=== PATIENT | female | born 1940 | race Caucasian/White ===

== ENCOUNTER 2019-10-08 08:31 | Observation (INO) | payer BC, OTHER ==
[2019-10-08] MEDS ORDERED: METHYLPREDNISOLONE 125 MG INJ ONE (09:00)
[2019-10-08] MEDS ORDERED: predniSONE 20 MG TAB ONE (09:00)
[2019-10-08] MEDS ORDERED: NA CHLORIDE 0.9% 500 ML ONE (09:00)
[2019-10-08] MEDS ORDERED: IPRATROPIUM BROM 0.5MG/2.5ML ONE (09:00)
[2019-10-08] MEDS ORDERED: NA CHLORIDE 0.9% 1,000 ML ONE (09:00)
[2019-10-08] MEDS ORDERED: LEVALBUTEROL 1.25 MG/3 ML NEB ONE ×2 (09:01→09:45)
--- NOTE | 2019-10-08 09:13 | RAD REPORT ---
EXAM DESCRIPTION: RAD - Chest Single View - 10/08/2019 8:58 am CLINICAL HISTORY: COPD;Cough COMPARISON: Chest Pa And Lat (2 Views) dated 06/30/2019; Chest Pa And Lat (2 Views) dated 10/03/2018 TECHNIQUE: AP portable chest image was obtained 10/08/2019 8:58 am . FINDINGS: Lungs are fibrotic with prominent bolus emphysema changes present in each upper lung field . Pattern is not substantially different. Minimal edema or infiltrate can be masked by the chronic in terstitial pattern. Pulmonary arteries are enlarged. No new mediastinal or hilar finding identifiable . Heart and vasculature are normal. No measurable pleural effusion and no pneumothorax. No acute bony abnormality seen. No acute aortic findings suspected. 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 No acute finding from prior study.
[2019-10-08] MEDS ORDERED: CEFTRIAXONE/SWI 1gm 1 GM/10 ML SYR ONE (09:23)
[2019-10-08] MEDS ORDERED: FAMOTIDINE 20 MG/2 ML VIAL IV ONE (09:23)
[2019-10-08 09:24] LABS: Absolute Lymphocytes (CBC) 1.1 K/uL (0.7-4.9); Basophils % 0.4 % (0-1.3); Hematocrit 46.4 % (36.0-45.0); Lymphocytes % 24.1 % (15.3-44.8); MPV 8.3 fL (7.6-11.3); RBC Red Blood Cell Count 4.94 M/uL (3.86-4.86)
[2019-10-08 09:25] LABS: Protime INR 2.27
--- NOTE | 2019-10-08 09:43 | ER ---
Nurse's Notes [facility] Name: Shazia Colin Age: 79 yrs Sex: Female : 1940 Arrival Date: 10/08/2019 Time: 08:33 Bed 6 Private MD: Cruzito Gibson Diagnosis: Dyspnea;Chronic obstructive pulmonary disease with (acute) exacerbation;Influenza due to identified novel influenza A virus Presentation: 10/08 08:44 Presenting complaint: Patient states: Cough and shortness of breath x 1 week. Pt ss reports she began taking Levaquin 4 days ago as prescribed by her PCP. Patient came in today however because she was concerned she may have a blood clot to her L lower leg as she has been having worsening shannon to her lateral aspect of her L lower leg. Denies fever. Transition of care: patient was not received from another setting of care. Resp Distress? No respiratory distress is noted at this time. Onset of symptoms was October 01, 2019. Risk Assessment: Do you want to hurt yourself or someone else? Patient reports no desire to harm self or others. Initial Sepsis Screen: Does the patient meet any 2 criteria? HR > 90 bpm. Does the patient have a suspected source of infection? Yes: Productive cough/pneumonia. Care prior to arrival: None. 08:44 Acuity: MALLY 3 ss 08:44 Method Of Arrival: Ambulatory ss Historical: - Allergies: 08:57 Jennifer; ss 08:57 Bactrim; ss 08:57 Codeine; ss 08:57 Fluconazole; ss 08:57 Hydrocodone-Acetaminophen; ss 08:57 Sulfa (Sulfonamide Antibiotics); ss 08:57 Tetanus Vaccines \T\ Toxoid; ss 08:57 tramadol; ss 08:57 TussiCaps; ss - Home Meds: 08:57 Xarelto 20 mg oral tab 1 tab once daily [Active]; pramipexole 0.75 mg oral tab 1 tab ss nightly [Active]; temazepam 30 mg Oral cap 1 cap nightly [Active]; Symbicort 80-4.5 mcg/actuation inhalation HFAA 2 puffs 2 times per day [Active]; Ocuvite oral oral [Active]; Nexium 20 mg Oral cpDR 1 cap 2 times per day [Active]; Mucinex 600 mg oral Ta12 1 tab every 12 hours [Active]; Claritin 10 mg Oral tab 1 tab once daily [Active]; albuterol sulfate 2.5 mg /3 mL (0.083 %) Nebulizer nebu [Active]; levofloxacin 500 mg Oral tab 1 tab once daily [Active]; - PMHx: 08:57 Anxiety; DVT; PE; ss - PSHx: 08:57 bilateral hip replacements; Cholecystectomy; dental implants; ss - Immunization history:: Adult Immunizations up to date. - Coronavirus screen:: The patient has NOT traveled to [place], [place], or [place] in the past 14 days. Proceed with normal triage process as indicated. - Family history:: not pertinent. - Social history:: Smoking status: Patient denies any tobacco usage or history of. - Ebola Screening: : Patient denies exposure to infectious person Patient denies travel to an Ebola-affected area in the 21 days before illness onset. Screenin:20 Abuse screen: Denies threats or abuse. Nutritional screening: No deficits noted. aa5 Tuberculosis screening: No symptoms or risk factors identified. Fall Risk IV access (20 points). Total Han Fall Scale indicates No Risk (0-24 pts). Assessment: 09:00 General: Appears uncomfortable, Behavior is calm, cooperative. Pain: Complains of pain aa5 in medial aspect of left calf and lateral aspect of left calf Pain does not radiate. Pain currently is 0 out of 10 on a pain scale. Quality of pain is described as sharp, Is intermittent. Neuro: Level of Consciousness is awake, alert, obeys commands, Oriented to person, place, time, situation. Cardiovascular: Heart tones S1 S2 present Patient's skin is warm and dry. Edema is absent. Rhythm is regular. Respiratory: Reports shortness of breath at rest cough that is productive, Airway is patent Respiratory effort is even, unlabored, Respiratory pattern is regular, symmetrical, Breath sounds are diminished bilaterally. GI: Abdomen is flat, non-distended, Bowel sounds present X 4 quads. Abd is soft and non tender X 4 quads. : No signs and/or symptoms were reported regarding the genitourinary system. EENT: Reports nasal congestion. Derm: Skin is pink, warm \T\ dry. Musculoskeletal: Range of motion: intact in all extremities. 09:17 Reassessment: US at bedside . aa5 09:33 Reassessment: Patient is alert, oriented x 3, equal unlabored respirations, skin aa5 warm/dry/pink. Pt reports SOB has improved. US remains at bedside. . 09:39 General: Appears uncomfortable. Neuro: Level of Consciousness is awake, alert, obeys aa5 commands, Oriented to person, place, time, situation. Respiratory: Airway is patent Respiratory effort is labored, Respiratory pattern is tachypnea Breath sounds with wheezes bilaterally. Derm: Skin is pink, warm \T\ dry. 09:39 Reassessment: Dr. Dickson at bedside . aa5 10:05 Reassessment: Urine collected and urine culture sent to lab . aa5 10:10 Reassessment: Pt appears more comfortable than previous assessment, respirations are aa5 less labored, pt reports SOB has improved. Wheezing diminished. . 10:30 Reassessment: Pt assisted with bedside commode, increased work of breathing noted upon aa5 getting up from the bed. Pt now back in bed, sitting up. Pt's family at bedside . 11:00 Reassessment: Patient is alert, oriented x 3, equal unlabored respirations, skin aa5 warm/dry/pink. Patient states feeling better. Patient states symptoms have improved. Pt sitting up in bed. . 12:00 Reassessment: Patient is alert, oriented x 3, equal unlabored respirations, skin aa5 warm/dry/pink. Pt sitting up in bed eating lunch. . 13:00 Reassessment: Patient is alert, oriented x 3, equal unlabored respirations, skin aa5 warm/dry/pink. Vital Signs: 08:57 BP 179 / 100; Pulse 97; Resp 25; Temp 98.3(TE); Pulse Ox 97% on R/A; Weight 52.16 kg; ss Height 5 ft. 2 in. (157.48 cm); Pain 0/10; 09:39 BP 172 / 76; Pulse 96; Resp 32 S; Pulse Ox 97% on 2 lpm NC; aa5 10:10 BP 157 / 72; Pulse 107; Resp 24 S; Pulse Ox 99% on 2 lpm NC; aa5 11:00 BP 159 / 72; Pulse 100; Resp 22 S; Temp 98.2(O); Pulse Ox 98% on 2 lpm NC; aa5 12:00 BP 142 / 85; Pulse 101; Resp 22 S; Pulse Ox 98% on 2 lpm NC; aa5 13:00 BP 165 / 83; Pulse 103; Resp 24 S; Temp 98.3(O); Pulse Ox 98% on 2 lpm NC; aa5 08:57 Body Mass Index 21.03 (52.16 kg, 157.48 cm) ED Course: 08:33 Patient arrived in ED. mr 08:33 Garcia Dickson MD is Attending Physician. kamala 08:34 Cruzito Gibson MD is Private Physician. mr 08:50 Triage completed. ss 08:54 Casa Tovar, THOMAS is Primary Nurse. em 08:57 XRAY Chest (1 view) In Process Unspecified. EDMS 08:57 Arm band placed on right wrist. ss 09:00 Patient has correct armband on for positive identification. Bed in low position. Call aa5 light in reach. Side rails up X2. monitoring tech on. Pulse ox on. NIBP on. 09:00 Inserted saline lock: 20 gauge in right antecubital area, using aseptic technique. aa5 Blood collected. 09:00 First set of blood cultures drawn by me. aa5 09:15 Second set of blood cultures drawn by lab staff. aa5 09:18 Ultrasound completed. Patient tolerated well. sg3 09:40 US Extremity Venous W Compression Evin In Process Unspecified. EDMS 09:41 Conner Branch MD is Hospitalizing Provider. kamala 13:05 No provider procedures requiring assistance completed. Patient admitted, IV remains in aa5 place. Administered Medications: 09:02 Drug: Xopenex 2.5 mg Route: Inhalation; aa5 09:02 Drug: AtroVENT Aerosol 0.5 mg Route: Inhalation; aa5 09:04 Drug: SOLU-Medrol 125 mg Route: IVP; Site: right antecubital; aa5 09:45 Follow up: Response: No adverse reaction aa5 09:04 Drug: NS 0.9% 500 ml Route: IV; Rate: bolus; Site: right antecubital; aa5 09:45 Follow up: IV Status: Completed infusion; IV Intake: 500ml aa5 09:04 Drug: NS 0.9% 1000 ml Route: IV; Rate: 125 ml/hr; Site: right antecubital; aa5 13:05 Follow up: IV Status: Infusion continued upon admission aa5 09:10 Drug: predniSONE 20 mg Route: PO; aa5 09:45 Follow up: Response: No adverse reaction aa5 09:28 Drug: Pepcid 20 mg Route: IVP; Site: right antecubital; aa5 :45 Follow up: Response: No adverse reaction aa5 :45 Drug: Rocephin 1 grams Route: IV; Rate: per protocol; Site: right antecubital; aa5 09:47 Follow up: Response: No adverse reaction; IV Status: Completed infusion aa5 :45 Drug: Tamiflu 75 mg Route: PO; aa5 10:10 Follow up: Response: No adverse reaction aa5 :45 Drug: Xopenex 2.5 mg Route: Inhalation; aa5 10:10 Follow up: Response: Marked relief of symptoms; Wheezing diminished aa5 Intake: :45 IV: 500ml; Total: 500ml. aa5 Outcome: 09:42 Decision to Hospitalize by Provider. [facility] 13:05 Admitted to Tele accompanied by tech, family with patient, via stretcher, with oxygen, aa5 with chart, Report called to THOMAS Clemente 13:05 Condition: stable 13:05 Discharge instructions given to patient, Instructed on the need for admit, Demonstrated understanding of instructions. 13:15 Patient left the ED. aa5 Signatures: Dispatcher [employer] Garcia Rangel MD MD cha Rivera, Jodi Casa Tovar, RN Falguni Rocha RN RN aaBarbara Wiggins RN RN ss Godinez, Sarah sg3 Corrections: (The following items were deleted from the chart) 09:14 09:00 Inserted saline lock: 20 gauge 24 gauge antecubital area, using aseptic aa5 technique. Blood collected. aa5 09:32 09:00 Respiratory: Reports shortness of breath at rest cough that is productive, Airway aa5 is patent Respiratory effort is even, unlabored, Respiratory pattern is regular, symmetrical, aa5 10:19 10:10 Reassessment: Pt appears more comfortable than previous assessment, respirations aa5 are less labored. . aa5 10:21 10:10 Reassessment: Pt appears more comfortable than previous assessment, respirations aa5 are less labored, pt reports SOB has improved. . aa5 13:15 09:00 Respiratory: Reports shortness of breath at rest cough that is productive, Airway aa5 is patent Respiratory effort is even, unlabored, Respiratory pattern is regular, symmetrical, Breath sounds are clear bilaterally. aa5
--- NOTE | 2019-10-08 09:44 | EDPHYS ---
Physician Documentation [facility] Name: Shazia Colin Age: 79 yrs Sex: Female : 1940 Arrival Date: 10/08/2019 Time: 08:33 Bed 6 Private MD: Cruzito Gibson ED Physician Garcia Dickson HPI: 10/08 08:49 This 79 yrs old Female presents to ER via Unassigned with complaints of kamala Possible Blood clot, Cough, Congestion. 08:49 The patient or guardian reports airway noise, cough, difficulty breathing. kamala 08:50 Onset: The symptoms/episode began/occurred 5 day(s) ago. Severity of symptoms: At their kamala worst the symptoms were mild, in the emergency department the symptoms are unchanged. Modifying factors: The symptoms are alleviated by nothing, the symptoms are aggravated by nothing. Associated signs and symptoms: The patient has no apparent associated signs or symptoms. The patient has not experienced similar symptoms in the past. Historical: - Allergies: 08:57 Jennifer; ss 08:57 Bactrim; ss 08:57 Codeine; ss 08:57 Fluconazole; ss 08:57 Hydrocodone-Acetaminophen; ss 08:57 Sulfa (Sulfonamide Antibiotics); ss 08:57 Tetanus Vaccines \T\ Toxoid; ss 08:57 tramadol; ss 08:57 TussiCaps; ss - Home Meds: 08:57 Xarelto 20 mg oral tab 1 tab once daily [Active]; pramipexole 0.75 mg oral tab 1 tab ss nightly [Active]; temazepam 30 mg Oral cap 1 cap nightly [Active]; Symbicort 80-4.5 mcg/actuation inhalation HFAA 2 puffs 2 times per day [Active]; Ocuvite oral oral [Active]; Nexium 20 mg Oral cpDR 1 cap 2 times per day [Active]; Mucinex 600 mg oral Ta12 1 tab every 12 hours [Active]; Claritin 10 mg Oral tab 1 tab once daily [Active]; albuterol sulfate 2.5 mg /3 mL (0.083 %) Nebulizer nebu [Active]; levofloxacin 500 mg Oral tab 1 tab once daily [Active]; - PMHx: 08:57 Anxiety; DVT; PE; ss - PSHx: 08:57 bilateral hip replacements; Cholecystectomy; dental implants; ss - Immunization history:: Adult Immunizations up to date. - Coronavirus screen:: The patient has NOT traveled to [place], [place], or [place] in the past 14 days. Proceed with normal triage process as indicated. - Family history:: not pertinent. - Social history:: Smoking status: Patient denies any tobacco usage or history of. - Ebola Screening: : Patient denies exposure to infectious person Patient denies travel to an Ebola-affected area in the 21 days before illness onset. ROS: 08:50 Constitutional: Negative for fever, chills, and weight loss, Eyes: Negative for injury, kamala pain, redness, and discharge, ENT: Negative for injury, pain, and discharge, Neck: Negative for injury, pain, and swelling, Cardiovascular: Negative for chest pain, palpitations, and edema, Abdomen/GI: Negative for abdominal pain, nausea, vomiting, diarrhea, and constipation, Back: Negative for injury and pain, : Negative for injury, bleeding, discharge, and swelling, Skin: Negative for injury, rash, and discoloration, Neuro: Negative for headache, weakness, numbness, tingling, and seizure, Psych: Negative for depression, anxiety, suicide ideation, homicidal ideation, and hallucinations, Allergy/Immunology: Negative for hives, rash, and allergies, Endocrine: Negative for neck swelling, polydipsia, polyuria, polyphagia, and marked weight changes, Hematologic/Lymphatic: Negative for swollen nodes, abnormal bleeding, and unusual bruising. 08:50 Respiratory: Positive for cough, shortness of breath, at rest. 08:50 MS/extremity: Positive for pain, tenderness, of the lateral aspect of left calf. Exam: 08:50 Musculoskeletal/extremity: Extremities: pain, ROM: full active range of motion, full kamala passive range of motion, Circulation is intact in all extremities. Sensation intact. Compartment Syndrome exam of affected extremity: is normal. DVT Exam: no swelling, no tenderness, negative Homans' sign noted on exam, no appreciated bluish discoloration, no erythema, no increased warmth, pain. 09:40 Constitutional: This is a well developed, well nourished patient who is awake, alert, kamala and in no acute distress. Head/Face: Normocephalic, atraumatic. Eyes: Pupils equal round and reactive to light, extra-ocular motions intact. Lids and lashes normal. Conjunctiva and sclera are non-icteric and not injected. Cornea within normal limits. Periorbital areas with no swelling, redness, or edema. ENT: Nares patent. No nasal discharge, no septal abnormalities noted. Tympanic membranes are normal and external auditory canals are clear. Oropharynx with no redness, swelling, or masses, exudates, or evidence of obstruction, uvula midline. Mucous membranes moist. Neck: Trachea midline, no thyromegaly or masses palpated, and no cervical lymphadenopathy. Supple, full range of motion without nuchal rigidity, or vertebral point tenderness. No Meningismus. Chest/axilla: Normal chest wall appearance and motion. Nontender with no deformity. No lesions are appreciated. Cardiovascular: Regular rate and rhythm with a normal S1 and S2. No gallops, murmurs, or rubs. Normal PMI, no JVD. No pulse deficits. Abdomen/GI: Soft, non-tender, with normal bowel sounds. No distension or tympany. No guarding or rebound. No evidence of tenderness throughout. Back: No spinal tenderness. No costovertebral tenderness. Full range of motion. Female : Normal external genitalia. Skin: Warm, dry with normal turgor. Normal color with no rashes, no lesions, and no evidence of cellulitis. Neuro: Awake and alert, GCS 15, oriented to person, place, time, and situation. Cranial nerves II-XII grossly intact. Motor strength 5/5 in all extremities. Sensory grossly intact. Cerebellar exam normal. Normal gait. Psych: Awake, alert, with orientation to person, place and time. Behavior, mood, and affect are within normal limits. 09:40 Respiratory: mild respiratory distress is noted, Respirations: labored breathing, that is mild, Breath sounds: decreased breath sounds, rhonchi, wheezing: inspiratory expiratory Respiratory rate: 26 Vital Signs: 08:57 BP 179 / 100; Pulse 97; Resp 25; Temp 98.3(TE); Pulse Ox 97% on R/A; Weight 52.16 kg; ss Height 5 ft. 2 in. (157.48 cm); Pain 0/10; 09:39 BP 172 / 76; Pulse 96; Resp 32 S; Pulse Ox 97% on 2 lpm NC; aa5 10:10 BP 157 / 72; Pulse 107; Resp 24 S; Pulse Ox 99% on 2 lpm NC; aa5 11:00 BP 159 / 72; Pulse 100; Resp 22 S; Temp 98.2(O); Pulse Ox 98% on 2 lpm NC; aa5 12:00 BP 142 / 85; Pulse 101; Resp 22 S; Pulse Ox 98% on 2 lpm NC; aa5 13:00 BP 165 / 83; Pulse 103; Resp 24 S; Temp 98.3(O); Pulse Ox 98% on 2 lpm NC; aa5 08:57 Body Mass Index 21.03 (52.16 kg, 157.48 cm) ss MDM: 08:35 Patient medically screened. [facility] 08:54 Data reviewed: vital signs, nurses notes, lab test result(s), EKG, radiologic studies, kamala doppler, plain films. 10/08 08:47 Order name: Basic Metabolic Panel; Complete Time: 09:52 [facility] 10/08 08:47 Order name: CBC with Diff; Complete Time: 09:28 [facility] 10/08 08:47 Order name: LFT's; Complete Time: 09:52 [facility] 10/08 08:47 Order name: Magnesium; Complete Time: 09:52 [facility] 10/08 08:47 Order name: NT PRO-BNP; Complete Time: 09:52 [facility] 10/08 08:47 Order name: PT-INR; Complete Time: 09:28 [facility] 10/08 08:47 Order name: Troponin (emerg Dept Use Only); Complete Time: 09:52 [facility] 10/08 08:47 Order name: Blood Culture Adult (2) [facility] 10/08 08:47 Order name: Procalcitonin; Complete Time: 10:43 [facility] 10/08 08:47 Order name: Urine Culture [facility] 10/08 08:47 Order name: Influenza Screen (a \T\ B); Complete Time: 09:38 [facility] 10/08 08:49 Order name: Lactate; Complete Time: 09:38 [facility] 10/08 11:48 Order name: Troponin I EDIA 10/08 11:48 Order name: Troponin I EDMS 10/08 08:47 Order name: XRAY Chest (1 view); Complete Time: 09:28 [facility] 10/08 08:47 Order name: EKG; Complete Time: 08:48 [facility] 10/08 08:47 Order name: US Extremity Venous W Compression Evin; Complete Time: 10:43 [facility] 10/08 11:48 Order name: CONS Pharmacy Consult EDIA 10/08 11:48 Order name: Troponin I [facility]IA 10/08 11:48 Order name: Troponin I [facility] 10/08 08:47 Order name: Cardiac monitoring; Complete Time: 09:13 [facility] 10/08 08:47 Order name: EKG - Nurse/Tech; Complete Time: 09:18 [facility] 10/08 08:47 Order name: IV Saline Lock; Complete Time: 09:13 [facility] 10/08 08:47 Order name: Labs collected and sent; Complete Time: 09:13 [facility] 10/08 08:47 Order name: O2 Per Protocol; Complete Time: 09:13 [facility] 10/08 08:47 Order name: O2 Sat Monitoring; Complete Time: 09:13 [facility] 10/08 08:47 Order name: Urine Dipstick-Ancillary (obtain specimen); Complete Time: 10:14 [facility] 10/08 11:48 Order name: Heart Healthy EDIA Administered Medications: 09:02 Drug: Xopenex 2.5 mg Route: Inhalation; 09:02 Drug: AtroVENT Aerosol 0.5 mg Route: Inhalation; 09:04 Drug: SOLU-Medrol 125 mg Route: IVP; Site: right antecubital; aa5 09:45 Follow up: Response: No adverse reaction 09:04 Drug: NS 0.9% 500 ml Route: IV; Rate: bolus; Site: right antecubital; aa5 09:45 Follow up: IV Status: Completed infusion; IV Intake: 500ml 09:04 Drug: NS 0.9% 1000 ml Route: IV; Rate: 125 ml/hr; Site: right antecubital; aa5 13:05 Follow up: IV Status: Infusion continued upon admission aa5 09:10 Drug: predniSONE 20 mg Route: PO; aa5 09:45 Follow up: Response: No adverse reaction aa5 09:28 Drug: Pepcid 20 mg Route: IVP; Site: right antecubital; aa5 09:45 Follow up: Response: No adverse reaction aa5 09:45 Drug: Rocephin 1 grams Route: IV; Rate: per protocol; Site: right antecubital; aa5 09:47 Follow up: Response: No adverse reaction; IV Status: Completed infusion aa5 09:45 Drug: Tamiflu 75 mg Route: PO; aa5 10:10 Follow up: Response: No adverse reaction aa5 09:45 Drug: Xopenex 2.5 mg Route: Inhalation; aa5 10:10 Follow up: Response: Marked relief of symptoms; Wheezing diminished aa5 Disposition: 10/08/19 09:42 Hospitalization ordered by Conner Branch for Inpatient Admission. Preliminary diagnosis are Dyspnea, Chronic obstructive pulmonary disease with (acute) exacerbation, Influenza due to identified novel influenza A virus. - Bed requested for Telemetry/MedSurg (Inpatient). - Status is Inpatient Admission. aa5 - Condition is Fair. - Problem is new. - Symptoms have improved. UTI on Admission? No Signatures: Dispatcher [employer] EDMS Garcia Dickson MD MD cha Calderon, Audri, RN RN aa5 Barbara Salgado RN RN ss Corrections: (The following items were deleted from the chart) 09:40 08:50 Constitutional: This is a well developed, well nourished patient who is awake, kamala alert, and in no acute distress. Head/Face: Normocephalic, atraumatic. Eyes: Pupils equal round and reactive to light, extra-ocular motions intact. Lids and lashes normal. Conjunctiva and sclera are non-icteric and not injected. Cornea within normal limits. Periorbital areas with no swelling, redness, or edema. ENT: Nares patent. No nasal discharge, no septal abnormalities noted. Tympanic membranes are normal and external auditory canals are clear. Oropharynx with no redness, swelling, or masses, exudates, or evidence of obstruction, uvula midline. Mucous membranes moist. Neck: Trachea midline, no thyromegaly or masses palpated, and no cervical lymphadenopathy. Supple, full range of motion without nuchal rigidity, or vertebral point tenderness. No Meningismus. Chest/axilla: Normal chest wall appearance and motion. Nontender with no deformity. No lesions are appreciated. Cardiovascular: Regular rate and rhythm with a normal S1 and S2. No gallops, murmurs, or rubs. Normal PMI, no JVD. No pulse deficits. Respiratory: Lungs have equal breath sounds bilaterally, clear to auscultation and percussion. No rales, rhonchi or wheezes noted. No increased work of breathing, no retractions or nasal flaring. Abdomen/GI: Soft, non-tender, with normal bowel sounds. No distension or tympany. No guarding or rebound. No evidence of tenderness throughout. Back: No spinal tenderness. No costovertebral tenderness. Full range of motion. Skin: Warm, dry with normal turgor. Normal color with no rashes, no lesions, and no evidence of cellulitis. MS/ Extremity: Pulses equal, no cyanosis. Neurovascular intact. Full, normal range of motion. Neuro: Awake and alert, GCS 15, oriented to person, place, time, and situation. Cranial nerves II-XII grossly intact. Motor strength 5/5 in all extremities. Sensory grossly intact. Cerebellar exam normal. Normal gait. Psych: Awake, alert, with orientation to person, place and time. Behavior, mood, and affect are within normal limits. [facility] 12:47 09:42 Hospitalization Ordered by Conner Branch MD for Inpatient Admission. Preliminary ss diagnosis is Dyspnea; Chronic obstructive pulmonary disease with (acute) exacerbation; Influenza due to identified novel influenza A virus. Bed requested for Telemetry/MedSurg (Inpatient). Status is Inpatient Admission. Condition is Fair. Problem is new. Symptoms have improved. UTI on Admission? No. [facility] 13:15 12:47 10/08/2019 09:42 Hospitalization Ordered by Conner Branch MD for Inpatient aa5 Admission. Preliminary diagnosis is Dyspnea; Chronic obstructive pulmonary disease with (acute) exacerbation; Influenza due to identified novel influenza A virus. Bed requested for Telemetry/MedSurg (Inpatient). Status is Inpatient Admission. Condition is Fair. Problem is new. Symptoms have improved. UTI on Admission? No. ss
[2019-10-08] MEDS ORDERED: OSELTAMIVIR 75 MG CAP ONE (09:45)
[2019-10-08 09:48] LABS: ALT/SGPT 21 U/L (12-78); AST/SGOT 25 U/L (15-37); Albumin 3.5 g/dL (3.4-5.0); Alkaline Phosphatase 103 U/L (45-117); BUN Blood Urea Nitrogen 14 mg/dL (7-18); Bicarbonate 29 mmol/L (21-32); Bilirubin Direct 0.2 mg/dL (0-0.2); Bilirubin Total 0.5 mg/dL (0.2-1.0); Glucose Level 112 mg/dL (74-106); Magnesium 1.9 mg/dL (1.8-2.4); NT PRO-BNP 309 pg/mL (<450); Potassium 4.1 mmol/L (3.5-5.1); Protein, Total 7.1 g/dL (6.4-8.2); Sodium Level 141 mmol/L (136-145); Troponin (Emerg Dept Use Only) < 0.02 ng/mL (0.0-0.045)
--- NOTE | 2019-10-08 10:36 | RAD REPORT ---
EXAM DESCRIPTION: US - Extrem Venous W Compress Evin - 10/08/2019 9:40 am CLINICAL HISTORY: Leg pain and swelling, pain worse on the left COMPARISON: None. TECHNIQUE: Real-time sonographic evaluation of the bilateral lower extremity common femoral, superfi cial femoral, popliteal and posterior tibial veins was performed. FINDINGS: Normal compressibility, flow augmentation, phasic flow and spontaneous flow are identified in the left and right lower extremity common femoral, superficial femoral, popliteal and posterior t ibial veins. No intraluminal filling defects seen. IMPRESSION: No DVT in either lower extremity.
[2019-10-08] MEDS ORDERED: ONDANSETRON 4 MG/2 ML VIAL IV PRN (11:45)
[2019-10-08] MEDS ORDERED: MORPHINE 2 MG/ML SYR IV PRN (11:45)
[2019-10-08] MEDS ORDERED: ALBUTEROL 2.5 MG/3 ML NEB SOL NEB SCH (12:00)
[2019-10-08] MEDS: NA CHLORIDE 0.9% 1,000 ML IV SCH ×3 (12:00→22:00)
[2019-10-08] MEDS: IPRATROPIUM BROM 0.5MG/2.5ML NEB SCH ×3 (13:35→19:35)
[2019-10-08 13:41] VITALS: BMI 22.4
[2019-10-08] MEDS ORDERED: ALBUTEROL 2.5 MG/3 ML NEB SOL NEB PRN ×2 (14:11→15:00)
[2019-10-08] MEDS ORDERED: HYDRALAZINE HCL 20 MG/ML VIAL IV PRN (14:11)
[2019-10-08] MEDS ORDERED: ACETAMINOPHEN 500 MG TAB PO PRN (14:46)
[2019-10-08] MEDS: METHYLPREDNISOLONE 125 MG INJ IV SCH ×2 (14:59→18:09)
[2019-10-08] MEDS ORDERED: TEMAZEPAM 15 MG CAP PO SCH (21:00)
[2019-10-08] MEDS ORDERED: PRAMIPEXOLE 0.25 MG TAB PO SCH (21:00)
[2019-10-08] MEDS: GUAIFENESIN 600 MG SA TAB PO SCH (21:08)
[2019-10-08] MEDS: OSELTAMIVIR 75 MG CAP PO SCH (21:08)
[2019-10-09] MEDS: METHYLPREDNISOLONE 125 MG INJ IV SCH ×2 (00:48→05:06)
--- NOTE | 2019-10-09 00:53 | HP ---
Date of Admission: 10/08/2019 Presenting Complaint: Shortness of breath and chest congestion. History Of Present Illness: Ms. 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 She denies any cough contacts. She denies any fevers or chills. She admits to exertional dyspnea. She denies any body swelling. She feels fullness in the head, but no headache. On present ation, she was noted with wheezing and started on DuoNebs with improvement in her symptoms. Her flu swab was positive for influenza A. patient admitted to history of Symbicort use, but unsure if she h as had known COPD. Past Medical History: COPD, history of DVT, chronic anticoagulation, anxiety disorder. Home Medications: Xarelto 20 daily, pramipexole 0.75 daily, temazepam at bedtime, Symbicort 2 puffs b.i.d., Ocuvite, Mucinex, Nexium, Claritin, as well as albuterol p.r.n. Past Surgical History: Bilateral hip replacement, cholecystectomy, as well as dental implant. Family History: Noncontributory in this 79-year-old. Social History: Patient resides in the community. She lives with her spouse who is 90. He is curre ntly not sick, but had significant exposure to her in the last couple of days. She denies any tobacc o, alcohol, or illicit drug use. She denies any recent travel. Review of Systems: All system review and negative, except as mentioned above. Physical Examination: Vital Signs: On presentation, blood pressure was 179/100. Current vitals; blood pressure of 159/86, pulse of 83, respiratory rate of 20, temp 98.3, O2 saturation 97 on room air. General: Thin built, elderly female, in mild respiratory distress, on nasal cannula O2. HEENT: Head is atraumatic, normocephalic. Pupils equal, round, and reactive to light. Dry oral muc esteban. No rhinorrhea or discharge. Neck: No JVD. No carotid bruit. Respiratory: Good air entry with transmitted sounds on the right base. No wheeze or increased echo- phoning. Cardiovascular: S1, S2. Rate and rhythm regular. Not tachycardic. GI: Abdomen full, soft. Bowel sounds positive. Extremities: No pedal edema. No calf tenderness. Neuro: Patient is alert and oriented. Cranial nerves 2 through 12 grossly intact. Laboratory Data: Influenza A positive. Negative influenza B. WBC 4.5, hemoglobin 15. INR 2.2, PT 25, potassium 4.1, creatinine 0.7, magnesium 1.9. ProBNP of 309. Procalcitonin less than 0.05. [address] x-ray shows mild COPD with bullous emphysema in the upper lung quinonez. No acute infiltrate. Urin alysis pending. Impression: 1.Influenza A bronchitis. 2.Chronic obstructive pulmonary disease exacerbation. 3.Anxiety disorder. Plan: We will admit patient and we will manage patient for the following in inpatient status. 1.COPD exacerbation. We will do IV steroids, DuoNeb q.4. We will start patient on empirical antibi otics with Rocephin. We will do gentle IV fluid hydration despite mildly elevated proBNP. We will f ollow. Continue to monitor O2 level. 2.Influenza A. We will start patient on Tamiflu and need for prophylaxis for close contact discusse d. 3.DVT prophylaxis. Patient on Xarelto. Continue Xarelto. 4.Advanced directive discussed with patient. She was initially hesitant, but later agreeable to a t rial of full code. Total time spent in review of record, discussion with patient, and evaluation was greater than 60 min utes. EO/MODL Voice ID: [id number]
[2019-10-09] MEDS: IPRATROPIUM BROM 0.5MG/2.5ML NEB SCH ×2 (04:45)
[2019-10-09] MEDS ORDERED: IPRATROPIUM BROM 0.5MG/2.5ML ONE (04:46)
[2019-10-09 05:56] LABS: ALT/SGPT 19 U/L (12-78); AST/SGOT 16 U/L (15-37); Alkaline Phosphatase 93 U/L (45-117); BUN Blood Urea Nitrogen 12 mg/dL (7-18); Bicarbonate 28 mmol/L (21-32); Bilirubin Total 0.3 mg/dL (0.2-1.0); Glucose Level 172 mg/dL (74-106); Protein, Total 6.1 g/dL (6.4-8.2); Sodium Level 144 mmol/L (136-145); Troponin I < 0.02 ng/mL (0.0-0.045)
[2019-10-09 06:53] LABS: Absolute Lymphocytes (CBC) 0.4 K/uL (0.7-4.9); Hematocrit 41.4 % (36.0-45.0); Lymphocytes % 17.7 % (15.3-44.8); MPV 8.5 fL (7.6-11.3); RBC Red Blood Cell Count 4.44 M/uL (3.86-4.86)
[2019-10-09] MEDS ORDERED: IPRATROPIUM BROM 0.5MG/2.5ML NEB PRN (07:26)
[2019-10-09 07:52] LABS: Urine White Blood Cell Casts OK
[2019-10-09 07:53] LABS: Blood Morphology Comment NOT SEEN (NOT SEEN); Platelet Estimate ADEQ
--- NOTE | 2019-10-09 08:26 | EKG ---
Test Date: 2019-10-08 Test Time: 09:42:30 Geological Aide: SHARONDA MEASUREMENT RESULTS: Intervals: Rate: 94 SD: 138 QRSD: 86 QT: 358 QTc: 447 [place]: P: 91 SD: 138 QRS: 89 T: 85 INTERPRETIVE STATEMENTS: Normal sinus rhythm Possible Left atrial enlargement Septal infarct, age undetermined Abnormal ECG Compared to ECG 10/01/2016 06:40:49 Myocardial infarct finding now present Electronically Signed On 10-09-19 08:25:11 JALOUSIE INSTALLER by Landon Carter
[2019-10-09 08:48] VITALS: BP 153/72; TEMP 98
[2019-10-09] MEDS: GUAIFENESIN 600 MG SA TAB PO SCH (08:56)
[2019-10-09] MEDS ORDERED: RIVAROXABAN 20 MG TABLET PO SCH (09:00)
[2019-10-09] MEDS ORDERED: predniSONE 10 MG TAB PO SCH (09:00)
[2019-10-09] MEDS ORDERED: HOME MED 1 EA UNK (Budesonide/Formoterol Fumarate [Symbicort 80-4.5 Mcg Inhaler] 2 PUFF) IH SCH (09:00)
[2019-10-09] MEDS ORDERED: OCUVITE (VIT A,C & E/LUTEIN/MINERAL) TABLET PO SCH (09:00)
[2019-10-09] MEDS ORDERED: CALCIUM CARB 500MG/VIT D 200 IU TAB PO SCH (09:00)
[2019-10-09] MEDS ORDERED: PANTOPRAZOLE 40MG TABLET PO SCH (09:00)
[2019-10-09] MEDS: OSELTAMIVIR 75 MG CAP PO SCH (09:04)
--- NOTE | 2019-10-09 09:34 | P.DS ---
Admission Date: 10/08/19 Discharge Date: 10/09/19 Primary Care Provider: Dr. Gibson Disposition: ROUTINE DISCHARGE Discharge Condition: GOOD Reason for Admission: SOB Consultations: none Procedures: CXR: FINDINGS: Lungs are fibrotic with prominent bolus emphysema changes present in each upper lung field. Pattern is not substantially different. Minimal edema or infiltrate can be masked by the chronic interstitial pattern. Pulmonary arteries are enlarged. No new mediastinal or hilar finding identifiable. Heart and vasculature are normal. No measurable pleural effusion and no pneumothorax. No acute bony abnormality seen. No acute aortic findings suspected. 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 No acute finding from prior study. Medical Problem List: Shortness of breath secondary to COPD exacerbation with Influenza A Hx of DVT on chronic anticoagulation GERD Anxiety Brief History of Present Illness: 79 yo CF presented with shortness of breath and cough. She was evaluated in the ER. She was positive for Influenza A. She was also found to have COPD exacerbation. Patient had seen her PCP recently when she was given antibiotic medication. Hospital Course: Patient presented with shortness of breath and cough. Patient was recently seen by her PCP and given Levaquin for infection. Patient was seen and evaluated in the ER. She is found to have COPD exacerbation with influenza A positive. Patient was treated during the course of her stay. Her condition has improved. She is without significant chest pain, shortness of breath. At discharge she will continue with Tamiflu 75 mg 1 pill twice daily for the next 4 days. Influenza precautions and education will be provided. Patient will also continue with COPD treatment including prednisone 10 mg 1 pill twice daily for 5 days then 1 pill once daily for 5 days. She will continue with her COPD medication-Symbicort 2 puffs twice daily and albuterol 2 puffs 3 times a day as needed for shortness of breath. Patient will finish off her antibiotic treatment of Levaquin. Recommend follow up with her PCP in 1 week to follow up this hospitalization. Patient with history of DVT on chronic anti coagulation therapy. She will continue with Xarelto 20 mg daily. Patient with history of GERD. She will continue with Nexium 20 mg 1 pill twice daily. Patient with history of anxiety. Patient will continue with her current medications. Vital Signs/Physical Exam: Temp Pulse Resp BP Pulse Ox 98 F 92 H 18 153/72 H 95 10/09/19 08:00 10/09/19 08:00 10/09/19 08:00 10/09/19 08:00 10/09/19 08:00 General: Alert, In no apparent distress, Oriented x3, Cooperative HEENT: Atraumatic Neck: Supple Respiratory: Clear to auscultation bilaterally, Normal air movement Cardiovascular: Normal pulses, Regular rate/rhythm Gastrointestinal: Normal bowel sounds, Soft and benign, Non-distended, No tenderness, No masses, No rebound, No guarding Musculoskeletal: No erythema, No tenderness, No warmth Integumentary: No tenderness/swelling, No erythema, No warmth, No cyanosis Neurological: Normal speech, Normal strength at 5/5 x4 extr, Normal tone, Normal affect Laboratory Data at Discharge: WBC 2.5 K/uL (4.3-10.9) L D 10/09/19 05:02 Hgb 13.7 g/dL (12.0-15.0) 10/09/19 05:02 Hct 41.4 % (36.0-45.0) 10/09/19 05:02 Plt Count 182 K/uL (152-406) 10/09/19 05:02 PT 25.9 SECONDS (9.5-12.5) H 10/08/19 09:00 INR 2.27 10/08/19 09:00 Sodium 144 mmol/L (136-145) 10/09/19 05:02 Potassium 4.0 mmol/L (3.5-5.1) 10/09/19 05:02 BUN 12 mg/dL (7-18) 10/09/19 05:02 Creatinine 0.71 mg/dL (0.55-1.3) 10/09/19 05:02 Glucose 172 mg/dL (74-106) H 10/09/19 05:02 Magnesium 1.9 mg/dL (1.8-2.4) 10/08/19 09:00 Total Bilirubin 0.3 mg/dL (0.2-1.0) 10/09/19 05:02 AST 16 U/L (15-37) 10/09/19 05:02 ALT 19 U/L (12-78) 10/09/19 05:02 Alkaline Phosphatase 93 U/L (45-117) 10/09/19 05:02 Troponin I < 0.02 ng/mL (0.0-0.045) 10/09/19 05:02 Home Medications: Calcium Carbonate/Vitamin D3 [Calcium 600 + Vit D Tablet] 1 each PO DAILY Rivaroxaban [Xarelto*] 20 mg PO DAILY 04/13/13 Esomeprazole Magnesium [Nexium] 20 mg PO BID 09/30/16 Albuterol Sulfate [Proventil] 2.5 mg IH Q6HP PRN 10/08/19 Albuterol Sulfate [Ventolin Hfa] 2 puff IH Q4H PRN 10/08/19 Budesonide/Formoterol Fumarate [Symbicort 80-4.5 Mcg Inhaler] 2 puff IH BID 10/26 Dextromethorphan HBr [Robitussin] 2 cap PO DAILY PRN 10/08/19 Guaifenesin [Mucinex] 1 tab PO DAILY 10/08/19 Levofloxacin [Levaquin] 1 tab PO DAILY 10/08/19 Loratadine [Claritin*] 1 tab PO DAILY 10/08/19 Pramipexole Di-HCl [Mirapex] 1 tab PO BEDTIME 10/08/19 Temazepam [Restoril] 1 tab PO BEDTIME 10/08/19 Vit A,C & E/Lutein/Minerals [Ocuvite Tablet] 1 tab PO DAILY 10/08/19 Oseltamivir [Tamiflu*] 75 mg PO BID #8 cap 10/09/19 predniSONE [Deltasone*] 10 mg PO SEECOM #15 tab 10/09/19 New Medications: Oseltamivir [Tamiflu*] 75 mg PO BID #8 cap predniSONE [Deltasone*] 10 mg PO SEECOM #15 tab Patient Discharge Instructions: 1. Recommend follow up with her PCP in 1 week to follow up this hospitalization. 2. Patient presented with shortness of breath and cough. Patient was recently seen by her PCP and given Levaquin for infection. Patient was seen and evaluated in the ER. She is found to have COPD exacerbation with influenza A positive. Patient was treated during the course of her stay. Her condition has improved. She is without significant chest pain, shortness of breath. At discharge she will continue with Tamiflu 75 mg 1 pill twice daily for the next 4 days. Influenza precautions and education will be provided. Patient will also continue with COPD treatment including prednisone 10 mg 1 pill twice daily for 5 days then 1 pill once daily for 5 days. She will continue with her COPD medication-Symbicort 2 puffs twice daily and albuterol 2 puffs 3 times a day as needed for shortness of breath. Patient will finish off her antibiotic treatment of Levaquin. Recommend follow up with her PCP in 1 week to follow up this hospitalization. 3. Patient with history of DVT on chronic anti coagulation therapy. She will continue with Xarelto 20 mg daily. 4. Patient with history of GERD. She will continue with Nexium 20 mg 1 pill twice daily. 5. Patient with history of anxiety. Patient will continue with her current medications. Diet: AHA Activity: Ad jennifer Time spent managing pt's care (in minutes): 55
[2019-10-09 11:03] VITALS: O2SAT 96
[2019-10-09] MEDS ORDERED: TEMAZEPAM PO SCH (21:00)
[2019-10-09] MEDS ORDERED: PRAMIPEXOLE DI HCL PO SCH (21:00)
[2019-10-09] MEDS ORDERED: Budesonide/Formoterol Fumarate (Symbicort) 80-4.5 Mcg Inhaler IH SCH (21:00)
== END 2019-10-09 10:42 | disposition home or self-care (01) ==
LOC: ER 08:31 → ERHOLD 11:46 → INTOOBSV 11:46 → 2ND 13:15
PROVIDERS: ADMIT Internal Medicine; ATTEND Internal Medicine
DX: J44.1 Chronic obstructive pulmonary disease with (acute) exacerbation (principal); J11.1 Influenza due to unidentified influenza virus with other respiratory manifestations; F41.9 Anxiety disorder, unspecified; Z86.718 Personal history of other venous thrombosis and embolism; Z79.01 Long term (current) use of anticoagulants
CPT/HCPCS: 96361; 93005; 87040 ×2; 87088; 85025 ×2; 87086; 80048; 36415; 83735; 85610; 82947; 80076; 83605; 84484 ×2; 80053; 84145; 83880; 87804 ×2; 71045; 93970; 94640 ×4; 96375; 96374; 99285; J0360; J0696; J7040; J7030 ×2; J2930 ×5; G0378 ×3; J7512

== ENCOUNTER 2022-09-05 17:50 | Observation (INO) | payer MEDICARE ==
--- OUTSIDE RECORDS SUMMARY | 2022-09-05 17:53 | XMS REPORT | Continuity of Care Document ---
:1940 Author Organization [facility] t Address [address] [place] [address] Care Team Providers Name Role Phone Norma Attending Clinician Unavailable Marivel GUZMAN, Marina Attending Clinician Unavailable Andrés LEVI, Ángela Langford Attending Clinician Jade Whittington MA Attending Clinician Unavailable Cruzito Gibson Attending Clinician Norma Admitting Clinician Unavailable Payers Payer Name Policy Type Policy Number Effective Date Expiration Date [facility] [id number] (MEDICARE 00:00:00 REPLACEMENT HMO) Problems Condition Condition Condition Status Onset Resolution Last Treating Co mments Source Name Details Category Date Date Treatment Clinician Date R60.9 - R60.9 - Diagnosis Active 2019-05-16 Memoria EDEMA, EDEMA, 04-28 12:10:00 l UNSPECIFIE UNSPECIFIE 00:01: Pako Jj Active 00 04/28/2019 CORINA OPID [place] [facility] PAD Disease Active [facility] (periphera (periphera st l artery l artery Hospit a disease) disease) l COPD COPD Disease Active [facility] (chronic (chronic st obstructiv obstructiv Ho spita e e l pulmonary pulmonary disease) disease) Allergies, Adverse Reactions, Alerts Allergy Allergy Status Severity Reaction(s) Onset Inactive Treating Comm ents Source Name Type Date Date Clinician Codeine Propensi Active Other (See Nausea Met hodi ty to Comments) 2-11 st adverse 00:00: Hospita reaction 00 l s to drug Hydrocod Propensi Active Itching Metho di one ty to 2-11 st adverse 00:00: Hospita reaction 00 l s to drug Pentoxif Propensi Active GI Method i ylline ty to Intolerance 10-17 st adverse 00:00: Hospita reaction 00 l s to drug Tetanus Propensi Active Swelling Metho di And ty to 10-17 st Diphther adverse 00:00: Hospita . Tox reaction 00 l (Pf) s to drug Tramadol Propensi Active Itching Nausea Metho di ty to 10-[address] adverse 00:00: itching Hospita reaction 00 l s to drug Sulfamet Propensi Active Itching Metho di hoxazole ty to 10-17 st -Trimeth adverse 00:00: Hospita oprim reaction 00 l s to drug tetanus tetanus Active [facility] toxoid toxoid l [place] Jennifer Jennifer Active [facility] [place] Bactrim Bactrim Active [facility] [place] Family History Family Member Diagnosis Comments Start Date Stop Date Source Natural brother Heart disease [facility] Natural father Heart disease [facility] Natural mother [facility] Natural sister Heart disease [facility] Social History Social Habit Start Date Stop Date Quantity Comments Source History of Current smoker [facility] use [facility] History [facility] Drinks History [facility] Tobacco use and 2021-10-20 2021-10-20 Smokeless tobacco [facility] 00:00:00 00:00:00 non-user Hospital Alcohol intake 2021-10-20 2021-10-20 Lifetime [facility] 00:00:00 00:00:00 non-drinker Hospital (finding) History [facility] 2021-10-20 2021-10-20 1 [facility] Alcohol Frequency 00:00:00 00:00:00 Hospita l Sex Ass[birth year] At [birth year] [facility] 00:00:00 00:00:00 Hospital Smoking Status Start Date Stop Date Source Ex-smoker 2021-10-20 00:00:00 2021-10-20 [facility]:00:[facility] Medications Ordered Filled Start Stop Current Ordering Indication Dosage Frequency Signature Comments Components Source Medication Medication Date Date Medication? Clinician (SIG) Name Name rivaroxaban Yes 20mg QD Take 20 mg [facility] (XARELTO) 2-[address] 20 mg 14:22: daily. Hospita tablet 04 l furosemide 0 Yes 20mg Q.5D Take 20 mg [facility] (LASIX) 20 2-[address] mg tablet 14:22: (two) Hospita 04 times a l day. pramipexole Yes .75mg [id number] Take 0.75 [facility] (Mirapex) 2-[id number] 0.75 MG 14:22: 3D mouth 3 Hospita tablet 04 (three) l times a day. esomeprazol Yes 20mg QD Take 20 mg [facility] (NexIUM) 2-[address] 20 MG 14:22: daily Hospita capsule 04 before l breakfast. albuterol Yes Inhale. Metho di sulfate 2-14 st (VENTOLIN 14:22: Hospita HFA INHL) 04 l Vital Signs Vital Name Observation Time Observation Value Comments Source Systolic blood 2021-10-20 20:20:00 177 mm[Hg] [facility] pressure Diastolic blood 2021-10-20 20:20:00 88 mm[Hg] [facility] pressure Heart rate 2021-10-20 20:20:00 57 /min [facility] Body temperature 2021-10-20 20:20:00 36.67 Jayshree [facility] Body height 2021-10-20 20:20:00 165.1 cm [facility] Body weight 2021-10-20 20:20:00 53.524 kg [facility] BMI 2021-10-20 20:20:00 19.64 kg/m2 [facility] Oxygen saturation in 2021-10-20 20:20:00 97 /min [facility] Arterial blood by Pulse oximetry Procedures This patient has no known procedures. Plan of Care Planned Activity Planned Date Details Comments Source Future Scheduled 2022-08-19 COVID-19 VACCINE (#1) [facility] Test 16:42:00 [code = COVID-19 VACCINE (#1)] Future Scheduled 2022-08-19 65+ PNEUMOCOCCAL [facility] Test 16:42:00 VACCINE (1 - PCV) [code = 65+ PNEUMOCOCCAL VACCINE (1 - PCV)] Future Scheduled 2022-08-19 SHINGLES VACCINES (1 [facility] Test 16:42:00 of 2) [code = SHINGLES VACCINES (1 of 2)] Future Scheduled 2022-08-19 INFLUENZA VACCINE [facility] Test 16:42:00 [code = INFLUENZA VACCINE] Encounters Start End Encounter Admission Attending Care Care Encounter Source Date/Time Date/Time Type Type Clinicians Facility Department ID 2022-03-20 2022-03-20 [place] [id number] [facility] 08:24:00 08:24:00 0715 [facility] 2021-11-10 2021-11-10 Travel 1.2.840.1 [id number] [facility] 00:00:00 00:00:[address] 3.430.2.7 0.2.7.3.698 Ho spita .3.290859 084.8 l .8 2021-11-04 2021-11-04 Telephone Marivel, 1.2.840.1 [id number] [facility] 00:00:00 00:00:[address] 3.430.2.7 Hospit a .3.211498 l .8 2021-10-20 2021-10-20 Office Ángela Avelar 1.2.840.1 [id number] [facility] 14:00:00 15:17:32 Visit Primitivo [address]1389.1.[address] 3.430.2.7 Hospit a .3.747687 l .8 2021-10-20 2021-10-20 Travel 1.2.840.1 1.2.192.089 [id number] [facility] 00:00:00 00:00:[address] 3.430.2.7 0.2.7.3.698 Ho spita .3.808544 084.8 l .8 2021-10-20 2021-10-20 Outpatient ÁNGELA AVELAR [facility] [id number] [place] 00:00:00 00:00:[address] 2021-10-17 2021-10-17 Abstract Nelsy, 1.2.840.1 [id number] [facility] 00:00:00 00:00:00 Jade Jj 80629.1.1 147 s t 3.430.2.7 Hospit a .3.292186 l .8 2021-10-02 2021-10-02 Travel 1.2.840.1 1.2.783.460 [id number] [facility] 00:00:00 00:00:[address] 3.430.2.7 0.2.7.3.698 Ho spita .3.294436 084.8 l .8 2021-09-25 2021-09-25 Ángela De Leon 1.2.840.1 [id number] [facility] 00:00:00 00:00:[address] 3.430.2.7 Hospit a .3.273744 l .8 2021-06-02 2021-06-02 Outpatient Adams_R DMG DMG [id number] [facility] 11:38:00 11:38:00 0927 Medica l [facility] 2019-07-17 2019-07-18 Outpt Diag nullFlavo [facility] [id number] Memoria 14:30:00 05:59:00 Services r Outpatient 01 l [facility] 2019-07-17 2019-07-17 Outpatient Arthur, MHOIP MHOIP [id number] 08:30:00 23:59:00 Cruzito 2019-05-16 2019-05-17 Outpt Diag nullFlavo [facility] [id number] Memoria 17:01:00 04:59:00 Services r Outpatient 00 l Imaging [facility] 2019-05-16 2019-05-16 Outpatient Arthur, MHOIP MHOIP [id number] 12:01:00 23:59:00 Cruzito Results This patient has no known results.
[2022-09-05] MEDS ORDERED: MAGNESIUM SULFATE 1 gm IVPB 1 GM/100 ML BAG IV ONE (18:31)
[2022-09-05] MEDS ORDERED: METHYLPREDNISOLONE 125 MG INJ ONE (18:31)
[2022-09-05] MEDS ORDERED: LEVALBUTEROL 1.25 MG/3 ML NEB ONE ×2 (18:31→19:50)
--- NOTE | 2022-09-05 18:53 | RAD REPORT ---
EXAM DESCRIPTION: RAD - Chest Single View - 09/05/2022 6:46 pm CLINICAL HISTORY: COVID COMPARISON: Chest Single View dated 10/08/2019; Chest Pa And Lat (2 Views) dated 06/30/2019; Chest Pa And Lat (2 Views) dated 10/03/2018; Chest Single View dated 10/01/2016 FINDINGS: Lines: None. Lungs: Nonspecific coarsening of the interstitial markings. Background of emphysema. No consolidation or edema. Pleural: No significant pleural effusions or pneumothorax. Cardiac: The heart size is within normal limits. Mediastinum: Within normal limits. Bones: No acute fractures. Other: None IMPRESSION: Mild coarsening of the interstitial markings could reflect mild infection inflammation. No consolidative pneumonia or edema identified. Background of emphysema.
[2022-09-05 19:05] LABS: Protime INR 1.34
[2022-09-05 19:11] LABS: Albumin 3.5 g/dL (3.4-5.0); Bilirubin Direct 0.2 mg/dL (0-0.2); Bilirubin Total 0.4 mg/dL (0.2-1.0); Magnesium 1.9 mg/dL (1.6-2.4); Potassium 3.8 mmol/L (3.5-5.1)
[2022-09-05 19:19] LABS: Lymphocytes % 28.4 % (15.3-44.8); MCV 91.7 fL (80-100); MPV 8.5 fL (7.6-11.3); RBC Red Blood Cell Count 4.69 M/uL (3.86-4.86)
--- NOTE | 2022-09-05 19:43 | RAD REPORT ---
EXAM DESCRIPTION: CT - Chest For Pe Angio - 09/05/2022 7:29 pm CLINICAL HISTORY: COVID +, hx of PE COMPARISON: Chest For Pe Angio dated 10/01/2016 TECHNIQUE: Dynamically enhanced axial 3 mm thick images of the chest were obtained during administra tion of <100> mL Isovue 370 IV contrast. Coronal and oblique reconstruction images were generated and reviewed. Exam utilizes a protocol for optimal evaluation of pulmonary arterial tree. Maximum intensity projections 3D imaging was utilized All CT scans are performed using dose optimization technique as appropriate and may include automated exposure control or mA/KV adjustment according to patient size. FINDINGS: Chest Wall: No suspicious thyroid nodules or pathologic lymphadenopathy. Lungs: Advanced centrilobular and paraseptal emphysema. No suspicious pulmonary nodules identified. N o evidence of either edema or pneumonia. Pleura: No significant effusions or pneumothorax. Mediastinum/susy: No pathologic lymphadenopathy. Pulmonary arteries/Aorta: No filling defect identified. No aortic aneurysm. Heart: No significant pericardial effusion. Normal heart size. Multi-vessel coronary artery disease. Upper abdomen: Cholecystectomy. Right upper pole renal cyst. IVC filter. Bones: No acute abnormality. Multilevel degenerative changes are present in the spine. IMPRESSION: Negative for pulmonary embolism. Advanced emphysema. No alternate process identified.
[2022-09-05] MEDS ORDERED: CEFTRIAXONE 1000 MG/VIAL ONE (19:49)
[2022-09-05] MEDS ORDERED: NA CHLORIDE 0.9% 250 ML ONE (19:50)
[2022-09-05] MEDS ORDERED: FAMOTIDINE 20 MG/2 ML VIAL IV ONE (19:50)
[2022-09-05] MEDS ORDERED: IPRATROPIUM BROM 0.5MG/2.5ML ONE (19:50)
[2022-09-05] MEDS ORDERED: AZITHROMYCIN 500 MG INJ IVPB ONE (19:50)
[2022-09-05] MEDS ORDERED: NA CHLORIDE 0.9% 1,000 ML ONE (19:51)
--- NOTE | 2022-09-05 20:07 | EDPHYS ---
Physician Documentation [facility] Name: Shazia Colin Age: 82 yrs Sex: Female : 1940 Arrival Date: 09/05/2022 Time: 17:51 Bed 6 Private MD: Cruzito Gibson ED Physician Garcia Dickson HPI: 09/05 18:02 This 82 yrs old Female presents to ER via Wheelchair with complaints of Breathing rn Difficulty, Covid+. 18:02 The patient has shortness of breath at rest, with light activity. Onset: The rn symptoms/episode began/occurred today. Duration: The symptoms are continuous. The patient's shortness of breath is aggravated by exertion, light activity, is alleviated by inhaler. Associated signs and symptoms: Pertinent positives: productive cough, Pertinent negatives: fever, hemoptysis. Severity of symptoms: At their worst the symptoms were moderate in the emergency department the symptoms are unchanged. The patient has experienced similar episodes in the past. The patient has not recently seen a physician. Historical: - Allergies: 18:01 Jennifer; jl7 18:01 Bactrim; jl7 18:01 Codeine; jl7 18:01 Fluconazole; jl7 18:01 Hydrocodone-Acetaminophen; jl7 18:01 Sulfa (Sulfonamide Antibiotics); jl7 18:01 Tetanus Vaccines \T\ Toxoid; jl7 18:01 tramadol; jl7 18:01 TussiCaps; jl7 - Home Meds: 18:01 albuterol sulfate 2.5 mg /3 mL (0.083 %) Inhl nebu [Active]; Xarelto 20 mg Oral tab 1 jl7 tab once daily [Active]; - PMHx: 18:01 Anxiety; DVT; PE; Chronic obstructive lung disease; jl7 - Immunization history:: Adult Immunizations unknown. - Family history:: not pertinent. - Social history:: Smoking status: Patient denies any tobacco usage or history of. - Hospitalizations: : No recent hospitalization is reported. ROS: 18:02 Constitutional: Negative for fever, chills, and weight loss, Eyes: Negative for injury, rn pain, redness, and discharge, ENT: + congestion Cardiovascular: Negative for chest pain, palpitations, and edema, Respiratory: Negative for pleuritic chest pain, + cough and sob Abdomen/GI: Negative for abdominal pain, nausea, vomiting, diarrhea, and constipation, MS/Extremity: Negative for injury and deformity, Skin: Negative for injury, rash, and discoloration, Neuro: Negative for headache, numbness, tingling, and seizure. Exam: 18:02 Constitutional: This is a well developed, well nourished patient who is awake, alert, rn moderate tachypnea Head/Face: Normocephalic, atraumatic. ENT: no stridor Cardiovascular: Regular rate and rhythm. No pulse deficits. Respiratory: + moderate tachypnea, no retractions, + wheezing Abdomen/GI: Soft, non-tender Skin: Warm, dry MS/ Extremity: Pulses equal, no cyanosis. Neuro: Awake and alert, GCS 15 20:33 ECG was reviewed by the Attending Physician. [facility] Vital Signs: 17:59 BP 168 / 82; Pulse 91; Resp 35 S; Temp 98.6(TE); Pulse Ox 90% on R/A; Weight 53.98 kg jl7 (R); Height 5 ft. 2 in. (157.48 cm); Pain 0/10; 18:58 BP 134 / 58; Pulse 80; Resp 22; Pulse Ox 100% on Nebulizer Mask; ph 21:00 BP 133 / 72; Pulse 94; Resp 22; Pulse Ox 92% on R/A; jb4 22:00 BP 135 / 60; Pulse 92; Resp 26; Pulse Ox 94% on 2 lpm NC; jb4 17:59 Body Mass Index 21.77 (53.98 kg, 157.48 cm) jl7 22:00 Pt noted to desat to 88% on RA jb4 MDM: 17:55 Patient medically screened. rn 20:07 Differential diagnosis: Anemia CHF exacerbation, Chronic Obstructive Pulmonary Disease kamala Myocardial Infarction pneumonia, pulmonary edema, Pulmonary Embolism reactive airway disease. Antibiotic administration: Rocephin and Zithromax given. The patient's Wells Deep Vein Thrombosis Score was calculated as follows: Previous DVT/PE (1.5 Pts). The patient's pulmonary embolism risk score was calculated as follows: the patient has a history of a previous deep vein thrombosis or pulmonary embolism (1.5 Pts) Total Score: 0-2 points. This patient was found to be at low risk for a pulmonary embolism by using the Well's assessment criteria. Immunization status: Pneumococcal vaccine: Influenza vaccine: Data reviewed: vital signs, nurses notes, lab test result(s), EKG, radiologic studies, CT scan, plain films. Data interpreted: laboratory monitor: rate is 80 beats/min, rhythm is regular, Pulse oximetry: on room air is 90 %. Test interpretation: by ED physician or midlevel provider: ECG, plain radiologic studies. Counseling: I had a detailed discussion with the patient and/or guardian regarding: the historical points, exam findings, and any diagnostic results supporting the discharge/admit diagnosis, lab results, radiology results, the need for further work-up and treatment in the hospital. 09/05 18:01 Order name: BMP; Complete Time: 19:13 09/05 18:01 Order name: Blood Culture Adult (2) rn 09/05 18:01 Order name: CBC with Diff; Complete Time: 20:04 09/05 18:01 Order name: Hepatic Function; Complete Time: 19:13 09/05 18:01 Order name: Magnesium; Complete Time: 19:13 09/05 18:01 Order name: NT PRO-BNP; Complete Time: 19:13 09/05 18:01 Order name: PT-INR; Complete Time: 19:13 31 18:01 Order name: Ptt, Activated; Complete Time: 19:13 09/05 18:01 Order name: Troponin HS; Complete Time: 19:13 31 18:01 Order name: XRAY CXR (1 view); Complete Time: 18:58 31 18:01 Order name: COVID-19/FLU A+B; Complete Time: 20:41 31 18:02 Order name: CT Chest For PE Angio; Complete Time: 20:04 1231 18:10 Order name: Lactate w/ 2H reflex if indic.; Complete Time: 19:13 1231 18:01 Order name: EKG; Complete Time: 18:02 rn 09/05 18:01 Order name: Cardiac monitoring; Complete Time: 18:02 / 18:01 Order name: EKG - Nurse/Tech; Complete Time: 19:15 12/31 18:01 Order name: IV Saline Lock; Complete Time: 18:36 rn 12 18:01 Order name: Labs collected and sent; Complete Time: 18:36 rn 1231 18:01 Order name: O2 Per Protocol; Complete Time: 18:02 rn 09/05 18:01 Order name: O2 Sat Monitoring; Complete Time: 18: rn EC:33 Rate is 80 beats/min. Rhythm is regular. QRS [place] is Normal. [place] interval is normal. QRS kamala interval is normal. No Q waves. T waves are Normal. No ST changes noted. Clinical impression: Normal ECG and No evidence of ischemia. Interpreted by me. Reviewed by me. Administered Medications: 18:42 Drug: SOLU-Medrol (methylPrednisoLONE) 125 mg Route: IVP; Site: left antecubital; ph 18:57 Follow up: Response: No adverse reaction ph 18:42 Drug: Xopenex (levalbuterol) (3) 1.25 mg Route: Inhalation; ph 18:57 Follow up: Response: No adverse reaction ph 18:57 Drug: Magnesium Sulfate 1 grams Route: IVPB; Infused Over: 1 hrs; Site: left antecubital; 20:01 Drug: NS 0.9% 500 ml Route: IV; Rate: bolus; Site: left antecubital; jb4 20:08 Drug: Pepcid (famotidine) 20 mg Route: IVP; Site: left antecubital; jb4 20:08 Drug: Xopenex (levalbuterol) 1.25 mg Route: Inhalation; jb4 20:08 Drug: AtroVENT (ipratropium) Aerosol 0.5 mg Route: Inhalation; jb4 20:45 Drug: NS 0.9% 1000 ml Route: IV; Rate: 125 ml/hr; Site: left antecubital; jb4 21:53 Drug: Rocephin (cefTRIAXone) 1 grams Route: IV; Rate: per protocol; Site: left jb4 antecubital; 21:53 Drug: Zithromax (azithromycin) 500 mg Route: IVPB; Infused Over: 1 hrs; Site: left jb4 antecubital; Disposition Summary: 09/05/22 20:06 Hospitalization Ordered Hospitalization Status: Observation kamala Provider: Delmar Roth cha Location: Telemetry/MedSurg (observation) kamala Condition: Fair kamala Problem: new kamala Symptoms: have improved kamala Bed/Room Type: Standard kamala Room Assignment: 417(09/05/22 20:59) mw Diagnosis - COPD/ Chronic obstructive pulmonary disease with (acute) exacerbation kamala - Hypoxemia kamala - Dyspnea kamala - Coronavirus infection, unspecified kamala - SARS-associated coronavirus as the cause of diseases classified elsewhere kamala Forms: - Medication Reconciliation Form kamala - SBAR form kamala Signatures: Dispatcher [employer] Tiana Bah RN RN mw Anderson, Corey, MD MD cha Nieto, Roman, MD MD rn Hall, Patricia, RN RN ph Bryson, James, RN RN jb4 Beverley Mesa RN RN jl7 Brown, Sophia, PA-C PA-C sb4 Corrections: (The following items were deleted from the chart) 20:59 20:06 kamala cardona
--- NOTE | 2022-09-05 20:07 | ER ---
Nurse's Notes [facility] Name: Shazia Colin Age: 82 yrs Sex: Female : 1940 Arrival Date: 09/05/2022 Time: 17:51 Bed 6 Private MD: Cruzito Gibson Diagnosis: COPD/ Chronic obstructive pulmonary disease with (acute) exacerbation;Hypoxemia;Dyspnea;Coronavirus infection, unspecified;SARS-associated coronavirus as the cause of diseases classified elsewhere Presentation: 09/05 17:59 Chief complaint: Patient states: Difficulty breathing after coughing x 1 hour. Covid + jl7 test at home today. Coronavirus screen: Vaccine status: Patient reports receiving the 2nd dose of the covid vaccine. cough unrelated to allergies, difficulty breathing, Client presents with at least one sign or symptom that may indicate coronavirus-19. Ebola Screen: No symptoms or risks identified at this time. Initial Sepsis Screen: Does the patient meet any 2 criteria? No. Patient's initial sepsis screen is negative. Does the patient have a suspected source of infection? No. Patient's initial sepsis screen is negative. Risk Assessment: Do you want to hurt yourself or someone else? Patient reports no desire to harm self or others. Onset of symptoms was September 05, 2022 at 17:00. 17:59 Method Of Arrival: Wheelchair [facility] 17:59 Acuity: MALLY 3 jl7 Triage Assessment: 18:42 Respiratory: the patient has moderate shortness of breath. ph Historical: - Allergies: 18:01 Jennifer; jl7 18:01 Bactrim; jl7 18:01 Codeine; jl7 18:01 Fluconazole; jl7 18:01 Hydrocodone-Acetaminophen; jl7 18:01 Sulfa (Sulfonamide Antibiotics); jl7 18:01 Tetanus Vaccines \T\ Toxoid; jl7 18:01 tramadol; jl7 18:01 TussiCaps; jl7 - Home Meds: 18:01 albuterol sulfate 2.5 mg /3 mL (0.083 %) Inhl nebu [Active]; Xarelto 20 mg Oral tab 1 jl7 tab once daily [Active]; - PMHx: 18:01 Anxiety; DVT; PE; Chronic obstructive lung disease; jl7 - Immunization history:: Adult Immunizations unknown. - Family history:: not pertinent. - Social history:: Smoking status: Patient denies any tobacco usage or history of. - Hospitalizations: : No recent hospitalization is reported. Screenin:41 [facility] ED Fall Risk Assessment (Adult) History of falling in the last 3 months, ph including since admission No falls in past 3 months (0 pts) Confusion or Disorientation No (0 pts) Intoxicated or Sedated No (0 pts) Impaired Gait No (0 pts) Mobility Assist Device Used No (0 pt) Altered Elimination No (0 pt) Score/Fall Risk Level 0 - 2 = Low Risk Oriented to surroundings, Maintained a safe environment. Abuse screen: Denies threats or abuse. Denies injuries from another. Nutritional screening: No deficits noted. Tuberculosis screening: No symptoms or risk factors identified. Assessment: 18:37 General: Appears in no apparent distress. comfortable, well groomed, Behavior is calm, ph cooperative, appropriate for age. Pain: Denies pain. Neuro: Level of Consciousness is awake, alert, obeys commands, Oriented to person, place, time, situation. Cardiovascular: Capillary refill < 3 seconds in bilateral fingers Patient's skin is warm and dry. Respiratory: Reports shortness of breath cough that is Airway is patent Respiratory effort is even, unlabored, Respiratory pattern is regular, symmetrical. GI: No signs and/or symptoms were reported involving the gastrointestinal system. Patient currently denies diarrhea, nausea, vomiting. Derm: Skin is healthy with good turgor, Skin is pink, warm \T\ dry. Musculoskeletal: Circulation, motion, and sensation intact. Range of motion: intact in all extremities. 19:00 Reassessment: Patient appears in no apparent distress at this time. Patient and/or jb4 family updated on plan of care and expected duration. Pain level reassessed. Pt is sitting in bed with family at the bedside. Respirations remain, even, labored, and tachypneic. 20:00 Reassessment: Patient appears in no apparent distress at this time. No changes from jb4 previously documented assessment. Patient and/or family updated on plan of care and expected duration. Pain level reassessed. 21:00 Reassessment: Patient appears in no apparent distress at this time. No changes from jb4 previously documented assessment. Patient and/or family updated on plan of care and expected duration. Pain level reassessed. 22:00 Reassessment: Patient appears in no apparent distress at this time. No changes from jb4 previously documented assessment. Patient and/or family updated on plan of care and expected duration. Pain level reassessed. Vital Signs: 17:59 BP 168 / 82; Pulse 91; Resp 35 S; Temp 98.6(TE); Pulse Ox 90% on R/A; Weight 53.98 kg jl7 (R); Height 5 ft. 2 in. (157.48 cm); Pain 0/10; 18:58 BP 134 / 58; Pulse 80; Resp 22; Pulse Ox 100% on Nebulizer Mask; ph 21:00 BP 133 / 72; Pulse 94; Resp 22; Pulse Ox 92% on R/A; jb4 22:00 BP 135 / 60; Pulse 92; Resp 26; Pulse Ox 94% on 2 lpm NC; jb4 17:59 Body Mass Index 21.77 (53.98 kg, 157.48 cm) jl7 22:00 Pt noted to desat to 88% on RA jb4 ED Course: 17:51 Patient arrived in ED. rg4 17:52 Cruzito Gibson MD is Private Physician. rg4 17:55 Chang Britton MD is Attending Physician. rn 18:01 Triage completed. jl7 18:01 Patient has correct armband on for positive identification. Placed in gown. Bed in low zm position. Call light in reach. Side rails up X2. Adult w/ patient. applied researcher on. Pulse ox on. NIBP on. 18:07 Irena Muñiz, RN is Primary Nurse. ph 18:40 Lactate w/ 2H reflex if indic. Sent. bc6 18:40 BMP Sent. bc6 18:40 CBC with Diff Sent. bc6 18:40 Initial lab(s) drawn, by me, First set of blood cultures drawn by me. bc6 18:41 Arm band placed on Patient placed in an exam room. ph 18:41 Troponin HS Sent. bc6 18:41 Ptt, Activated Sent. bc6 18:41 PT-INR Sent. bc6 18:41 NT PRO-BNP Sent. bc6 18:41 Magnesium Sent. bc6 18:41 Hepatic Function Sent. bc6 18:41 Missed attempt(s): 20 gauge. bc6 18:42 Inserted saline lock: 20 gauge in left antecubital area, using aseptic technique. bc6 18:48 XRAY CXR (1 view) In Process Unspecified. EDMS 19:09 Attending Physician role handed off by Chang Britton MD kamala 19:09 Garcia Dickson MD is Attending Physician. kamala 19:15 COVID-19/FLU A+B Sent. bc6 19:15 EKG done, by ED staff, COVID swab sent to lab. bc6 19:31 CT Chest For PE Angio In Process Unspecified. EDMS 20:06 Delmar Roth MD is Hospitalizing Provider. kamala 22:00 No provider procedures requiring assistance completed. Patient admitted, IV remains in jb4 place. Administered Medications: 18:42 Drug: SOLU-Medrol (methylPrednisoLONE) 125 mg Route: IVP; Site: left antecubital; ph 18:57 Follow up: Response: No adverse reaction ph 18:42 Drug: Xopenex (levalbuterol) (3) 1.25 mg Route: Inhalation; ph 18:57 Follow up: Response: No adverse reaction ph 18:57 Drug: Magnesium Sulfate 1 grams Route: IVPB; Infused Over: 1 hrs; Site: left ph antecubital; 20:01 Drug: NS 0.9% 500 ml Route: IV; Rate: bolus; Site: left antecubital; jb4 20:08 Drug: Pepcid (famotidine) 20 mg Route: IVP; Site: left antecubital; jb4 20:08 Drug: Xopenex (levalbuterol) 1.25 mg Route: Inhalation; jb4 20:08 Drug: AtroVENT (ipratropium) Aerosol 0.5 mg Route: Inhalation; jb4 20:45 Drug: NS 0.9% 1000 ml Route: IV; Rate: 125 ml/hr; Site: left antecubital; jb4 21:53 Drug: Rocephin (cefTRIAXone) 1 grams Route: IV; Rate: per protocol; Site: left jb4 antecubital; 21:53 Drug: Zithromax (azithromycin) 500 mg Route: IVPB; Infused Over: 1 hrs; Site: left jb4 antecubital; Medication: 18:42 VIS not applicable for this client. ph Outcome: 20:06 Decision to Hospitalize by Provider. kamala 22:30 Admitted to Tele accompanied by nurse, via stretcher, room 417, with oxygen, with jb4 chart, Report called to THOMAS Aburto 22:30 Condition: stable 22:30 Discharge instructions given to patient, family, Instructed on the need for admit, Demonstrated understanding of instructions. 22:47 Patient left the ED. jb4 Signatures: Dispatcher [employer] EDGarcia Petty MD MD cha Nieto, Roman, MD MD rn Hall, Patricia, RN RN ph Garcia, Brea rg4 Ceasar Chow RN RN jb4 Beverley Mesa RN RN jl7 Linda Abreu Breana 6
[2022-09-05 20:37] LABS: SARS-COV-2 RT PCR POSITIVE (NEGATIVE)
--- NOTE | 2022-09-05 20:45 | P.HP ---
Certification for Inpatient Patient admitted to: Inpatient With expected LOS: <2 Midnights Patient will require the following post-hospital care: None Practitioner: I am a practitioner with admitting privileges, knowledge of patient current condition, hospital course, and medical plan of care. Services: Services provided to patient in accordance with Admission requirements found in Title 42 Section 412.3 of the Code of Federal Regulations Patient History Date of Service: 09/06/22 Primary Care Provider: Arthur Reason for admission: COVID, Hypoxia History of Present Illness: Patient is an 82-year-old female with past medical history of COPD and DVT/PE who presented to the emergency department with complaints of shortness of breath and cough. Patient reports that she had a home positive COVID test today and has been experiencing shortness of breath secondary to coughing fits. initial respiratory rate was 35 and was saturating 90% on room air. No significant lab abnormalities. Chest CTA "Negative for pulmonary embolism. Advanced emphysema. No alternate process identified." She was given Solu-Medrol, 2 breathing treatments, magnesium, 1.5L fluid, Rocephin, and Zithromax in the emergency department. She reports improvement in symptoms and is saturating 94% on 2 L during my exam. Patient admitted for further management. Allergies codeine Allergy (Verified 10/08/19 13:58) Itching fexofenadine [From Jennifer] Allergy (Verified 10/08/19 13:58) Itching Tetanus Vaccines and Toxoid Allergy (Verified 10/08/19 13:58) Hives/Rash tramadol Allergy (Verified 10/08/19 13:58) Itching tetanus toxoid, adsorbed Adverse Reaction (Severe, Verified 09/11/12 07:42) ARM SWELLING hydrocodone [Hydrocodone] Adverse Reaction (Mild, Verified 09/11/12 07:42) ITCH sulfamethoxazole [From Bactrim] Adverse Reaction (Mild, Verified 09/11/12 07:42) ITCH trimethoprim [From Bactrim] Adverse Reaction (Mild, Verified 09/11/12 07:42) ITCH pentoxifylline Adverse Reaction (Verified 10/08/19 13:58) Nausea/Vomiting Hydrocodone-Acet Allergy (Intermediate, Uncoded 10/08/19 13:58) Itching flu Allergy (Uncoded 10/16/17 07:55) Unknown TussiCap Allergy (Uncoded 10/16/17 07:55) Unknown Home medications list reviewed: Yes Home Medications: Calcium Carbonate/Vitamin D3 [Calcium 600 + Vit D Tablet] 1 each PO BID 04/13/13 Rivaroxaban [Xarelto*] 20 mg PO DAILY 04/13/13 Esomeprazole Magnesium [Nexium] 20 mg PO DAILY 09/30/16 Loratadine [Claritin*] 1 tab PO DAILY PRN MDD 1 10/08/19 Pramipexole Di-HCl [Mirapex] 1 tab PO BEDTIME 10/08/19 Fluticasone/Umeclidin/Vilanter [Trelegy Ellipta 100-62.5-25] 1 puff IH DAILY 09/06/22 Furosemide 20 mg PO DAILY 09/06/22 - Past Medical/Surgical History Diabetic: No -: COPD -: PE -: Uterine Cancer -: Evin. Hip Replacements -: Hysterectomy -: Cholecystectomy -: IVC FILTER Psychosocial/ Personal History: Patient is . - Family History Mother Notes: none Father -: Heart disease - Social History Smoking Status: Former smoker Alcohol use: No CD- Drugs: No Caffeine use: Yes Place of Residence: Home Review of Systems ENT: Nose Congestion Respiratory: Cough, Shortness of Breath Physical Examination - Vital Signs Temperature: 97 F Blood Pressure: 130/62 Pulse: 95 Respirations: 19 Pulse Ox (%): 96 (2L NC) - Physical Exam General: Alert, In no apparent distress HEENT: Atraumatic, PERRLA, EOMI, Sclerae nonicteric Neck: Supple, 2+ carotid pulse no bruit Respiratory: Expiratory wheezes Cardiovascular: Regular rate/rhythm, Normal S1 S2 Gastrointestinal: Normal bowel sounds, No tenderness Musculoskeletal: No tenderness Integumentary: No rashes Neurological: Normal speech, Normal strength at 5/5 x4 extr, Normal tone, Normal affect - Studies Laboratory Data (last 24 hrs) 09/05/22 18:40: PT 14.7 H, INR 1.34, APTT 39.0 H 09/05/22 18:40: WBC 3.60 L, Hgb 14.9, Hct 43.0, Plt Count 193 09/05/22 18:40: Sodium 141, Potassium 3.8, BUN 18, Creatinine 0.75, Glucose 99, Magnesium 1.9, Total Bilirubin 0.4, AST 30, ALT 27, Alkaline Phosphatase 78 Assessment and Plan - Problems (Diagnosis) (1) Acute respiratory failure due to COVID-19 Current Visit: Yes Status: Acute (2) COPD (chronic obstructive pulmonary disease) Current Visit: Yes Status: Chronic Qualifiers: COPD type: emphysema Emphysema type: unspecified Qualified Code(s): J43.9 - Emphysema, unspecified (3) Sepsis Current Visit: Yes Status: Acute Qualifiers: Sepsis type: sepsis due to unspecified organism Sepsis acute organ dysfunction status: without acute organ dysfunction Qualified Code(s): A41.9 - Sepsis, unspecified organism - Plan Patient is admitted for further management of acute respiratory failure secondary to COVID-19. Continue supportive measures with supplemental oxygen, breathing treatments, antitussives, decongestants. Titrate O2 and wean as tolerated. Solu-Medrol, incentive spirometry, vitamin C and zinc ordered daily. Patient meet sepsis criteria although source is viral, COVID-19. Blood cultures were obtained and she received antibiotics in ED, azithromycin and ceftriaxone. Isolation precautions in place, Monitor and replete electrolytes per protocol. Reconcile and continue home medications. Xarelto for VTE prophylaxis. Full code. Discharge Plan: Home Plan to discharge in: 48 Hours - Advance Directives Does patient have a Living Will: Yes Does patient have a Durable POA for Healthcare: Yes - Code Status/Comfort Care Code Status Assessed: Yes Code Status: Full Code Physician Review: Patient Assessed, Agree with Above Assessment and Plan Critical Care: No Time Spent Managing Pts Care (In Minutes): 50
[2022-09-05] MEDS ORDERED: ALBUTEROL 2.5 MG/3 ML NEB SOL NEB PRN (21:03)
[2022-09-05] MEDS ORDERED: IPRATROPIUM BROM 0.5MG/2.5ML NEB PRN (21:03)
[2022-09-05] MEDS ORDERED: BENZONATATE 100 MG CAP PO PRN (21:03)
[2022-09-05] MEDS ORDERED: GUAIFENESIN 600 MG SA TAB PO PRN (21:03)
[2022-09-05] MEDS: NA CHLORIDE 0.9% 1,000 ML IV SCH (21:03)
[2022-09-05] MEDS ORDERED: ACETAMINOPHEN 500 MG TAB PO PRN (21:03)
[2022-09-05] MEDS ORDERED: ONDANSETRON 4 MG/2 ML VIAL IV PRN (21:03)
[2022-09-05] MEDS ORDERED: PRAMIPEXOLE 0.25 MG TAB PO PRN (22:12)
[2022-09-05 23:41] VITALS: BMI 22.1
[2022-09-06] MEDS: METHYLPREDNISOLONE 40 MG INJ IV SCH ×2 (01:00→08:41)
[2022-09-06 04:30] LABS: Absolute Lymphocytes (CBC) 0.3 K/uL (0.7-4.9); Hematocrit 39.7 % (36.0-45.0); Lymphocytes % 8.1 % (15.3-44.8); MCV 92.6 fL (80-100); MPV 8.3 fL (7.6-11.3); RBC Red Blood Cell Count 4.29 M/uL (3.86-4.86)
[2022-09-06 05:09] LABS: Magnesium 2.2 mg/dL (1.6-2.4); Phosphorus 2.4 mg/dL (2.5-4.9); Potassium 3.9 mmol/L (3.5-5.1); Thyroid Stimulating Hormone 0.952 uIU/mL (0.358-3.740)
[2022-09-06] MEDS ORDERED: POTASSIUM CL SA 10 MEQ TAB PO ONE (07:45)
[2022-09-06] MEDS: NA CHLORIDE 0.9% 1,000 ML IV SCH (08:41)
[2022-09-06] MEDS ORDERED: ZINC SULFATE 220 MG CAP PO SCH (09:00)
[2022-09-06] MEDS ORDERED: ASCORBIC ACID 500 MG TABLET PO SCH (09:00)
[2022-09-06 09:05] VITALS: BP 129/59; TEMP 97.5
--- NOTE | 2022-09-06 09:43 | P.DS ---
Admission Date: 09/05/22 Discharge Date: 09/06/22 Primary Care Provider: Arthur Disposition: ROUTINE DISCHARGE Discharge Condition: FAIR Reason for Admission: COVID, Hypoxia Brief History of Present Illness: Exacerbation of COPD coronavirus infection Hospital Course: Patient is 82 years of age admitted with numbness of breath coughing spells sick since Wednesday and has a history of severe COPD has been using trilogy at home is a lot better now room air sat is 93% and is eating drinking vital signs all stable shows some mild rhonchi CT scan shows severe COPD no evidence of COVID- pneumonia and was discharged home in satisfactory condition to go home on Decadron resume her inhalers and albuterol nebulizer axilla weight is contraindicated due to serious interaction with Xarelto in case she is doing better there is no fever she has been vaccinated room air sat checked by myself was 93% Vital Signs/Physical Exam: Temp Pulse Resp BP Pulse Ox 97.5 F 75 18 129/59 L 98 09/06/22 08:00 09/06/22 08:00 09/06/22 08:00 09/06/22 08:00 09/06/22 08:00 Laboratory Data at Discharge: WBC 3.40 K/uL (4.3-10.9) L 09/06/22 03:58 Hgb 13.6 g/dL (12.0-15.0) D 09/06/22 03:58 Hct 39.7 % (36.0-45.0) 09/06/22 03:58 Plt Count 183 K/uL (152-406) 09/06/22 03:58 PT 14.7 SECONDS (9.5-12.5) H 09/05/22 18:40 INR 1.34 09/05/22 18:40 APTT 39.0 SECONDS (24.3-36.9) H 09/05/22 18:40 Sodium 142 mmol/L (136-145) 09/06/22 03:58 Potassium 3.9 mmol/L (3.5-5.1) 09/06/22 03:58 BUN 14 mg/dL (7-18) 09/06/22 03:58 Creatinine 0.83 mg/dL (0.55-1.02) 09/06/22 03:58 Glucose 283 mg/dL (74-106) H 09/06/22 03:58 Phosphorus 2.4 mg/dL (2.5-4.9) L 09/06/22 03:58 Magnesium 2.2 mg/dL (1.6-2.4) 09/06/22 03:58 Total Bilirubin 0.4 mg/dL (0.2-1.0) 09/05/22 18:40 AST 30 U/L (15-37) 09/05/22 18:40 ALT 27 U/L (13-56) 09/05/22 18:40 Alkaline Phosphatase 78 U/L (45-117) 09/05/22 18:40 Triglycerides 47 mg/dL (<150) 09/06/22 03:58 Cholesterol 148 mg/dL (<200) 09/06/22 03:58 HDL Cholesterol 72 mg/dL (40-60) H 09/06/22 03:58 Cholesterol/HDL Ratio 2.06 09/06/22 03:58 Home Medications: Calcium Carbonate/Vitamin D3 [Calcium 600 + Vit D Tablet] 1 each PO BID 04/13/13 Rivaroxaban [Xarelto*] 20 mg PO DAILY 04/13/13 Esomeprazole Magnesium [Nexium] 20 mg PO DAILY 09/30/16 Loratadine [Claritin*] 1 tab PO DAILY PRN MDD 1 10/08/19 Pramipexole Di-HCl [Mirapex] 1 tab PO BEDTIME 10/08/19 Albuterol Sulfate [Albuterol Sulfate 0.083% Neb Soln] 2.5 mg IH Q6HP PRN 15 Days #150 ml 09/06/22 Fluticasone/Umeclidin/Vilanter [Trelegy Ellipta 100-62.5-25] 1 puff IH DAILY 09/06/22 Furosemide 20 mg PO DAILY 09/06/22 dexAMETHasone [Decadron*] 4 mg PO BID 7 Days #14 tab 09/06/22 New Medications: Albuterol Sulfate [Albuterol Sulfate 0.083% Neb Soln] 2.5 mg IH Q6HP PRN 15 Days #150 ml PRN Reason: Shortness Of Breath dexAMETHasone [Decadron*] 4 mg PO BID 7 Days #14 tab Physician Discharge Instructions: Paxlovid not faxed due to serious drug interaction with Xarelto. Let patient know Please call in albuterol unable to fax. Steroids sent Diet: Regular Followup: Cruzito Gibson MD [Primary Care Provider] -
[2022-09-06 10:10] VITALS: O2SAT 93
[2022-09-06] MEDS ORDERED: RIVAROXABAN 10 MG TABLET PO SCH (17:00)
[2022-09-06] MEDS ORDERED: RIVAROXABAN 20 MG TABLET PO SCH (17:00)
--- NOTE | 2022-09-08 14:35 | EKG ---
Test Date: 2022-09-05 Test Time: 19:09:43 Scroll Machine Operator: HANK MEASUREMENT RESULTS: Intervals: Rate: 80 CT: 160 QRSD: 76 QT: 368 QTc: 424 [place]: P: 89 CT: 160 QRS: 86 T: 76 INTERPRETIVE STATEMENTS: Sinus rhythm with premature supraventricular complexes Otherwise normal ECG Compared to ECG 10/08/2019 09:42:30 Atrial premature complex(es) now present Myocardial infarct finding no longer present Electronically Signed On 09-08-22 14:32:25 BIOPROCESSING MANUFACTURING TECHNICIAN by Jaron Lester
== END 2022-09-06 10:30 | disposition home or self-care (01) ==
LOC: ER 17:50 → ERHOLD 20:23 → INTOOBSV 20:23 → 4TH 22:00
PROVIDERS: ADMIT Internal Medicine Sleep Medicine; ATTEND Internal Medicine Sleep Medicine
DX: U07.1 COVID-19 (principal); J96.01 Acute respiratory failure with hypoxia; A41.9 Sepsis, unspecified organism; J44.1 Chronic obstructive pulmonary disease with (acute) exacerbation; Z88.6 Allergy status to analgesic agent; Z88.1 Allergy status to other antibiotic agents; Z88.2 Allergy status to sulfonamides; Z88.7 Allergy status to serum and vaccine
CPT/HCPCS: 87040 ×2; 85025 ×2; 80048 ×2; 36415; 83735 ×2; 84100; 85610; 80061; 80076; 83605; 85730; 84443; 84484; 83880; 0240U; 71275; 71045; 94010; 94760 ×2; 96375; 96374; 99285; Q9967; J7614 ×2; J7644; J0456; J3475; J7050; J7030 ×3; J2930; J2920 ×2; 93005

== ENCOUNTER 2022-11-12 05:47 | Inpatient (IN) | payer MEDICARE ==
--- OUTSIDE RECORDS SUMMARY | 2022-11-12 05:51 | XMS REPORT | Continuity of Care Document ---
:1940 Author Organization [facility] t Address [address] [facility] [address] [place] [address] Care Team Providers Name Role Phone Norma Attending Clinician Unavailable Marivel GUZMAN, Marina Attending Clinician Unavailable Andrés LEVI, Al Langford Attending Clinician Jade Whittington MA Attending Clinician Unavailable Cruzito Gibson Attending Clinician Norma Admitting Clinician Unavailable Payers Payer Name Policy Type Policy Number Effective Date Expiration Date [facility] [employer] [id number] (MEDICARE 00:00:00 REPLACEMENT HMO) Problems Condition Condition Condition Status Onset Resolution Last Treating Co mments Source Name Details Category Date Date Treatment Clinician Date R60.9 - R60.9 - Diagnosis Active 2019-05-16 Memoria EDEMA, EDEMA, 04-28 12:10:00 l UNSPECIFIE UNSPECIFIE 00:01: Pako Jj Active 00 04/28/2019 CORINA OPID [facility] [...] ents Source Name Type Date Date Clinician Sulfamet Propensi Active Itching Metho di hoxazole ty to 2-11 st -Trimeth adverse 00:00: Hospita oprim reaction 00 l s to drug Codeine Propensi Active Other (See Nausea Met hodi ty to Comments) 10-17 st adverse 00:00: Hospita reaction 00 l s to drug Hydrocod Propensi Active Itching Metho di one ty to 10-17 adverse 00:00: Hospita reaction 00 l s [...] Hospita reaction 00 l s to drug tetanus tetanus Active Memoria toxoid toxoid l Charlie Jennifer Jennifer Active Memoria l Charlie Bactrim Bactrim Active [facility] l [place] Family History Family Member Diagnosis Comments Start Date Stop Date Source Natural mother [facility] Natural sister Heart disease [facility] Natural brother Heart disease [facility] Natural father Heart disease [facility] Social History Social Habit Start Date Stop Date Quantity Comments Source [facility] of [facility]igarette [facility] History [facility] Drinks History [facility] Tobacco use and 2021-10-20 2021-10-20 Smokeless tobacco [facility] exposure 00:00:00 00:00:00 non-user Hospital Alcohol intake 2021-10-20 2021-10-20 [facility] 00:00:00 00:00:00 non-drinker Hospital (finding) History [facility] 2021-10-20 2021-10-20 1 [facility] Alcohol Frequency 00:00:00 00:00:00 Hospita l Sex Assigned At [birth year] [facility] 00:00:00 00:00:00 Hospital Smoking Status Start Date Stop Date Source Ex-smoker 2021-10-20 00:00:00 2021-10-20 00:00:00 [facility] Medications Ordered Filled Start Stop Current Ordering Indication Dosage Frequency Signature Comments Components Source Medication Medication Date Date Medication? Clinician (SIG) Name Name rivaroxaban Yes 20mg QD Take 20 mg [facility] (XARELTO) 2-[address] 20 mg 14:22: daily. Hospita tablet 04 l furosemide 2021-0 Yes 20mg Q.5D Take 20 mg M [facility] (LASIX) 20 2-[address] mg tablet 14:22: (two) Hospita 04 times a l day. pramipexole 2021-0 Yes .75mg Q.[id number] Take 0.75 [facility] (Mirapex) 2-[id number] 0.75 MG 14:22: 3D mouth 3 Hospita tablet 04 (three) l times a day. esomeprazol 2021-0 Yes 20mg QD Take 20 mg [facility] e (NexIUM) 2-[address] 20 MG 14:22: daily Hospita capsule 04 before l breakfast. albuterol 202-0 Yes Inhale. Metho di sulfate 2-14 st (VENTOLIN 14:22: Hospita HFA INHL) 04 l rivaroxaban 2021-0 Yes 20mg QD Take 20 mg [facility] (XARELTO) 2-[address] 20 mg 14:22: daily. Hospita tablet 04 l furosemide 2021-0 Yes 20mg Q.5D Take 20 mg M ethodi (LASIX) 20 2-[address] mg tablet 14:22: (two) Hospita 04 times a l day. pramipexole 2021-0 Yes .75mg Q.[id number] Take 0.75 [facility] (Mirapex) 2-[id number] 0.75 MG 14:22: 3D mouth 3 Hospita tablet 04 (three) l times a day. esomeprazol 2021-0 Yes 20mg QD Take 20 mg [facility] e (NexIUM) 2-[address] 20 MG 14:22: daily Hospita capsule 04 before l breakfast. albuterol 202-0 Yes Inhale. Metho di sulfate 2-14 st (VENTOLIN 14:22: Hospita HFA INHL) 04 l Vital Signs Vital Name Observation Time Observation Value Comments Source Systolic blood 2021-10-20 20:20:00 177 mm[Hg] [facility] Hospital pressure Diastolic blood 2021-10-20 20:20:00 88 mm[Hg] [facility] pressure Heart rate 2021-10-20 20:20:00 57 /min [facility] Body temperature 2021-10-20 20:20:00 36.67 Jayshree Meth [facility] Body height 2021-10-20 20:20:00 165.1 cm [facility] Body weight 2021-10-20 20:20:00 53.524 kg [facility] BMI 2021-10-20 20:20:00 19.64 kg/m2 [facility] Oxygen saturation in 2021-10-20 20:20:00 97 /min [facility] Arterial blood by Pulse oximetry Procedures This patient has no known procedures. Plan of Care Planned Activity Planned Date Details Comments Source Future Scheduled 2022-08-19 COVID-19 VACCINE (#1) [facility] Test 16:42:00 [code = COVID-19 VACCINE (#1)] Future Scheduled 2022-08-19 65+ PNEUMOCOCCAL [facility] Test 16:42:00 VACCINE (1 - PCV) [code = 65+ PNEUMOCOCCAL VACCINE (1 - PCV)] Future Scheduled 2022-08-19 SHINGLES VACCINES (1 Met [facility] Test 16:42:00 of 2) [code = SHINGLES VACCINES (1 of 2)] Future Scheduled 2022-08-19 INFLUENZA VACCINE Method [facility] Test 16:42:00 [code = INFLUENZA VACCINE] Future Scheduled 2022-08-19 COVID-19 VACCINE (#1) [facility] Test 16:42:00 [code = COVID-19 VACCINE (#1)] Future Scheduled 2022-08-19 65+ PNEUMOCOCCAL [facility] Test 16:42:00 VACCINE (1 - PCV) [code = 65+ PNEUMOCOCCAL VACCINE (1 - PCV)] Future Scheduled 2022-08-19 SHINGLES VACCINES (1 Met [facility] Test 16:42:00 of 2) [code = SHINGLES VACCINES (1 of 2)] Future Scheduled 2022-08-19 INFLUENZA VACCINE Method [facility] Test 16:42:00 [code = INFLUENZA VACCINE] Encounters Start End Encounter Admission Attending Care Care Encounter Source Date/Time Date/Time Type Type Clinicians Facility Department ID 2022-03-20 2022-03-20 Outpatient Adams_R DMG DMG [id number] [facility] 08:24:00 08:24:00 0715 Medica l [facility] 2021-11-10 2021-11-10 Travel 1.2.840.1 [id number] [id number] [facility] 00:00:00 00:00:[address] 3.430.2.7 0.2.7.3.698 Ho spita .3.137062 084.8 l .8 2021-11-04 2021-11-04 Telephone Marivel 1.2.840.1 [id number] [facility] 00:00:00 00:00:[address] 3.430.2.7 Hospit a .3.352811 l .8 2021-10-20 2021-10-20 Office Al Bowen 1.2.840.1 [id number] [facility] 14:00:00 15:17:32 Visit Primitivo 65857.1.[address] 3.430.2.7 Hospit a .3.287177 l .8 2021-10-20 2021-10-20 Travel 1.2.840.1 1.2.579.967 0114 [id number] [facility] 00:00:00 00:00:[address] 3.430.2.7 0.2.7.3.698 Ho spita .3.464809 084.8 l .8 2021-10-17 2021-10-17 Abstract Nelsy 1.2.840.1 [id number] [facility] 00:00:00 00:00:00 Jade D 30670.1.1 147 s t 3.430.2.7 Hospit a .3.821830 l .8 2021-10-02 2021-10-02 Travel 1.2.840.1 1.2.010.721 [id number] [facility] 00:00:00 00:00:[address] 3.430.2.7 0.2.7.3.698 Ho spita .3.220583 084.8 l .8 2021-09-25 2021-09-25 Al De Leon 1.2.840.1 [id number] [facility] 00:00:00 00:00:[address] 3.430.2.7 Hospit a .3.211157 l .8 2021-06-02 2021-06-02 Outpatient Adams_R DMG DMG [id number] [facility] 11:38:00 11:38:00 0927 Medica l Group 2019-07-17 2019-07-18 [place] [id number] [facility] 14:30:00 05:59:00 Services r Outpatient 01 l Imaging [facility] 2019-07-17 2019-07-18 Outpt Diag nullFlavo [facility] [id number] Memoria 14:30:00 05:59:00 Services r Outpatient 01 l Imaging [facility] 2019-07-17 2019-07-17 Outpatient Arthur, MHOIP MHOIP [id number] 08:30:00 23:59:00 [place] 2019-05-16 2019-05-17 [place] [id number] Memoria 17:01:00 04:59:00 Services r Outpatient 00 l Imaging [facility] 2019-05-16 2019-05-17 Outpt Diag nullFlavo [facility] [id number] Memoria 17:01:00 04:59:00 Services r Outpatient 00 l Imaging [facility] 2019-05-16 2019-05-16 Outpatient Arthur, MHOIP MHOIP [id number] 12:01:00 23:59:00 Cruzito 00 Results This patient has no known results.
[2022-11-12] MEDS ORDERED: AZITHROMYCIN 500 MG INJ IVPB ONE (06:12)
[2022-11-12] MEDS ORDERED: ALBUTEROL 2.5 MG/3 ML NEB SOL ONE (06:12)
[2022-11-12] MEDS ORDERED: METHYLPREDNISOLONE 40 MG INJ ONE (06:12)
[2022-11-12] MEDS ORDERED: ACETAMINOPHEN 500 MG TAB ONE (06:12)
[2022-11-12] MEDS ORDERED: CEFTRIAXONE 2000 MG/VIAL ONE (06:12)
[2022-11-12] MEDS ORDERED: NA CHLORIDE 0.9% 250 ML ONE (06:13)
[2022-11-12] MEDS ORDERED: IPRATROPIUM BROM 0.5MG/2.5ML ONE (06:13)
[2022-11-12] MEDS ORDERED: NA CHLORIDE 0.9% 100 ML ONE (06:13)
[2022-11-12 06:32] LABS: Absolute Lymphocytes (CBC) 1.2 K/uL (0.7-4.9); Hematocrit 43.8 % (36.0-45.0); MCV 93.5 fL (80-100); MPV 8.1 fL (7.6-11.3); RBC Red Blood Cell Count 4.68 M/uL (3.86-4.86)
[2022-11-12 06:42] LABS: Protime INR 1.45
[2022-11-12 06:51] LABS: Albumin 3.7 g/dL (3.4-5.0); Bilirubin Total 1.4 mg/dL (0.2-1.0); Potassium 3.8 mmol/L (3.5-5.1); Troponin High Sensitivity 53.6 pg/mL (<58.9)
[2022-11-12 07:16] LABS: SARS-COV-2 RT PCR NEGATIVE (NEGATIVE)
[2022-11-12] MEDS ORDERED: ACETAMINOPHEN 500 MG TAB PO PRN (11:58)
[2022-11-12 13:02] VITALS: BMI 21.0
[2022-11-12] MEDS ORDERED: ASPIRIN 325 MG TAB PO ONE (14:12)
[2022-11-12] MEDS ORDERED: RIVAROXABAN 20 MG TABLET PO ONE (14:12)
--- NOTE | 2022-11-12 14:57 | RAD REPORT ---
EXAM DESCRIPTION: RAD - Chest Single View - 11/12/2022 6:14 am CLINICAL HISTORY: The patient is 82 years old and is Female; COUGH TECHNIQUE: Single view of the chest. COMPARISON: No relevant prior studies available. FINDINGS: Lungs: Centrilobular emphysema. Hazy airspace opacities along the left heart border that may represent atelectasis or infiltrate. No pulmonary vascular congestion. Pleural space: Unremarkable. No pneumothorax. Heart: Unremarkable. No cardiomegaly. Mediastinum: Unremarkable. Bones/joints: No acute fracture visualized. Soft tissues: Bilateral nipple shadows. Upper abdomen: No free air in the visualized upper abdomen. IMPRESSION: Centrilobular emphysema. Hazy airspace opacities along the left heart border that may re present atelectasis or infiltrate. Electronically signed by: Betzaida Jones MD 11/12/2022 6:21 AM QUALITY SYSTEM MANAGER Due to temporary technical issues with the PACS/Fluency reporting system, reports are being signed by the in house radiologists without review as a courtesy to insure prompt reporting. The interpreting radiologist is fully responsible for the content of the report.
[2022-11-12] MEDS ORDERED: LORATADINE 10 MG TAB PO PRN (16:24)
[2022-11-12] MEDS ORDERED: HOME MED 1 EA UNK (Esomeprazole Magnesium [Nexium] 20 MG Capsule.Dr) PO SCH (17:00)
[2022-11-12] MEDS ORDERED: FUROSEMIDE 40 MG/4 ML VIAL IV ONE (17:58)
--- NOTE | 2022-11-12 18:05 | PN ---
Date of Progress Note: 11/12/2022 The patient states she feels much better tonight. She is afebrile, breathing quiet a bit better. Tesfaye s coughed up a slight amount of discolored material. Has a history of poor responses to Levaquin in the past and notes that her family members have had bronchitis. She has been around them and they tesfaye ve been on Levaquin. We will continue the IV antibiotics, repeat a chest x-ray in the morning as wel l as the blood work. However, the cardiac enzymes were rapidly elevated on the second reading. EKG had some PVCs, slight tachycardia. We will consult Cardiology as far as the increased enzymes. Depe nding on the results of repeat chest x-ray, cardiac evaluation and blood count and could possibly be discharged in the a.m. HR/MODL Voice ID: [id number] Report ID: [id number]
--- NOTE | 2022-11-12 18:26 | CON ---
Date of Consultation: 11/12/2022 Reason For Consultation: Elevated NT-proBNP and shortness of breath. History Of Present Illness: An 82-year-old female, who comes in to the hospital with shortness of br eath. She does have COPD and has history of DVT and PE, on Xarelto. Denies having any cardiac disea se. No lower extremity edema or orthopnea, but she is short of breath even at rest. No chest pain. Past Medical History: Significant for COPD, PE, uterine cancer. Medications: Refer to reconciliation sheet for detailed list. Allergies: CODEINE, FEXOFENADINE, TETANUS. Family History: No premature coronary artery disease or cancer. Social History: She is an ex-smoker. Does not drink or use any drugs. Review of Systems: All systems reviewed and they were negative except what mentioned in HPI. Physical Examination: Vital Signs: Reviewed. Head and Neck: Pupils are equal, reactive to light. Intact eye movements. No JVD. No cervical lym phadenopathy. Neck is supple. Thyroid is not enlarged. Lungs: Decreased breathing sounds with rhonchi and wheezing. No accessory muscle use or muscle retr action. Heart: Regular rate and rhythm. No extra sounds. Abdomen: Soft, nontender. Bowel sounds positive. No organomegaly. No masses or hernia. No rigidi ty or rebound. Extremities: No clubbing or cyanosis. No edema. Skin: No rash. Neurologic: Alert, awake, oriented x3. No acute focal deficits appreciated. Investigations: Troponin went up from 53 to 868, and BUN 16, creatinine 0.72. Assessment And Recommendations: 1.Elevated troponin. There is no chest pain, but she has multiple risk factors including age and pr olonged smoking history. Obtain 1 more set of cardiac enzymes now and if there is substantial increa se in her troponin, then we will do a cardiac catheterization tomorrow, but if her troponin remains a t the same level, then obtain a Lexiscan nuclear stress test and an echo to further evaluate. 2.Elevated NT-proBNP with shortness of breath. Definitely a component of heart failure is present, which could be chronic. Obtain an echo and further assess accordingly and switch Lasix to IV. SR/MODL Voice ID: [id number] Report ID: [id number]
[2022-11-12] MEDS: PRAMIPEXOLE 0.25 MG TAB PO SCH (20:51)
[2022-11-12] MEDS: MUPIROCIN 2% OINT 22GM TUBE TOP SCH (20:51)
[2022-11-12] MEDS: CEFTRIAXONE 1,000 MG in NA CHLORIDE 0.9% 50 ML IVPB SCH (20:51)
[2022-11-12] MEDS ORDERED: PRAMIPEXOLE DI HCL 0.75 MG PO SCH (21:00)
[2022-11-13 03:33] LABS: Hematocrit 35.2 % (36.0-45.0); Lymphocytes % 8.2 % (15.3-44.8); MCV 91.9 fL (80-100); RBC Red Blood Cell Count 3.83 M/uL (3.86-4.86)
[2022-11-13 03:59] LABS: Potassium 3.5 mmol/L (3.5-5.1)
[2022-11-13] MEDS: PANTOPRAZOLE 40MG TABLET PO SCH (07:30)
--- NOTE | 2022-11-13 08:02 | RAD REPORT ---
EXAM DESCRIPTION: RAD - Chest Pa And Lat (2 Views) - 11/13/2022 6:11 am CLINICAL HISTORY: possible pneumonitis COMPARISON: Chest Single View dated 11/12/2022; Chest Single View dated 09/05/2022; Chest Single View dated 10/08/2019; Chest Pa And Lat (2 Views) dated 06/30/2019; Chest For Pe Angio dated 09/05/2022 FINDINGS: Lines: None. Lungs: Emphysema. Increased interstitial markings at the lung bases . No consolidation. No edema is i dentified. Pleural: No significant pleural effusions or pneumothorax. Cardiac: The heart size is within normal limits. Mediastinum: Within normal limits. Bones: No acute fractures. Other: None IMPRESSION: Mild increased interstitial lung markings in the bases compared with 11/12/2022. Mild in fection or inflammation may be present. No consolidative pneumonia or edema.
[2022-11-13] MEDS ORDERED: REGADENOSON 0.4 MG/5 ML SYR IV ONE (08:26)
[2022-11-13] MEDS: CEFTRIAXONE 1,000 MG in NA CHLORIDE 0.9% 50 ML IVPB SCH ×2 (08:41→20:47)
[2022-11-13] MEDS: AZITHROMYCIN IV 500 MG in NA CHLORIDE 0.9% 250 ML IVPB SCH (08:42)
[2022-11-13] MEDS: MUPIROCIN 2% OINT 22GM TUBE TOP SCH ×2 (08:43→20:48)
[2022-11-13] MEDS ORDERED: FUROSEMIDE 20 MG TABLET PO SCH (09:00)
--- NOTE | 2022-11-13 11:40 | PN ---
Date of Progress Note: 11/13/2022 The patient states she feels considerably better. Minimal cough. No shortness of breath. However, she is on O2. Seen with Cardiology, suggested a stress test chemical, however, patient is not comfor table with this. We discussed the issue and felt that the echo was abnormal. She was okay with the cath. Her white count has dropped some. We will continue to present regimen. Repeat a white count in the morning. If cardiac workup is negative, probably could go home. Chest x-ray still shows some possible infectious process. No consolidation. Vital signs stable. Good intake and output. Heather nue wound care dressing as well. This too has improved considerably. HR/MODL Voice ID: [id number] Report ID: [id number]
--- NOTE | 2022-11-13 13:35 | ECHO ---
HEIGHT: 5 ft 2 in WEIGHT: 115 lb 0 oz DATE OF STUDY: 11/13/[address]: Cruzito Gibson MD 2-DIMENSIONAL: YES M.MODE: YES DOPPLER: NO COLOR FLOW: NO TDS: NO PORTABLE: YES DEFINITY: NO BUBBLE STUDY: NO DIAGNOSIS: POSSIBLE PNEUONITIS CARDIAC HISTORY: CATHERIZATION: NO SURGERY: NO PROSTHETIC VALVE: NO PACEMAKER: NO MEASUREMENTS (cm) DIASTOLIC (NORMALS) SYSTOLIC (NORMALS) IVSd 0.9 (0.6-1.2) LA Diam 2.0 (1.9-4.0) LVEF 64% LVIDd 3.9 (3.5-5.7) LVIDs 2.5 (2.0-3.5) %FS 35% LVPWd 1.0 (0.6-1.2) Ao Diam 2.4 (2.0-3.7) 2 DIMENSIONAL ASSESSMENT: RIGHT ATRIUM: NORMAL LEFT ATRIUM: NORMAL RIGHT VENTRICLE: NORMAL LEFT VENTRICLE: NORMAL TRICUSPID VALVE: NORMAL MITRAL VALVE: NORMAL PULMONIC VALVE: NORMAL AORTIC VALVE: NORMAL PERICARDIAL EFFUSION: NONE AORTIC ROOT: NORMAL LEFT VENTRICULAR WALL MOTION: NORMAL DOPPLER/COLOR FLOW: NOT REQUESTED. COMMENTS: 1. NORMAL LEFT VENTRICULAR EJECTION FRACTION 60-65%. 2. NORMAL WALL MOTION. TECHNOLOGIST: Saji MATTHEWS
--- NOTE | 2022-11-13 15:43 | PN ---
Date of Progress Note: 11/13/2022 Subjective: Seen by bedside. Feeling better today after she received 1 dose of Lasix. Review of Systems: No chest pain. No shortness of breath. No nausea, vomiting, diarrhea. No dysuria, polyuria, or uri nary urgency. All other systems reviewed and they were negative. Physical Examination: Vital Signs: Reviewed. Head and Neck: Pupils are equal, reactive to light. Intact eye movements. No JVD. No cervical lym phadenopathy. Neck is supple. Thyroid is not enlarged. Lungs: Decreased breathing sounds bilaterally. No accessory muscle use or muscle retraction. Heart: Regular rate and rhythm. No extra sounds. Abdomen: Soft, nontender. Bowel sounds positive. No organomegaly. No masses or hernia. No rigidi ty or rebound. Extremities: No clubbing or cyanosis. Intact pulses. Skin: No rash. Neurologic: Alert, awake, oriented x3. No acute focal deficits appreciated. Investigations: BUN 23, creatinine 0.73 and latest troponin was 975. Hemoglobin is 11.8. Assessment And Recommendations: 1.Elevated troponin, possible non-ST elevation myocardial infarction, but this could still be demand . Initially, I recommended a stress test to evaluate; however, this was scheduled and the patient re fused to do it because she is scared of stress test. Explained to her the other option will to do di rectly left heart catheterization; however, she already had full lunch. As such, I recommend that she is diuresed gently over the weekend with Lasix 20 mg IV q.12 hours and we will plan for coronary ang iogram on Wednesday, keep her n.p.o. on Wednesday night past midnight. Continue aspirin and repeat 1 more troponin to make sure it is trending down. 2.Diastolic congestive heart failure exacerbation. Lasix 20 mg IV twice a day. Monitor BUN, creati nine, electrolytes. 3.Chronic obstructive pulmonary disease exacerbation. She is improving. SR/MODL Voice ID: [id number] Report ID: [id number]
[2022-11-13] MEDS: FUROSEMIDE 20 MG/ 2ML VIAL IV SCH (16:33)
[2022-11-13] MEDS: RIVAROXABAN 20 MG TABLET PO SCH (16:34)
[2022-11-13] MEDS: PRAMIPEXOLE 0.25 MG TAB PO SCH (20:47)
[2022-11-14 06:40] LABS: Absolute Lymphocytes (CBC) 2.1 K/uL (0.7-4.9); Hematocrit 42.5 % (36.0-45.0); Lymphocytes % 21.2 % (15.3-44.8); MCV 93.6 fL (80-100); MPV 9.2 fL (7.6-11.3); RBC Red Blood Cell Count 4.54 M/uL (3.86-4.86)
[2022-11-14 06:50] LABS: Potassium 3.6 mmol/L (3.5-5.1)
[2022-11-14] MEDS: CEFTRIAXONE 1,000 MG in NA CHLORIDE 0.9% 50 ML IVPB SCH ×2 (07:41→20:16)
[2022-11-14] MEDS: PANTOPRAZOLE 40MG TABLET PO SCH (07:42)
[2022-11-14] MEDS: FUROSEMIDE 20 MG/ 2ML VIAL IV SCH ×2 (07:42→17:24)
[2022-11-14] MEDS: MUPIROCIN 2% OINT 22GM TUBE TOP SCH ×2 (07:42→20:16)
[2022-11-14] MEDS: AZITHROMYCIN IV 500 MG in NA CHLORIDE 0.9% 250 ML IVPB SCH (07:42)
--- NOTE | 2022-11-14 13:29 | PN ---
Date of Progress Note: 11/14/2022 The patient states she feels considerably better. Moderate congestion with cough. However, Cardiolo nasir has felt that a catheterization would be indicated since she turned down the stress test. After m uch discussion with the patient, she agreed to wait till tomorrow to make that decision, as she did n ot feel comfortable doing that at this stage. I will discontinue the IV antibiotics, start p.o. sonny rrow, repeat the enzymes and white count depending on her decision. Disposition will be made. HR/MODL Voice ID: [id number] Report ID: [id number]
[2022-11-14] MEDS: RIVAROXABAN 20 MG TABLET PO SCH (17:25)
[2022-11-14] MEDS: PRAMIPEXOLE 0.25 MG TAB PO SCH (20:15)
[2022-11-15 06:19] LABS: Absolute Lymphocytes (CBC) 1.3 K/uL (0.7-4.9); Hematocrit 41.4 % (36.0-45.0); Lymphocytes % 16.8 % (15.3-44.8); MCV 92.8 fL (80-100); MPV 8.5 fL (7.6-11.3); RBC Red Blood Cell Count 4.46 M/uL (3.86-4.86)
[2022-11-15 06:40] LABS: Potassium 3.5 mmol/L (3.5-5.1)
[2022-11-15 06:50] LABS: Troponin High Sensitivity 173.1 pg/mL (<58.9)
[2022-11-15] MEDS: CEPHALEXIN 250 MG CAP PO SCH ×3 (08:37→16:38)
[2022-11-15] MEDS: PANTOPRAZOLE 40MG TABLET PO SCH (08:38)
[2022-11-15] MEDS: FUROSEMIDE 20 MG/ 2ML VIAL IV SCH ×2 (08:38→16:38)
[2022-11-15] MEDS: MUPIROCIN 2% OINT 22GM TUBE TOP SCH (08:39)
[2022-11-15] MEDS ORDERED: AZITHROMYCIN 250 MG TAB PO SCH (09:00)
[2022-11-15] MEDS: ALBUTEROL 2.5 MG/3 ML NEB SOL NEB PRN ×3 (09:18→16:43)
[2022-11-15] MEDS: RIVAROXABAN 20 MG TABLET PO SCH (16:38)
[2022-11-15 17:16] VITALS: O2SAT 93
[2022-11-15 17:23] VITALS: BP 111/57; TEMP 97.7
--- NOTE | 2022-11-15 21:13 | PN ---
Date of Progress Note: 11/15/2022 The patient states she feels better. Clinically this correlates. Troponin enzyme is noted down in t he 100s and she expressed her opinion that she does not need the catheterization at this time. The p casper was tried off her oxygen and was at 86. However, she feels this was probably normal for her a s she felt no differences in breathing when this was done. However, in view of somewhat cloudy clini juan m situation with bronchitis, pneumonia, and the increased enzymes, we will have her remain off the oxygen for an hour, repeat it and if in fact it is below 90, we will order some oxygen for her in the morning and keep her overnight. If it is over 90, can be discharged on antibiotics, Zithromax and K eflex to be followed up in the office next week. HR/MODL Voice ID: [id number] Report ID: [id number]
--- NOTE | 2022-11-16 13:16 | EKG ---
Test Date: 2022-11-12 Test Time: 16:34:14 Food And Beverage Checker: RENA MEASUREMENT RESULTS: Intervals: Rate: 102 [place]: 176 QRSD: 86 QT: 358 QTc: 466 [place]: P: 82 [place]: 176 QRS: 86 T: 73 INTERPRETIVE STATEMENTS: Sinus tachycardia with occasional premature ventricular complexes Possible Left atrial enlargement Borderline ECG Compared to ECG 11/12/2022 06:30:10 Ventricular premature complex(es) now present Right-axis deviation no longer present Electronically Signed On 11-16-22 13:09:14 CDT by Jaron Lester
--- NOTE | 2022-11-16 13:19 | EKG ---
Test Date: 2022-11-12 Test Time: 06:01:23 Accountant Clerk: JULIOCESAR MEASUREMENT RESULTS: Intervals: Rate: 153 [place]: 160 QRSD: 104 QT: 194 QTc: 309 [place]: P: 61 [place]: 160 QRS: 94 T: 46 INTERPRETIVE STATEMENTS: Sinus rhythm with fusion complexes Incomplete right bundle branch block Possible Right ventricular hypertrophy Septal infarct, age undetermined Abnormal ECG Compared to ECG 09/05/2022 19:09:43 Fusion complex(es) now present Incomplete right bundle-branch block now present Myocardial infarct finding now present Atrial premature complex(es) no longer present Electronically Signed On 11-16-22 13:09:58 CDT by Jaron Lester
--- NOTE | 2022-11-16 13:19 | EKG ---
Test Date: 2022-11-12 Test Time: 06:30:10 Outside Sales Representative: JULIOCESAR MEASUREMENT RESULTS: Intervals: Rate: 117 AR: 164 QRSD: 84 QT: 308 QTc: 429 Commerce: P: 82 AR: 164 QRS: 92 T: 71 INTERPRETIVE STATEMENTS: Sinus tachycardia Possible Left atrial enlargement Rightward axis Borderline ECG Compared to ECG 11/12/2022 06:01:23 Right-axis deviation now present Sinus rhythm no longer present Fusion complex(es) no longer present Incomplete right bundle-branch block no longer present Myocardial infarct finding no longer present Electronically Signed On 11-16-22 13:09:54 CDT by Jaron Lester
== END 2022-11-15 17:45 | disposition home or self-care (01) | DRG 193 ==
LOC: ER 05:47 → ERHOLD 07:17 → 2ND 11:45
PROVIDERS: ADMIT Family Medicine; ATTEND Family Medicine
DX: J18.9 Pneumonia, unspecified organism (principal); I50.33 Acute on chronic diastolic (congestive) heart failure; J44.1 Chronic obstructive pulmonary disease with (acute) exacerbation; J44.0 Chronic obstructive pulmonary disease with (acute) lower respiratory infection; I49.3 Ventricular premature depolarization; J40 Bronchitis, not specified as acute or chronic; R00.0 Tachycardia, unspecified; R77.8 Other specified abnormalities of plasma proteins; Z88.4 Allergy status to anesthetic agent; Z88.8 Allergy status to other drugs, medicaments and biological substances; Z88.7 Allergy status to serum and vaccine; Z79.01 Long term (current) use of anticoagulants; Z85.42 Personal history of malignant neoplasm of other parts of uterus; Z86.711 Personal history of pulmonary embolism; Z87.891 Personal history of nicotine dependence; Z86.718 Personal history of other venous thrombosis and embolism; Z20.822 Contact with and (suspected) exposure to COVID-19
CPT/HCPCS: 0240U; 36415; 71045; 71046; 80048; 80053; 83605; 83880; 84484; 85025; 85610; 85730; 87040; 87070; 87205; 93005; 93307; 94640; 94760; 96374; 96375; 99285; J0696; J1940; J2785; J2920; J7050; J7613; J7644

== ENCOUNTER 2023-01-19 11:28 | Inpatient (IN) | payer MEDICARE ==
--- OUTSIDE RECORDS SUMMARY | 2023-01-19 11:33 | XMS REPORT | Continuity of Care Document ---
:1940 Author Organization [facility] t Address [address] [place] [address] Care Team Providers Name Role Phone Cruzito Gibson MD Primary Care Physician Ranjith Kim MD Attending Clinician Tiara Altamirano MA Attending Clinician Unavailable Cruzito Gibson MD Attending Clinician Imtiaz Junior MD Attending Clinician Speedy_Jonas Attending Clinician Unavailable Marina Orta RN Attending Clinician Unavailable Al Bowen MD Attending Clinician Jade Whittington MA Attending Clinician Unavailable Cruzito Gibson Attending Clinician Speedy_Jonas Admitting Clinician Unavailable Payers Payer Name Policy Type Policy Number Effective Date Expiration Date [facility] [id number] 2020 (MEDICARE 00:00:00 REPLACEMENT O) Problems Condition Condition Condition Status Onset Resolution Last Treating Co mments Source Name Details Category Date Date Treatment Clinician Date SOB SOB Disease Active Methodi (shortness (shortness 4-19 st of breath) of breath) 00:00: Ho spita 00 l Carotid Carotid Disease Active [facility]i bruit bruit - st 00:00: Hospita 00 l R60.9 - R60.9 - Diagnosis Active 2019-05-16 Memoria EDEMA, EDEMA, 8- 12:10:00 l UNSPECIFIE UNSPECIFIE 00:01: Pako Jj Active 00 04/28/2019 CORINA TELLEZ [facility] Cancer Disease Active [facility]osp[facility] [...] ents Source Name Type Date Date Clinician Fexofena Propensi Active Itching Metho di dine ty to 01-13 adverse 00:00: Hospita reaction 00 l s to drug Sulfamet Propensi Active Itching Metho di hoxazole ty to 10-17 -Trimeth adverse 00:00: Hospita oprim reaction 00 l s to drug Codeine Propensi Active Other (See Nausea Met hodi ty to Comments) 10-17 adverse 00:00: Hospita reaction 00 l s to drug Hydrocod Propensi Active Itching Metho di one ty to 10-17 adverse 00:00: Hospita reaction 00 l s to drug Pentoxif Propensi Active GI Method i ylline ty to Intolerance 10-17 adverse 00:00: Hospita reaction 00 l s to drug Tetanus Propensi Active Swelling Metho di And ty to 10-17 Diphther adverse 00:00: Hospita . Tox reaction 00 l (Pf) s to drug Tramadol Propensi Active Itching Nausea Metho di ty to 10-[address] adverse 00:00: itching Hospita reaction 00 l s to drug tetanus tetanus Active [facility] toxoid toxoid l Charlie Jennifer Jennifer Active [facility] [place] Bactrim Bactrim Active [facility] [place] Family History Family Member Diagnosis Comments Start Date Stop Date Source Natural brother Heart disease Method [facility] Natural father [facility] Natural mother [facility] Natural sister Heart disease [facility] Social History Social Habit Start Date Stop Date Quantity Comments Source Gender identity 2021-10-21 Identifies as [facility] 07:16:22 female gender Hospital (finding) Sexual orientation 2021-10-21 Heterosexual [facility] 07:15:22 (finding) Hospital History SDOH [facility] Alcohol Std Drinks Hospit al History SDNE [facility] Binge Hospital History of tobacco Current smoker [facility] Alcohol intake 2023-01-13 2023-01-13 Lifetime [facility] 00:00:00 00:00:00 non-drinker Hospital (finding) History of Social 2023-01-13 2023-01-[address] function 00:00:00 00:00:00 Hospital History SDOH 2021-10-20 2021-10-20 1 [facility] Alcohol Frequency 00:00:00 00:00:00 Hospita l Tobacco use and 2021-10-20 2021-10-20 Smokeless tobacco [facility] exposure 00:00:00 00:00:00 non-user Hospital Sex Assigned At [birth year] [facility] 00:00:00 00:00:00 Hospital Smoking Status Start Date Stop Date Source Ex-smoker 2021-10-20 00:00:00 2021-10-20 00:00:00 [facility] Medications Ordered Filled Start Stop Current Ordering Indication Dosage Frequency Signature Comments Components Source Medication Medication Date Date Medication? Clinician (SIG) Name Name rivaroxaban Yes 20mg QD Take 1 Meth adriana (XARELTO) 5-10 tablet (20 st 20 mg 08:54: mg total) Hospita tablet 27 by mouth l daily. furosemide Yes 20mg Q.5D Take 1 Metho di (LASIX) 20 5-10 tablet (20 st mg tablet 08:54: mg total) Hos fatou 27 by mouth 2 l (two) times a day. pramipexole Yes .75mg Q.[id number] Take 1 [facility] (MIRAPEX) 5-[id number] 0.75 MG 08:54: 3D (0.75 mg Hospit a tablet 27 total) by l mouth 3 (three) times a day. esomeprazol Yes 20mg QD Take 1 Meth adriana e (NexIUM) 5-[address] 20 MG 08:54: (20 mg Hospita capsule 27 total) by l mouth daily before breakfast. albuterol Yes Inhale. Metho di sulfate 5-10 st (VENTOLIN 08:54: Hospita HFA INHL) 27 l calcium 2023-0 Yes Take by Method[facility] carbonate 5-[address] (CALCIUM 08:54: Hospita 600 ORAL) 27 l gabapentin 2022-0 Yes [id number] 300mg Q.5D Take 1 [facility] (NEURONTIN) 5-[address] 300 mg 00:00: (300 mg Hospita capsule 00 total) by l mouth 2 (two) times a day. carBAMazepi 2022-0 Yes [id number] 200mg QD Take 1 Methodi ne 5-[address] (TEGretoL) 00:00: (200 mg Hosp abby 200 mg 00 total) by l tablet mouth daily. traMADoL 0 2023- No [id number] 50mg Take 1 Metho di (Ultram) 50 5-10 05-11 tablet (50 s t mg tablet 00:00: 04:59 mg total) Ho spita 00 :00 by mouth l once for 1 dose .acute pain. Once a day as needed for severe pain pantoprazol 0 Yes 40mg QD Take 1 Meth adriana e 2-18 tablet (40 st (PROTONIX) 00:00: mg total) Ho spita 40 MG EC 00 by mouth l tablet daily. rivaroxaban 2021-0 Yes 20mg QD Take 20 mg [facility] (XARELTO) 2-[address] 20 mg 14:22: daily. Hospita tablet 04 l furosemide 2021-0 Yes 20mg Q.5D Take 20 mg M ethodi (LASIX) 20 2-[address] mg tablet 14:22: (two) Hospita 04 times a l day. pramipexole 2021-0 Yes .75mg Q.[id number] Take 0.75 [facility] (Mirapex) 2-[id number] 0.75 MG 14:22: 3D mouth 3 Hospita tablet 04 (three) l times a day. esomeprazol 2021-0 Yes 20mg QD Take 20 mg Methodi e (NexIUM) 2-[address] 20 MG 14:22: daily Hospita capsule 04 before l breakfast. albuterol 2021-0 Yes Inhale. Metho di sulfate 2-14 st [...] times a l day. pramipexole Yes .75mg Q.[id number] Take 0.75 [facility] (Mirapex) 2-[id number] 0.75 MG 14:22: 3D mouth 3 Hospita tablet 04 (three) l times a day. esomeprazol Yes 20mg QD Take 20 mg Methodi e (NexIUM) 2-[address] 20 MG 14:22: daily Hospita capsule 04 before l breakfast. albuterol Yes Inhale. Metho di sulfate 2-14 st (VENTOLIN 14:22: Hospita HFA INHL) 04 l fluticasone 2020-09 Yes Method i -umeclidin- 1-01 st vilanter 00:00: Hospita (Trelegy 00 l Ellipta) 100-62.5-25 mcg blister with device powder for inhalation Vital Signs Vital Name Observation Time Observation Value Comments Source Systolic blood 2023-01-13 13:54:00 99 mm[Hg] [facility] Hospital pressure Diastolic blood 2023-01-13 13:54:00 61 mm[Hg] [facility] pressure Heart rate 2023-01-13 13:54:00 75 /min [facility] Body height 2023-01-13 13:54:00 154.9 cm [facility] Body weight 2023-01-13 13:54:00 52.164 kg [facility] BMI 2023-01-13 13:54:00 21.73 kg/m2 [facility] Systolic blood 2021-10-20 20:20:00 177 mm[Hg] [facility] pressure Diastolic blood 2021-10-20 20:20:00 88 mm[Hg] [facility] Hospital pressure Heart rate 2021-10-20 20:20:00 57 /min [facility] Body temperature 2021-10-20 20:20:00 36.67 Jayshree Meth [facility] Body height 2021-10-20 20:20:00 165.1 cm [facility] Body weight 2021-10-20 20:20:00 53.524 kg [facility] BMI 2021-10-20 20:20:00 19.64 kg/m2 [facility] Oxygen saturation in 2021-10-20 20:20:00 97 /min [facility] Arterial blood by Pulse oximetry Procedures Procedure Date / Time Performing Clinician Source Performed MRI BRAIN W WO CONTRAST 2023-01-15 23:42:42 [facility] COMPREHENSIVE METABOLIC 2023-01-13 15:15:00 [facility] PANEL CBC WITH PLATELET AND 2023-01-13 15:15:00 [facility] DIFFERENTIAL ESTIMATED GFR 2023-01-13 15:15:00 [facility] Plan of Care Planned Activity Planned Date Details Comments Source Future Scheduled 2023-01-18 65+ PNEUMOCOCCAL [facility] Test 08:47:16 VACCINE (1 - PCV) [code = 65+ PNEUMOCOCCAL VACCINE (1 - PCV)] Future Scheduled 2023-01-18 SHINGLES VACCINES (1 Met [facility] Test 08:47:16 of 2) [code = SHINGLES VACCINES (1 of 2)] Future Scheduled 2023-01-18 COVID-19 VACCINE (3 - [facility] Test 08:47:16 Booster for Trina series) [code = COVID-19 VACCINE (3 - Booster for Trina series)] Future Scheduled 2023-01-18 INFLUENZA VACCINE Method [facility] Test 08:47:16 [code = INFLUENZA VACCINE] Future Scheduled 2022-08-19 COVID-19 VACCINE (#1) Me [facility] Test 16:42:00 [code = COVID-19 VACCINE (#1)] Future Scheduled 2022-08-19 65+ PNEUMOCOCCAL [facility] Test 16:42:00 VACCINE (1 - PCV) [code = 65+ PNEUMOCOCCAL VACCINE (1 - PCV)] Future Scheduled 2022-08-19 SHINGLES VACCINES (1 Met [facility] Test 16:42:00 of 2) [code = SHINGLES VACCINES (1 of 2)] Future Scheduled 2022-08-19 INFLUENZA VACCINE Method [facility] Test 16:42:00 [code = INFLUENZA VACCINE] Future Scheduled 2022-08-19 COVID-19 VACCINE (#1) [facility] Test 16:42:00 [code = COVID-19 VACCINE (#1)] Future Scheduled 2022-08-19 65+ [facility]OCOCCAL [facility] Test 16:42:00 VACCINE (1 - PCV) [code = 65+ PNEUMOCOCCAL VACCINE (1 - PCV)] Future Scheduled 2022-08-19 SHINGLES VACCINES (1 [facility] Test 16:42:00 of 2) [code = SHINGLES VACCINES (1 of 2)] Future Scheduled 2022-08-19 INFLUENZA VACCINE [facility] Test 16:42:00 [code = INFLUENZA VACCINE] Encounters Start End Encounter Admission Attending Care Care Encounter Source Date/Time Date/Time Type Type Clinicians Facility Department ID 2023-01-15 2023-01-15 [facility], 1.2.840.1 [id number] Methodi 16:12:18 23:59:00 Encounter Ranjith 07751.1.[address] 3.430.2.7 Hospit a .3.450582 l .8 2023-01-15 2023-01-15 [facility], 1.2.840.1 [id number] Methodi 16:12:18 23:59:00 Encounter Ranjith 50992.1.[address] 3.430.2.7 Hospit a .3.235300 l .8 2023-01-15 2023-01-15 Travel 1.2.840.1 1.2.985.365 [id number] Methodi 00:00:00 00:00:[address] 3.430.2.7 0.2.7.3.698 Ho spita .3.656721 084.8 l .8 2023-01-15 2023-01-15 Telephone Adarsh, 1.2.840.1 [id number] 2 [id number] Methodi 00:00:00 00:00:[address] 3.430.2.7 Hospit a .3.643475 l .8 2023-01-15 2023-01-15 Travel 1.2.840.1 1.2.982.161 6995 [id number] Methodi 00:00:00 00:00:[address] 3.430.2.7 0.2.7.3.698 Ho spita .3.318334 084.8 l .8 2023-01-15 2023-01-15 Telephone Adarsh, 1.2.840.1 [id number] 2 [id number] Methodi 00:00:00 00:00:[address] 3.430.2.7 Hospit a .3.672858 l .8 2023-01-13 2023-01-13 Lab Kassar, 1.2.840.1 [id number] Methodi 09:50:00 09:55:[address] 3.430.2.7 Hospit a .3.450219 l .8 2023-01-13 2023-01-13 Lab Kassar, 1.2.840.1 [id number] Methodi 09:50:00 09:55:[address] 3.430.2.7 Hospit a .3.958311 l .8 2023-01-13 2023-01-13 Office Kassar, 1.2.840.1 [id number] 6496 Methodi 08:30:00 09:40:17 Visit Darine 59737.1.[address] 3.430.2.7 Hospit a .3.685680 l .8 2023-01-13 2023-01-13 Office Kassar, 1.2.840.1 [id number] 8461 Methodi 08:30:00 09:40:17 Visit Darine 03314.1.[address] 3.430.2.7 Hospit a .3.048321 l .8 2023-01-13 2023-01-13 Travel 1.2.840.1 1.2.568.082 1384 [id number] Methodi 00:00:00 00:00:[address] 3.430.2.7 0.2.7.3.698 Ho spita .3.861298 084.8 l .8 2023-01-13 2023-01-13 Travel 1.2.840.1 1.2.255.630 8555 [id number] Methodi 00:00:00 00:00:[address] 3.430.2.7 0.2.7.3.698 Ho spita .3.428944 084.8 l .8 2023-01-11 2023-01-11 Transcribe Arthur, 1.2.840.1 [id number] 21 [id number] Methodi 00:00:00 00:00:00 Orders Cruzito 02115.1.[address] 3.430.2.7 Hospit a .3.614216 l .8 2023-01-11 2023-01-11 Transcribe Arthur, 1.2.840.1 [id number] 21 [id number] Methodi 00:00:00 00:00:00 Orders Cruzito 80998.1.[address] 3.430.2.7 Hospit a .3.319811 l .8 2022-12-22 2022-12-22 Office Junior, 1.2.840.1 [id number] 3156 Methodi 11:30:00 15:05:41 Visit Imtiaz Carpio 45003.1.[address] 3.430.2.7 Hospit a .3.360057 l .8 2022-12-22 2022-12-22 Office Junior, 1.2.840.1 [id number] [id number] Methodi 11:30:00 15:05:41 Visit Imtiaz RTrell 24881.1.[address] 3.430.2.7 Hospit a .3.271940 l .8 2022-12-22 2022-12-22 Travel 1.2.840.1 1.2.302.179 3538 [id number] Methodi 00:00:00 00:00:[address] 3.430.2.7 0.2.7.3.698 Ho spita .3.668177 084.8 l .8 2022-12-22 2022-12-22 Travel 1.2.840.1 1.2.430.840 5521 [id number] Methodi 00:00:00 00:00:[address] 3.430.2.7 0.2.7.3.698 Ho spita .3.710348 084.8 l .8 2022-12-03 2022-12-03 Transcribe Arthur, 1.2.840.1 [id number] 21 [id number] Methodi 00:00:00 00:00:00 Orders Cruztio 40851.1.[address] 3.430.2.7 Hospit a .3.601232 l .8 2022-12-03 2022-12-03 Transcribe Arthur, 1.2.840.1 [id number] Methodi 00:00:00 00:00:00 Orders Cruzito 75187.1.[address] 3.430.2.7 Hospit a .3.732631 l .8 2022-03-20 2022-03-20 Outpatient Adams_R [facility] [id number] 022 [facility] 08:24:00 08:24:00 0715 Medica l Group 2022-03-20 2022-03-20 Outpatient Adams_R [facility] 80429-0 023 [facility] 00:00:00 00:00:00 0506 Medica l Group 2021-11-10 2021-11-10 Travel 1.2.840.1 1.2.936.969 1269 [id number] Methodi 00:00:00 00:00:[address] 3.430.2.7 0.2.7.3.698 Ho spita .3.590998 084.8 l .8 2021-11-04 2021-11-04 Telephone Orta, 1.2.840.1 [id number] Methodi 00:00:00 00:00:[address] 3.430.2.7 Hospit a .3.990546 l .8 2021-10-20 2021-10-20 Office Ferny Bowenic 1.2.840.1 [id number] 21 [id number] Methodi 14:00:00 15:17:32 Visit Primitivo 33135.1.[address] 3.430.2.7 Hospit a .3.890980 l .8 2021-10-20 2021-10-20 Travel 1.2.840.1 1.2.446.542 1065 [id number] Methodi 00:00:00 00:00:[address] 3.430.2.7 0.2.7.3.698 Ho spita .3.199722 084.8 l .8 2021-10-17 2021-10-17 Abstract Nelsy 1.2.840.1 [id number] [id number] Methodi 00:00:00 00:00:00 Jade D 12377.1.1 [address] t 3.430.2.7 Hospit a .3.253591 l .8 2021-10-02 2021-10-02 Travel 1.2.840.1 1.2.222.253 2879 [id number] Methodi 00:00:00 00:00:[address] 3.430.2.7 0.2.7.3.698 Ho spita .3.084811 084.8 l .8 2021-09-25 2021-09-25 Telephone Ferny Bowenic 1.2.840.1 [id number] Methodi 00:00:00 00:00:[address] 3.430.2.7 Hospit a .3.940572 l .8 2021-06-02 2021-06-02 Outpatient Adams_R [facility] 96435-2 021 [facility] 11:38:00 11:38:00 0927 Medica l Group 2019-07-17 2019-07-18 Outpt Diag nullFlavo [facility] [id number] Memoria 14:30:00 05:59:00 Services r Outpatient 01 l Imaging Charlie Otterbein 2019-07-17 2019-07-18 Outpt Diag nullFlavo [facility] [id number] Memoria 14:30:00 05:59:00 Services r Outpatient 01 l Imaging [facility] 2019-07-17 2019-07-17 Outpatient EMELINA Gibson [facility] [id number] 08:30:00 23:59:00 Cruzito 2019-05-16 2019-05-17 Outpt Diag nullFlavo [facility] [id number] Memoria 17:01:00 04:59:00 Services r Outpatient 00 l Imaging [facility] 2019-05-16 2019-05-17 Outpt Diag nullFlavo [facility] [id number] Memoria 17:01:00 04:59:00 Services r Outpatient 00 l [facility] 2019-05-16 2019-05-16 Outpatient EMELINA Gibson [facility] [id number] 12:01:00 23:59:00 Cruzito 00 Results This patient has no known results.
[2023-01-19 11:59] LABS: Absolute Lymphocytes (CBC) 0.8 K/uL (0.7-4.9); Hematocrit 40.9 % (36.0-45.0); Lymphocytes % 12.4 % (15.3-44.8); MCV 91.3 fL (80-100); MPV 7.3 fL (7.6-11.3); RBC Red Blood Cell Count 4.48 M/uL (3.86-4.86)
[2023-01-19] MEDS ORDERED: METHYLPREDNISOLONE 125 MG INJ ONE (12:03)
[2023-01-19 12:04] LABS: Protime INR 1.62
[2023-01-19] MEDS ORDERED: IPRATROPIUM BROM 0.5MG/2.5ML ONE (12:04)
[2023-01-19] MEDS ORDERED: LEVALBUTEROL 1.25 MG/3 ML NEB ONE (12:04)
[2023-01-19] MEDS ORDERED: MAGNESIUM SULFATE 1 gm IVPB 1 GM/100 ML BAG IV ONE (12:04)
[2023-01-19 12:17] LABS: Albumin 3.5 g/dL (3.4-5.0); Bilirubin Direct 0.1 mg/dL (0-0.2); Bilirubin Indirect, Calculated 0.2 mg/dL (0.2-0.8); Bilirubin Total 0.3 mg/dL (0.2-1.0); Potassium 4.3 mEq/L (3.5-5.1); Protein, Total 6.7 g/dL (6.4-8.2); Troponin High Sensitivity 35.9 pg/mL (<58.9)
--- NOTE | 2023-01-19 12:35 | RAD REPORT ---
EXAM DESCRIPTION: RAD - Chest Single View - 01/19/2023 12:16 pm CLINICAL HISTORY: COUGH Chest pain. COMPARISON: Chest Pa And Lat (2 Views) dated 11/13/2022; Chest Single View dated 11/12/2022; Chest Sing le View dated 09/05/2022; Chest Single View dated 10/08/2019 FINDINGS: Portable technique limits examination quality. Prominent diffuse emphysema. Bibasilar lung infiltrate pattern is present with small pleural effusion s, greater on the left. The heart is moderately enlarged. No displaced fractures. IMPRESSION: Bibasilar lung infiltrates, greater on the right likely representing pneumonia.
--- NOTE | 2023-01-19 12:52 | ER ---
Nurse's Notes [facility] Name: Shazia Colin Age: 82 yrs Sex: Female : 1940 Arrival Date: 01/19/2023 Time: 11:28 Bed 20 Private MD: Cruzito Gibson Diagnosis: Pneumonia, unspecified organism;Hypoxemia;COPD/ Chronic obstructive pulmonary disease with acute lower respiratory infection;COPD/ Chronic obstructive pulmonary disease with (acute) exacerbation Presentation: 01/19 11:39 Chief complaint: Patient states: SOB ON HOME MONITOR. Coronavirus screen: At this time, bp the client does not indicate any symptoms associated with coronavirus-19. Ebola Screen: No symptoms or risks identified at this time. Initial Sepsis Screen: Does the patient meet any 2 criteria? No. Patient's initial sepsis screen is negative. Does the patient have a suspected source of infection? No. Patient's initial sepsis screen is negative. Risk Assessment: Do you want to hurt yourself or someone else? Patient reports no desire to harm self or others. Onset of symptoms is unknown. 11:39 Method Of Arrival: Wheelchair bp 11:39 Acuity: MALLY 5 bp 13:22 Acuity: MALLY 3 iw Triage Assessment: 11:39 General: Appears in no apparent distress. Behavior is calm, cooperative, appropriate bp for age. Pain: Denies pain. EENT: No deficits noted. Neuro: No deficits noted. Cardiovascular: No deficits noted. Respiratory: Reports shortness of breath Onset: The symptoms/episode began/occurred yesterday, the patient reports symptoms have resolved. GI: No signs and/or symptoms were reported involving the gastrointestinal system. : No signs and/or symptoms were reported regarding the genitourinary system. Derm: No deficits noted. Musculoskeletal: No deficits noted. Historical: - Allergies: 11:39 Bactrim; bp 11:39 Codeine; bp 11:39 Fluconazole; bp 11:39 Hydrocodone-Acetaminophen; bp 11:39 Sulfa (Sulfonamide Antibiotics); bp 11:39 Tetanus Vaccines \T\ Toxoid; bp 11:39 tramadol; bp 11:39 TussiCaps; bp - Home Meds: 11:39 albuterol sulfate 2.5 mg /3 mL (0.083 %) Inhl nebu [Active]; bp - PMHx: 11:39 Anxiety; Chronic obstructive lung disease; DVT; PE; bp - Immunization history:: Adult Immunizations up to date. - Social history:: Smoking status: Patient denies any tobacco usage or history of. - Family history:: not pertinent. - Hospitalizations: : No recent hospitalization is reported. Screenin:00 [facility] ED Fall Risk Assessment (Adult) History of falling in the last 3 months, bp including since admission No falls in past 3 months (0 pts). Abuse screen: Denies threats or abuse. Denies injuries from another. Nutritional screening: No deficits noted. Tuberculosis screening: No symptoms or risk factors identified. Assessment: 11:39 General: SEE TRIAGE NOTE. bp 13:00 Reassessment: No changes from previously documented assessment. Patient is alert, bp oriented x 3, equal unlabored respirations, skin warm/dry/pink. Cardiovascular: Rhythm is sinus rhythm. Respiratory: Airway is patent Respiratory effort is unlabored, Breath sounds with crackles. 15:00 Reassessment: ADMIT IN PROCESS. bp 15:42 Reassessment: PT RESHMA. bp Vital Signs: 11:39 BP 184 / 97; Pulse 100; Resp 16; Temp 98; Pulse Ox 97% ; bp 13:00 BP 155 / 72; Pulse 84; Resp 16; Pulse Ox 100% ; bp 15:00 BP 142 / 65; Pulse 94; Resp 16; Pulse Ox 96% ; bp ED Course: 11:30 Patient arrived in ED. am2 11:30 Cruzito Gibson MD is Private Physician. am2 11:30 Chang Britton MD is Attending Physician. rn 11:32 Duane Stoll RN is Primary Nurse. bp 11:39 Arm band placed on. bp 11:44 Inserted saline lock: 20 gauge in left antecubital area, using aseptic technique. Blood ld1 collected. 12:17 XRAY CXR (1 view) In Process Unspecified. EDMS 12:51 Cruzito Gibson MD is Hospitalizing Provider. rn 13:00 Patient has correct armband on for positive identification. Bed in low position. Call bp light in reach. Side rails up X2. 13:03 Triage completed. bp 15:42 No provider procedures requiring assistance completed. Patient admitted, IV remains in bp place. Administered Medications: 12:00 Drug: MethylPrednisoLONE IVP 125 mg Route: IVP; Site: left antecubital; bp 15:44 Follow up: Response: No adverse reaction bp 12:00 Drug: Magnesium Sulfate IVPB 1 grams Route: IVPB; Infused Over: 1 hrs; Site: left bp antecubital; 15:43 Follow up: IV Status: Completed infusion; IV Intake: 100ml bp 12:00 Drug: Levalbuterol Inhalation 1.25 mg Route: Inhalation; bp 12:00 Drug: Levalbuterol Inhalation 1.25 mg Route: Inhalation; bp 12:00 Drug: Ipratropium Inhalation Aerosol 0.5 mg Route: Inhalation; bp 13:39 Drug: Rocephin IV 1 grams Route: IV; Rate: calculated rate; Site: left antecubital; ko1 15:43 Follow up: IV Status: Completed infusion; IV Intake: 100ml bp 13:39 Drug: Zithromax IVPB 500 mg Route: IVPB; Infused Over: 1 hrs; Site: left antecubital; ko1 15:43 Follow up: IV Status: Completed infusion; IV Intake: 250ml bp 13:39 Drug: Furosemide IVP 20 mg Route: IVP; Site: left antecubital; ko1 15:43 Follow up: Response: No adverse reaction bp Medication: 13:00 VIS not applicable for this client. bp Intake: 15:43 IV: 250ml; Total: 250ml. bp 15:43 IV: 100ml; Total: 350ml. bp 15:43 IV: 100ml; Total: 450ml. bp Outcome: 12:52 Decision to Hospitalize by Provider. rn 15:42 Admitted to Med/surg accompanied by tech, family with patient, via wheelchair, room bp 404, with oxygen, with chart, Report called to WILBERT GUZMAN 15:42 Condition: stable 15:42 Instructed on the need for admit. 15:44 Patient left the ED. bp Signatures: Dispatcher [employer] EDMS Brianne Armenta RN RN iw Nieto, Roman, MD MD rn Moreno, Amanda am2 Peltier, Brian, RN RN bp Sims, Lauren, RN RN ld1 Lola Abraham RN RN ko1
--- NOTE | 2023-01-19 12:53 | EDPHYS ---
Physician Documentation [facility] Name: Shazia Colin Age: 82 yrs Sex: Female : 1940 Arrival Date: 01/19/2023 Time: 11:28 Bed 20 Private MD: Cruzito Gibson ED Physician Chang Britton HPI: 01/19 11:38 This 82 yrs old Female presents to ER via Unassigned with complaints of Breathing rn Difficulty. 11:38 The patient has shortness of breath with light activity. rn 11:39 Onset: The symptoms/episode began/occurred yesterday. Duration: The symptoms are rn continuous. The patient's shortness of breath is aggravated by exertion, light activity, is alleviated by rest. Associated signs and symptoms: Pertinent positives: non-productive cough, Pertinent negatives: chest pain, fever, hemoptysis, loss of consciousness. Severity of symptoms: At their worst the symptoms were moderate in the emergency department the symptoms are unchanged. The patient has experienced similar episodes in the past. The patient has not recently seen a physician. Pt reports sob over the last 2 days, has COPD, not on home O2, + non-productive cough. No chest pain. IMproves slightly with nebs, sent by Dr. Gibson for eval and steroids. NO hx of dvt/PE. NO abd pain. NO fever. . Historical: - Allergies: 11:39 Bactrim; bp 11:39 Codeine; bp 11:39 Fluconazole; bp 11:39 Hydrocodone-Acetaminophen; bp 11:39 Sulfa (Sulfonamide Antibiotics); bp 11:39 Tetanus Vaccines \T\ Toxoid; bp 11:39 tramadol; bp 11:39 TussiCaps; bp - Home Meds: 11:39 albuterol sulfate 2.5 mg /3 mL (0.083 %) Inhl nebu [Active]; bp - PMHx: 11:39 Anxiety; Chronic obstructive lung disease; DVT; PE; bp - Immunization history:: Adult Immunizations up to date. - Social history:: Smoking status: Patient denies any tobacco usage or history of. - Family history:: not pertinent. - Hospitalizations: : No recent hospitalization is reported. ROS: 11:39 Constitutional: Negative for fever, chills, and weight loss, Eyes: Negative for injury, rn pain, redness, and discharge, Cardiovascular: Negative for chest pain, palpitations, and edema, Respiratory: + sob and cough Abdomen/GI: Negative for abdominal pain, nausea, vomiting, diarrhea, and constipation, MS/Extremity: Negative for injury and deformity, Skin: Negative for injury, rash, and discoloration, Neuro: Negative for headache, numbness, tingling, and seizure. Exam: 11:39 Constitutional: Thin female with moderate tachypnea Head/Face: Normocephalic, rn atraumatic. ENT: dry MM, no stridor Cardiovascular: Regular rate and rhythm. No pulse deficits. Respiratory: + moderate tachypnea, no retractions, + wheezing throughout Abdomen/GI: soft, non-tender Skin: Warm, dry MS/ Extremity: Pulses equal, no cyanosis. Non-pitting bilateral lower ext edema Neuro: Awake and alert, GCS 15 13:41 ECG was reviewed by the Attending Physician. rn Vital Signs: 11:39 BP 184 / 97; Pulse 100; Resp 16; Temp 98; Pulse Ox 97% ; bp 13:00 BP 155 / 72; Pulse 84; Resp 16; Pulse Ox 100% ; bp 15:00 BP 142 / 65; Pulse 94; Resp 16; Pulse Ox 96% ; bp MDM: 11:31 Patient medically screened. rn 11:42 Historians other than the Patient: Daughter/Son: Reports oxygen in 70s at home today.. rn 12:49 Differential diagnosis: Chronic Obstructive Pulmonary Disease Myocardial Infarction rn pneumonia, Pneumothorax pulmonary edema, Sepsis. Antibiotic administration: Data reviewed: vital signs, nurses notes, lab test result(s), radiologic studies, plain films, and as a result, I will admit patient. Consideration of Admission/Observation Patient was admitted/placed on observation. Escalation of care including admission/observation considered. Management of patient was discussed with the following: Primary Care Provider: Dr. Gibson. I considered the following discharge prescriptions or medication management in the emergency department Medications were administered in the Emergency Department. See MAR. Counseling: I had a detailed discussion with the patient and/or guardian regarding: the historical points, exam findings, and any diagnostic results supporting the discharge/admit diagnosis, lab results, radiology results, the need for further work-up and treatment in the hospital. Response to treatment: the patient's symptoms have mildly improved after treatment, and as a result, I will admit patient. Special discussion:. 05/16 11:38 Order name: BMP; Complete Time: 12:36 rn 01/19 11:38 Order name: Blood Culture Adult (2) rn 01/19 11:38 Order name: CBC with Diff; Complete Time: 12:36 rn 01/19 11:38 Order name: Hepatic Function; Complete Time: 12:36 rn 01/19 11:38 Order name: NT PRO-BNP; Complete Time: 12:36 01/19 11:38 Order name: PT-INR; Complete Time: 12:36 rn 01/19 11:38 Order name: Ptt, Activated; Complete Time: 12:36 rn 01/19 11:38 Order name: Troponin HS; Complete Time: 12:36 01/19 11:38 Order name: COVID-19 SARS RT PCR; Complete Time: 12:36 rn 01/19 11:38 Order name: Flu; Complete Time: 12:36 rn 01/19 12:37 Order name: Lactate w/ 2H reflex if indic.; Complete Time: 13:44 01/19 11:38 Order name: XRAY CXR (1 view); Complete Time: 12:36 01/19 11:38 Order name: EKG; Complete Time: 11:39 01/19 11:38 Order name: Cardiac monitoring; Complete Time: 11:44 01/19 11:38 Order name: EKG - Nurse/Tech; Complete Time: 12:36 rn 01/19 11:38 Order name: IV Saline Lock; Complete Time: 11:44 01/19 11:38 Order name: Labs collected and sent; Complete Time: 11:44 01/19 11:38 Order name: O2 Per Protocol; Complete Time: 11:44 01/19 11:38 Order name: O2 Sat Monitoring; Complete Time: 11:44 rn EC:41 Rate is 86 beats/min. Rhythm is regular. QRS [place] is Normal. MT interval is normal. QRS rn interval is normal. QT interval is normal. No Q waves. T waves are Normal. No ST changes noted. Clinical impression: NSR w/ Non-specific ST/T Changes. Interpreted by me. Reviewed by me. Administered Medications: 12:00 Drug: MethylPrednisoLONE IVP 125 mg Route: IVP; Site: left antecubital; bp 15:44 Follow up: Response: No adverse reaction bp 12:00 Drug: Magnesium Sulfate IVPB 1 grams Route: IVPB; Infused Over: 1 hrs; Site: left bp antecubital; 15:43 Follow up: IV Status: Completed infusion; IV Intake: 100ml bp 12:00 Drug: Levalbuterol Inhalation 1.25 mg Route: Inhalation; bp 12:00 Drug: Levalbuterol Inhalation 1.25 mg Route: Inhalation; bp 12:00 Drug: Ipratropium Inhalation Aerosol 0.5 mg Route: Inhalation; bp 13:39 Drug: Rocephin IV 1 grams Route: IV; Rate: calculated rate; Site: left antecubital; ko1 15:43 Follow up: IV Status: Completed infusion; IV Intake: 100ml bp 13:39 Drug: Zithromax IVPB 500 mg Route: IVPB; Infused Over: 1 hrs; Site: left antecubital; ko1 15:43 Follow up: IV Status: Completed infusion; IV Intake: 250ml bp 13:39 Drug: Furosemide IVP 20 mg Route: IVP; Site: left antecubital; ko1 15:43 Follow up: Response: No adverse reaction bp Disposition: 12:49 Critical Care:. rn Disposition Summary: 01/19/23 12:52 Hospitalization Ordered Hospitalization Status: Inpatient Admission rn Provider: Cruzito Gibson rn Location: Telemetry/[facility] (Inpatient) rn Condition: Stable rn Problem: new rn Symptoms: have improved rn Bed/Room Type: Standard rn Room Assignment: 404(01/19/23 14:35) bd Diagnosis - Pneumonia, unspecified organism rn - Hypoxemia rn - COPD/ Chronic obstructive pulmonary disease with acute lower respiratory infection rn - COPD/ Chronic obstructive pulmonary disease with (acute) exacerbation rn Forms: - Medication Reconciliation Form rn - SBAR form rn imcu time excluding procedures: 12:49 Critical care time: Bedside Care: 35 minutes, Consultation: 5 minutes. Total time: 40 rn minutes Signatures: Dispatcher [employer] Lizeth Newberry Roman, MD MD rn Peltier, Brian RN RN Lola Long RN RN ko1 Corrections: (The following items were deleted from the chart) 14:35 12:52 rn bd
[2023-01-19] MEDS ORDERED: AZITHROMYCIN 500 MG INJ IVPB ONE (13:29)
[2023-01-19] MEDS ORDERED: FUROSEMIDE 20 MG/ 2ML VIAL ONE (13:29)
[2023-01-19] MEDS ORDERED: CEFTRIAXONE 1000 MG/VIAL ONE (13:29)
[2023-01-19] MEDS ORDERED: NA CHLORIDE 0.9% 250 ML ONE (13:29)
[2023-01-19 16:19] VITALS: BMI 21.7
[2023-01-19] MEDS ORDERED: ACETAMINOPHEN 500 MG TAB PO PRN (16:33)
[2023-01-19] MEDS ORDERED: IPRATROPIUM BROM 0.5MG/2.5ML NEB PRN (16:33)
[2023-01-19] MEDS ORDERED: ONDANSETRON 4 MG/2 ML VIAL IV PRN (16:33)
[2023-01-19] MEDS: GABAPENTIN 300 MG CAP PO SCH (20:36)
[2023-01-19] MEDS: FUROSEMIDE 20 MG TABLET PO SCH (20:36)
[2023-01-19] MEDS: PRAMIPEXOLE 0.25 MG TAB PO SCH (20:36)
[2023-01-20] MEDS: CEFTRIAXONE 1,000 MG in NA CHLORIDE 0.9% 50 ML IVPB SCH ×3 (01:26→19:29)
[2023-01-20 07:02] LABS: Hematocrit 40.2 % (36.0-45.0); Lymphocytes % 18.5 % (15.3-44.8); MCV 91.3 fL (80-100); MPV 7.6 fL (7.6-11.3); RBC Red Blood Cell Count 4.41 M/uL (3.86-4.86)
[2023-01-20 07:08] LABS: Potassium 3.6 mEq/L (3.5-5.1)
[2023-01-20] MEDS ORDERED: METHYLPREDNISOLONE 125 MG INJ IV ONE (07:42)
[2023-01-20] MEDS: GABAPENTIN 300 MG CAP PO SCH ×2 (08:22→19:30)
[2023-01-20] MEDS: FUROSEMIDE 20 MG TABLET PO SCH ×2 (08:22→19:30)
[2023-01-20] MEDS: PANTOPRAZOLE 40MG TABLET PO SCH (08:22)
[2023-01-20] MEDS: RIVAROXABAN 20 MG TABLET PO SCH (08:23)
[2023-01-20] MEDS: PRAMIPEXOLE 0.25 MG TAB PO SCH ×3 (08:23→19:29)
[2023-01-20] MEDS ORDERED: HOME MED 1 EA UNK (Fluticasone/Umeclidin/Vilanter [Trelegy Ellipta 100-62.5-25] Blst.W.Dev IH SCH (09:00)
[2023-01-20] MEDS ORDERED: AZITHROMYCIN IV 250 MG in NA CHLORIDE 0.9% 250 ML IVPB SCH (13:00)
[2023-01-20] MEDS: ALBUTEROL 2.5 MG/3 ML NEB SOL NEB PRN (14:15)
--- NOTE | 2023-01-20 16:40 | PN ---
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 We will therefore repeat the CT scan in the morning, consult Dr. Roth who has seen her in t he past for somewhat similar situations and make a determination at that time. HR/MODL Voice ID: [id number] Report ID: [id number]
[2023-01-20] MEDS ORDERED: carBAMazepine 200 MG TAB PO ONE (17:30)
--- NOTE | 2023-01-20 20:04 | CON ---
Date of Consultation: 01/20/2023 Reason For Consultation: Hypoxia, pneumonia, possible congestive heart failure. History Of Present Illness: Ms. Colin is 82. Has a history of deep venous thrombosis. She is statu s post IVC filter by Dr. Mercado, has been on Xarelto for that for many years. She has a history of pe ripheral arterial disease for which she is seeing Dr. Imtiaz Junior in the near future. She has a hist ory of neuropathy, gastroesophageal reflux disease, and mild COPD, comes in with hypoxia. Chest x-ra y showed pneumonia. Echocardiogram which was done last month was normal. The patient denied PND, or thopnea, pedal edema, palpitation, syncope, fever, chills, chest pain, nausea, vomiting, diaphoresis. BNP was slightly elevated. Chest x-ray showed pneumonia. EKG is nonspecific. Past Medical History: As stated above. Allergies: SHE IS ALLERGIC TO CODEINE, TRENTAL, BACTRIM, AND TETANUS. Medications: At home include Neurontin, Lasix, Xarelto, inhalers, Protonix. Social History: Negative. Family History: Noncontributory. Physical Examination: Vital Signs: Stable, sinus rhythm, afebrile. General: Very pleasant, no acute distress. HEENT: Negative. Neck: Supple with no bruit. Chest: Clear. Cardiac: Revealed a regular rhythm and rate. No murmurs, gallops, or rubs. Abdomen: Benign. Extremities: Revealed no clubbing, cyanosis. She has trace edema. Diagnostic Data: As stated earlier. Impression And Plan: 1.Hypoxia and shortness of breath secondary to pneumonia. This is not a congestive heart failure si tuation. She just had a normal echo. BNP is elevated and does not clinically significant. 2.History of deep vein thrombosis, status post IVC filter, on Xarelto. 3.Peripheral arterial disease. She is following up with Dr. Junior in the near future. I will contin ue her antibiotics with Lasix, continue her Xarelto, Neurontin, Protonix, inhalers. I am comfortable with her going home and Levaquin will be adequate. I will discuss the case with Dr. Gibson. HENRIETTA/MODL Voice ID: [id number] Report ID: [id number]
[2023-01-21 04:30] LABS: Absolute Lymphocytes (CBC) 1.4 K/uL (0.7-4.9); Hematocrit 36.4 % (36.0-45.0); MCV 90.5 fL (80-100); MPV 7.7 fL (7.6-11.3); RBC Red Blood Cell Count 4.02 M/uL (3.86-4.86)
[2023-01-21 04:52] LABS: Potassium 3.7 mEq/L (3.5-5.1)
--- NOTE | 2023-01-21 07:30 | RAD REPORT ---
EXAM DESCRIPTION: CT - Thorax Wo Con - 01/21/2023 7:04 am CLINICAL HISTORY: sob COMPARISON: August 2022 TECHNIQUE: Computed axial tomography of the chest was obtained. Contrast was not requested. All CT scans are performed using dose optimization technique as appropriate and may include automated exposure control or mA/KV adjustment according to patient size. FINDINGS: The evaluation of mediastinum, susy and vessels is limited secondary to lack of IV contras t administration. The marked COPD. Lungs are generally clear. No mediastinal or hilar lymphadenopathy is seen. A small left pleural effusion. No pericardial effusion. Coronary arterial calcifications IMPRESSION: Marked COPD Small left pleural effusion
--- NOTE | 2023-01-21 07:54 | PN ---
Date of Progress Note: 01/18/2023 The patient states she does feel somewhat better tonight as far as her breathing is concerned. Her c ough has become more productive; however, she is quite nervous about the pain associated with trigemi nal neuralgia and taking her medication as prescribed by the neurologist. However, the current docum entation of taking Tegretol on her first dose was altered in her increased respiratory difficulty and when seen in the office, it was felt to be an exacerbation of asthma and/or COPD. She is told not t o take it anymore. However, she decided to take it because she felt this is only thing that controll ed her pain. However, pulmonary status deteriorated. I feel there was somewhat of a connection. Yashira bearden also stopped taking the Lasix because she had read that diuretics and Tegretol do not react well. I feel this was a probability of her CHF being aggravated as well. We will hold Tegretol as she seem s to be free of pain at the moment, which is very anxious and we will reconsider tomorrow. HR/MODL Voice ID: [id number] Report ID: [id number]
[2023-01-21] MEDS: PANTOPRAZOLE 40MG TABLET PO SCH (07:56)
[2023-01-21] MEDS: FUROSEMIDE 20 MG TABLET PO SCH (07:56)
[2023-01-21] MEDS: HOME MED 1 EA UNK (Fluticasone/Umeclidin/Vilanter [Trelegy Ellipta 100-62.5-25] Blst.W.Dev IH SCH (07:56)
[2023-01-21] MEDS: CEFTRIAXONE 1,000 MG in NA CHLORIDE 0.9% 50 ML IVPB SCH (07:57)
[2023-01-21] MEDS: GABAPENTIN 300 MG CAP PO SCH ×2 (07:57→19:30)
[2023-01-21] MEDS: RIVAROXABAN 20 MG TABLET PO SCH (07:57)
[2023-01-21] MEDS: PRAMIPEXOLE 0.25 MG TAB PO SCH ×3 (07:57→19:30)
--- NOTE | 2023-01-21 11:25 | EKG ---
Test Date: 2023-01-19 Test Time: 12:03:01 Garage Helper: SHARONDA MEASUREMENT RESULTS: Intervals: Rate: 86 OK: 192 QRSD: 72 QT: 328 QTc: 392 Caret: P: 94 OK: 192 QRS: 94 T: 37 INTERPRETIVE STATEMENTS: Suspect arm lead reversal, interpretation assumes no reversal Normal sinus rhythm Nonspecific ST abnormality Abnormal ECG Compared to ECG 11/12/2022 16:34:14 ST (T wave) deviation now present Sinus tachycardia no longer present Ventricular premature complex(es) no longer present Electronically Signed On 01-21-23 11:20:40 CDT by Maverick Acosta
--- NOTE | 2023-01-21 12:01 | P.CNS ---
Date of Consult: 01/21/23 Reason for Consult: COPD exacerbation Chief Complaint: Shortness of breath History of Present Illness: Patient is 82 years of age with a history of COPD is on Trelegy became acutely short of breath came into the hospital patient does use trilogy at home has r escue inhaler no oxygen denies any fever chills has some swelling of her leg feeling a little better and is seen by Dr. Junior may have underlying peripheral vascular disease Allergies codeine Allergy (Verified 10/08/19 13:58) Itching fexofenadine [From Jennifer] Allergy (Verified 10/08/19 13:58) Itching Tetanus Vaccines and Toxoid Allergy (Verified 10/08/19 13:58) Hives/Rash tramadol Allergy (Verified 10/08/19 13:58) Itching tetanus toxoid, adsorbed Adverse Reaction (Severe, Verified 09/11/12 07:42) ARM SWELLING hydrocodone [Hydrocodone] Adverse Reaction (Mild, Verified 09/11/12 07:42) ITCH sulfamethoxazole [From Bactrim] Adverse Reaction (Mild, Verified 09/11/12 07:42) ITCH trimethoprim [From Bactrim] Adverse Reaction (Mild, Verified 09/11/12 07:42) ITCH pentoxifylline Adverse Reaction (Verified 10/08/19 13:58) Nausea/Vomiting Hydrocodone-Acet Allergy (Intermediate, Uncoded 10/08/19 13:58) Itching flu Allergy (Uncoded 10/16/17 07:55) Unknown TussiCap Allergy (Uncoded 10/16/17 07:55) Unknown Home Medications: Rivaroxaban [Xarelto*] 20 mg PO DAILY 04/13/13 Pramipexole Di-HCl [Mirapex] 1 tab PO TID 10/08/19 Albuterol Sulfate [Albuterol Sulfate 0.083% Neb Soln] 2.5 mg IH Q6HP PRN 15 Days #150 ml 09/06/22 Fluticasone/Umeclidin/Vilanter [Trelegy Ellipta 100-62.5-25] 1 puff IH DAILY 09/06/22 Furosemide 20 mg PO BID 09/06/22 Carbamazepine [Equetro] 200 mg PO DAILY 01/19/23 Gabapentin 300 mg PO BID 01/19/23 Pantoprazole [Protonix Tab*] 1 tab PO DAILY 01/19/23 - Past Medical/Surgical History Diabetic: No -: COPD -: PE -: Uterine Cancer -: DVT -: Gallbladder removed -: Evin. Hip Replacements -: Hysterectomy -: Cholecystectomy -: IVC FILTER Psychosocial/ Personal History: Patient is . - Family History Mother Notes: none Father Medical History: Heart disease - Social History Smoking Status: Former smoker Alcohol use: No CD- Drugs: No Caffeine use: Yes Place of Residence: Home Review of Systems 10-point ROS is otherwise unremarkable General: Weakness Respiratory: Shortness of Breath Physical Examination Temp Pulse Resp BP Pulse Ox 97.6 F 83 16 149/65 H 96 01/21/23 08:00 01/21/23 08:00 01/21/23 08:00 01/21/23 08:00 01/21/23 08:00 General: Alert, Oriented x3 Respiratory: Clear to auscultation bilaterally, Diminished Cardiovascular: No edema, Regular rate/rhythm, Normal S1 S2 Gastrointestinal: Normal bowel sounds, Soft and benign, Non-distended - Problems (1) COPD exacerbation Current Visit: Yes Status: Acute Plan: Patient is 82 years of age with a history of COPD admitted with an exacerbation she is compliant with her trilogy otherwise lab work is unremarkable chest x-ray shows hyperinflation vital signs are stable will evaluate for home O2 recent echocardiogram shows normal left ventricular function recommend changed to low- dose spironolactone than Lasix patient is on Xarelto add p.o. prednisone history of DVT
[2023-01-21] MEDS: SPIRONOLACTONE 25 MG TABLET PO SCH (12:33)
[2023-01-21] MEDS: predniSONE 20 MG TAB PO SCH ×2 (12:34→19:31)
[2023-01-21] MEDS: IPRATROPIUM BROM 0.5MG/2.5ML NEB SCH ×2 (13:35→20:00)
[2023-01-21] MEDS ORDERED: carBAMazepine 200 MG TAB PO ONE (14:15)
--- NOTE | 2023-01-21 15:39 | PN ---
Date of Progress Note: 01/21/2023 The patient states she feels much better today; however, she did qualify for home O2, which will be o rdered and hopefully set up by tomorrow when she should be able discharged unless something unusual h appens overnight. She was seen by Dr. Roth, felt it was not pneumonia, but severe COPD, which wa s confirmed by the radiologist. The other issue was serum cortisol that was quite low at 2.5; sommer r, she had been on some IV steroids, but did not require prednisone for her COPD as an outpatient. V ital signs are stable. Her trigeminal neuralgia is much better. She took the Tegretol before it got really severe and she felt it did not impact her breathing. Today, she is starting to get a little bit of problem heating on that side. We will therefore give her another dose and she is told to obse rve closely as far as it is affecting and the breathing is concerned. Her serum cortisol will be rep eated at 4 o'clock. HR/MODL Voice ID: [id number] Report ID: [id number]
[2023-01-21] MEDS: ALBUTEROL 2.5 MG/3 ML NEB SOL NEB PRN (20:00)
[2023-01-22] MEDS: ALBUTEROL 2.5 MG/3 ML NEB SOL NEB PRN (02:15)
[2023-01-22] MEDS: IPRATROPIUM BROM 0.5MG/2.5ML NEB SCH ×3 (02:15→14:00)
[2023-01-22 07:03] LABS: Absolute Lymphocytes (CBC) 1.1 K/uL (0.7-4.9); Hematocrit 43.5 % (36.0-45.0); Lymphocytes % 14.7 % (15.3-44.8); MCV 91.1 fL (80-100); MPV 7.8 fL (7.6-11.3); RBC Red Blood Cell Count 4.78 M/uL (3.86-4.86)
[2023-01-22 07:10] LABS: Potassium 4.2 mEq/L (3.5-5.1)
[2023-01-22 08:05] VITALS: BP 140/65; TEMP 97.4
--- NOTE | 2023-01-22 08:17 | P.PN ---
Subjective Date of Service: 01/22/23 Chief Complaint: COPD exacerbation Subjective: Improving (Patient is improving doing well For home O2) Review of Systems General: Weakness Respiratory: Shortness of Breath Physical Examination - Vital Signs Temperature: 97.4 F Blood Pressure: 140/65 Pulse: 88 Respirations: 16 Pulse Ox (%): 93 - Physical Exam General: Alert, Oriented x3 Respiratory: Clear to auscultation bilaterally, Diminished, Friction rub Cardiovascular: Regular rate/rhythm Assessment And Plan - Current Problems (Diagnosis) (1) COPD exacerbation Current Visit: Yes Status: Acute Plan: Patient is doing well is improved significantly Home O2 ordered and for discharge continue with trilogy low-dose prednisone 10 mg twice a day for a week recommend changed to low-dose spironolactone instead of Lasix follow-up with me in 2 weeks
[2023-01-22] MEDS: SPIRONOLACTONE 25 MG TABLET PO SCH (08:26)
[2023-01-22] MEDS: predniSONE 20 MG TAB PO SCH (08:26)
[2023-01-22] MEDS: GABAPENTIN 300 MG CAP PO SCH (08:26)
[2023-01-22] MEDS: HOME MED 1 EA UNK (Fluticasone/Umeclidin/Vilanter [Trelegy Ellipta 100-62.5-25] Blst.W.Dev IH SCH (08:26)
[2023-01-22] MEDS: RIVAROXABAN 20 MG TABLET PO SCH (08:26)
[2023-01-22] MEDS: PANTOPRAZOLE 40MG TABLET PO SCH (08:26)
[2023-01-22] MEDS: PRAMIPEXOLE 0.25 MG TAB PO SCH ×2 (08:27→13:16)
[2023-01-22 10:34] VITALS: O2SAT 100
[2023-01-22] MEDS ORDERED: carBAMazepine 200 MG TAB PO ONE (11:15)
--- NOTE | 2023-01-22 12:52 | PN ---
Date of Progress Note: 01/22/2023 The patient states she feels much better, starting to get a little bit of pain associated with the tr igeminal neuralgia. Therefore, Tegretol was given. She does qualify for home O2 and can be discharg ed today when that is set up. The other issue has been her low cortisol level, questionable Addisoni an scenario. Seen by Dr. Roth who suggested some short term prednisone. She will therefore be d ischarged on 10 mg t.i.d. and instead of the Lasix, we will put her on Aldactone. She is to follow u p with me in 1 week. The probable diagnoses are possible [place]'s, severe COPD complicated by mild CHF. HR/MODL Voice ID: [id number] Report ID: [id number]
== END 2023-01-22 15:47 | disposition home or self-care (01) | DRG 192 ==
LOC: ER 11:28 → ERHOLD 13:07 → 4TH 15:00
PROVIDERS: ADMIT Family Medicine; ATTEND Family Medicine
DX: J44.1 Chronic obstructive pulmonary disease with (acute) exacerbation (principal); I73.9 Peripheral vascular disease, unspecified; K21.9 Gastro-esophageal reflux disease without esophagitis; R09.02 Hypoxemia; Z88.1 Allergy status to other antibiotic agents; Z88.8 Allergy status to other drugs, medicaments and biological substances; Z88.5 Allergy status to narcotic agent; Z88.7 Allergy status to serum and vaccine; Z79.01 Long term (current) use of anticoagulants; Z85.42 Personal history of malignant neoplasm of other parts of uterus; Z90.49 Acquired absence of other specified parts of digestive tract; Z86.718 Personal history of other venous thrombosis and embolism; Z86.711 Personal history of pulmonary embolism; Z87.891 Personal history of nicotine dependence; Z79.899 Other long term (current) drug therapy; Z96.643 Presence of artificial hip joint, bilateral; Z90.710 Acquired absence of both cervix and uterus; Z20.822 Contact with and (suspected) exposure to COVID-19
CPT/HCPCS: 36415; 71045; 71250; 80048; 80076; 82533; 82947; 83605; 83880; 84484; 85025; 85610; 85730; 87040; 87804; 93005; 94640; 94760; 96365; 96366; 96367; 96375; 99285; J0696; J1940; J2930; J3475; J7050; J7512; J7613; J7614; J7644; U0003

== ENCOUNTER 2023-06-06 18:16 | Inpatient (IN) | payer MEDICARE ==
--- OUTSIDE RECORDS SUMMARY | 2023-06-06 18:20 | XMS REPORT | Continuity of Care Document ---
:1940 Author Organization [facility] t Address [address] [facility] [address] [place] [address] Care Team Providers Name Role Phone Cruzito Gibson MD Primary Care Physician Imtiaz Junior MD Attending Clinician Tiara Altamirano MA Attending Clinician Unavailable Ranjith Kim MD Attending Clinician Cruzito Gibson MD Attending Clinician Norma Attending Clinician Unavailable Marina Orta RN Attending Clinician Unavailable Al Bowen MD Attending Clinician Jade Whittington MA Attending Clinician Unavailable Cruzito Gibson Attending Clinician Norma Admitting Clinician Unavailable Payers Payer Name Policy Type Policy Number Effective Date Expiration Date [facility] [id number] 2020 (MEDICARE 00:00:00 REPLACEMENT O) Problems Condition Condition Condition Status Onset Resolution Last Treating Co mments Source Name Details Category Date Date Treatment Clinician Date SOB SOB Disease Active [facility] (shortness (shortness 4-19 st of breath) of breath) 00:00: Ho spita 00 l Carotid Carotid Disease Active [facility] bruit bruit 12-23 st 00:00: Hospita 00 l R60.9 - R60.9 - Diagnosis Active 2019-05-16 Memoria EDEMA, EDEMA, 8- 12:10:00 l UNSPECIFIE UNSPECIFIE 00:01: Pako Jj Active 00 04/28/2019 CORINA TELLEZ [facility] Disease Active [facility] [...] l Charlie Bactrim Bactrim Active Memoria l Charlie Family History Family Member Diagnosis Comments Start Date Stop Date Source Natural brother Heart disease Method t [facility] Natural father Heart disease [facility] Natural mother Taoist [facility] Natural sister Heart disease [facility] Social History Social Habit Start Date Stop Date Quantity Comments Source Gender identity 2021-10-21 Identifies as Method ist 07:16:22 female gender Hospital (finding) Sexual orientation 2021-10-21 Heterosexual Meth odist 07:15:22 (finding) Hospital History of tobacco Cigarette Smoker Tao[facility] use Hospital History SDOH [facility] Alcohol Std Drinks Hospit al History SDCO [facility] Alcohol Binge Hospital Alcohol intake 2023-01-13 2023-01-13 Lifetime Taoist 00:00:00 00:00:00 non-drinker Hospital (finding) History of Social 2023-01-13 2023-01-[address] function 00:00:00 00:00:00 Hospital Tobacco use and 2021-10-20 2021-10-20 Smokeless tobacco [facility] exposure 00:00:00 00:00:00 non-user Hospital History SDOH 2021-10-20 2021-10-20 1 Taoist Alcohol Frequency 00:00:00 00:00:00 Hospita l Sex Assigned At [birth year] [facility] 00:00:00 00:00:00 Hospital Smoking Status Start Date [...] (two) times a day. pramipexole Yes .75mg Q.[id number] Take 1 [facility] (MIRAPEX) 5-[id number] 0.75 MG 08:54: 3D (0.75 [...] (CALCIUM 08:54: Hospita 600 ORAL) 27 l rivaroxaban 2023-0 Yes 20mg QD Take 1 Meth adriana (XARELTO) 5-10 tablet (20 st 20 mg 08:54: mg total) Hospita tablet 27 by mouth l daily. furosemide 2023-0 Yes 20mg Q.5D Take 1 Metho di (LASIX) 20 5-10 tablet (20 st mg tablet 08:54: mg total) Hos fatou 27 by mouth 2 l (two) times a day. pramipexole 2023-0 Yes .75mg Q.[id number] Take 1 [facility] (MIRAPEX) 5-[id number] 0.75 MG 08:54: 3D (0.75 mg Hospit a tablet 27 total) by l mouth 3 (three) times a day. esomeprazol 2023-0 Yes 20mg QD Take 1 Meth adriana e (NexIUM) 5-[address] 20 MG 08:54: (20 mg Hospita capsule 27 total) by l mouth daily before breakfast. albuterol 2023-0 Yes Inhale. Metho di sulfate 5-10 st (VENTOLIN 08:54: Hospita HFA INHL) 27 l calcium 2023-0 Yes Take by [facility] carbonate 5-[address] (CALCIUM 08:54: Hospita 600 ORAL) 27 l rivaroxaban 2023-0 Yes 20mg QD Take 1 Meth adriana (XARELTO) 5-10 tablet (20 st 20 mg 08:54: mg total) Hospita tablet 27 by mouth l daily. furosemide 2023-0 Yes 20mg Q.5D Take 1 Metho di (LASIX) 20 5-10 tablet (20 st mg tablet 08:54: mg total) Hos fatou 27 by mouth 2 l (two) times a day. pramipexole 2023-0 Yes .75mg Q.[id number] Take 1 [facility] (MIRAPEX) 5-[id number] 0.75 MG 08:54: 3D (0.75 mg Hospit a tablet 27 total) by l mouth 3 (three) times a day. esomeprazol 2023-0 Yes 20mg QD Take 1 Meth adriana e (NexIUM) 5-[address] 20 MG 08:54: (20 mg Hospita capsule 27 total) by l mouth daily before breakfast. albuterol 2022-0 Yes Inhale. Metho di sulfate 5-10 st (VENTOLIN 08:54: Hospita HFA INHL) 27 l calcium 2022-0 Yes Take by [facility] carbonate 5-[address] (CALCIUM 08:54: Hospita 600 ORAL) 27 l gabapentin 2022-0 Yes [id number] 300mg Q.5D Take 1 [facility] (NEURONTIN) 5-[address] 300 mg 00:00: (300 mg Hospita capsule 00 total) by l mouth 2 (two) times a day. carBAMazepi 2022-0 Yes [id number] 200mg QD Take 1 Method[facility] ne 5-[address] (TEGretoL) 00:00: (200 mg Hosp abby 200 mg 00 total) by l tablet mouth daily. gabapentin 2022-0 Yes [id number] 300mg Q.5D Take 1 [facility] (NEURONTIN) 5-[address] 300 mg 00:00: (300 mg Hospita capsule 00 total) by l mouth 2 (two) times a day. carBAMazepi 2022-0 Yes [id number] 200mg QD Take 1 Methodi ne 5-[address] (TEGretoL) 00:00: (200 mg Hosp abby 200 mg 00 total) by l tablet mouth daily. gabapentin 2022-0 Yes [id number] 300mg Q.5D Take 1 [facility] (NEURONTIN) 5-[address] 300 mg 00:00: (300 mg Hospita capsule 00 total) by l mouth 2 (two) times a day. carBAMazepi 2022-0 Yes [id number] 200mg QD Take 1 Methodi ne 5-[address] (TEGretoL) 00:00: (200 mg Hosp abby 200 mg 00 total) by l tablet mouth daily. traMADoL 2022-0 3- No [id number] 50mg Take 1 Metho di (Ultram) 50 5-10 05-11 tablet (50 s t mg tablet 00:00: 04:59 mg total) Ho spita 00 :00 by mouth l once for 1 dose .acute pain. Once a day as needed for severe pain traMADoL 2022-0 2022- No [id number] 50mg Take 1 Metho di (Ultram) 50 5-10 05-11 tablet (50 s t mg tablet 00:00: 04:59 mg total) Ho spita 00 :00 by mouth l once for 1 dose .acute pain. Once a day as needed for severe pain traMADoL 2022-0 2022- No [id number] 50mg Take 1 Metho di (Ultram) 50 5-10 05-11 tablet (50 s t mg tablet 00:00: 04:59 mg total) Ho spita 00 :00 by mouth l once for 1 dose .acute pain. Once a day as needed for severe pain pantoprazol 2022-0 Yes 40mg QD Take 1 Meth adriana e 2-18 tablet (40 st (PROTONIX) 00:00: mg total) Ho spita 40 MG EC 00 by mouth l tablet daily. pantoprazol 2022-0 Yes 40mg QD Take 1 Meth adriana e 2-18 tablet (40 st (PROTONIX) 00:00: mg total) Ho spita 40 MG EC 00 by mouth l tablet daily. pantoprazol 2022-0 Yes 40mg QD Take 1 Meth adriana [...] a l day. pramipexole 2021-0 Yes .75mg Q.[id number] Take 0.75 [facility] (Mirapex) 2-[id number] 0.75 MG 14:22: 3D mouth 3 Hospita tablet 04 (three) l times a day. esomeprazol 2021-0 Yes 20mg QD Take 20 mg Methodi e (NexIUM) 2-[address] 20 MG 14:22: daily Hospita capsule 04 before l breakfast. albuterol 2021-0 Yes Inhale. Metho di sulfate 2-14 st (VENTOLIN 14:22: Hospita HFA INHL) 04 l rivaroxaban 2022-0 Yes 20mg QD Take 20 mg [facility] (XARELTO) 2-[address] 20 mg 14:22: daily. Hospita tablet 04 l furosemide 0 Yes 20mg Q.5D Take 20 mg M ethodi (LASIX) 20 2-[address] mg tablet 14:22: (two) Hospita 04 times a l day. pramipexole 0 Yes .75mg Q.[id number] Take 0.75 [facility] (Mirapex) 2-[id number] 0.75 MG 14:22: 3D mouth 3 Hospita tablet 04 (three) l times a day. esomeprazol 0 Yes 20mg QD Take 20 mg Methodi e (NexIUM) 2-[address] 20 MG 14:22: daily Hospita capsule 04 before l breakfast. albuterol 0 Yes Inhale. Metho di sulfate 2-14 st (VENTOLIN 14:22: Hospita HFA INHL) 04 l fluticasone 2020-09 Yes Method i -umeclidin- 1-01 st vilanter 00:00: Hospita (Trelegy 00 l Ellipta) 100-62.5-25 mcg blister with device powder for inhalation fluticasone 2020-09 Yes Method i -umeclidin- 1-01 st vilanter 00:00: Hospita (Trelegy 00 l Ellipta) 100-62.5-25 mcg blister with device powder for inhalation fluticasone 2020-09 Yes Method i -umeclidin- 1-01 st vilanter 00:00: Hospita (Trelegy 00 l Ellipta) 100-62.5-25 mcg blister with device powder for inhalation Vital Signs Vital Name Observation Time Observation Value Comments Source Body weight 2023-01-13 13:54:00 52.164 kg [facility] BMI 2023-01-13 13:54:00 21.73 kg/m2 [facility] Systolic blood 2023-01-13 13:54:00 99 mm[Hg] [facility] pressure Diastolic blood 2023-01-13 13:54:00 61 mm[Hg] [facility] pressure Heart rate 2023-01-13 13:54:00 75 /min [facility] Body height 2023-01-13 13:54:00 154.9 cm [facility] Systolic blood 2021-10-20 20:20:00 177 mm[Hg] [facility] pressure Diastolic blood 2021-10-20 20:20:00 88 mm[Hg] [facility] pressure Heart rate 2021-10-20 20:20:00 57 /min [facility] Body temperature 2021-10-20 20:20:00 36.67 Jayshree [facility] Body height 2021-10-20 20:20:00 165.1 cm [facility] Body weight 2021-10-20 20:20:00 53.524 kg [facility] BMI 2021-10-20 20:20:00 19.64 kg/m2 [facility] Oxygen saturation in 2021-10-20 20:20:00 97 /min [facility] Arterial blood by Pulse oximetry Procedures Procedure Date / Time Performing Clinician Source Performed MRI BRAIN W WO CONTRAST 2023-01-15 23:42:42 [facility] COMPREHENSIVE METABOLIC 2023-01-13 15:15:00 [facility] PANEL CBC WITH PLATELET AND 2023-01-13 15:15:00 [facility] DIFFERENTIAL ESTIMATED GFR 2023-01-13 15:15:00 [facility] spital Plan of Care Planned Activity Planned Date Details Comments Source Future Scheduled 2023-05-27 65+ PNEUMOCOCCAL [facility] Test 09:20:26 VACCINE (1 - PCV) [code = 65+ PNEUMOCOCCAL VACCINE (1 - PCV)] Future Scheduled 2023-05-27 SHINGLES VACCINES (1 Met [facility] Test 09:20:26 of 2) [code = SHINGLES VACCINES (1 of 2)] Future Scheduled 2023-05-27 COVID-19 VACCINE (3 - Me [facility] Test 09:20:26 Booster for Trina series) [code = COVID-19 VACCINE (3 - Booster for Trina series)] Future Scheduled 2023-05-27 INFLUENZA VACCINE (#1) [facility] Test 09:20:26 [code = INFLUENZA VACCINE (#1)] Future Scheduled 2023-05-25 65+ [facility]OCOCCAL [facility] Test 14:33:05 VACCINE (1 - PCV) [code = 65+ PNEUMOCOCCAL VACCINE (1 - PCV)] Future Scheduled 2023-05-25 SHINGLES VACCINES (1 Met [facility] Test 14:33:05 of 2) [code = SHINGLES VACCINES (1 of 2)] Future Scheduled 2023-05-25 COVID-19 VACCINE (3 - [facility] Test 14:33:05 Booster for Trina series) [code = COVID-19 VACCINE (3 - Booster for Trina series)] Future Scheduled 2023-05-25 INFLUENZA VACCINE (#1) [facility] Test 14:33:05 [code = INFLUENZA VACCINE (#1)] Future Scheduled 2023-01-18 65+ PNEUMOCOCCAL [facility] Test 08:47:16 VACCINE (1 - PCV) [code = 65+ PNEUMOCOCCAL VACCINE (1 - PCV)] Future Scheduled 2023-01-18 SHINGLES VACCINES (1 Met [facility] Test 08:47:16 of 2) [code = SHINGLES VACCINES (1 of 2)] Future Scheduled 2023-01-18 COVID-19 VACCINE (3 - [facility] Test 08:47:16 Booster for Trina series) [code = COVID-19 VACCINE (3 - Booster for Trina series)] Future Scheduled 2023-01-18 INFLUENZA VACCINE [facility] Hospital Test 08:47:16 [code = INFLUENZA VACCINE] Future Scheduled 2022-08-19 COVID-19 VACCINE (#1) [facility] Test 16:42:00 [code = COVID-19 VACCINE (#1)] Future Scheduled 2022-08-19 65+ PNEUMOCOCCAL [facility] Hospital Test 16:42:00 VACCINE (1 - PCV) [code = 65+ PNEUMOCOCCAL VACCINE (1 - PCV)] Future Scheduled 2022-08-19 SHINGLES VACCINES (1 Met [facility] Test 16:42:00 of 2) [code = SHINGLES VACCINES (1 of 2)] Future Scheduled 2022-08-19 INFLUENZA VACCINE [facility] Hospital Test 16:42:00 [code = INFLUENZA VACCINE] Future Scheduled 2022-08-19 COVID-19 VACCINE (#1) [facility] Test 16:42:00 [code = COVID-19 VACCINE (#1)] Future Scheduled 2022-08-19 65+ PNEUMOCOCCAL [facility] Hospital Test 16:42:00 VACCINE (1 - PCV) [code = 65+ PNEUMOCOCCAL VACCINE (1 - PCV)] Future Scheduled 2022-08-19 SHINGLES VACCINES (1 Met [facility] Test 16:42:00 of 2) [code = SHINGLES VACCINES (1 of 2)] Future Scheduled 2022-08-19 INFLUENZA VACCINE Method [facility] Test 16:42:00 [code = INFLUENZA VACCINE] Encounters Start End Encounter Admission Attending Care Care Encounter Source Date/Time Date/Time Type Type Clinicians Facility Department ID 2023-02-08 2023-02-08 Telephone Sandi 1.2.840.1 [id number] Methodi 00:00:00 00:00:[address] Imtiaz Carpio [address]172.1[address] 3.430.2.7 Hospit a .3.234144 l .8 2023-02-08 2023-02-08 Mayra Junior 1.2.840.1 [id number] Methodi 00:00:00 00:00:00 Imtiaz [address].1[address] 3.430.2.7 Hospit a .3.540669 l .8 2023-02-04 2023-02-04 Telephone Adarsh 1.2.840.1 [id number] 2 [id number] Methodi 00:00:00 00:00:[address] 3.430.2.7 Hospit a .3.813232 l .8 2023-02-04 2023-02-04 Orders Julio 1.2.840.1 [id number] Methodi 00:00:00 00:00:00 Only Ranjith 29477.1.[address] 3.430.2.7 Hospit a .3.009262 l .8 2023-02-04 2023-02-04 Telephone Adarsh 1.2.840.1 [id number] 2 [id number] Methodi 00:00:00 00:00:[address] 3.430.2.7 Hospit a .3.357613 l .8 2023-02-04 2023-02-04 [facility], 1.2.840.1 [id number] 2923 Methodi 00:00:00 00:00:00 Only Marinoine 86377.1.[address] 3.430.2.7 Hospit a .3.266484 l .8 2023-02-02 2023-02-02 Telephone Junior, 1.2.840.1 [id number] [id number] Methodi 00:00:00 00:00:00 Im[address] 3.430.2.7 Hospit a .3.407408 l .8 2023-02-02 2023-02-02 Telephone Junior, 1.2.840.1 [id number] 2099 [id number] Methodi 00:00:00 00:00:00 Imt[address] 3.430.2.7 Hospit a .3.154891 l .8 2023-01-15 2023-01-15 [facility], 1.2.840.1 [id number] [id number] [id number] Methodi 16:12:18 23:59:00 Encounter Darine 77531.1.[address] 3.430.2.7 Hospit a .3.296504 l .8 2023-01-15 2023-01-15 [facility], 1.2.840.1 [id number] Methodi 16:12:18 23:59:00 Encounter Darine 95498.1.[address] 3.430.2.7 Hospit a .3.566375 l .8 2023-01-15 2023-01-15 Travel 1.2.840.1 1.2.896.655 3014 [id number] Methodi 00:00:00 00:00:[address] 3.430.2.7 0.2.7.3.698 Ho spita .3.390832 084.8 l .8 2023-01-15 2023-01-15 Telephone Adarsh, 1.2.840.1 [id number] 2 [id number] Methodi 00:00:00 00:00:[address] 3.430.2.7 Hospit a .3.450029 l .8 2023-01-15 2023-01-15 Travel 1.2.840.1 1.2.283.356 3799 [id number] Methodi 00:00:00 00:00:[address] 3.430.2.7 0.2.7.3.698 Ho spita .3.648362 084.8 l .8 2023-01-15 2023-01-15 Telephone Adarsh, 1.2.840.1 [id number] 2 [id number] Methodi 00:00:00 00:00:[address] 3.430.2.7 Hospit a .3.908213 l .8 2023-01-13 2023-01-13 Lab Kassar, 1.2.840.1 [id number] 1731 Methodi 09:50:00 09:55:[address] 3.430.2.7 Hospit a .3.638450 l .8 2023-01-13 2023-01-13 Lab Kassar, 1.2.840.1 [id number] 7184 Methodi 09:50:00 09:55:[address] 3.430.2.7 Hospit a .3.895825 l .8 2023-01-13 2023-01-13 Office Kassar, 1.2.840.1 [id number] 2396 Methodi 08:30:00 09:40:17 Visit Darine 65566.1.[address] 3.430.2.7 Hospit a .3.102116 l .8 2023-01-13 2023-01-13 Office Kassar, 1.2.840.1 [id number] 9912 Methodi 08:30:00 09:40:17 Visit Darine 35280.1.[address] 3.430.2.7 Hospit a .3.198154 l .8 2023-01-13 2023-01-13 Travel 1.2.840.1 1.2.115.524 1727 [id number] Methodi 00:00:00 00:00:[address] 3.430.2.7 0.2.7.3.698 Ho spita .3.287969 084.8 l .8 2023-01-13 2023-01-13 Travel 1.2.840.1 1.2.750.255 8976 [id number] Methodi 00:00:00 00:00:[address] 3.430.2.7 0.2.7.3.698 Ho spita .3.124582 084.8 l .8 2023-01-11 2023-01-11 Transcribe Arthur, 1.2.840.1 [id number] 21 [id number] Methodi 00:00:00 00:00:00 Orders Cruzito 95439.1.[address] 3.430.2.7 Hospit a .3.815495 l .8 2023-01-11 2023-01-11 Transcribe Arthur, 1.2.840.1 [id number] 21 [id number] Methodi 00:00:00 00:00:00 Orders Cruzito 97519.1.[address] 3.430.2.7 Hospit a .3.254203 l .8 2022-12-22 2022-12-22 Office Sandi, 1.2.840.1 [id number] 2383 Methodi 11:30:00 15:05:41 Visit Imtiaz RTrell 66705.1.[address] 3.430.2.7 Hospit a .3.201817 l .8 2022-12-22 2022-12-22 Office Sandi, 1.2.840.1 [id number] 5004 Methodi 11:30:00 15:05:41 Visit Imtiaz RTrell 08224.1.[address] 3.430.2.7 Hospit a .3.141071 l .8 2022-12-22 2022-12-22 Travel 1.2.840.1 1.2.816.802 2979 [id number] Methodi 00:00:00 00:00:[address] 3.430.2.7 0.2.7.3.698 Ho spita .3.235392 084.8 l .8 2022-12-22 2022-12-22 Travel 1.2.840.1 1.2.612.337 5477 [id number] Methodi 00:00:00 00:00:[address] 3.430.2.7 0.2.7.3.698 Ho spita .3.942655 084.8 l .8 2022-12-03 2022-12-03 Transcribe Arthur, 1.2.840.1 [id number] 21 [id number] Methodi 00:00:00 00:00:00 Orders Cruzito 76580.1.[address] 3.430.2.7 Hospit a .3.487725 l .8 2022-12-03 2022-12-03 Transcribe Arthur, 1.2.840.1 [id number] 21 [id number] Methodi 00:00:00 00:00:00 Orders Cruzito 19900.1.[address] 3.430.2.7 Hospit a .3.128612 l .8 2022-03-20 2022-03-20 Outpatient Adams_R DMG G 98370-0 022 [facility] 08:24:00 08:24:00 0715 Medica l Group 2022-03-20 2022-03-20 Outpatient Adams_R DMG DMG 41498-1 023 [facility] 00:00:00 00:00:00 0506 Medica l Group 2021-11-10 2021-11-10 Travel 1.2.840.1 1.2.591.849 0205 [id number] Methodi 00:00:00 00:00:[address] 3.430.2.7 0.2.7.3.698 Ho spita .3.643466 084.8 l .8 2021-11-04 2021-11-04 Telephone Marivel, 1.2.840.1 [id number] Methodi 00:00:00 00:00:[address] 3.430.2.7 Hospit a .3.252299 l .8 2021-10-20 2021-10-20 Office Al Bowen 1.2.840.1 [id number] Methodi 14:00:00 15:17:32 Visit Primitivo 83408.1.[address] 3.430.2.7 Hospit a .3.696670 l .8 2021-10-20 2021-10-20 Travel 1.2.840.1 1.2.768.247 2046 [id number] Methodi 00:00:00 00:00:[address] 3.430.2.7 0.2.7.3.698 Ho spita .3.086246 084.8 l .8 2021-10-17 2021-10-17 Abstract Nelsy, 1.2.840.1 [id number] 2099 [id number] Methodi 00:00:00 00:00:00 Jade Parviz 71854.1.1 [address] t 3.430.2.7 Hospit a .3.724378 l .8 2021-10-02 2021-10-02 Travel 1.2.840.1 1.2.675.611 2784 [id number] Methodi 00:00:00 00:00:[address] 3.430.2.7 0.2.7.3.698 Ho spita .3.808314 084.8 l .8 2021-09-25 2021-09-25 Telephone Ferny Bowenic 1.2.840.1 [id number] Methodi 00:00:00 00:00:[address] 3.430.2.7 Hospit a .3.293856 l .8 2021-06-02 2021-06-02 Outpatient Adams_R DMG DMG 98136-7 021 [facility] 11:38:00 11:38:00 0927 Medica l Group 2019-07-17 2019-07-18 Outpt Diag nullFlavo [facility] 62119 [id number] Memoria 14:30:00 05:59:00 Services r Outpatient 01 l [facility] 2019-07-17 2019-07-18 Outpt Diag nullFlavo [facility] [id number] [id number] Memoria 14:30:00 05:59:00 Services r Outpatient 01 l [facility] 2019-07-17 2019-07-17 Outpatient Arthur, MHOIP MHOIP [id number] 08:30:00 23:59:00 Cruzito 2019-05-16 2019-05-17 Outpt Diag nullFlavo [facility] [id number] Memoria 17:01:00 04:59:00 Services r Outpatient 00 l [facility] 2019-05-16 2019-05-17 Outpt Diag nullFlavo [facility] [id number] Memoria 17:01:00 04:59:00 Services r Outpatient 00 l [facility] 2019-05-16 2019-05-16 Outpatient Arthur, MHOIP MHOIP [id number] 12:01:00 23:59:00 Cruzito 00 Results This patient has no known results.
[2023-06-06] MEDS ORDERED: MORPHINE 2 MG/ML SYR ONE ×2 (19:43→19:45)
[2023-06-06] MEDS ORDERED: ONDANSETRON 4 MG/2 ML VIAL ONE ×2 (19:43→19:46)
[2023-06-06 19:48] LABS: Protime INR 1.24
[2023-06-06 19:49] LABS: Absolute Lymphocytes (CBC) 0.7 K/uL (0.7-4.9); Hematocrit 42.5 % (36.0-45.0); Lymphocytes % 4.3 % (15.3-44.8); MCV 91.7 fL (80-100); MPV 7.7 fL (7.6-11.3); Platelets 250 thou/uL (152-406); RBC Red Blood Cell Count 4.63 M/uL (3.86-4.86)
[2023-06-06 19:59] LABS: Potassium 3.8 mEq/L (3.5-5.1)
--- NOTE | 2023-06-06 20:36 | RAD REPORT ---
EXAM DESCRIPTION: US - Extremity Venous Uni Ltd - 06/06/2023 8:16 pm CLINICAL HISTORY: Pain COMPARISON: None. TECHNIQUE: Real-time sonographic evaluation of the left lower extremity deep venous system was perfo rmed. FINDINGS: Normal compressibility, flow augmentation, phasic flow and spontaneous flow is identified in the left lower extremity deep venous system. No intraluminal filling defects seen. IMPRESSION: No DVT in the left lower extremity.
--- NOTE | 2023-06-06 20:39 | RAD REPORT ---
EXAM DESCRIPTION: US - Lower Extremity Artery Uni Ltd - 06/06/2023 8:16 pm CLINICAL HISTORY: PAIN COMPARISON: Lower Extremity Arterial Bilat dated 09/09/2021 TECHNIQUE: Left lower extremity arterial Doppler examination was performed with waveform tracing. FINDINGS: Symmetric brachial pressure measurements are noted. Monophasic waveforms are seen throughout the left extremity arterial system to the level of the dorsa lis pedis artery. Moderate atherosclerotic calcifications with elevated peak systolic velocities joseph g the mid SFA. Left ankle brachial index measures 1.18, normal. IMPRESSION: Moderate to advanced peripheral vascular disease, with likely significant stenosis along the proximal to mid SFA, with elevated post stenotic peak systolic velocity along the mid SFA. Shirley l left ankle brachial index.
--- NOTE | 2023-06-06 21:21 | EDPHYS ---
Physician Documentation [facility] Name: Shazia Colin Age: 82 yrs Sex: Female : 1940 Arrival Date: 06/06/2023 Time: 18:16 Bed 16 Private MD: ED Physician Garcia Dickson HPI: 06/06 19:20 This 82 yrs old Female presents to ER via Wheelchair with complaints of Foot Pain - cp Left Infection. 19:20 The patient presents with pain, that is acute, swelling, tenderness. The complaints cp affect the left saenz, anterior aspect of left ankle and dorsum of left foot. Context: resulted from pet dog jumping onto lower leg. 19:20 Onset: The symptoms/episode began/occurred last month. cp 19:20 Associated signs and symptoms: Pertinent positives: swelling, warmth, erythema, cp Pertinent negatives calf tenderness, fever, numbness. Historical: - Allergies: 18:30 Bactrim; aa5 18:30 Codeine; aa5 18:30 Fluconazole; aa5 18:30 Hydrocodone-Acetaminophen; aa5 18:30 Sulfa (Sulfonamide Antibiotics); aa5 18:30 Tetanus Vaccines \T\ Toxoid; aa5 18:30 tramadol; aa5 18:30 TussiCaps; aa5 - PMHx: 18:30 Anxiety; Chronic obstructive lung disease; DVT; PE; Home O2 via 2 L NC (Unknown); aa5 - Immunization history:: Adult Immunizations unknown. - Social history:: Smoking status: Patient denies any tobacco usage or history of. ROS: 19:25 Constitutional: Negative for body aches, chills, fever, poor PO intake, cp 19:25 Eyes: Negative for injury, pain, redness, and discharge, cp 19:25 Neck: Negative for pain with movement, pain at rest, stiffness, 19:25 Cardiovascular: Negative for chest pain, palpitations, 19:25 Respiratory: Negative for cough, shortness of breath, wheezing, 19:25 Back: Negative for pain at rest, pain with movement, 19:25 Skin: Positive for erythema, swelling, of the dorsum of left foot and anterior aspect of left ankle and left saenz, 19:25 Neuro: Negative for altered mental status, dizziness, headache, weakness, 19:25 All other systems are negative, Exam: 19:30 Constitutional: The patient appears in no acute distress, alert, awake, cp non-diaphoretic, non-toxic, well developed, frail, 19:30 Head/Face: Normocephalic, atraumatic. cp 19:30 Eyes: Periorbital structures: appear normal, Conjunctiva: normal, no exudate, no injection, Sclera: no appreciated abnormality, Lids and lashes: appear normal, bilaterally, 19:30 ENT: External ear(s): are unremarkable, Nose: is normal, Mouth: Lips: moist, Oral mucosa: pink and intact, moist, Posterior pharynx: is normal, airway is patent, no erythema, no exudate, 19:30 Chest/axilla: Inspection: normal, 19:30 Cardiovascular: Rate: normal, Rhythm: regular, JVD: is not appreciated, 19:30 Respiratory: the patient does not display signs of respiratory distress, Respirations: labored breathing, that is mild, shallow respirations, that is mild, Breath sounds: decreased breath sounds, that are moderate, throughout, stridor, is not appreciated, 19:30 Abdomen/GI: Inspection: abdomen appears normal, Palpation: abdomen is soft and non-tender, in all quadrants, 19:30 Back: pain, is absent, ROM is normal, 19:30 Musculoskeletal/extremity: Extremities: noted in the dorsum of left foot and anterior aspect of left ankle and left saenz: pain, 19:30 Skin: small superficial wound noted anterior lower left leg with scant purulent drainage, swelling and erythema noted dorsum and lateral foot and lower leg. 19:30 Neuro: Orientation: to person, place \T\ time. Mentation: is normal, Motor: moves all fours, strength is normal, 20:17 ECG was reviewed by the Attending Physician. cp Vital Signs: 18:30 BP 154 / 79; Pulse 65; Resp 20 S; Temp 97.8(O); Pulse Ox 94% on 2 lpm NC; Weight 52.16 aa5 kg (R); Height 5 ft. 2 in. (R); 20:15 BP 162 / 88; Pulse 102; Resp 20; Pulse Ox 100% on 2 lpm NC; me1 21:00 BP 130 / 94; Pulse 102; Resp 20; Pulse Ox 100% on 2 lpm NC; me1 22:00 BP 143 / 69; Pulse 106; Resp 20; Pulse Ox 97% on 2 lpm NC; me1 18:30 Body Mass Index 21.03 (52.16 kg, 157.48 cm) aa5 MDM: 18:30 Patient medically screened. cp 20:00 Differential diagnosis: dislocation, closed fracture, contusion, DVT. cp 21:00 Data reviewed: vital signs, nurses notes, lab test result(s), radiologic studies, cp ultrasound. 21:25 Consideration of Admission/Observation Patient was admitted/placed on observation. cp Management of patient was discussed with the following: Primary Care Provider: DR Gibson who will admit patient after discussion. I considered the following discharge prescriptions or medication management in the emergency department Medications were administered in the Emergency Department. See MAR. Care significantly affected by the following chronic conditions: Chronic Obstructive Pulmonary Disease. 21:25 Counseling: I had a detailed discussion with the patient and/or guardian regarding the cp historical points, exam findings, and any diagnostic results supporting the discharge/admit diagnosis, lab results, radiology results, the need for further work-up and treatment in the hospital. 06/06 19:15 Order name: Basic Metabolic Panel; Complete Time: 20:15 cp 06/06 20:15 Interpretation: Normal except: GLUC 127; BUN 21; GFR 74. cp 06/06 19:15 Order name: CBC with Diff; Complete Time: 20:15 cp 06/06 20:56 Interpretation: Normal except: WBC 16.30; RHODA% 89.8; LYM% 4.3; NEUT A 14.6. cp 06/06 19:15 Order name: PT-INR; Complete Time: 20:15 cp 06/06 19:15 Order name: Lactate w/ 2H reflex if indic.; Complete Time: 20:15 cp 06/06 20:49 Interpretation: Reviewed. cp 06/06 21:44 Order name: Vancomycin Level Trough EDMS 06/06 21:44 Order name: Vancomycin Peak EDMS 06/06 21:44 Order name: Basic Metabolic Panel EDMS 06/06 21:44 Order name: Basic Metabolic Panel EDMS 06/06 21:44 Order name: CBC with Automated Diff EDMS 06/06 21:44 Order name: CBC with Automated Diff EDMS 06/07 05:21 Order name: Manual Differential EDMS 06/06 19:15 Order name: US Extremity Venous Unilateral Ltd; Complete Time: 20:48 cp 06/06 20:48 Interpretation: Report reviewed. cp 06/06 19:15 Order name: US Lower Extremity Artery Uni Ltd; Complete Time: 20:48 cp 06/06 20:49 Interpretation: Report reviewed. cp 06/06 21:44 Order name: Regular EDMS 06/06 19:15 Order name: IV Saline Lock; Complete Time: 20:04 cp 06/06 19:15 Order name: Labs collected and sent; Complete Time: 20:04 cp 06/06 19:15 Order name: O2 Per Protocol; Complete Time: 20:04 cp 06/06 19:15 Order name: O2 Sat Monitoring; Complete Time: 20:04 cp EC:17 Rate is 100 beats/min. Rhythm is regular. AK interval is normal. QRS interval is cp normal. QT interval is normal. T waves are Inverted in lead aVR. Interpreted by me. Reviewed by me. Administered Medications: 19:37 Drug: morphine IVP or IV 1 mg IVP once over 2 mins Route: IVP; Infused Over: 2 mins; me1 Site: left antecubital; 20:11 Follow up: Response: No adverse reaction; Pain is decreased me1 21:38 Follow up: Response: No adverse reaction; Pain is decreased me1 19:37 Drug: Ondansetron IVP 4 mg IVP once; over 2 minutes Route: IVP; Site: left antecubital; me1 20:10 Follow up: Response: No adverse reaction; Nausea is decreased me1 21:38 Drug: morphine IVP or IV 1 mg IVP once over 2 mins Route: IVP; Infused Over: 2 mins; me1 Site: left antecubital; 21:38 Follow up: Response: No adverse reaction; Pain is decreased me1 21:55 Drug: MethylPrednisoLONE IVP 60 mg IVP once Route: IVP; Site: left antecubital; me1 23:56 Follow up: Response: No adverse reaction lg3 21:55 Drug: vancoMYCIN IVPB 1 grams IVPB once over 2 hrs Route: IVPB; Infused Over: 2 hrs; me1 Site: left antecubital; 23:57 Follow up: Response: No adverse reaction; IV Status: Completed infusion; IV Intake: lg3 250ml Disposition Summary: 06/06/23 21:20 Hospitalization Ordered Notes: Hospitalization Status: Inpatient Admission cp Provider: Cruzito Gibson cp Condition: Stable cp Problem: new cp Symptoms: have improved cp Bed/Room Type: Standard cp Location: Telemetry/MedSurg (Inpatient)(06/07/23 11:37) bd Room Assignment: 224(06/07/23 11:37) bd Diagnosis - Cellulitis of left lower limb cp Forms: - Medication Reconciliation Form cp - SBAR form cp - Leadership Thank You Letter cp Signatures: Dispatcher [employer] EDMS Lizeth Ron Audri, RN RN aa5 Garcia Phelan PA PA cp Allyson Ashby RN RN cg Natalie Hyde RN RN me1 Gabriela Allen RN lg3 Corrections: (The following items were deleted from the chart) 20:56 20:49 Normal except: WBC 16.30. cp cp 21:47 21:20 Telemetry/MedSurg (Inpatient) cp cg 21:47 21:20 cp cg 06/07 11:37 10 21:47 [facility] ER HOLD cg bd 06/07 11:37 06/06 21:47 ERHOLD- cg bd 06/08 00:03 00:01 Management of patient was discussed with the following: Primary Care Provider: DR samina Gibson who will admit patient after discussion. cp 06/07 21:25 Management of patient was discussed with the following: Primary Care cp Provider: DR Gibson who will admit patient after discussion. cp 06/08 00:06/07 21:25 I considered the following discharge prescriptions or medication management cp in the emergency department Medications were administered in the Emergency Department. See MAR cp 06/08 00:06/07 21:25 Care significantly affected by the following chronic conditions: Chronic cp Obstructive Pulmonary Disease, cp 06/08 00:06/07 21:25 Consideration of Admission/Observation Patient was admitted/placed on cp observation. cp 06/08 00:06/07 21:25 Counseling: I had a detailed discussion with the patient and/or guardian cp regarding the historical points, exam findings, and any diagnostic results supporting the discharge/admit diagnosis, lab results, radiology results, the need for further work-up and treatment in the hospital, cp
--- NOTE | 2023-06-06 21:21 | ER ---
Nurse's Notes [facility] Name: Shazia Colin Age: 82 yrs Sex: Female : 1940 Arrival Date: 06/06/2023 Time: 18:16 Bed 16 Private MD: Diagnosis: Cellulitis of left lower limb Presentation: 06/06 18:30 Chief complaint: Patient states: wound to left ankle, pt states "My dog hit my leg". Pt aa5 also reports increased swelling to left ankle. Also c/o pain to left calf. 18:30 Coronavirus screen: At this time, the client does not indicate any symptoms associated aa5 with coronavirus-19. Ebola Screen: Patient denies travel to an Ebola-affected area in the 21 days before illness onset. Initial Sepsis Screen: Does the patient meet any 2 criteria? No. Patient's initial sepsis screen is negative. Does the patient have a suspected source of infection? No. Patient's initial sepsis screen is negative. Risk Assessment: Do you want to hurt yourself or someone else? Patient reports no desire to harm self or others. Onset of symptoms was May 2023. 18:30 Method Of Arrival: Wheelchair aa5 18:30 Acuity: MALLY 3 aa5 Historical: - Allergies: 18:30 Bactrim; aa5 18:30 Codeine; aa5 18:30 Fluconazole; aa5 18:30 Hydrocodone-Acetaminophen; aa5 18:30 Sulfa (Sulfonamide Antibiotics); aa5 18:30 Tetanus Vaccines \\T\\ Toxoid; aa5 18:30 tramadol; aa5 18:30 TussiCaps; aa5 - PMHx: 18:30 Anxiety; Chronic obstructive lung disease; DVT; PE; Home O2 via 2 L NC (Unknown); aa5 - Immunization history:: Adult Immunizations unknown. - Social history:: Smoking status: Patient denies any tobacco usage or history of. Screenin:07 [facility] ED Fall Risk Assessment (Adult) History of falling in the last 3 months, me1 including since admission No falls in past 3 months (0 pts) Confusion or Disorientation No (0 pts) Intoxicated or Sedated No (0 pts) Impaired Gait No (0 pts) Mobility Assist Device Used No (0 pt) Altered Elimination No (0 pt) Score/Fall Risk Level 0 - 2 = Low Risk. Abuse screen: Denies threats or abuse. Nutritional screening: No deficits noted. Tuberculosis screening: No symptoms or risk factors identified. Assessment: 19:02 General: Appears uncomfortable, well groomed, well developed, well nourished, Behavior me1 is calm, cooperative, appropriate for age, Reports wound to left medial ankle that opened up yesterday. Patient states her BLE have been swollen due to her poor circulation for the past 3 weeks and that area had been tender. States, "my dog hit my leg." and that's when it opened up. Also c/o pain to left calf. Pain: Complains of pain in left medial ankle Pain does not radiate. Pain currently is 5 out of 10 on a pain scale. Quality of pain is described as burning, tender, tingling, Pain began 3 weeks ago but worsened yesterday when the dog hit her leg and caused a wound. Neuro: Level of Consciousness is awake, alert, obeys commands, Oriented to person, place, time, situation, Appropriate for age. Cardiovascular: Capillary refill < 3 seconds Patient's skin is warm and dry. discoloration to BLE. Respiratory: Airway is patent Respiratory effort is even, unlabored, Respiratory pattern is regular, symmetrical. Derm: Wound noted left medial ankle. 10 11:46 Reassessment: attempted to call report to THOMAS Coates. no answer at this time. [facility] 12:00 Reassessment: attempted to call report to 2nd floor. nurse unavailable. [facility] Vital Signs: 06/06 18:30 BP 154 / 79; Pulse 65; Resp 20 S; Temp 97.8(O); Pulse Ox 94% on 2 lpm NC; Weight 52.16 aa5 kg (R); Height 5 ft. 2 in. (R); 20:15 BP 162 / 88; Pulse 102; Resp 20; Pulse Ox 100% on 2 lpm NC; me1 21:00 BP 130 / 94; Pulse 102; Resp 20; Pulse Ox 100% on 2 lpm NC; me1 22:00 BP 143 / 69; Pulse 106; Resp 20; Pulse Ox 97% on 2 lpm NC; me1 18:30 Body Mass Index 21.03 (52.16 kg, 157.48 cm) aa5 ED Course: 18:19 Patient arrived in ED. mg5 18:20 [facility] cp 18:20 Garcia Dickson MD is Attending Physician. cp 18:30 Arm band placed on. aa5 18:34 Triage completed. aa5 18:51 Natalie Hyde, THOMAS is Primary Nurse. me1 19:07 Patient has correct armband on for positive identification. Bed in low position. Call me1 light in reach. Side rails up X 1. Provided Education on: POC. Verbalized understanding. . 19:07 No provider procedures requiring assistance completed. Oxygen administration via nasal me1 cannula \\T\\ 2L/min O2 via o2 dependant at all times. 19:37 Inserted saline lock: 22 gauge in left antecubital area, using aseptic technique. me1 20:18 US Extremity Venous Unilateral Ltd In Process Unspecified. EDMS 20:18 US Lower Extremity Artery Uni Ltd In Process Unspecified. EDMS 21:18 Cruzito Gibson MD is Hospitalizing Provider. cp 23:57 Patient admitted, IV remains in place. lg3 Administered Medications: 19:37 Drug: morphine IVP or IV 1 mg IVP once over 2 mins Route: IVP; Infused Over: 2 mins; me1 Site: left antecubital; 20:11 Follow up: Response: No adverse reaction; Pain is decreased me1 21:38 Follow up: Response: No adverse reaction; Pain is decreased me1 19:37 Drug: Ondansetron IVP 4 mg IVP once; over 2 minutes Route: IVP; Site: left antecubital; me1 20:10 Follow up: Response: No adverse reaction; Nausea is decreased me1 21:38 Drug: morphine IVP or IV 1 mg IVP once over 2 mins Route: IVP; Infused Over: 2 mins; me1 Site: left antecubital; 21:38 Follow up: Response: No adverse reaction; Pain is decreased me1 21:55 Drug: MethylPrednisoLONE IVP 60 mg IVP once Route: IVP; Site: left antecubital; me1 23:56 Follow up: Response: No adverse reaction lg3 21:55 Drug: vancoMYCIN IVPB 1 grams IVPB once over 2 hrs Route: IVPB; Infused Over: 2 hrs; me1 Site: left antecubital; 23:57 Follow up: Response: No adverse reaction; IV Status: Completed infusion; IV Intake: lg3 250ml Medication: 19:08 VIS not applicable for this client. me1 Intake: 23:57 IV: 250ml; Total: 250ml. lg3 Outcome: 21:20 Decision to Hospitalize by Provider. cp 23:57 Admitted to ER Hold. Please see [facility] for further documentation. lg3 23:57 Condition: stable 23:57 Instructed on the need for admit, 06/07 12:55 Patient left the ED. kc6 Signatures: Dispatcher [employer] EDFalguni Henry, RN RN aa5 Garcia Phelan PA PA Gabriela Reed, RN RN lg3 Fanny Kay RN RN kc6 Natalie Hyde RN RN me1 Tatianna Khanna mg5
[2023-06-06] MEDS ORDERED: IPRATROPIUM BROM 0.5MG/2.5ML NEB PRN (21:39)
[2023-06-06] MEDS ORDERED: ALBUTEROL 2.5 MG/3 ML NEB SOL NEB PRN (21:39)
[2023-06-06] MEDS ORDERED: MORPHINE 2 MG/ML SYR IV PRN (21:39)
[2023-06-06] MEDS ORDERED: ONDANSETRON 4 MG/2 ML VIAL IV PRN (21:39)
[2023-06-06] MEDS ORDERED: VANCOMYCIN 1 GM in NA CHLORIDE 0.9% 250 ML IVPB SCH (21:41)
[2023-06-06] MEDS ORDERED: VANCOMYCIN 1 GM/VIAL ONE (21:56)
[2023-06-06] MEDS ORDERED: METHYLPREDNISOLONE 40 MG INJ ONE (21:56)
[2023-06-06] MEDS ORDERED: NA CHLORIDE 0.9% 0 ML ONE (21:56)
[2023-06-07 00:13] VITALS: BMI 21.0
[2023-06-07 04:36] LABS: Absolute Lymphocytes (CBC) 0.3 K/uL (0.7-4.9); Hematocrit 38.9 % (36.0-45.0); Lymphocytes % 1.7 % (15.3-44.8); MCV 91.7 fL (80-100); MPV 7.9 fL (7.6-11.3); Platelets 235 thou/uL (152-406); RBC Red Blood Cell Count 4.24 M/uL (3.86-4.86)
[2023-06-07 04:41] LABS: Potassium 5.2 mEq/L (3.5-5.1)
[2023-06-07 05:20] LABS: Blood Morphology Comment NOT SEEN (NOT SEEN); Platelet Estimate ADEQ
[2023-06-07] MEDS ORDERED: METHYLPREDNISOLONE 125 MG INJ ONE (07:54)
[2023-06-07] MEDS ORDERED: ASPIRIN EC 81 MG TAB PO ONE (07:54)
[2023-06-07] MEDS ORDERED: INFLUENZA VACCINE (for 6+ mo) 0.5 ML DOSE IMVAC ONE (08:00)
[2023-06-07] MEDS ORDERED: PNEUMOCOCCAL VACCINE 0.5 ML IMVAC ONE (08:00)
[2023-06-07] MEDS: ASPIRIN EC 81 MG TAB PO SCH (08:14)
[2023-06-07] MEDS ORDERED: METHYLPREDNISOLONE 40 MG INJ IV SCH (09:00)
[2023-06-07] MEDS ORDERED: IPRATROPIUM BROM 0.5MG/2.5ML ONE (10:53)
[2023-06-07] MEDS ORDERED: ALBUTEROL 2.5 MG/3 ML NEB SOL ONE (10:53)
[2023-06-07] MEDS: ALBUTEROL 2.5 MG/3 ML NEB SOL NEB SCH ×2 (14:00→20:45)
[2023-06-07] MEDS: IPRATROPIUM BROM 0.5MG/2.5ML NEB SCH ×2 (14:00→20:45)
--- NOTE | 2023-06-07 16:48 | EKG ---
Test Date: 2023-06-06 Test Time: 20:10:13 [employer] [place]: RV MEASUREMENT RESULTS: Intervals: Rate: 100 CO: 148 QRSD: 80 QT: 320 QTc: 412 [place]: P: 83 CO: 148 QRS: 86 T: 81 INTERPRETIVE STATEMENTS: Sinus rhythm with occasional premature ventricular complexes Otherwise normal ECG Compared to ECG 05/25/2023 14:48:13 Sinus tachycardia no longer present Myocardial infarct finding no longer present Electronically Signed On 06-07-23 16:46:35 CDT by Jaron Lester
--- NOTE | 2023-06-07 19:22 | PN ---
Date of Progress Note: 06/07/2023 The patient states she really feels much better, although she still has difficulty bearing weight. T he swelling has gone down significantly. Still an area of cellulitis that extends distal to the woun d. Still marked tenderness around the wounds to be expected over the lower portion of the tibia. We will therefore, x-ray this area to make sure there is no osteo, continue with the vancomycin. Start ed p.o. antibiotics and prednisone tonight in anticipation of discharge tomorrow, if continues to pro marcus. COPD under good control, she states, since started on 20 b.i.d. We will restart this after h er last IV steroid dose this morning. HR/MODL Voice ID: [id number] Report ID: [id number]
[2023-06-07] MEDS: predniSONE 20 MG TAB PO SCH (21:00)
[2023-06-07] MEDS: VANCOMYCIN 1 GM in NA CHLORIDE 0.9% 250 ML IVPB SCH (21:00)
[2023-06-07] MEDS ORDERED: CEPHALEXIN 250 MG CAP PO SCH (21:00)
[2023-06-07] MEDS ORDERED: prednisoLONE 15 MG/5 ML OSYR PO SCH (21:00)
--- NOTE | 2023-06-07 21:34 | RAD REPORT ---
EXAM DESCRIPTION: RAD - Foot Left 2 View - 06/07/2023 2:48 pm CLINICAL HISTORY: osteo COMPARISON: No comparisons TECHNIQUE: Left foot, 3 views. FINDINGS: No fracture, dislocation or periosteal reaction. Lucency/rarefaction along the anterior ti bial dome. No air or foreign body in the soft tissues. IMPRESSION: Lucency/rarefaction along the anterior tibial dome, raises concern for acute osteomyelit is.
--- NOTE | 2023-06-07 21:34 | RAD REPORT ---
EXAM DESCRIPTION: RAD - Ankle Left 2 View - 06/07/2023 2:48 pm CLINICAL HISTORY: osteo COMPARISON: Ankle Left 3 View dated 05/23/2019; Foot Left 2 View dated 06/07/2023 TECHNIQUE: Left ankle, 3 views. FINDINGS: No fracture, dislocation or periosteal reaction. No joint effusion seen. No joint space na rrowing. Lucencies/rarefaction along the anterior aspect of the tibial dome, with overlying soft tiss ue irregularity. Soft tissue swelling about the ankle most pronounced anteriorly and laterally. IMPRESSION: Lucency along the anterior aspect of the tibial dome with overlying soft tissue irregula rity. This raises concern for acute osteomyelitis. If there is persistent clinical concern, additiona l evaluation by MRI would provide improved sensitivity.
[2023-06-08] MEDS: ALBUTEROL 2.5 MG/3 ML NEB SOL NEB SCH ×4 (01:23→20:20)
[2023-06-08] MEDS: IPRATROPIUM BROM 0.5MG/2.5ML NEB SCH ×4 (01:23→20:20)
[2023-06-08] MEDS: ASPIRIN EC 81 MG TAB PO SCH (09:29)
[2023-06-08] MEDS: RIVAROXABAN 20 MG TABLET PO SCH (09:29)
[2023-06-08] MEDS: predniSONE 20 MG TAB PO SCH ×2 (09:29→21:07)
--- NOTE | 2023-06-08 16:06 | RAD REPORT ---
EXAM DESCRIPTION: MRI - Ankle Left Wo Cont - 06/08/2023 3:42 pm CLINICAL HISTORY: r/o osteo Leg pain and swelling. COMPARISON: Ankle Left 2 View dated 06/07/2023; Foot Left 2 View dated 06/07/2023 FINDINGS: There is moderate swelling and edema present involving the left ankle. The underlying osse ous structures are within normal limits. There is no evidence of osteomyelitis. Mild tendinitis is seen of the distal Achilles tendon. Small calcaneal spurs. No soft tissue mass or hematoma. No evidence of osteomyelitis. IMPRESSION: Negative for osteomyelitis.
--- NOTE | 2023-06-08 18:40 | PN ---
Date of Progress Note: 06/08/2023 The patient states she feels little bit better. She can now bear a little more weight on her left lo wer extremity. The wound has started to heal quite well; however, the surrounding tissue is still qu ite tender, some evidence of cellulitis, decreased bone tenderness anteriorly. However, the x-rays s omewhat questionable for an osteo. We will therefore do the MRI and continue with vancomycin and cli ndamycin until clarity on the osteo. HR/MODL Voice ID: [id number] Report ID: [id number]
[2023-06-08] MEDS: VANCOMYCIN 1 GM in NA CHLORIDE 0.9% 250 ML IVPB SCH (21:08)
[2023-06-09] MEDS: IPRATROPIUM BROM 0.5MG/2.5ML NEB SCH ×4 (02:00→19:45)
[2023-06-09] MEDS: ALBUTEROL 2.5 MG/3 ML NEB SOL NEB SCH ×4 (02:00→19:45)
[2023-06-09] MEDS: ASPIRIN EC 81 MG TAB PO SCH (09:19)
[2023-06-09] MEDS: predniSONE 20 MG TAB PO SCH ×2 (09:19→21:16)
[2023-06-09] MEDS: RIVAROXABAN 20 MG TABLET PO SCH (09:19)
[2023-06-09] MEDS ORDERED: VANCOMYCIN 1 GM in NA CHLORIDE 0.9% 250 ML IVPB SCH (14:00)
[2023-06-09] MEDS: VANCOMYCIN 1 GM in NA CHLORIDE 0.9% 250 ML IVPB SCH (15:08)
--- NOTE | 2023-06-09 18:15 | PN ---
Date of Progress Note: 06/09/2023 The patient shows slight improvement clinically. Her MRI did not show any osteo. However, she has s ignificant bony tenderness in the lower part of the tibia. Continues to show subcutaneous cellulitis and marked tenderness. The wound is healing. In view of this, I feel she could benefit from 1 more dose of vancomycin which will be given at 10 o'clock tonight and probably be discharged tomorrow on clindamycin and possibly the addition of doxycycline. HR/MODL Voice ID: [id number] Report ID: [id number]
[2023-06-10] MEDS: ALBUTEROL 2.5 MG/3 ML NEB SOL NEB SCH ×3 (02:00→14:00)
[2023-06-10] MEDS: IPRATROPIUM BROM 0.5MG/2.5ML NEB SCH ×3 (02:00→14:00)
[2023-06-10 03:01] LABS: Absolute Lymphocytes (CBC) 0.3 K/uL (0.7-4.9); Hematocrit 41.2 % (36.0-45.0); Lymphocytes % 2.2 % (15.3-44.8); MCV 91.7 fL (80-100); MPV 7.9 fL (7.6-11.3); Platelets 280 thou/uL (152-406); RBC Red Blood Cell Count 4.49 M/uL (3.86-4.86)
[2023-06-10 03:22] LABS: Potassium 4.9 mEq/L (3.5-5.1)
[2023-06-10] MEDS: ASPIRIN EC 81 MG TAB PO SCH (08:24)
[2023-06-10] MEDS: predniSONE 20 MG TAB PO SCH (08:24)
[2023-06-10] MEDS: RIVAROXABAN 20 MG TABLET PO SCH (08:24)
[2023-06-10 08:58] VITALS: O2SAT 98
[2023-06-10] MEDS: VANCOMYCIN 1 GM in NA CHLORIDE 0.9% 250 ML IVPB SCH (10:17)
[2023-06-10 14:08] VITALS: BP 154/71; TEMP 97.2
--- NOTE | 2023-06-10 18:44 | PN ---
Date of Progress Note: 06/10/2023 The patient showed marked improvement over the past 24 hours. Minimal bone tenderness. Minimal maury a. Improvement all the way around the wound and the subcutaneous tissue. Some cellulitis still note d on the medial aspect. I feel patient is safely discharged on the clindamycin p.o. and we will re-e valuate her next week. Continue her usual medication at home. HR/MODL Voice ID: [id number] Report ID: [id number]
== END 2023-06-10 15:46 | disposition home or self-care (01) | DRG 603 ==
LOC: ER 18:16 → ERHOLD 21:37 → 2ND 06-07 12:04
PROVIDERS: ADMIT Family Medicine; ATTEND Family Medicine
DX: L03.116 Cellulitis of left lower limb (principal); J44.9 Chronic obstructive pulmonary disease, unspecified; Z88.5 Allergy status to narcotic agent; Z88.1 Allergy status to other antibiotic agents; Z88.2 Allergy status to sulfonamides; Z88.8 Allergy status to other drugs, medicaments and biological substances; Z88.7 Allergy status to serum and vaccine; Z99.81 Dependence on supplemental oxygen; Z86.718 Personal history of other venous thrombosis and embolism; Z86.711 Personal history of pulmonary embolism; W54.8XXA Other contact with dog, initial encounter; Y93.9 Activity, unspecified; Y92.9 Unspecified place or not applicable; Y99.9 Unspecified external cause status
CPT/HCPCS: 36415; 80048; 80202; 83605; 85025; 85610; 93005; 93926; 93971; 94760; 96365; 96366; 96375; 99285; J2270; J2405; J2920; J2930; J7050; J7512; J7613; J7644

== ENCOUNTER 2023-07-11 12:25 | Inpatient (IN) | payer MEDICARE ==
--- OUTSIDE RECORDS SUMMARY | 2023-07-11 12:29 | XMS REPORT | Continuity of Care Document ---
:1940 Author Organization [facility] t Address [address] [facility] [address] [place] [address] Care Team Providers Name Role Phone Curzito Gibson MD Primary Care Physician Imtiaz Junior [...] Type Policy Number Effective Date Expiration Date [facility] [id number] 2020 (MEDICARE 00:00:00 REPLACEMENT HMO) Problems [...] Pako Jj Active 00 04/28/2019 CORINA OPID [facility] Disease Active [facility] [...] Itching Metho di dine ty to 01-13 st adverse 00:00: Hospita reaction 00 l s to drug Sulfamet Propensi Active Itching Metho di hoxazole ty to 10-17 -Trimeth adverse 00:00: Hospita oprim reaction 00 l s to drug Codeine Propensi Active Other (See Nausea Met hodi ty to Comments) 10-17 adverse 00:00: Hospita reaction 00 l s to drug Hydrocod Propensi Active Itching Metho di one ty to 10-17 st adverse 00:00: Hospita reaction 00 [...] l Charlie Bactrim Bactrim Active Memoria l Tenino Family History Family Member Diagnosis Comments Start Date Stop Date Source Natural brother [facility] Natural father Heart disease [facility] Natural mother [facility]arian [facility] Social History Social Habit Start Date Stop Date Quantity Comments Source Gender identity 2021-10-21 Identifies as Method [facility] 07:16:22 female gender Hospital (finding) Sexual orientation 2021-10-21 Heterosexual Meth odist 07:15:22 (finding) Hospital History of tobacco Cigarette Smoker Rastafarian use Hospital History SDAK [facility] Alcohol Std Drinks Hospit al History SDAK [facility] Alcohol Binge Hospital Alcohol intake 2023-01-13 2023-01-13 Lifetime Rastafarian 00:00:00 00:00:00 non-drinker Hospital (finding) History of Social 2023-01-13 2023-01-[address] function 00:00:00 00:00:00 Hospital Tobacco use and 2021-10-20 2021-10-20 Smokeless tobacco [facility] exposure 00:00:00 00:00:00 non-user Hospital History SDOH 2021-10-20 2021-10-20 1 Rast[facility]arian Alcohol Frequency 00:00:00 00:00:00 Hospita l Sex Assigned At [birth year] Rast[facility]arian 00:00:00 00:00:00 Hospital Smoking Status Start Date [...] (two) times a day. pramipexole Yes .75mg Q.[id number] Take 1 [facility] (MIRAPEX) 5-[id number] 0.75 MG 08:54: 3D (0.75 [...] times a day. pramipexole 2023-0 Yes .75mg Q.[id number] Take 1 [facility] (MIRAPEX) 5-[id number] 0.75 MG 08:54: 3D (0.75 [...] times a day. pramipexole 2023-0 Yes .75mg Q.[id number] Take 1 [facility] (MIRAPEX) 5-[id number] 0.75 MG 08:54: 3D (0.75 [...] times a day. pramipexole 2023-0 Yes .75mg Q.[id number] Take 1 [facility] (MIRAPEX) 5-[id number] 0.75 MG 08:54: 3D (0.75 [...] 08:54: Hospita HFA INHL) 27 l calcium 3-0 Yes Take by [facility] carbonate 5-[address] (CALCIUM 08:54: Hospita 600 ORAL) 27 l gabapentin 2023-0 Yes [id number] 300mg Q.5D Take 1 [facility] (NEURONTIN) 5-[address] 300 mg 00:00: (300 mg Hospita capsule 00 total) by l mouth 2 (two) times a day. carBAMazepi 2023-0 Yes [id number] 200mg QD Take 1 [facility] ne 5-[address] (TEGretoL) 00:00: (200 mg Hosp abby 200 mg 00 total) by l tablet mouth daily. gabapentin 2023-0 Yes [id number] 300mg Q.5D Take 1 [facility] (NEURONTIN) 5-[address] 300 mg 00:00: (300 mg Hospita capsule 00 total) by l mouth 2 (two) times a day. carBAMazepi 3-0 Yes [id number] 200mg QD Take 1 [facility] ne 5-[address] (TEGretoL) 00:00: (200 mg Hosp abby 200 mg 00 total) by l tablet mouth daily. gabapentin 3-0 Yes [id number] 300mg Q.5D Take 1 [facility] (NEURONTIN) 5-[address] 300 mg 00:00: (300 mg Hospita capsule 00 total) by l mouth 2 (two) times a day. carBAMazepi 3-0 Yes [id number] 200mg QD Take 1 Method[facility] ne 5-[address] (TEGretoL) 00:00: (200 mg Hosp abby 200 mg 00 total) by l tablet mouth daily. gabapentin 3-0 Yes [id number] 300mg Q.5D Take 1 [facility] (NEURONTIN) 5-[address] 300 mg 00:00: (300 mg Hospita capsule 00 total) by l mouth 2 (two) times a day. carBAMazepi 3-0 Yes [id number] 200mg QD Take 1 Methodi ne 5-[address] (TEGretoL) 00:00: (200 mg Hosp abby 200 mg 00 total) by l tablet mouth daily. traMADoL 2022- No 50mg Take 1 Metho di (Ultram) 50 5-10 05-11 tablet (50 s t mg tablet 00:00: 04:59 mg total) Ho spita 00 :00 by mouth l once for 1 dose .acute pain. Once a day as needed for severe pain traMADoL 2022-0 No 50mg Take 1 Metho di (Ultram) 50 5-10 05-11 tablet (50 s t mg tablet 00:00: 04:59 mg total) Ho spita 00 :00 by mouth l once for 1 dose .acute pain. Once a day as needed for severe pain traMADoL 2022-0 No 50mg Take 1 Metho di (Ultram) 50 5-10 05-11 tablet (50 s t mg tablet 00:00: 04:59 mg total) Ho spita 00 :00 by mouth l once for 1 dose .acute pain. Once a day as needed for severe pain traMADoL 2022-0 2022- No [id number] 50mg Take 1 Metho di (Ultram) 50 5-10 05-11 tablet (50 s t mg tablet 00:00: 04:59 mg total) Ho spita 00 :00 by mouth l once for 1 dose .acute pain. Once a day as needed for severe pain pantoprazol 2023-0 Yes 40mg QD Take 1 Meth adriana e 2-18 tablet (40 st (PROTONIX) 00:00: mg total) Ho spita 40 MG EC 00 by mouth l tablet daily. pantoprazol 2023-0 Yes 40mg QD Take 1 Meth adriana e 2-18 tablet (40 st (PROTONIX) 00:00: mg total) Ho spita 40 MG EC 00 by mouth l tablet daily. pantoprazol 2023-0 Yes 40mg QD Take 1 Meth adriana e 2-18 tablet (40 st (PROTONIX) 00:00: mg total) Ho spita 40 MG EC 00 by mouth l tablet daily. pantoprazol 2023-0 Yes 40mg QD Take 1 Meth adriana [...] a l day. pramipexole 2021-0 Yes .75mg Q.[id number] Take 0.75 [facility] (Mirapex) 2-[id number] 0.75 MG 14:22: 3D mouth 3 Hospita tablet 04 (three) l times a day. esomeprazol 2-0 Yes 20mg QD Take 20 mg Methodi e (NexIUM) 2-[address] 20 MG 14:22: daily Hospita capsule 04 before l breakfast. albuterol 2021-0 Yes Inhale. Metho di sulfate 2-14 st (VENTOLIN 14:22: Hospita HFA INHL) 04 l rivaroxaban 0 Yes 20mg QD Take 20 mg [facility] (XARELTO) 2-[address] 20 mg 14:22: daily. Hospita tablet 04 l furosemide 0 Yes 20mg Q.5D Take 20 mg M ethodi (LASIX) 20 2-[address] mg tablet 14:22: (two) Hospita 04 times a l day. pramipexole 0 Yes .75mg Q.[id number] Take 0.75 [facility] (Mirapex) 2-[id number] 0.75 MG 14:22: 3D [...] pressure Heart rate 2023-01-13 13:54:00 75 /min [facility] Body height 2023-01-13 13:54:00 154.9 cm [facility] Body weight 2023-01-13 13:54:00 52.164 kg [facility] BMI 2023-01-13 13:54:00 21.73 kg/m2 [facility] Systolic blood 2021-10-20 20:20:00 177 mm[Hg] [facility] pressure Diastolic blood 2021-10-20 20:20:00 88 mm[Hg] [facility] pressure Heart rate 2021-10-20 20:20:00 57 /min [facility] Body temperature 2021-10-20 20:20:00 36.67 Jayshree Kell [facility] Body height 2021-10-20 20:20:00 165.1 cm [facility] Body weight 2021-10-20 20:20:00 53.524 kg [facility] BMI 2021-10-20 20:20:00 19.64 kg/m2 [facility] Oxygen saturation in 2021-10-20 20:20:00 97 /min [facility] Arterial blood by Pulse oximetry Procedures Procedure Date / Time Performing Clinician Source Performed MRI BRAIN W WO CONTRAST 2023-01-15 23:42:42 [facility] COMPREHENSIVE METABOLIC 2023-01-13 15:15:00 [facility] PANEL CBC WITH PLATELET AND 2023-01-13 15:15:00 [facility] DIFFERENTIAL ESTIMATED GFR 2023-01-13 15:15:00 [facility] spital Plan of Care Planned Activity Planned Date Details Comments Source Future Scheduled 2023-06-30 65+ PNEUMOCOCCAL [facility] Test 12:38:29 VACCINE (1 - PCV) [code = 65+ PNEUMOCOCCAL VACCINE (1 - PCV)] Future Scheduled 2023-06-30 SHINGLES VACCINES (1 [facility] Test 12:38:29 of 2) [code = SHINGLES VACCINES (1 of 2)] Future Scheduled 2023-06-30 COVID-19 VACCINE (3 - [facility] Test 12:38:29 season) [code = COVID-19 VACCINE (3 - season)] Future Scheduled 2023-06-30 INFLUENZA VACCINE (#1) [facility] Test 12:38:29 [code = INFLUENZA VACCINE (#1)] Future Scheduled 2023-05-27 65+ [facility]OCOCCAL [facility] Test 09:20:26 VACCINE (1 - PCV) [code = 65+ PNEUMOCOCCAL VACCINE (1 - PCV)] Future Scheduled 2023-05-27 SHINGLES VACCINES (1 Met [facility] Test 09:20:26 of 2) [code = SHINGLES VACCINES (1 of 2)] Future Scheduled 2023-05-27 COVID-19 VACCINE (3 - [facility] Test 09:20:26 Booster for Trina series) [code = COVID-19 VACCINE (3 - Booster for Trina series)] Future Scheduled 2023-05-27 INFLUENZA VACCINE (#1) [facility] Test 09:20:26 [code = INFLUENZA VACCINE (#1)] Future Scheduled 2023-05-25 65+ P[facility]UMOCOCCAL [facility] Test 14:33:05 VACCINE (1 - PCV) [code = 65+ PNEUMOCOCCAL VACCINE (1 - PCV)] Future Scheduled 2023-05-25 SHINGLES VACCINES (1 Met [facility] Test 14:33:05 of 2) [code = SHINGLES VACCINES (1 of 2)] Future Scheduled 2023-05-25 COVID-19 VACCINE (3 - [facility] Test 14:33:05 Booster for Trina series) [code = COVID-19 VACCINE (3 - Booster for Trina series)] Future Scheduled 2023-05-25 INFLUENZA VACCINE (#1) [facility] Test 14:33:05 [code = INFLUENZA VACCINE (#1)] Future Scheduled 2023-01-18 65+ P[facility]OCOCCAL [facility] Test 08:47:16 VACCINE (1 - PCV) [code = 65+ PNEUMOCOCCAL VACCINE (1 - PCV)] Future Scheduled 2023-01-18 SHINGLES VACCINES (1 [facility] Test 08:47:16 of 2) [code = SHINGLES VACCINES (1 of 2)] Future Scheduled 2023-01-18 COVID-19 VACCINE (3 - [facility] Test 08:47:16 Booster for Trina series) [code = COVID-19 VACCINE (3 - Booster for Trina series)] Future Scheduled 2023-01-18 INFLUENZA VACCINE [facility] Test 08:47:16 [code = INFLUENZA VACCINE] Future Scheduled 2022-08-19 COVID-19 VACCINE (#1) [facility] Test 16:42:00 [code = COVID-19 VACCINE (#1)] Future Scheduled 2022-08-19 65+ [facility]OCOCCAL [facility] Test 16:42:00 VACCINE (1 - PCV) [code = 65+ PNEUMOCOCCAL VACCINE (1 - PCV)] Future Scheduled 2022-08-19 SHINGLES VACCINES (1 Met [facility] Test 16:42:00 of 2) [code = SHINGLES VACCINES (1 of 2)] Future Scheduled 2022-08-19 INFLUENZA VACCINE [facility] Hospital Test 16:42:00 [code = INFLUENZA VACCINE] Future Scheduled 2022-08-19 COVID-19 VACCINE (#1) [facility] Test 16:42:00 [code = COVID-19 VACCINE (#1)] Future Scheduled 2022-08-19 65+ P[facility]OCOCCAL [facility] Test 16:42:00 VACCINE (1 - PCV) [code = 65+ PNEUMOCOCCAL VACCINE (1 - PCV)] Future Scheduled 2022-08-19 SHINGLES VACCINES (1 Met [facility] Test 16:42:00 of 2) [code = SHINGLES VACCINES (1 of 2)] Future Scheduled 2022-08-19 INFLUENZA VACCINE Method [facility] Test 16:42:00 [code = INFLUENZA VACCINE] Encounters Start End Encounter Admission Attending Care Care Encounter Source Date/Time Date/Time Type Type Clinicians Facility Department ID 2023-02-08 2023-02-08 Telephone Javi Junior.2.840.1 [id number] [facility] 00:00:00 00:00:[address] Imtiaz Carpio [address]81.[address] 3.430.2.7 Hospit a .3.964764 l .8 2023-02-08 2023-02-08 Telephone Yen Junior2.840.1 [id number] [facility] 00:00:00 00:00:00 Imtiaz Carpio [address]92.1.[address] 3.430.2.7 Hospit a .3.192177 l .8 2023-02-04 2023-02-04 Telephone Adarsh, 1.2.840.1 [id number] 2 [id number] Method[facility] 00:00:00 00:00:[address] 3.430.2.7 Hospit a .3.819441 l .8 2023-02-04 2023-02-04 [facility], 1.2.840.1 [id number] Methodi 00:00:00 00:00:00 Only Darine 13304.1.[address] 3.430.2.7 Hospit a .3.481781 l .8 2023-02-04 2023-02-04 [place] Adarsh, 1.2.840.1 [id number] 2 [id number] Methodi 00:00:00 00:00:[address] 3.430.2.7 Hospit a .3.302659 l .8 2023-02-04 2023-02-04 [facility], 1.2.840.1 [id number] 8254 Methodi 00:00:00 00:00:00 Only Darine 87884.1.[address] 3.430.2.7 Hospit a .3.826301 l .8 2023-02-02 2023-02-02 [place] Junior, 1.2.840.1 [id number] 2100 [id number] Methodi 00:00:00 00:00:00 Im[address] 3.430.2.7 Hospit a .3.606330 l .8 2023-02-02 2023-02-02 [place] Junior, 1.2.840.1 [id number] 2099 [id number] Methodi 00:00:00 00:00:00 Im[address] 3.430.2.7 Hospit a .3.830526 l .8 2023-01-15 2023-01-15 [facility], 1.2.840.1 [id number] Methodi 16:12:18 23:59:00 Encounter Darine 96462.1.[address] 3.430.2.7 Hospit a .3.783038 l .8 2023-01-15 2023-01-15 [facility], 1.2.840.1 [id number] 21362 Methodi 16:12:18 23:59:00 Encounter Darine 62707.1.[address] 3.430.2.7 Hospit a .3.754234 l .8 2023-01-15 2023-01-15 Travel 1.2.840.1 1.2.562.520 1900 [id number] [facility] 00:00:00 00:00:[address] 3.430.2.7 0.2.7.3.698 Ho spita .3.498747 084.8 l .8 2023-01-15 2023-01-15 Telephone Adarsh, 1.2.840.1 [id number] 2 [id number] Method[facility] 00:00:00 00:00:[address] 3.430.2.7 Hospit a .3.338966 l .8 2023-01-15 2023-01-15 Travel 1.2.840.1 1.2.890.381 8300 [id number] [facility] 00:00:00 00:00:[address] 3.430.2.7 0.2.7.3.698 Ho spita .3.767689 084.8 l .8 2023-01-15 2023-01-15 Telephone Adarsh, 1.2.840.1 [id number] 2 [id number] Methodi 00:00:00 00:00:[address] 3.430.2.7 Hospit a .3.198434 l .8 2023-01-13 2023-01-13 [facility], 1.2.840.1 [id number] 4488 Methodi 09:50:00 09:55:[address] 3.430.2.7 Hospit a .3.701890 l .8 2023-01-13 2023-01-13 Lab Julio, 1.2.840.1 [id number] 6534 Methodi 09:50:00 09:55:[address] 3.430.2.7 Hospit a .3.001483 l .8 2023-01-13 2023-01-13 Office Julio, 1.2.840.1 [id number] 4577 Methodi 08:30:00 09:40:17 Visit Darine 68271.1.[address] 3.430.2.7 Hospit a .3.152636 l .8 2023-01-13 2023-01-13 Office Julio, 1.2.840.1 [id number] 9205 Methodi 08:30:00 09:40:17 Visit Darine 46291.1.[address] 3.430.2.7 Hospit a .3.328279 l .8 2023-01-13 2023-01-13 Travel 1.2.840.1 1.2.595.822 6749 [id number] Methodi 00:00:00 00:00:[address] 3.430.2.7 0.2.7.3.698 Ho spita .3.423730 084.8 l .8 2023-01-13 2023-01-13 Travel 1.2.840.1 1.2.146.106 7025 600754 Methodi 00:00:00 00:00:[address] 3.430.2.7 0.2.7.3.698 Ho spita .3.612772 084.8 l .8 2023-01-11 2023-01-11 Transcribe Arthur, 1.2.840.1 [id number] 21 [id number] Methodi 00:00:00 00:00:00 Orders Cruzito 54567.1.[address] 3.430.2.7 Hospit a .3.904689 l .8 2023-01-11 2023-01-11 Transcribe Arthur, 1.2.840.1 [id number] 21 [id number] Methodi 00:00:00 00:00:00 Orders Cruzito 85132.1.[address] 3.430.2.7 Hospit a .3.512077 l .8 2022-12-22 2022-12-22 Office Junior, 1.2.840.1 [id number] 1606 Methodi 11:30:00 15:05:41 Visit Imtiaz Carpio 07401.1.[address] 3.430.2.7 Hospit a .3.520944 l .8 2022-12-22 2022-12-22 Office Junior, 1.2.840.1 [id number] 1975 Methodi 11:30:00 15:05:41 Visit Imtiaz Carpio 58383.1.[address] 3.430.2.7 Hospit a .3.665847 l .8 2022-12-22 2022-12-22 Travel 1.2.840.1 1.2.960.810 4456 437502 Methodi 00:00:00 00:00:[address] 3.430.2.7 0.2.7.3.698 Ho spita .3.805892 084.8 l .8 2022-12-22 2022-12-22 Travel 1.2.840.1 1.2.779.574 5424 733269 Methodi 00:00:00 00:00:[address] 3.430.2.7 0.2.7.3.698 Ho spita .3.789880 084.8 l .8 2022-12-03 2022-12-03 Transcribe Arthur, 1.2.840.1 [id number] 21 [id number] Methodi 00:00:00 00:00:00 Orders Cruzito 57050.1.[address] 3.430.2.7 Hospit a .3.502650 l .8 2022-12-03 2022-12-03 Transcribe Arthur, 1.2.840.1 [id number] 21 [id number] Methodi 00:00:00 00:00:00 [place] 25826.1.[address] 3.430.2.7 Hospit a .3.851122 l .8 2022-03-20 2022-03-20 Outpatient Adams_R DMG DMG 66858-7 022 [facility] 08:24:00 08:24:00 0715 Medica l Group 2022-03-20 2022-03-20 Outpatient Adams_R DMG G 54465-1 023 [facility] 00:00:00 00:00:00 0506 Medica l Group 2022-03-20 2022-03-20 Outpatient Adams_R DMG DMG 86718-3 023 [facility] 00:00:00 00:00:00 1030 Medica l Group 2021-11-10 2021-11-10 Travel 1.2.840.1 1.2.519.246 5731 [id number] Methodi 00:00:00 00:00:[address] 3.430.2.7 0.2.7.3.698 Ho spita .3.099096 084.8 l .8 2021-11-04 2021-11-04 Telephone Marivel, 1.2.840.1 [id number] 022 [id number] Methodi 00:00:00 00:00:[address] 3.430.2.7 Hospit a .3.934355 l .8 2021-10-20 2021-10-20 Office Al Bowen 1.2.840.1 [id number] 21 [id number] Methodi 14:00:00 15:17:32 Visit Primitivo 03476.1.[address] 3.430.2.7 Hospit a .3.241788 l .8 2021-10-20 2021-10-20 Travel 1.2.840.1 1.2.367.523 7966 [id number] Methodi 00:00:00 00:00:[address] 3.430.2.7 0.2.7.3.698 Ho spita .3.800894 084.8 l .8 2021-10-17 2021-10-17 Abstract Nelsy, 1.2.840.1 [id number] 2100 [id number] Methodi 00:00:00 00:00:00 Jade Jj 43080.1.1 [address] t 3.430.2.7 Hospit a .3.242320 l .8 2021-10-02 2021-10-02 Travel 1.2.840.1 1.2.164.020 1621 [id number] Methodi 00:00:00 00:00:[address] 3.430.2.7 0.2.7.3.698 Ho spita .3.827614 084.8 l .8 2021-09-25 2021-09-25 Al De Leon 1.2.840.1 [id number] Methodi 00:00:00 00:00:[address] 3.430.2.7 Hospit a .3.707754 l .8 2021-06-02 2021-06-02 Outpatient Adams_R DMG DMG 07273-6 021 [facility] 11:38:00 11:38:00 0927 [facility] 2019-07-17 2019-07-[address] [facility] [id number] Memoria 14:30:00 05:59:00 Services r Outpatient 01 l Imaging [facility] 2019-07-17 2019-07-[address] [facility] [id number] Memoria 14:30:00 05:59:00 Services r Outpatient 01 l Imaging [facility] 2019-07-17 2019-07-17 Outpatient Arthur, MHOIP MHOIP [id number] 08:30:00 23:59:00 Cruzito 2019-05-16 2019-05-[address] [facility] [id number] Memoria 17:01:00 04:59:00 Services r Outpatient 00 l Imaging [facility] 2019-05-16 2019-05-[address] [facility] [id number] Memoria 17:01:00 04:59:00 Services r Outpatient 00 l Imaging Charlie Sesay 2019-05-16 2019-05-16 Outpatient Arthur, [facility] [id number] 12:01:00 23:59:00 Cruzito 00 Results This patient has no known results.
[2023-07-11 13:30] LABS: Absolute Lymphocytes (CBC) 0.4 K/uL (0.7-4.9); Hematocrit 44.9 % (36.0-45.0); Lymphocytes % 3.4 % (15.3-44.8); MCV 92.7 fL (80-100); MPV 7.3 fL (7.6-11.3); Platelets 221 thou/uL (152-406); RBC Red Blood Cell Count 4.85 M/uL (3.86-4.86)
[2023-07-11 13:44] LABS: Potassium 4.3 mEq/L (3.5-5.1)
--- NOTE | 2023-07-11 14:43 | RAD REPORT ---
EXAM DESCRIPTION: RAD - Ankle Left 3 View - 07/11/2023 1:53 pm CLINICAL HISTORY: wound, r/o osteo COMPARISON: Ankle Left 2 View dated 06/07/2023; Foot Left 2 View dated 06/07/2023; Ankle Left Wo Cont dated 06/08/2023 TECHNIQUE: Left ankle, 3 views. FINDINGS: No fracture, dislocation or periosteal reaction. No joint effusion seen. No joint space na rrowing. No soft tissue abnormality. IMPRESSION: Negative left ankle radiographs.
[2023-07-11 14:47] LABS: Blood Morphology Comment NOT SEEN (NOT SEEN); Platelet Estimate ADEQ; White Blood Cell Scan OK (OK)
--- NOTE | 2023-07-11 14:54 | ER ---
Nurse's Notes [facility] Name: Shazia Colin Age: 82 yrs Sex: Female : 1940 Arrival Date: 07/11/2023 Time: 12:25 Bed 17 Private MD: Cruzito Gibson Diagnosis: Cellulitis of left lower limb;Wound infection Presentation: 07/11 12:42 Chief complaint: Patient states: bilateral leg redness. Pt was seen here last month and cm10 diagnosed with left leg cellulitis and has been going to the wound center. Pt reports pain to leg with ambulation. Coronavirus screen: Vaccine status: Patient reports receiving the 2nd dose of the covid vaccine. Client denies travel out of the [place] in the last 14 days. Ebola Screen: Patient denies travel to an Ebola-affected area in the 21 days before illness onset. No symptoms or risks identified at this time. Initial Sepsis Screen: Does the patient meet any 2 criteria? No. Patient's initial sepsis screen is negative. Does the patient have a suspected source of infection? Yes: Skin breakdown/wound. Risk Assessment: Do you want to hurt yourself or someone else? Patient reports no desire to harm self or others. Onset of symptoms was July 11, 2023. 12:42 Method Of Arrival: Wheelchair cm10 12:42 Acuity: MALLY 3 cm10 Historical: - Allergies: 12:43 Bactrim; cm10 12:43 Codeine; cm10 12:43 Fluconazole; cm10 12:43 Hydrocodone-Acetaminophen; cm10 12:43 Sulfa (Sulfonamide Antibiotics); cm10 12:43 Tetanus Vaccines \T\ Toxoid; cm10 12:43 tramadol; cm10 12:43 TussiCaps; cm10 - PMHx: 12:43 Anxiety; Chronic obstructive lung disease; DVT; Home O2 via 2 L NC (Unknown); PE; cm10 - Immunization history:: Adult Immunizations unknown. - Social history:: Smoking status: Patient/guardian denies using tobacco, but has a distant history of tobacco abuse. Screenin:25 [facility] ED Fall Risk Assessment (Adult) History of falling in the last 3 months, db including since admission No falls in past 3 months (0 pts) Confusion or Disorientation No (0 pts) Intoxicated or Sedated No (0 pts) Impaired Gait No (0 pts) Mobility Assist Device Used Yes (1 pt) Altered Elimination No (0 pt) Score/Fall Risk Level 0 - 2 = Low Risk Oriented to surroundings, Maintained a safe environment. Abuse screen: Denies threats or abuse. Denies injuries from another. Nutritional screening: No deficits noted. Tuberculosis screening: No symptoms or risk factors identified. Assessment: 13:25 Reassessment: Patient appears in no apparent distress at this time. left leg wound here db for infection. NAD. 13:25 General: Appears in no apparent distress. comfortable, Behavior is calm, cooperative. db Pain: Complains of pain in right leg and left leg. Neuro: Level of Consciousness is awake, alert, obeys commands, Oriented to person, place, time, situation. 15:15 Reassessment: Patient and/or family updated on plan of care and expected duration. Pain db level reassessed. Patient is alert, oriented x 3, equal unlabored respirations, skin warm/dry/pink. WOUND TO LEFT LEG SWABBED FOR CULTURE PER ORDER AND SENT TO LAB. 15:15 Derm: Wound noted left leg. db 16:30 Reassessment: Patient appears in no apparent distress at this time. Patient and/or db family updated on plan of care and expected duration. Pain level reassessed. Patient is alert, oriented x 3, equal unlabored respirations, skin warm/dry/pink. 17:30 Reassessment: Patient appears in no apparent distress at this time. Patient and/or db family updated on plan of care and expected duration. Pain level reassessed. Patient is alert, oriented x 3, equal unlabored respirations, skin warm/dry/pink. Reassessment: SOCIALIZING WITH FAMILY. General: Appears in no apparent distress. comfortable, Behavior is calm, cooperative. Neuro: Level of Consciousness is awake, alert, obeys commands, Oriented to person, place, time, situation. Respiratory: Airway is patent Respiratory effort is even, unlabored, Respiratory pattern is regular, symmetrical. 17:47 Reassessment: REPORT GIVEN TO THOMAS UNGER. db Vital Signs: 12:42 BP 167 / 70; Pulse 87; Resp 18; Temp 99(TE); Pulse Ox 92% on R/A; Weight 52.16 kg; cm10 Height 5 ft. 1 in. ; Pain 0/10; 13:24 BP 163 / 83; Pulse 87; Resp 18; Temp 98; Pulse Ox 94% on R/A; db 14:00 BP 151 / 66; Pulse 86; Resp 16; Pulse Ox 94% ; db 15:00 BP 162 / 90; Pulse 84; Resp 18; Pulse Ox 94% on R/A; db 16:30 BP 145 / 76; Pulse 82; Resp 18; Pulse Ox 98% on R/A; db 17:30 BP 125 / 64; Pulse 93; Resp 18; Pulse Ox 97% on R/A; db 12:42 Body Mass Index 21.73 (52.16 kg, 154.94 cm) cm10 12:42 Pain Scale: Adult cm10 ED Course: 12:27 Patient arrived in ED. mr 12:27 Cruzito Gibson MD is Private Physician. mr 12:36 Monique Ahmadi, [facility]. jh7 12:36 Chang Britton MD is Attending Physician. jh7 12:43 Triage completed. cm10 12:44 Arm band placed on Patient placed in an exam room, on a stretcher. cm10 13:04 Azalea Benavides, RN is Primary Nurse. db 13:25 Inserted saline lock: 22 gauge in left antecubital area, using aseptic technique. Blood ds4 collected. 13:55 XRAY Ankle LEFT 3 view In Process Unspecified. EDMS 14:52 Cruzito Gibson MD is Hospitalizing Provider. 7 15:34 Patient has correct armband on for positive identification. Bed in low position. Call db light in reach. Side rails up X 1. Pulse ox on. NIBP on. Warm blanket given. 18:00 Provided Education on: ADMISSION. db 18:00 No provider procedures requiring assistance completed. Patient admitted, IV remains in db place. Administered Medications: 15:15 Drug: vancoMYCIN IVPB 1 grams IVPB once over 2 hrs Route: IVPB; Infused Over: 2 hrs; db Site: right antecubital; 17:15 Follow up: Response: No adverse reaction; IV Status: Completed infusion; IV Intake: db 250ml Medication: 13:25 VIS not applicable for this client. db Intake: 17:15 IV: 250ml; Total: 250ml. db Outcome: 14:54 Decision to Hospitalize by Provider. 7 18:00 Admitted to Med/surg db 18:00 Admitted to Med/surg accompanied by tech, family with patient, via stretcher, with chart, 18:00 Condition: stable 18:00 Condition: stable 18:00 Instructed on the need for admit, 18:01 Patient left the ED. Signatures: Dispatcher [employer] EDMS Jodi Childress, Reg Judson Gomez ds4 Minnie Thomas, RN RN Monique Ahmadi, TAG METER OPERATOR TAG METER OPERATOR jh7 Azalea Benavides RN RN Sahra Chung RN RN cm10 Corrections: (The following items were deleted from the chart) 13:26 13:25 Reassessment: Patient appears in no apparent distress at this time. db db 15:34 15:15 Reassessment: Patient and/or family updated on plan of care and expected db duration. Pain level reassessed. Patient is alert, oriented x 3, equal unlabored respirations, skin warm/dry/pink. WOUND TO LEFT LEG SWABBED FOR CULTURE PER ORDER AND SENT TO LAB db
--- NOTE | 2023-07-11 14:54 | EDPHYS ---
Physician Documentation [facility] Name: Shazia Colin Age: 82 yrs Sex: Female : 1940 Arrival Date: 07/11/2023 Time: 12:25 Bed 17 Private MD: Cruzito Gibson ED Physician Chang Britton HPI: 07/11 12:45 This 82 yrs old Female presents to ER via Wheelchair with complaints of Wound Infection.jh7 12:43 Onset: The symptoms/episode began/occurred 1 month(s) ago, and became worse last night. 7 82-year-old female who is a patient of Dr. Gibson presents to the ER for bilateral leg redness and worsening wound infection of the left ankle. She states that she has been going to the wound care center daily, and that last night the wound started oozing pus and that the redness spread. Denies fever.. Historical: - Allergies: 12:43 Bactrim; cm10 12:43 Codeine; cm10 12:43 Fluconazole; cm10 12:43 Hydrocodone-Acetaminophen; cm10 12:43 Sulfa (Sulfonamide Antibiotics); cm10 12:43 Tetanus Vaccines \T\ Toxoid; cm10 12:43 tramadol; cm10 12:43 TussiCaps; cm10 - PMHx: 12:43 Anxiety; Chronic obstructive lung disease; DVT; Home O2 via 2 L NC (Unknown); PE; cm10 - Immunization history:: Adult Immunizations unknown. - Social history:: Smoking status: Patient/guardian denies using tobacco, but has a distant history of tobacco abuse. ROS: 12:43 Constitutional: Negative for fever, chills, and weight loss, Eyes: Negative for injury, jh7 pain, redness, and discharge, Neck: Negative for injury, pain, and swelling, Cardiovascular: Negative for chest pain, palpitations, and edema, Respiratory: Negative for shortness of breath, cough, wheezing, and pleuritic chest pain, Abdomen/GI: Negative for abdominal pain, nausea, vomiting, diarrhea, and constipation, 12:43 Neuro: Negative for headache, weakness, numbness, tingling, and seizure, 12:43 MS/extremity: Positive for wound on L ankle, 12:43 Skin: Positive for cellulitis, of the left leg and right leg, 12:43 All other systems are negative, Exam: 12:43 Constitutional: This is a well developed, well nourished patient who is awake, alert, jh7 and in no acute distress. Head/Face: Normocephalic, atraumatic. Neck: Trachea midline, no thyromegaly or masses palpated, and no cervical lymphadenopathy. Supple, full range of motion without nuchal rigidity, or vertebral point tenderness. No Meningismus. Cardiovascular: Regular rate and rhythm with a normal S1 and S2. No gallops, murmurs, or rubs. Normal PMI, no JVD. No pulse deficits. Respiratory: Lungs have equal breath sounds bilaterally, clear to auscultation and percussion. No rales, rhonchi or wheezes noted. No increased work of breathing, no retractions or nasal flaring. Abdomen/GI: Soft, non-tender, with normal bowel sounds. No distension or tympany. No guarding or rebound. No evidence of tenderness throughout. Neuro: Awake and alert, GCS 15, oriented to person, place, time, and situation. Motor strength 5/5 in all extremities. Sensory grossly intact. Normal gait. 12:43 Skin: cellulitis, that is mild, that is moderate, on the left leg, Wound recheck: Cellulitis: the condition appears to have progressed, increased erythema, Open wound on the left ankle oozing purulent drainage, Vital Signs: 12:42 BP 167 / 70; Pulse 87; Resp 18; Temp 99(TE); Pulse Ox 92% on R/A; Weight 52.16 kg; cm10 Height 5 ft. 1 in. ; Pain 0/10; 13:24 BP 163 / 83; Pulse 87; Resp 18; Temp 98; Pulse Ox 94% on R/A; db 14:00 BP 151 / 66; Pulse 86; Resp 16; Pulse Ox 94% ; db 15:00 BP 162 / 90; Pulse 84; Resp 18; Pulse Ox 94% on R/A; db 16:30 BP 145 / 76; Pulse 82; Resp 18; Pulse Ox 98% on R/A; db 17:30 BP 125 / 64; Pulse 93; Resp 18; Pulse Ox 97% on R/A; db 12:42 Body Mass Index 21.73 (52.16 kg, 154.94 cm) cm10 12:42 Pain Scale: Adult cm10 MDM: 12:36 Patient medically screened. [facility] 15:22 Differential diagnosis: Cellulitis, osteomyelitis, abscess, wound with delayed healing. [facility] Data reviewed: vital signs, nurses notes, lab test result(s), radiologic studies, plain films. Consideration of Admission/Observation Patient was admitted/placed on observation. Management of patient was discussed with the following: Primary Care Provider: Dr. Gibson. He requested 1 g vancomycin twice daily, Bactroban, MRI of the left ankle and foot with contrast scheduled for tomorrow, and wound care consult.. I considered the following discharge prescriptions or medication management in the emergency department Medications were administered in the Emergency Department. See MAR. Counseling: I had a detailed discussion with the patient and/or guardian regarding the historical points, exam findings, and any diagnostic results supporting the discharge/admit diagnosis, the need for further work-up and treatment in the hospital. 07/11 12:55 Order name: BMP; Complete Time: 13:49 [facility] 07/11 12:55 Order name: CBC with Diff; Complete Time: 14:49 [facility] 07/11 12:55 Order name: Lactate w/ 2H reflex if indic.; Complete Time: 13:49 [facility] 07/11 13:32 Order name: CBC Smear Scan; Complete Time: 14:49 [facility] 07/11 14:49 Order name: Wound Culture [facility] 07/11 15:22 Order name: Urinalysis w/ reflexes [facility] 07/11 15:22 Order name: Vancomycin Level Trough [facility] 07/11 15:22 Order name: Vancomycin Peak EDMS 07/11 15:22 Order name: CBC with Automated Diff [facility] 07/11 15:22 Order name: CBC with Automated Diff EDMS 07/11 15:22 Order name: Comprehensive Metabolic Panel [facility] 07/11 15:22 Order name: Comprehensive Metabolic Panel [facility] 07/11 12:55 Order name: XRAY Ankle LEFT 3 view; Complete Time: 14:44 [facility] 07/11 15:22 Order name: [facility] Cons EDMS Administered Medications: 15:15 Drug: vancoMYCIN IVPB 1 grams IVPB once over 2 hrs Route: IVPB; Infused Over: 2 hrs; db Site: right antecubital; 17:15 Follow up: Response: No adverse reaction; IV Status: Completed infusion; IV Intake: db 250ml Disposition: 07/12 09:06 Co-signature as Attending Physician, Chang Britton MD I reviewed the patient's care rn provided by the Advanced Practice Provider and agree with the diagnosis and treatment plan. Disposition Summary: 07/11/23 14:54 Hospitalization Ordered Notes: Hospitalization Status: Inpatient Admission [facility] Provider: Cruzito Gibson Location: Telemetry/MedSur (Inpatient) [facility] Condition: Stable [facility] Problem: chronic [facility] Symptoms: have worsened [facility] Bed/Room Type: Standard [facility] Room Assignment: 224(07/11/23 17:10) Diagnosis - Cellulitis of left lower limb [facility] - Wound infection [facility] Forms: - Medication Reconciliation Form [facility] - SBAR form [facility] - Leadership Thank You Letter [facility] Signatures: Dispatcher [employer] EDMS Chang Britton MD MD rn Botello, Elizabeth eb Hadash, Jennifer, RADIO DESPATCHER RADIO DESPATCHER [facility] Azalea Benavides RN RN db Sahra Abreu RN RN cm10 Corrections: (The following items were deleted from the chart) 07/11 15:41 15:29 Onset: The symptoms/episode began/occurred 1 month(s) ago, and became worse last [facility] night, [facility] 15:41 15:29 82-year-old female who is a patient of Dr. Gibson presents to the ER for 7 bilateral leg redness and worsening wound infection of the left ankle. She states that she has been going to the wound care center daily, and that last night the wound started oozing pus and that the redness spread. Denies fever.. [facility] 17:10 14:54 [facility] eb
[2023-07-11] MEDS ORDERED: ONDANSETRON 4 MG/2 ML VIAL IV PRN (15:15)
[2023-07-11] MEDS ORDERED: ACETAMINOPHEN 500 MG TAB PO PRN (15:15)
[2023-07-11] MEDS ORDERED: VANCOMYCIN 1 GM/VIAL ONE (15:22)
[2023-07-11] MEDS ORDERED: NA CHLORIDE 0.9% 250 ML ONE (15:23)
[2023-07-11] MEDS: VANCOMYCIN 1 GM in NA CHLORIDE 0.9% 250 ML IVPB SCH (16:00)
[2023-07-11] MEDS: RIVAROXABAN 20 MG TABLET PO SCH (17:00)
[2023-07-11 18:32] VITALS: BMI 21.7
[2023-07-11] MEDS: predniSONE 20 MG TAB PO SCH (21:00)
[2023-07-11] MEDS: MUPIROCIN 2% OINT 22GM TUBE TOP SCH (21:00)
[2023-07-11] MEDS: PRAMIPEXOLE 0.25 MG TAB PO SCH (21:00)
[2023-07-11] MEDS: PANTOPRAZOLE 40MG TABLET PO SCH (21:00)
[2023-07-11] MEDS: carBAMazepine 200 MG TAB PO SCH (21:00)
[2023-07-12] MEDS: PANTOPRAZOLE 40MG TABLET PO SCH (06:30)
[2023-07-12] MEDS: MUPIROCIN 2% OINT 22GM TUBE TOP SCH ×2 (09:00→21:00)
[2023-07-12] MEDS: predniSONE 20 MG TAB PO SCH ×2 (09:00→21:00)
[2023-07-12] MEDS: carBAMazepine 200 MG TAB PO SCH ×2 (09:00→21:00)
--- NOTE | 2023-07-12 12:06 | RAD REPORT ---
EXAM DESCRIPTION: MRI - Ankle Left Wo Cont - 07/12/2023 11:16 am CLINICAL HISTORY: L Ankle and foot wound, r/o osteomyelitis COMPARISON: No comparisons FINDINGS: The Achilles tendon and plantar fascia are intact. Small calcaneal spurs. No soft tissue m asses or hematoma seen. Moderate edema and soft tissue swelling is seen about the ankle. The visualized flexor and extensor t endons of the ankle appear unremarkable. No MR evidence of osteomyelitis. No fracture or dislocation. No aggressive marrow lesion. IMPRESSION: Negative for osteomyelitis.
[2023-07-12] MEDS: VANCOMYCIN 1 GM in NA CHLORIDE 0.9% 250 ML IVPB SCH (16:30)
[2023-07-12] MEDS: RIVAROXABAN 20 MG TABLET PO SCH (16:31)
[2023-07-12] MEDS: PRAMIPEXOLE 0.25 MG TAB PO SCH (21:00)
[2023-07-13 00:18] VITALS: O2SAT 96
[2023-07-13] MEDS: PANTOPRAZOLE 40MG TABLET PO SCH (06:01)
[2023-07-13] MEDS ORDERED: ACETIC ACID 0.25% IRRIG IRR ONE ×2 (09:00)
[2023-07-13] MEDS: carBAMazepine 200 MG TAB PO SCH ×2 (09:00→20:54)
[2023-07-13] MEDS: MUPIROCIN 2% OINT 22GM TUBE TOP SCH ×2 (09:00→20:57)
[2023-07-13] MEDS: predniSONE 20 MG TAB PO SCH ×2 (09:11→20:53)
[2023-07-13] MEDS: VANCOMYCIN 1 GM in NA CHLORIDE 0.9% 250 ML IVPB SCH (16:52)
[2023-07-13] MEDS: RIVAROXABAN 20 MG TABLET PO SCH (16:52)
--- NOTE | 2023-07-13 20:30 | PN ---
Date of Progress Note: 07/12/2023 Patient states she feels somewhat better today; however, her leg is still erythematous on the left wi th decreased edema and marked tenderness surrounding the wound, which seems to be filled in somewhat. Positive culture for pseudomonas was noted. The right leg continues to be erythematous, small coleman lizzeth in the posterior aspect. We will continue with the vancomycin in preparation for discharge on C ipro. However, on last admission approximally a month ago, the vancomycin took 3 or 4 days with sign ificant improvement as far as cellulitis was concerned and therefore we will continue and re-evaluate on a day-to-day basis. HR/MODL Voice ID: [id number] Report ID: [id number]
[2023-07-13] MEDS: PRAMIPEXOLE 0.25 MG TAB PO SCH (20:54)
--- NOTE | 2023-07-13 21:00 | PN ---
Date of Progress Note: 07/13/2023 Patient shows slight improvement in the erythema bilaterally, however, still significant cellulitis p resent. Acetic acid was utilized for the pseudomonas topically as well as Bactroban. We will contin ue with vancomycin. Hopefully, clinically will improve so that she will not need a PICC line. This was the same strategy that was implied on the last admission and 3 or 4 doses and it showed enough im provement. Tolerated medication orally and did not need the PICC line. Her MRI was negative for ost eo, although she has marked tenderness within a couple of inches of the wound area. No calf tenderne ss. Patient states she feels comfortable except some difficulty with weightbearing, but feels that i s somewhat improving. We therefore, continue with her vancomycin, re-evaluate in the a.m. to see whe ther she could be placed on Cipro and discharged. HR/MODL Voice ID: [id number] Report ID: [id number]
[2023-07-14] MEDS: PANTOPRAZOLE 40MG TABLET PO SCH (06:30)
[2023-07-14 08:48] LABS: Absolute Lymphocytes (CBC) 0.7 K/uL (0.7-4.9); Hematocrit 43.8 % (36.0-45.0); Lymphocytes % 8.2 % (15.3-44.8); MCV 91.9 fL (80-100); Platelets 229 thou/uL (152-406); RBC Red Blood Cell Count 4.76 M/uL (3.86-4.86)
[2023-07-14 08:53] LABS: Potassium 3.8 mEq/L (3.5-5.1)
[2023-07-14] MEDS: MUPIROCIN 2% OINT 22GM TUBE TOP SCH (09:00)
[2023-07-14] MEDS: predniSONE 20 MG TAB PO SCH (09:00)
[2023-07-14] MEDS: carBAMazepine 200 MG TAB PO SCH (09:00)
[2023-07-14] MEDS ORDERED: VANCOMYCIN 1 GM in NA CHLORIDE 0.9% 250 ML IVPB SCH (10:00)
--- NOTE | 2023-07-14 10:25 | HP ---
Date of Admission: 07/11/2023 Chief Complaint: Painful legs. 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 She has been seen in the Wound Center for a couple of weeks for debridement and various topical s. The area was cultured at the last visit and MediHoney was discontinued. She felt it increased th e drainage, which was clear. She then stated that she had some trauma to her right lower leg what sh e described as a bump shortly thereafter in the posterolateral aspect. Past Medical History: Patient has had significant problems with peripheral vascular disease; has had some hypertensive episodes; cellulitis of the leg, which necessitated hospitalization about 1 month ago; history of COPD with acute exacerbations; and CAD. Family History: Noncontributory. Social History: Nonsmoker, nondrinker. Physical Examination: General: Patient is a thin elderly female with stable vital signs. Head and Neck: Normal. Chest: Clear to P and A. Cardiovascular: PMI midclavicular line. Heart sounds are normal. Peripheral pulses present and equ al bilaterally. Abdomen: No organomegaly. Bowel sounds present. Extremities: Upper extremities are normal. Left lower leg shows a well demarcated ulcer in the anter ior surface with fairly marked cellulitis surrounding it as well as some necrotic appearing tissue. Decreased pulse. Left lower leg shows a marked amount of cellulitis in the lower third with edema. Small presumably hematoma on the posterior aspect. Rectal: Deferred. Pelvic: Deferred. Impression: Cellulitis of the legs. Vascular ulcer of the left lower leg. Hematoma, right lower leg . Chronic obstructive pulmonary disease by history. Coronary artery disease by history. Plan: Patient will be admitted, placed on IV vancomycin and wound care. Depending on the results, p ossibility of a PICC line will be considered. A repeat MRI will be done to rule out osteo. HR/MODL Voice ID: [id number]
[2023-07-14] MEDS ORDERED: VANCOMYCIN 1.25 GM in NA CHLORIDE 0.9% 250 ML IVPB SCH ×2 (12:00→16:00)
[2023-07-14 14:11] VITALS: BP 173/80; TEMP 97.2
--- NOTE | 2023-07-14 19:13 | PN ---
Date of Progress Note: 07/14/2023 The patient states she feels considerably better. She can walk on the leg. No discomfort. Evaluati on of the leg showed marked decrease in the cellulitis of the right lower leg, minimal amount of cell ulitic areas surrounding the wound on the left. I feel she could tolerate Cipro fairly easily than v ancomycin. She will therefore be discharged on Cipro 500 mg twice a day with daily dressing changes including acetic acid and she will be seen in the Wound Center in 4-5 days. Maintain her usual medic ation as well. HR/MODL Voice ID: [id number] Report ID: [id number]
== END 2023-07-14 17:12 | disposition home or self-care (01) | DRG 603 ==
LOC: ER 12:25 → ERHOLD 15:15 → 2ND 17:34
PROVIDERS: ADMIT Family Medicine; ATTEND Family Medicine
DX: L03.116 Cellulitis of left lower limb (principal); L03.115 Cellulitis of right lower limb; I73.9 Peripheral vascular disease, unspecified; I86.8 Varicose veins of other specified sites; J44.9 Chronic obstructive pulmonary disease, unspecified; S80.11XA Contusion of right lower leg, initial encounter; I25.10 Atherosclerotic heart disease of native coronary artery without angina pectoris; B96.5 Pseudomonas (aeruginosa) (mallei) (pseudomallei) as the cause of diseases classified elsewhere; Z88.1 Allergy status to other antibiotic agents; Z88.5 Allergy status to narcotic agent; Z88.2 Allergy status to sulfonamides; Z88.8 Allergy status to other drugs, medicaments and biological substances; Z88.7 Allergy status to serum and vaccine; Z99.81 Dependence on supplemental oxygen; Z86.711 Personal history of pulmonary embolism; Z86.718 Personal history of other venous thrombosis and embolism
CPT/HCPCS: 36415; 80048; 80202; 83605; 85025; 87070; 87077; 87186; 87205; 96365; 96366; 99285; J7050; J7512

== ENCOUNTER 2023-08-16 11:35 | Observation (INO) | payer MEDICARE ==
[2023-08-16] MEDS ORDERED: cloNIDine HCL 0.1 MG TAB PO PRN ×2 (13:13→17:39)
[2023-08-16 13:51] VITALS: BMI 21.7
[2023-08-16] MEDS: METHYLPREDNISOLONE 125 MG INJ IV SCH ×2 (13:58→21:42)
[2023-08-16 14:58] LABS: Absolute Lymphocytes (CBC) 0.4 K/uL (0.7-4.9); Hematocrit 40.5 % (36.0-45.0); Lymphocytes % 2.6 % (15.3-44.8); MCV 90.9 fL (80-100); MPV 6.9 fL (7.6-11.3); Platelets 269 thou/uL (152-406); RBC Red Blood Cell Count 4.45 M/uL (3.86-4.86)
[2023-08-16 15:16] LABS: Potassium 4.2 mEq/L (3.5-5.1)
[2023-08-16] MEDS ORDERED: INFLUENZA VACCINE (for 6+ mo) 0.5 ML DOSE IMVAC ONE (16:00)
--- NOTE | 2023-08-16 16:33 | RAD REPORT ---
EXAM DESCRIPTION: [facility] Single View08/16/2023 4:24 pm CLINICAL HISTORY: sob COMPARISON: May 2023 FINDINGS: The lungs are markedly hyperaerated Left base is hazy. Additional bilateral interstitial lung opacities are chronic Heart is mildly enlarged IMPRESSION: Marked COPD Left base is hazy which may indicate a small pneumonia. There may be a small left pleural effusion pr esent as well
[2023-08-16] MEDS: OXcarbazepine 150 MG TAB PO SCH (19:56)
[2023-08-16] MEDS: ALBUTEROL 2.5 MG/3 ML NEB SOL NEB SCH (20:31)
[2023-08-16] MEDS: IPRATROPIUM BROM 0.5MG/2.5ML NEB SCH (20:31)
[2023-08-16 20:43] LABS: Platelet Estimate ADEQ; White Blood Cell Scan OK (OK)
[2023-08-16 20:44] LABS: Blood Morphology Comment NOT SEEN (NOT SEEN)
[2023-08-16] MEDS ORDERED: PRAMIPEXOLE 0.25 MG TAB PO SCH (21:00)
[2023-08-16] MEDS ORDERED: PANTOPRAZOLE 40MG TABLET PO SCH (21:00)
[2023-08-16] MEDS ORDERED: OXCARBAZEPINE 300 MG PO SCH (21:00)
[2023-08-16] MEDS ORDERED: PRAMIPEXOLE DI HCL 0.75 MG PO SCH (21:00)
[2023-08-16 22:09] LABS: Specific Gravity 1.025 (1.005-1.030); Urine Bacteria None Seen /HPF (<20); Urine Bilirubin NEGATIVE (Negative); Urine Blood 1+ (Negative); Urine Clarity Clear (Clear); Urine Color Yellow (Yellow); Urine Glucose 3+ (Negative); Urine Mucus Slight /HPF (None Seen); Urine Protein 1+ (Negative); Urine Urobilinogen Normal (Normal); Urine WBC Clump Rare /HPF (None Seen)
[2023-08-17] MEDS: ALBUTEROL 2.5 MG/3 ML NEB SOL NEB SCH ×3 (00:41→07:23)
[2023-08-17] MEDS: IPRATROPIUM BROM 0.5MG/2.5ML NEB SCH ×3 (00:41→07:23)
[2023-08-17] MEDS: METHYLPREDNISOLONE 125 MG INJ IV SCH (06:17)
[2023-08-17] MEDS ORDERED: IPRATROPIUM BROM 0.5MG/2.5ML NEB SCH ×2 (07:00→13:35)
[2023-08-17] MEDS ORDERED: ALBUTEROL 2.5 MG/3 ML NEB SOL NEB SCH ×2 (07:00→13:35)
[2023-08-17] MEDS: OXcarbazepine 150 MG TAB PO SCH (08:43)
[2023-08-17] MEDS ORDERED: SPIRONOLACTONE 25 MG TABLET PO SCH (09:00)
[2023-08-17] MEDS ORDERED: HOME MED 1 EA UNK (Fluticasone/Umeclidin/Vilanter [Trelegy Ellipta 100-62.5-25] Blst.W.Dev IH SCH (09:00)
[2023-08-17 14:57] VITALS: O2SAT 95
[2023-08-17 16:42] VITALS: BP 149/76; TEMP 97.8
[2023-08-17] MEDS ORDERED: RIVAROXABAN 20 MG TABLET PO SCH (17:00)
[2023-08-17] MEDS ORDERED: METHYLPREDNISOLONE 125 MG INJ IV SCH (17:00)
--- NOTE | 2023-08-17 21:26 | SS ---
Date of Discharge: 08/17/2023 The patient was admitted to the hospital from my office on 08/16. She has had a long history of COPD , which has been progressive. She was seen by me on numerous occasions as well as Dr. Roth. She has rather advanced COPD, and at 1 time she was maintained on 40 mg of prednisone, was trying to dec rease her to 30. After a couple days of this, she developed an acute exacerbation. She was given De cadron shots on numerous occasions with minimal improvement, and over the next few days with this goi ng back to the 40, it did not take her to baseline. Her oxygen when seen in the office the day of ad mission dropped to 82, therefore admitted for IV steroids, which she also received 4 to 6 weeks ago w ith good result. She was therefore admitted and placed on 125 mg Solu-Medrol q.8 hours with marked i mprovement. It was decreased to 60 mg today. She was breathing quite well, vital signs were stable, and it was felt she could be discharged to continue on the 20 mg b.i.d. She will also be seen in [facility] because she has a slowly healing ulcer of her left lower leg. She is maintained on he r usual medication. Discharged in fair condition on 08/17. Final Diagnoses: Acute exacerbation of chronic obstructive pulmonary disease; hypertension, controll ed; ulceration of the left lower leg, healing; peripheral vascular disease, by history. HR/MODL Voice ID: [id number] Report ID: [id number]
== END 2023-08-17 18:50 | disposition home or self-care (01) ==
LOC: 4TH 12:17
PROVIDERS: ADMIT Family Medicine; ATTEND Family Medicine
DX: J44.1 Chronic obstructive pulmonary disease with (acute) exacerbation (principal); I10 Essential (primary) hypertension; I73.9 Peripheral vascular disease, unspecified; L97.929 Non-pressure chronic ulcer of unspecified part of left lower leg with unspecified severity
CPT/HCPCS: 36415; 71045; 80048; 81001; 83615; 85025; 94640; G0378; G0379; J2930; J7613; J7644

== ENCOUNTER 2023-08-18 12:01 | Inpatient (IN) | payer MEDICARE ==
[2023-08-18 12:52] LABS: Blood O2 Saturation 96.4 % (92-98.5)
[2023-08-18 13:01] LABS: Hematocrit 43.4 % (36.0-45.0); Lymphocytes % 5.6 % (15.3-44.8); MCV 91.4 fL (80-100); MPV 6.7 fL (7.6-11.3); Platelets 431 thou/uL (152-406); RBC Red Blood Cell Count 4.75 M/uL (3.86-4.86)
[2023-08-18 13:05] LABS: Protime INR 1.98
[2023-08-18] MEDS ORDERED: LEVALBUTEROL 1.25 MG/3 ML NEB ONE (13:12)
[2023-08-18] MEDS ORDERED: CEFTRIAXONE 1000 MG/VIAL ONE (13:12)
--- NOTE | 2023-08-18 13:13 | RAD REPORT ---
EXAM DESCRIPTION: RAD - Chest Single View - 08/18/2023 1:02 pm CLINICAL HISTORY: Cough;COPD Chest pain. COMPARISON: Chest Single View dated 08/16/2023; Chest Single View dated 05/25/2023; Chest Single View dated 01/19/2023; Chest Pa And Lat (2 Views) dated 11/13/2022 FINDINGS: Portable technique limits examination quality. Diffuse COPD. Moderate patchy infiltrate in the left lung base associated with a pleural effusion is likely related to pneumonia. This appears progressive since the comparative study. The heart is moder ately enlarged. IMPRESSION: Moderate left base pneumonia pattern is seen, progressive since the recent comparative e xamination.
[2023-08-18] MEDS ORDERED: Magnesium Sulfate 2gm IVPB 2 G/50 ML BAG IV ONE (13:17)
[2023-08-18 13:18] LABS: Albumin 2.7 g/dL (3.4-5.0); Bilirubin Direct 0.2 mg/dL (0-0.2); Bilirubin Indirect, Calculated 0.3 mg/dL (0.2-0.8); Bilirubin Total 0.5 mg/dL (0.2-1.0); Potassium 4.5 mEq/L (3.5-5.1); Protein, Total 6.5 g/dL (6.4-8.2); Troponin High Sensitivity 33.5 pg/mL (<58.9)
[2023-08-18] MEDS ORDERED: NITROGLYCERIN 1 GM PKT TD ONE (13:37)
[2023-08-18 14:09] LABS: SARS-COV-2 RT PCR NEGATIVE (NEGATIVE)
--- NOTE | 2023-08-18 14:09 | ER ---
Nurse's Notes [facility] Name: Sahzia Colin Age: 83 yrs Sex: Female : 1940 Arrival Date: 08/18/2023 Time: 12:01 Bed 18 Private MD: Diagnosis: COPD/ Chronic obstructive pulmonary disease with (acute) exacerbation;Dyspnea;Pneumonia due to other specified bacteria-increasing left lower lobe;skilled nursing (current) use of anticoagulants;Hypoxemia;Acute and chronic respiratory failure with hypercapnia Presentation: 08/18 12:19 Chief complaint: EMS states: COPD exacerbation. Patient was just released from hospital cp4 yesterday for the same thing. Coronavirus screen: Vaccine status: Patient reports receiving the 2nd dose of the covid vaccine. At this time, the client does not indicate any symptoms associated with coronavirus-19. Ebola Screen: Patient negative for fever greater than or equal to 101.5 degrees Fahrenheit, and additional compatible Ebola Virus Disease symptoms Patient denies exposure to infectious person. Patient denies travel to an Ebola-affected area in the 21 days before illness onset. No symptoms or risks identified at this time. Initial Sepsis Screen: Does the patient meet any 2 criteria? RR > 20 per min. HR > 90 bpm. Yes Does the patient have a suspected source of infection? No. Patient's initial sepsis screen is negative. Risk Assessment: Do you want to hurt yourself or someone else? Patient reports no desire to harm self or others. Onset of symptoms was August 18, 2023. 12:19 Method Of Arrival: EMS: [facility] cp4 12:19 Acuity: MALLY 3 cp4 Triage Assessment: 12:25 General: Appears distressed. General: Behavior is. Pain: Denies pain. cp4 12:25 Respiratory: Breath sounds with wheezes bilaterally. cp4 Historical: - Allergies: 12:25 Bactrim; cp4 12:25 Codeine; cp4 12:25 Fluconazole; cp4 12:25 Hydrocodone-Acetaminophen; cp4 12:25 Sulfa (Sulfonamide Antibiotics); cp4 12:25 Tetanus Vaccines \T\ Toxoid; cp4 12:25 tramadol; cp4 12:25 TussiCaps; cp4 - PMHx: 12:25 Anxiety; Chronic obstructive lung disease; DVT; Home O2 via 2 L NC (Unknown); PE; cp4 - Immunization history:: Adult Immunizations up to date. - Social history:: Smoking status: Patient denies any tobacco usage or history of. - Family history:: not pertinent. Screenin:35 [facility] ED Fall Risk Assessment (Adult) History of falling in the last 3 months, cp4 including since admission No falls in past 3 months (0 pts). [facility] ED Fall Risk Assessment (Adult) Confusion or Disorientation No (0 pts) Intoxicated or Sedated No (0 pts) Impaired Gait No (0 pts) Mobility Assist Device Used No (0 pt) Altered Elimination No (0 pt) Score/Fall Risk Level 0 - 2 = Low Risk Oriented to surroundings, Maintained a safe environment, Educated pt \T\ family on fall prevention, incl call for assistance when getting out of bed, Assessed \T\ reinforced patient's understanding of fall precautions, Hourly rounding (assess needs \T\ fall precautionary measures) done. Abuse screen: Denies threats or abuse. Nutritional screening: No deficits noted. Tuberculosis screening: No symptoms or risk factors identified. Assessment: 12:35 Reassessment: No changes from previously documented assessment. cp4 Vital Signs: 12:19 BP 223 / 105; Pulse 133; Resp 32; Temp 98.1; Pulse Ox 96% ; FiO2 35 %; cp4 13:00 BP 155 / 72; Pulse 111; Resp 20; Pulse Ox 95% ; cp4 14:00 BP 142 / 72; Pulse 100; Resp 20; Pulse Ox 94% ; FiO2 35 %; cp4 15:00 BP 132 / 70; Pulse 91; Resp 23; Pulse Ox 96% ; FiO2 35 %; cp4 16:00 BP 137 / 69; Pulse 93; Resp 22; Pulse Ox 96% ; FiO2 35 %; cp4 ED Course: 12:10 Patient arrived in ED. kamala 12:11 Garcia Dickson MD is Attending Physician. kamala 12:16 Symone Kearney is Primary Nurse. cp4 12:25 Triage completed. cp4 12:25 Arm band placed on right wrist. Patient placed in an exam room, on a stretcher. cp4 12:35 Bed in low position. Call light in reach. Side rails up X 1. cp4 12:53 BIPAP Sent. cp4 13:04 XRAY Chest (1 view) In Process Unspecified. EDMS 14:06 Cruzito Gibson MD [facility]izing [facility] 16:34 Provided Education on: admission. cp4 16:34 No provider procedures requiring assistance completed. Patient admitted, IV remains in cp4 place. Administered Medications: 12:51 Not Given (Given by EMS): [id number] mg IVP once cp4 12:57 CANCELLED (Duplicate Order): ipratropiumaerosol 0.5 mg Inhalation once kamala 13:05 Drug: Levalbuterol Inhalation 3.75 mg Inhalation once Route: Inhalation; cp4 13:05 Drug: Rocephin IV 1 grams IV at per protocol once; Given slow IV push per pharmacy cp4 instructions Route: IV; Rate: per protocol; Site: right hand; 14:03 Follow up: Response: No adverse reaction; IV Status: Completed infusion cp4 13:06 Drug: Magnesium Sulfate IVPB 2 grams IVPB once over 2 hrs Route: IVPB; Infused Over: 2 cp4 hrs; Site: right hand; 13:07 Drug: Levalbuterol Inhalation 3.75 mg Inhalation once Route: Inhalation; cp4 14:06 Follow up: Response: No adverse reaction cp4 13:31 Drug: Nitroglycerin Transdermal Ointment 2 % 1 inches Transdermal once Route: cp4 Transdermal; Site: anterior chest wall; 14:06 Follow up: Response: No adverse reaction cp4 14:03 Drug: Zithromax IVPB 500 mg IVPB once over 1 hrs; mix in 250 mL NS Route: IVPB; Infused cp4 Over: 1 hrs; Site: right antecubital; 14:06 Drug: NS 0.9% IV 1000 ml IV at 100 ml/hr continuous Route: IV; Rate: 100 ml/hr; Site: cp4 right hand; Medication: 12:35 VIS not applicable for this client. cp4 Outcome: 14:08 Decision to Hospitalize by Provider. [facility] 16:34 Admitted to Med/surg accompanied by tech, via stretcher, with oxygen, Report called to [facility] Zoraida 16:34 Condition: stable 16:34 Instructed on the need for admit, Demonstrated understanding of instructions, 17:04 Patient left the ED. cp4 Signatures: Dispatcher [employer]ousuf[employer] Garcia Rangel MD MD cha Potter, Christina cp4
--- NOTE | 2023-08-18 14:09 | EDPHYS ---
Physician Documentation [facility] Name: Shazia Colin Age: 83 yrs Sex: Female : 1940 Arrival Date: 08/18/2023 Time: 12:01 Bed 18 Private MD: ED Physician Garcia Dickson HPI: 08/18 13:58 This 83 yrs old Female presents to ER via EMS with complaints of sob , copd kamala and hypoxia. 13:58 The patient has shortness of breath at rest. Onset: The symptoms/episode began/occurred kamala 3 day(s) ago. Duration: The symptoms are continuous, and are steadily getting worse. The patient's shortness of breath is aggravated by coughing, light activity, supine position, is alleviated by elevating head, nebulizer treatment, pursed lip breathing, rest, sitting up, application of supplemental oxygen. The patient or guardian reports cough, described as moderate, difficulty breathing, flu symptoms, arthralgias. Modifying factors: The symptoms are alleviated by changing position, remaining still, the symptoms are aggravated by activity. hx copd, pna, just dc'd. Associated signs and symptoms: Pertinent positives: productive cough. Severity of symptoms: At their worst the symptoms were moderate severe in the emergency department the symptoms are unchanged. Historical: - Allergies: 12:25 Bactrim; cp4 12:25 Codeine; cp4 12:25 Fluconazole; cp4 12:25 Hydrocodone-Acetaminophen; cp4 12:25 Sulfa (Sulfonamide Antibiotics); cp4 12:25 Tetanus Vaccines \T\ Toxoid; cp4 12:25 tramadol; cp4 12:25 TussiCaps; cp4 - PMHx: 12:25 Anxiety; Chronic obstructive lung disease; DVT; Home O2 via 2 L NC (Unknown); PE; cp4 - Immunization history:: Adult Immunizations up to date. - Social history:: Smoking status: Patient denies any tobacco usage or history of. - Family history:: not pertinent. ROS: 13:58 Constitutional: Negative for fever, chills, and weight loss, Eyes: Negative for injury, kamala pain, redness, and discharge, ENT: Negative for injury, pain, and discharge, Neck: Negative for injury, pain, and swelling, Abdomen/GI: Negative for abdominal pain, nausea, vomiting, diarrhea, and constipation, Back: Negative for injury and pain, : Negative for injury, bleeding, discharge, and swelling, MS/Extremity: Negative for injury and deformity, Skin: Negative for injury, rash, and discoloration, Neuro: Negative for headache, weakness, numbness, tingling, and seizure, Psych: Negative for depression, anxiety, suicide ideation, homicidal ideation, and hallucinations, Allergy/Immunology: Negative for hives, rash, and allergies, Endocrine: Negative for neck swelling, polydipsia, polyuria, polyphagia, and marked weight changes, Hematologic/Lymphatic: Negative for swollen nodes, abnormal bleeding, and unusual bruising, 13:58 Cardiovascular: Positive for orthopnea, palpitations, 13:58 Respiratory: Positive for cough, shortness of breath, wheezing, inspiratory, expiratory, 13:58 MS/extremity: Negative for acute changes, Exam: 13:58 Constitutional: This is a well developed, well nourished patient who is awake, alert, kamala and in no acute distress. Head/Face: Normocephalic, atraumatic. Eyes: Pupils equal round and reactive to light, extra-ocular motions intact. Lids and lashes normal. Conjunctiva and sclera are non-icteric and not injected. Cornea within normal limits. Periorbital areas with no swelling, redness, or edema. ENT: Nares patent. No nasal discharge, no septal abnormalities noted. Tympanic membranes are normal and external auditory canals are clear. Oropharynx with no redness, swelling, or masses, exudates, or evidence of obstruction, uvula midline. Mucous membranes moist. Neck: Trachea midline, no thyromegaly or masses palpated, and no cervical lymphadenopathy. Supple, full range of motion without nuchal rigidity, or vertebral point tenderness. No Meningismus. Chest/axilla: Normal chest wall appearance and motion. Nontender with no deformity. No lesions are appreciated. Abdomen/GI: Soft, non-tender, with normal bowel sounds. No distension or tympany. No guarding or rebound. No evidence of tenderness throughout. Back: No spinal tenderness. No costovertebral tenderness. Full range of motion. Female : Normal external genitalia. Skin: Warm, dry with normal turgor. Normal color with no rashes, no lesions, and no evidence of cellulitis. MS/ Extremity: Pulses equal, no cyanosis. Neurovascular intact. Full, normal range of motion. Neuro: Awake and alert, GCS 15, oriented to person, place, time, and situation. Cranial nerves II-XII grossly intact. Motor strength 5/5 in all extremities. Sensory grossly intact. Cerebellar exam normal. Normal gait. Psych: Awake, alert, with orientation to person, place and time. Behavior, mood, and affect are within normal limits. 13:58 Cardiovascular: Rate: tachycardic, actual rate is 133 bpm, Rhythm: regular, Pulses: Pulses are 4+ in bilateral radial, brachial, femoral, popliteal, posterior tibial and and dorsalis pedis arteries.. Heart sounds: normal, normal S1and S2, no S3 or S4, no murmur, no rub, no gallop, Edema: is not appreciated, JVD: is not appreciated, 13:58 ECG was reviewed by the Attending Physician. Vital Signs: 12:19 BP 223 / 105; Pulse 133; Resp 32; Temp 98.1; Pulse Ox 96% ; FiO2 35 %; cp4 13:00 BP 155 / 72; Pulse 111; Resp 20; Pulse Ox 95% ; cp4 14:00 BP 142 / 72; Pulse 100; Resp 20; Pulse Ox 94% ; FiO2 35 %; cp4 15:00 BP 132 / 70; Pulse 91; Resp 23; Pulse Ox 96% ; FiO2 35 %; cp4 16:00 BP 137 / 69; Pulse 93; Resp 22; Pulse Ox 96% ; FiO2 35 %; cp4 MDM: 12:11 Patient medically screened. kamala 14:03 Differential diagnosis: Anemia Bronchitis CHF exacerbation, Chronic Obstructive kamala Pulmonary Disease obstructed airway, bronchitis, flu, URI. Antibiotic administration: Rocephin and Zithromax given. Differential Diagnosis altered mental status, sepsis, flu. Immunization status: Pneumococcal vaccine: within last 5 years. Influenza vaccine: within last 5 years. Data reviewed: vital signs, nurses notes, EMS record, lab test result(s), EKG, radiologic studies, plain films. Consideration of Admission/Observation Patient was admitted/placed on observation. Escalation of care including admission/observation considered. I considered the following discharge prescriptions or medication management in the emergency department Medications were administered in the Emergency Department. See MAR. Independent interpretation of the following test(s) in the Emergency Department EKG: See my EKG interpretation above. Test considered but Not performed: CT: no ct chest. Historians other than the Patient: EMS: ems well informed. External Records Reviewed: Inpatient record: recent admission. Outpatient record: dr luna. Care significantly affected by the following chronic conditions: Hypertension, Chronic Obstructive Pulmonary Disease, pe, dve , on factor 10 med. Counseling: I had a detailed discussion with the patient and/or guardian regarding the historical points, exam findings, and any diagnostic results supporting the discharge/admit diagnosis, the presence of at least one elevated blood pressure reading (>120/80) during this emergency department visit, lab results, radiology results, the need for further work-up and treatment in the hospital. 08/18 12:12 Order name: Basic Metabolic Panel; Complete Time: 13:37 [facility] 08/18 12:12 Order name: CBC with Diff [facility] 08/18 12:12 Order name: LFT's; Complete Time: 13:37 [facility] 08/18 12:12 Order name: Magnesium; Complete Time: 13:37 [facility] 08/18 12:12 Order name: NT PRO-BNP; Complete Time: 13:37 [facility] 08/18 12:12 Order name: PT-INR; Complete Time: 13:37 [facility] 08/18 12:12 Order name: Troponin HS; Complete Time: 13:37 [facility] 08/18 12:12 Order name: Blood Culture Adult (2) [facility] 08/18 12:12 Order name: Lactate w/ 2H reflex if indic.; Complete Time: 13:37 [facility] 08/18 12:12 Order name: ABG; Complete Time: 13:37 [facility] 08/18 12:12 Order name: COVID-19/FLU A+B/RSV [facility] 08/18 13:07 Order name: CBC Smear Scan [facility] 08/18 14:24 Order name: Basic Metabolic Panel [facility] 08/18 14:24 Order name: Basic Metabolic Panel [facility] 08/18 14:24 Order name: CBC with Automated Diff [facility] 08/18 14:24 Order name: CBC with Automated Diff [facility] 08/18 14:24 Order name: NT PRO-BNP [facility] 08/18 14:24 Order name: NT PRO-BNP [facility] 08/18 14:24 Order name: Troponin High Sensitivity [facility] 08/18 12:12 Order name: XRAY Chest (1 view); Complete Time: 13:37 [facility] 08/18 12:12 Order name: BIPAP [facility] 08/18 12:56 Order name: ARTERIAL BLOOD GAS [facility] 08/18 14:24 Order name: Echo with Doppler [facility] 08/18 14:24 Order name: Chest Single View [facility] 08/18 14:24 Order name: Chest Single View [facility] 08/18 12:12 Order name: EKG; Complete Time: 12:13 [facility] 08/18 14:24 Order name: CONS Physician Consult [facility] 08/18 14:24 Order name: EKG Electrocardiogram [facility] 08/18 14:24 Order name: EKG Electrocardiogram [facility] 08/18 12:12 Order name: Cardiac monitoring; Complete Time: 12:53 [facility] 08/18 12:12 Order name: EKG - Nurse/Tech; Complete Time: 13:29 [facility] 08/18 12:12 Order name: IV Saline Lock; Complete Time: 12:53 [facility] 08/18 12:12 Order name: Labs collected and sent; Complete Time: 12:53 [facility] 08/18 12:12 Order name: O2 Per Protocol; Complete Time: 12:53 [facility] 08/18 12:12 Order name: O2 Sat Monitoring; Complete Time: 12:53 [facility] 08/18 14:08 Order name: Vital Signs [facility] EC:58 Rate is 103 beats/min. Rhythm is regular. QRS [place] is Normal. [place] interval is normal. [facility] QRS interval is normal. No Q waves. T waves are Normal. No ST changes noted. Clinical impression: Sinus tachycardia and No evidence of ischemia. Interpreted by me. Reviewed by me. Administered Medications: 12:51 Not Given (Given by EMS): [id number] mg IVP once 4 12:57 CANCELLED (Duplicate Order): ipratropiumaerosol 0.5 mg Inhalation once [facility] 13:05 Drug: Levalbuterol Inhalation 3.75 mg Inhalation once Route: Inhalation; cp4 13:05 Drug: Rocephin IV 1 grams IV at per protocol once; Given slow IV push per pharmacy cp4 instructions Route: IV; Rate: per protocol; Site: right hand; 14:03 Follow up: Response: No adverse reaction; IV Status: Completed infusion cp4 13:06 Drug: Magnesium Sulfate IVPB 2 grams IVPB once over 2 hrs Route: IVPB; Infused Over: 2 cp4 hrs; Site: right hand; 13:07 Drug: Levalbuterol Inhalation 3.75 mg Inhalation once Route: Inhalation; cp4 14:06 Follow up: Response: No adverse reaction cp4 13:31 Drug: Nitroglycerin Transdermal Ointment 2 % 1 inches Transdermal once Route: cp4 Transdermal; Site: anterior chest wall; 14:06 Follow up: Response: No adverse reaction cp4 14:03 Drug: Zithromax IVPB 500 mg IVPB once over 1 hrs; mix in 250 mL NS Route: IVPB; Infused cp4 Over: 1 hrs; Site: right antecubital; 14:06 Drug: NS 0.9% IV 1000 ml IV at 100 ml/hr continuous Route: IV; Rate: 100 ml/hr; Site: cp4 right hand; Disposition Summary: 08/18/23 14:08 Hospitalization Ordered Notes: Hospitalization Status: Inpatient Admission kamala Provider: Cruzito Luna cha Location: Telemetry/MedSurg (Inpatient) kamala Condition: Fair kamala Problem: new kamala Symptoms: have improved kamala Bed/Room Type: Standard [facility] Room Assignment: 401(08/18/23 14:32) bd Diagnosis - COPD/ Chronic obstructive pulmonary disease with (acute) exacerbation kamala - Dyspnea kamala - Pneumonia due to other specified bacteria - increasing left lower lobe kamala - oysterman (current) use of anticoagulants kamala - Hypoxemia kamala - Acute and chronic respiratory failure with hypercapnia kamala Forms: - Medication Reconciliation Form kamala - SBAR form kamala - Leadership Thank You Letter kamala Signatures: Dispatcher [employer] Lizeth Newberry Corey, MD MD cha Potter, Christina cp4 Corrections: (The following items were deleted from the chart) 12:57 12:12 Ipratropium Inhalation Aerosol 0.5 mg Inhalation once ordered. [facility] 14:32 14:08 kamala bd
[2023-08-18] MEDS ORDERED: AZITHROMYCIN 500 MG INJ IVPB ONE (14:10)
[2023-08-18] MEDS ORDERED: NA CHLORIDE 0.9% 250 ML ONE (14:10)
[2023-08-18] MEDS ORDERED: ALBUTEROL 2.5 MG/3 ML NEB SOL NEB PRN (14:14)
[2023-08-18] MEDS ORDERED: IPRATROPIUM BROM 0.5MG/2.5ML NEB PRN (14:14)
[2023-08-18] MEDS ORDERED: ONDANSETRON 4 MG/2 ML VIAL IV PRN (14:14)
[2023-08-18] MEDS ORDERED: SODIUM CHLORIDE 0.9% 10ML INJ IV PRN (14:21)
[2023-08-18 14:24] LABS: Blood Morphology Comment NOT SEEN (NOT SEEN); Platelet Estimate INCR; White Blood Cell Scan OK (OK)
[2023-08-18] MEDS ORDERED: ACETAMINOPHEN 325 MG TABLET PO PRN (14:28)
[2023-08-18] MEDS: METHYLPREDNISOLONE 40 MG INJ IV SCH (17:10)
[2023-08-18] MEDS: OXcarbazepine 150 MG TAB PO SCH ×3 (17:50→19:05)
[2023-08-18] MEDS ORDERED: INFLUENZA VACCINE (for 6+ mo) 0.5 ML DOSE IMVAC ONE (20:00)
[2023-08-18] MEDS: CEFTRIAXONE 1,000 MG in NA CHLORIDE 0.9% 50 ML IVPB SCH (20:40)
[2023-08-19] MEDS ORDERED: PANTOPRAZOLE 40MG TABLET PO ONE (01:49)
[2023-08-19] MEDS ORDERED: PRAMIPEXOLE 0.25 MG TAB PO ONE (01:49)
[2023-08-19] MEDS: METHYLPREDNISOLONE 40 MG INJ IV SCH ×3 (01:57→16:48)
[2023-08-19] MEDS ORDERED: PRAMIPEXOLE 0.25 MG TAB ONE (02:02)
[2023-08-19 07:07] LABS: Absolute Lymphocytes (CBC) 0.3 K/uL (0.7-4.9); Hematocrit 39.4 % (36.0-45.0); Lymphocytes % 2.3 % (15.3-44.8); MCV 91.4 fL (80-100); MPV 6.9 fL (7.6-11.3); Platelets 366 thou/uL (152-406); RBC Red Blood Cell Count 4.31 M/uL (3.86-4.86)
[2023-08-19 07:30] LABS: Potassium 4.4 mEq/L (3.5-5.1)
--- NOTE | 2023-08-19 07:45 | RAD REPORT ---
EXAM DESCRIPTION: RADChest Single View08/19/2023 5:05 am CLINICAL HISTORY: Chest Pain COMPARISON: Chest Single View dated 08/18/2023; Chest Single View dated 08/16/2023; Chest Single Vie w dated 05/25/2023; Chest Single View dated 01/19/2023 TECHNIQUE: Portable AP view of the chest. FINDINGS: Stable left basilar airspace opacity with layering small effusion. Mild patchy right basil ar opacities also stable. Background hyperlucency and hyperinflation suggestive of COPD. No pneumoth orax or effusion. The cardiomediastinal contours are unremarkable. IMPRESSION: Stable airspace opacities predominantly in the left basilar region, concerning for pneum onia.
--- NOTE | 2023-08-19 07:47 | P.CNS ---
Date of Consult: 08/18/23 Reason for Consult: Dyspnea Requesting Physician: Garcia Dickson Chief Complaint: Dyspnea History of Present Illness: Ms. Colin is a 83yo with a history of COPD who came to the ED with productive cough, SOB at rest, and was noted to be hypoxic. She was placed on Bi-pap in the ED and admitted for further management. Pt does have a past medical history of PE for which she takes Xarelto. Allergies codeine Allergy (Verified 08/16/23 14:59) Itching fexofenadine [From Jennifer] Allergy (Verified 08/16/23 14:59) Itching Tetanus Vaccines and Toxoid Allergy (Verified 08/16/23 14:59) Hives/Rash tramadol Allergy (Verified 08/16/23 14:59) Itching tetanus toxoid, adsorbed Adverse Reaction (Severe, Verified 08/16/23 14:59) ARM SWELLING hydrocodone [Hydrocodone] Adverse Reaction (Mild, Verified 08/16/23 14:59) ITCH sulfamethoxazole [From Bactrim] Adverse Reaction (Mild, Verified 08/16/23 14:59) ITCH trimethoprim [From Bactrim] Adverse Reaction (Mild, Verified 08/16/23 14:59) ITCH pentoxifylline Adverse Reaction (Verified 08/16/23 14:59) Nausea/Vomiting Hydrocodone-Acet Allergy (Intermediate, Uncoded 08/16/23 14:59) Itching flu Allergy (Uncoded 08/16/23 14:59) Unknown TussiCap Allergy (Uncoded 08/16/23 14:59) Unknown Home medications list reviewed: Yes Home Medications: Rivaroxaban [Xarelto*] 20 mg PO DAILY 04/13/13 Pramipexole Di-HCl [Mirapex] 1 tab PO BEDTIME 10/08/19 Albuterol Sulfate [Albuterol Sulfate 0.083% Neb Soln] 2.5 mg IH Q6HP PRN 15 Days #150 ml 09/06/22 Fluticasone/Umeclidin/Vilanter [Trelegy Ellipta 100-62.5-25] 1 puff IH DAILY 09/06/22 Pantoprazole [Protonix Tab*] 1 tab PO BEDTIME 01/19/23 Spironolactone [Aldactone*] 25 mg PO DAILY #30 tab 01/22/23 predniSONE [Deltasone*] 20 mg PO BID 06/07/23 Albuterol Sulfate [Ventolin Hfa] 2 puff IH Q6HP PRN 08/16/23 OXcarbazepine [Trileptal] 600 mg PO BID 08/16/23 - Past Medical/Surgical History Diabetic: No -: COPD -: PE -: Uterine Cancer -: DVT -: Gallbladder removed -: leg swelling L>R -: Evin. Hip Replacements -: Hysterectomy -: Cholecystectomy -: IVC FILTER Psychosocial/ Personal History: Patient is . - Family History Mother Notes: none Father Medical History: Heart disease - Social History Smoking Status: Former smoker Alcohol use: No CD- Drugs: No Caffeine use: No Place of Residence: Home Review of Systems 10-point ROS is otherwise unremarkable Respiratory: Cough, Shortness of Breath Physical Examination Temp Pulse Resp BP Pulse Ox 96.9 F 82 22 H 162/80 H 97 08/19/23 04:00 08/19/23 04:00 08/19/23 04:00 08/19/23 04:00 08/19/23 04:00 General: Alert, In no apparent distress, Oriented x3 HEENT: Atraumatic, Normocephalic, PERRLA Neck: Supple, 2+ carotid pulse no bruit Respiratory: Crackles/rales, Other (left lower lobes) Cardiovascular: No edema, Normal pulses, Regular rate/rhythm Capillary refill: <2 Seconds Gastrointestinal: Normal bowel sounds Musculoskeletal: No clubbing Neurological: Normal speech, Normal tone Lymphatics: No axilla or inguinal lymphadenopathy External genitalia: Deferred Rectal: Deferred Laboratory Data (last 24 hrs) 08/18/23 08/18/23 08/18/23 12:39 12:39 12:39 WBC 17.50 H Hgb 14.7 Hct 43.4 Plt Count 431 H PT 21.3 H INR 1.98 Sodium 132 L Potassium 4.5 BUN 23 H Creatinine 0.62 Glucose 132 H Magnesium 2.0 Total Bilirubin 0.5 AST 18 ALT 23 Alkaline Phosphatase 75 - Problems (1) Pneumonia Current Visit: Yes Status: Acute Plan: Per medicine, (blood cultures obtained, pt on zithromax and rocephin) (2) COPD exacerbation Current Visit: No Status: Acute Plan: Pt was retaining CO2 on arrival, placed on bi-pap. When I saw her this am, she had taken herself off bi-pap and was maintaining SpO2 over 90% on 2L O2 via N/C. (3) History of pulmonary artery thrombosis Current Visit: Yes Status: Acute Plan: Continue Xarelto. Monitor work of breathing, SpO2, labs. Will do ECHO to eval for right heart strain MEASUREMENTS (cm) DIASTOLIC (NORMALS) SYSTOLIC (NORMALS) IVSd 1.0 (0.6-1.2) LA Diam 3.1 (1.9-4.0) LVEF 45-50% LVIDd 3.7 (3.5-5.7) LVIDs 2.5 (2.0-3.5) %FS 32% LVPWd 1.1 (0.6-1.2) Ao Diam 2.9 (2.0-3.7) 2 DIMENSIONAL ASSESSMENT: RIGHT ATRIUM: NORMAL LEFT ATRIUM: NORMAL RIGHT VENTRICLE: NORMAL LEFT VENTRICLE: MILDLY REDUCED TRICUSPID VALVE: NORMAL MITRAL VALVE: TRIVIAL MITRAL REGURGITATION PULMONIC VALVE: AORTIC VALVE: MILD CALCIFIED PERICARDIAL EFFUSION: NONE AORTIC ROOT: LEFT VENTRICULAR WALL MOTION: DOPPLER/COLOR FLOW: COMMENTS: 1. MILDLY REDUCED LEFT VENTRICLE 2. EJECTION FRACTION 45-50% 3. TRIVIAL MITRAL REGURGITATION 4. MILD CALCIFIED AORTIC VALVE Continue xarelto, spironolactone, cardiology will sign off
[2023-08-19] MEDS: CEFTRIAXONE 1,000 MG in NA CHLORIDE 0.9% 50 ML IVPB SCH ×2 (08:16→20:34)
[2023-08-19] MEDS: PANTOPRAZOLE 40 MG INJ IVP SCH (08:17)
[2023-08-19] MEDS ORDERED: AZITHROMYCIN 500 MG/250 ML BAG ONE (08:58)
[2023-08-19] MEDS ORDERED: NA CHLORIDE 0.9% 250 ML ONE (08:59)
[2023-08-19] MEDS: OXcarbazepine 150 MG TAB PO SCH ×2 (09:00→20:34)
[2023-08-19] MEDS ORDERED: AZITHROMYCIN IV 500 MG in NA CHLORIDE 0.9% 250 ML IVPB SCH (09:00)
[2023-08-19] MEDS: SPIRONOLACTONE 25 MG TABLET PO SCH (13:55)
[2023-08-19] MEDS: IPRATROPIUM BROM 0.5MG/2.5ML NEB SCH ×2 (14:07→19:57)
[2023-08-19] MEDS: ALBUTEROL 2.5 MG/3 ML NEB SOL NEB SCH ×2 (14:07→19:57)
[2023-08-19] MEDS: RIVAROXABAN 20 MG TABLET PO SCH (16:48)
--- NOTE | 2023-08-19 18:58 | PN ---
Date of Progress Note: 08/19/2023 The patient does seem to be breathing considerably better on her IV steroid dose. We will leave that dose until least in the morning. She was seen by Cardiology. Echo was done to evaluate cardiac sta tus. Some time was spent with the family in discussion of end-of-life care, and DNI was decided upon . Possibility of sending to pulmonary rehab was also considered. She is maintained on her usual med ication as well. We will also re-evaluate in a.m. Depending on status, we will gradually decrease h er steroid dose. Possibility of pneumonitis is still most likely followed by CHF and underlying lung status for the effusion. HR/MODL Voice ID: [id number] Report ID: [id number]
[2023-08-19] MEDS: PRAMIPEXOLE 1 MG TAB PO SCH (20:34)
[2023-08-19] MEDS ORDERED: PANTOPRAZOLE 40MG TABLET PO SCH (21:00)
[2023-08-19] MEDS ORDERED: OXCARBAZEPINE 300 MG PO SCH (21:00)
[2023-08-20] MEDS: METHYLPREDNISOLONE 40 MG INJ IV SCH ×3 (01:47→16:32)
[2023-08-20] MEDS: ALBUTEROL 2.5 MG/3 ML NEB SOL NEB SCH ×4 (01:55→19:59)
[2023-08-20] MEDS: IPRATROPIUM BROM 0.5MG/2.5ML NEB SCH ×4 (01:55→19:59)
[2023-08-20] MEDS: PANTOPRAZOLE 40 MG INJ IVP SCH (08:11)
[2023-08-20] MEDS: CEFTRIAXONE 1,000 MG in NA CHLORIDE 0.9% 50 ML IVPB SCH ×2 (08:11→20:29)
--- NOTE | 2023-08-20 08:33 | ECHO ---
HEIGHT: 5 ft 1 in WEIGHT: 115 lb 0 oz DATE OF STUDY: 08/19/[address]: Garcia Dickson MD 2-DIMENSIONAL: YES M.MODE: YES DOPPLER: YES COLOR FLOW: YES TDS: PORTABLE: YES DEFINITY: BUBBLE STUDY: DIAGNOSIS: CONGESTIVE HEART FAILURE CARDIAC HISTORY: CATHERIZATION: SURGERY: PROSTHETIC VALVE: PACEMAKER: MEASUREMENTS (cm) DIASTOLIC (NORMALS) SYSTOLIC (NORMALS) IVSd 1.0 (0.6-1.2) LA Diam 3.1 (1.9-4.0) LVEF 45-50% LVIDd 3.7 (3.5-5.7) LVIDs 2.5 (2.0-3.5) %FS 32% LVPWd 1.1 (0.6-1.2) Ao Diam 2.9 (2.0-3.7) 2 DIMENSIONAL ASSESSMENT: RIGHT ATRIUM: NORMAL LEFT ATRIUM: NORMAL RIGHT VENTRICLE: NORMAL LEFT VENTRICLE: MILDLY REDUCED TRICUSPID VALVE: NORMAL MITRAL VALVE: TRIVIAL MITRAL REGURGITATION PULMONIC VALVE: AORTIC VALVE: MILD CALCIFIED PERICARDIAL EFFUSION: NONE AORTIC ROOT: LEFT VENTRICULAR WALL MOTION: DOPPLER/COLOR FLOW: COMMENTS: 1. MILDLY REDUCED LEFT VENTRICLE 2. EJECTION FRACTION 45-50% 3. TRIVIAL MITRAL REGURGITATION 4. MILD CALCIFIED AORTIC VALVE TECHNOLOGIST: MANUEL LOPEZ
[2023-08-20] MEDS: OXcarbazepine 150 MG TAB PO SCH ×2 (09:00→20:26)
[2023-08-20] MEDS ORDERED: SPIRONOLACTONE 25 MG TABLET PO SCH (09:00)
[2023-08-20] MEDS: SPIRONOLACTONE 25 MG TABLET PO SCH (09:00)
[2023-08-20] MEDS ORDERED: RIVAROXABAN 10 MG TABLET PO SCH (09:00)
--- NOTE | 2023-08-20 11:12 | P.PN ---
Subjective Date of Service: 08/20/23 Chief Complaint: Dyspnea Subjective: Improving, Doing well Review of Systems 10-point ROS is otherwise unremarkable Respiratory: Cough, As per HPI Physical Examination - Vital Signs Temperature: 97.1 F Blood Pressure: 134/65 Pulse: 95 Respirations: 28 Pulse Ox (%): 96 - Physical Exam General: Alert, In no apparent distress, Oriented x3 HEENT: Atraumatic, Normocephalic Neck: Supple, 2+ carotid pulse no bruit Respiratory: Crackles/rales, Other (O2 at 3L) Cardiovascular: No edema, Other (bruising to right ankle s/p edema resolution) Capillary refill: <2 Seconds Gastrointestinal: Soft and benign Musculoskeletal: No clubbing Neurological: Normal speech, Normal tone Lymphatics: No axilla or inguinal lymphadenopathy External genitalia: Deferred Rectal: Deferred Assessment And Plan - Current Problems (Diagnosis) (1) Pneumonia Current Visit: Yes Status: Acute Plan: Per medicine, (blood cultures obtained, pt on zithromax and rocephin) (2) COPD exacerbation Current Visit: No Status: Acute Plan: Pt was retaining CO2 on arrival, placed on bi-pap. When I saw her this am, she had taken herself off bi-pap and was maintaining SpO2 over 90% on 2L O2 via N/C. 08/20/23 Tolerating more activity with decreased shortness of breath (3) History of pulmonary artery thrombosis Current Visit: Yes Status: Acute Plan: Continue Xarelto. Monitor work of breathing, SpO2, labs. Will do ECHO to eval for right heart strain
--- NOTE | 2023-08-20 12:31 | PN ---
Date of Progress Note: 08/20/2023 The patient seems slightly better today; however, when she started doing her physical therapy, her ox ygen levels dropped down significantly. With rest, it did come back up. In view of this, we will ke ep her on the same steroid dose. Still coughing up some discolored sputum. Awaiting culture report. White blood count has improved. We will repeat chest x-ray in the a.m. Continue on same regimen. Discussion with Social Work has been made in regard to placement. HR/MODL Voice ID: [id number] Report ID: [id number]
[2023-08-20] MEDS ORDERED: AZITHROMYCIN 500 MG/250 ML BAG ONE (12:55)
[2023-08-20] MEDS ORDERED: NA CHLORIDE 0.9% 250 ML ONE (12:56)
[2023-08-20] MEDS ORDERED: AZITHROMYCIN IV 500 MG in NA CHLORIDE 0.9% 250 ML IVPB SCH (13:00)
--- NOTE | 2023-08-20 15:26 | EKG ---
Test Date: 2023-08-18 Test Time: 13:24:54 Brim Pouncer: ANSELMO MEASUREMENT RESULTS: Intervals: Rate: 103 NE: 158 QRSD: 86 QT: 310 QTc: 406 [place]: P: 78 NE: 158 QRS: 78 T: 79 INTERPRETIVE STATEMENTS: Sinus tachycardia Otherwise normal ECG Compared to ECG 06/06/2023 20:10:13 Sinus rhythm no longer present Ventricular premature complex(es) no longer present Electronically Signed On 08-20-23 15:20:56 SUBSTATION OPERATOR APPRENTICE by Jaron Lester
[2023-08-20] MEDS: RIVAROXABAN 20 MG TABLET PO SCH (16:32)
[2023-08-20] MEDS: PRAMIPEXOLE 1 MG TAB PO SCH (20:30)
[2023-08-21] MEDS: METHYLPREDNISOLONE 40 MG INJ IV SCH ×3 (00:30→20:57)
[2023-08-21] MEDS: IPRATROPIUM BROM 0.5MG/2.5ML NEB SCH ×4 (01:32→19:59)
[2023-08-21] MEDS: ALBUTEROL 2.5 MG/3 ML NEB SOL NEB SCH ×4 (01:32→19:59)
[2023-08-21] MEDS: CEFTRIAXONE 1,000 MG in NA CHLORIDE 0.9% 50 ML IVPB SCH ×2 (07:52→20:57)
[2023-08-21] MEDS: PANTOPRAZOLE 40 MG INJ IVP SCH (07:53)
[2023-08-21] MEDS: SPIRONOLACTONE 25 MG TABLET PO SCH (07:53)
[2023-08-21] MEDS: OXcarbazepine 150 MG TAB PO SCH ×2 (07:54→20:53)
[2023-08-21] MEDS ORDERED: AZITHROMYCIN IV 500 MG in NA CHLORIDE 0.9% 250 ML IVPB SCH ×2 (09:00→11:00)
[2023-08-21] MEDS: AZITHROMYCIN IV 500 MG in NA CHLORIDE 0.9% 250 ML IVPB SCH (11:08)
--- NOTE | 2023-08-21 13:07 | RAD REPORT ---
EXAM DESCRIPTION: RAD - Chest Single View - 08/21/2023 12:58 pm CLINICAL HISTORY: F/O Pneumonia Chest pain. COMPARISON: <Comparisons> FINDINGS: Portable technique limits examination quality. Prominent COPD. Left lower lobe lung consolidation with small pleural effusion is unchanged since jeremias or study. The heart is upper limit normal in size. Given the lack of change in the left lower lobe fi ndings over time, recommend CT chest followup.
--- NOTE | 2023-08-21 16:26 | PN ---
Date of Progress Note: 08/21/2023 Patient seems to be doing better on the breathing aspect of her COPD and feels more comfortable. Fac e is not flushed. Will continue steroids. However, have to obtain an x-ray, and if somewhat stable, we will decrease the frequency from q.8 h. to q.12. She has had 1 episode of trigeminal neuralgia, has attempted to contact her physician in [place] who in the past has given her an extra pill for thi s, which she took and feels somewhat better since that 1 episode. We will repeat a chest x-ray and s putum Gram stain shows some gram-negative rods. Cultures are complete. HR/MODL Voice ID: [id number] Report ID: [id number]
[2023-08-21] MEDS: RIVAROXABAN 20 MG TABLET PO SCH (16:42)
[2023-08-21] MEDS: PRAMIPEXOLE 1 MG TAB PO SCH (20:57)
[2023-08-22] MEDS: IPRATROPIUM BROM 0.5MG/2.5ML NEB SCH ×4 (02:19→19:52)
[2023-08-22] MEDS: ALBUTEROL 2.5 MG/3 ML NEB SOL NEB SCH ×4 (02:19→19:52)
[2023-08-22] MEDS: SPIRONOLACTONE 25 MG TABLET PO SCH (07:53)
[2023-08-22] MEDS: CEFTRIAXONE 1,000 MG in NA CHLORIDE 0.9% 50 ML IVPB SCH ×2 (07:53→20:26)
[2023-08-22] MEDS: METHYLPREDNISOLONE 40 MG INJ IV SCH ×2 (07:54→20:26)
[2023-08-22] MEDS: OXcarbazepine 150 MG TAB PO SCH ×2 (07:55→20:25)
[2023-08-22] MEDS: PANTOPRAZOLE 40 MG INJ IVP SCH (07:55)
[2023-08-22] MEDS: AZITHROMYCIN IV 500 MG in NA CHLORIDE 0.9% 250 ML IVPB SCH (07:56)
[2023-08-22] MEDS ORDERED: AZITHROMYCIN IV 500 MG in NA CHLORIDE 0.9% 250 ML IVPB SCH (09:00)
[2023-08-22] MEDS ORDERED: BISACODYL 10 MG RECTAL SUPP PR ONE (14:15)
[2023-08-22] MEDS: RIVAROXABAN 20 MG TABLET PO SCH (16:20)
--- NOTE | 2023-08-22 18:17 | PN ---
Date of Progress Note: 08/21/2023 Patient continues to say, she is breathing somewhat better. Still does not have much of an appetite. Review of her x-ray being rather unchanged. Suggest we do a CAT scan. This will be done tomorrow to see what pathology is in the left lower lobe. Continue on the IV steroids on her present regimen and possibly modify it depending on the CAT scan results tomorrow. HR/MODL Voice ID: [id number] Report ID: [id number]
[2023-08-22] MEDS: PRAMIPEXOLE 1 MG TAB PO SCH (20:25)
[2023-08-23] MEDS: ALBUTEROL 2.5 MG/3 ML NEB SOL NEB SCH ×4 (01:49→20:34)
[2023-08-23] MEDS: IPRATROPIUM BROM 0.5MG/2.5ML NEB SCH ×4 (01:49→20:34)
--- NOTE | 2023-08-23 08:52 | RAD REPORT ---
EXAM DESCRIPTION: CT - Thorax W/ Con - 08/23/2023 8:08 am CLINICAL HISTORY: R/O Pneumonia COMPARISON: Chest For Pe Angio dated 05/25/2023; Thorax Wo Con dated 01/21/2023; Chest For Pe Angio da merly 09/05/2022; Chest For Pe Angio dated 10/01/2016 TECHNIQUE: Axial thin cut images of the chest were obtained following intravenous administration of 100 mL Isovue-300. Multiplanar reformats were generated and reviewed. All CT scans are performed using dose optimization technique as appropriate and may include automated exposure control or mA/KV adjustment according to patient size. FINDINGS: No pneumothorax. Consolidative opacity in the dependent left lower lobe. Areas of poorly d efined fluid density component, largest in the subpleural region, measuring up to 3 cm in greatest ax ial dimension. Moderate layering left pleural effusion. Background advanced emphysematous changes. Th e right lung is otherwise clear. Trachea and proximal major airways are patent. No abnormal mediastinal or hilar masses or lymphadenopathy seen. No significant aortic or pulmonary a rtery findings. Assessment is limited in the absence of IV contrast. No chest wall mass or abnormal axillary lymphadenopathy. Evaluation of the solid abdominal structures reveals no suspicious findings. IVC filter in place. Sta tus post cholecystectomy. IMPRESSION: Consolidative dependent left lower lobe opacity with poorly defined fluid density compon ents, concerning for pneumonia with necrotizing components, atypical pneumonia, or pneumonia in the s etting of immunodeficiency. Please correlate clinically. No evidence of cavitation. Moderate left pleural effusion.
[2023-08-23] MEDS: OXcarbazepine 150 MG TAB PO SCH ×2 (09:00→20:11)
[2023-08-23] MEDS: AZITHROMYCIN IV 500 MG in NA CHLORIDE 0.9% 250 ML IVPB SCH (09:17)
[2023-08-23] MEDS: METHYLPREDNISOLONE 40 MG INJ IV SCH ×2 (09:19→20:16)
[2023-08-23] MEDS: PANTOPRAZOLE 40 MG INJ IVP SCH (09:19)
[2023-08-23] MEDS: CEFTRIAXONE 1,000 MG in NA CHLORIDE 0.9% 50 ML IVPB SCH (09:19)
[2023-08-23] MEDS: SPIRONOLACTONE 25 MG TABLET PO SCH (09:20)
[2023-08-23] MEDS: DOCUSATE NA 100 MG CAP PO SCH (09:20)
[2023-08-23] MEDS: RIVAROXABAN 20 MG TABLET PO SCH (17:08)
[2023-08-23] MEDS: MEROPENEM/VABORBACTAM 4 GM in NA CHLORIDE 0.9% 250 ML IV SCH (17:08)
[2023-08-23] MEDS: PRAMIPEXOLE 1 MG TAB PO SCH (20:16)
[2023-08-23] MEDS: DOXYCYCLINE 100 MG CAP PO SCH (20:16)
[2023-08-24] MEDS: ALBUTEROL 2.5 MG/3 ML NEB SOL NEB SCH ×4 (00:45→20:15)
[2023-08-24] MEDS: IPRATROPIUM BROM 0.5MG/2.5ML NEB SCH ×4 (00:45→20:15)
[2023-08-24] MEDS: MEROPENEM/VABORBACTAM 4 GM in NA CHLORIDE 0.9% 250 ML IV SCH ×3 (01:38→17:32)
[2023-08-24 06:29] LABS: Absolute Lymphocytes (CBC) 0.9 K/uL (0.7-4.9); Hematocrit 44.8 % (36.0-45.0); Lymphocytes % 6.9 % (15.3-44.8); MCV 92.3 fL (80-100); MPV 6.6 fL (7.6-11.3); Platelets 389 thou/uL (152-406); RBC Red Blood Cell Count 4.85 M/uL (3.86-4.86)
[2023-08-24] MEDS: DOCUSATE NA 100 MG CAP PO SCH (08:54)
[2023-08-24] MEDS: SPIRONOLACTONE 25 MG TABLET PO SCH (08:54)
[2023-08-24] MEDS: PANTOPRAZOLE 40 MG INJ IVP SCH (08:55)
[2023-08-24] MEDS: DOXYCYCLINE 100 MG CAP PO SCH ×2 (08:55→19:53)
[2023-08-24] MEDS: OXcarbazepine 150 MG TAB PO SCH ×2 (08:56→19:52)
[2023-08-24] MEDS: METHYLPREDNISOLONE 40 MG INJ IV SCH ×2 (08:56→19:54)
[2023-08-24] MEDS: AZITHROMYCIN IV 500 MG in NA CHLORIDE 0.9% 250 ML IVPB SCH (09:00)
[2023-08-24 09:41] LABS: Blood Morphology Comment NOT SEEN (NOT SEEN); Platelet Estimate ADEQ; White Blood Cell Scan OK (OK)
[2023-08-24] MEDS ORDERED: AZITHROMYCIN IV 500 MG in NA CHLORIDE 0.9% 250 ML IVPB SCH (10:00)
[2023-08-24] MEDS ORDERED: AZITHROMYCIN 500 MG INJ IVPB ONE ×2 (10:01→10:08)
--- NOTE | 2023-08-24 16:35 | P.CNS ---
Date of Consult: 08/24/23 Reason for Consult: pneumonia, MDR acinetobacter Chief Complaint: Dyspnea History of Present Illness: Patient is an 83 yo female with a past medical history of COPD who presented to the ED with complaints of cough and shortness of breath. Chest XR showing "Mo derate left base pneumonia pattern is seen, progressive since the recent comparative examination." She was admitted for pneumonia and started on empiric antibiotics. Sputum cultures growing MDR acinetobacter and staph aureus. Infectious disease was consulted. Allergies codeine Allergy (Verified 08/16/23 14:59) Itching fexofenadine [From Jennifer] Allergy (Verified 08/16/23 14:59) Itching Tetanus Vaccines and Toxoid Allergy (Verified 08/16/23 14:59) Hives/Rash tramadol Allergy (Verified 08/16/23 14:59) Itching tetanus toxoid, adsorbed Adverse Reaction (Severe, Verified 08/16/23 14:59) ARM SWELLING hydrocodone [Hydrocodone] Adverse Reaction (Mild, Verified 08/16/23 14:59) ITCH sulfamethoxazole [From Bactrim] Adverse Reaction (Mild, Verified 08/16/23 14:59) ITCH trimethoprim [From Bactrim] Adverse Reaction (Mild, Verified 08/16/23 14:59) ITCH pentoxifylline Adverse Reaction (Verified 08/16/23 14:59) Nausea/Vomiting Hydrocodone-Acet Allergy (Intermediate, Uncoded 08/16/23 14:59) Itching flu Allergy (Uncoded 08/16/23 14:59) Unknown TussiCap Allergy (Uncoded 08/16/23 14:59) Unknown Home Medications: Rivaroxaban [Xarelto*] 20 mg PO DAILY 04/13/13 Pramipexole Di-HCl [Mirapex] 1 tab PO BEDTIME 10/08/19 Albuterol Sulfate [Albuterol Sulfate 0.083% Neb Soln] 2.5 mg IH Q6HP PRN 15 Days #150 ml 09/06/22 Fluticasone/Umeclidin/Vilanter [Trelegy Ellipta 100-62.5-25] 1 puff IH DAILY 09/06/22 Pantoprazole [Protonix Tab*] 1 tab PO BEDTIME 01/19/23 Spironolactone [Aldactone*] 25 mg PO DAILY #30 tab 01/22/23 predniSONE [Deltasone*] 20 mg PO BID 06/07/23 Albuterol Sulfate [Ventolin Hfa] 2 puff IH Q6HP PRN 08/16/23 OXcarbazepine [Trileptal] 600 mg PO BID 08/16/23 - Past Medical/Surgical History Diabetic: No -: COPD -: PE -: Uterine Cancer -: DVT -: Gallbladder removed -: leg swelling L>R -: Evin. Hip Replacements -: Hysterectomy -: Cholecystectomy -: IVC FILTER Psychosocial/ Personal History: Patient is . - Family History Mother Notes: none Father Medical History: Heart disease - Social History Smoking Status: Former smoker Alcohol use: No CD- Drugs: No Caffeine use: No Place of Residence: Home Review of Systems General: Weakness Respiratory: Cough, Shortness of Breath Physical Examination Temp Pulse Resp BP Pulse Ox 98.3 F 95 H 16 136/63 96 08/24/23 16:00 08/24/23 16:00 08/24/23 16:00 08/24/23 16:00 08/24/23 16:00 General: In no apparent distress, Oriented x3 HEENT: Atraumatic, Normocephalic Respiratory: Expiratory wheezes, Other (on 2.5L nasal cannula) Cardiovascular: No edema, Regular rate/rhythm Gastrointestinal: Normal bowel sounds, Soft and benign Integumentary: Other (ecchymosis bilateral upper extremities) Neurological: Normal speech Laboratory Data - Reviewed Microbiology Data - Reviewed Imagings Data: - Reviewed Conclusions/Impression: Problem List Bacterial Pneumonia COPD on home O2 Hx DVT Bacterial Pneumonia - Sputum culture 08/19: Acinetobacter baumanii and Staph aureus - Acinetobacter may-resistant - Previously on Rocephin (08/18-08/23) - Currently on Vabomere and Doxycycline (started 08/23) Recommendations - Continue Vabomere and Doxycyline x 7 days (08/23-08/29) - Start on Colistin Inhalation - Continue with nebulizer treatments - Monitor WBC and fever trends - Physical therapy eval Case discussed with Herminia Sarabia
[2023-08-24] MEDS: RIVAROXABAN 20 MG TABLET PO SCH (17:32)
--- NOTE | 2023-08-24 18:08 | PN ---
Date of Progress Note: 08/23/2023 The patient seemed to improve somewhat symptomatically, although she is still dependent on oxygen and steroids to breathe. However, CT scans showed some consolidation, not sure with etiology for the in flammation, awaiting culture and sensitivity for making any other medication decisions. HR/MODL Voice ID: [id number] Report ID: [id number]
--- NOTE | 2023-08-24 18:23 | PN ---
Date of Progress Note: 08/24/2023 The patient does seem somewhat better today sitting in the chair. However, the sputum revealed MRSA and Acetobacter. Case was discussed with Infectious Disease and it was felt that she would benefit f rom a long-term care program with pulmonary support. Dr. Bhatti was consulted and agreed to accept h er. This will be put in motion as Acetobacter was multi drug-resistant and the overall status is goi ng to require some more or continuous intensive pulmonary care at [facility]. Louisa fernandez will be consulted as well. We will put in for the transfer hopefully this evening or in the morning. HR/MODL Voice ID: [id number] Report ID: [id number]
[2023-08-24] MEDS: COLISTIMETHATE NA 150 MG/VIAL IH SCH (20:30)
[2023-08-24] MEDS: PRAMIPEXOLE 1 MG TAB PO SCH (21:38)
[2023-08-25] MEDS: MEROPENEM/VABORBACTAM 4 GM in NA CHLORIDE 0.9% 250 ML IV SCH ×3 (00:31→17:35)
[2023-08-25] MEDS: ALBUTEROL 2.5 MG/3 ML NEB SOL NEB SCH ×4 (01:59→20:30)
[2023-08-25] MEDS: IPRATROPIUM BROM 0.5MG/2.5ML NEB SCH ×4 (01:59→20:30)
[2023-08-25] MEDS: COLISTIMETHATE NA 150 MG/VIAL IH SCH ×3 (07:27→20:45)
[2023-08-25] MEDS: METHYLPREDNISOLONE 40 MG INJ IV SCH ×2 (08:32→21:00)
[2023-08-25] MEDS: DOXYCYCLINE 100 MG CAP PO SCH ×2 (08:32→21:00)
[2023-08-25] MEDS: DOCUSATE NA 100 MG CAP PO SCH (08:32)
[2023-08-25] MEDS: SPIRONOLACTONE 25 MG TABLET PO SCH (08:32)
[2023-08-25] MEDS: PANTOPRAZOLE 40 MG INJ IVP SCH (08:32)
[2023-08-25] MEDS: OXcarbazepine 150 MG TAB PO SCH ×2 (08:33→21:00)
--- NOTE | 2023-08-25 08:38 | P.PN ---
Date of Service: 08/25/23 Chief Complaint: Dyspnea Subjective: Patient seen and examined at bedside. She reports feeling slightly better today. In no apparent distress. + SOB on exertion + cough + generalized weakness Patient's son and granddaughter in room. Plan of care discussed with patient and family at bedside. Physical Examination Temp Pulse Resp BP Pulse Ox 97.1 F 93 H 16 142/65 H 96 08/25/23 04:00 08/25/23 08:32 08/25/23 04:00 08/25/23 08:32 08/25/23 04:00 General: In no apparent distress, Oriented x3. HEENT: Atraumatic, Normocephalic Respiratory: Expiratory & Inspiratory wheezes. On 2.5L nasal cannula. Intermittent cough. Cardiovascular: No edema, Regular rate/rhythm Gastrointestinal: Normal bowel sounds, Soft and benign Integumentary: ecchymosis bilateral upper extremities. No rashes. Neurological: Normal speech Laboratory Data - Reviewed Microbiology Data - Reviewed Imagings Data: - Reviewed Medications list: Reviewed Assessment and Plan Problem List Bacterial Pneumonia COPD on home O2 Hx DVT Bacterial Pneumonia COPD (on 2.5L O2 at home) - Sputum culture 08/19: Acinetobacter baumanii and Staph aureus - Acinetobacter may-resistant - Previously on Rocephin (08/18-08/23) - Currently on Vabomere and Doxycycline (started 08/23) - On Colistin inhalation (stared 08/24) - Nebulizer treatments - On home oxygen 2.5L Recommendations - Continue Vabomere and Doxycyline x 7 days (08/23-08/29) - Continue Colistin inhalation x 5-7 days - Continue with nebulizer treatments - Monitor WBC and fever trends Pending LTAC placement. CM/SS following. Case discussed with Herminia Sarabia
[2023-08-25] MEDS: RIVAROXABAN 20 MG TABLET PO SCH (17:35)
--- NOTE | 2023-08-25 18:56 | PN ---
The patient basically status quo, awaiting insurance decision on transferring to Pulmonary, Infectiou s Disease care in [place]. The patient did state that she would be interested in handling this on a self-pay basis if in fact this is an insurance issue. This information was conveyed to Social Servic es. We will continue with the present regimen as long as the patient remains here. HR/MODL Voice ID: [id number] Report ID: [id number]
[2023-08-25] MEDS: ENSURE ENLIVE 237 ML CAN PO SCH (21:00)
[2023-08-25] MEDS: PRAMIPEXOLE 1 MG TAB PO SCH (21:00)
[2023-08-26] MEDS: MEROPENEM/VABORBACTAM 4 GM in NA CHLORIDE 0.9% 250 ML IV SCH ×3 (00:08→17:15)
[2023-08-26] MEDS: ALBUTEROL 2.5 MG/3 ML NEB SOL NEB SCH ×4 (01:05→20:19)
[2023-08-26] MEDS: IPRATROPIUM BROM 0.5MG/2.5ML NEB SCH ×4 (01:05→20:19)
[2023-08-26] MEDS: COLISTIMETHATE NA 150 MG/VIAL IH SCH ×2 (07:00→20:18)
[2023-08-26] MEDS: METHYLPREDNISOLONE 40 MG INJ IV SCH ×2 (08:19→20:21)
[2023-08-26] MEDS: PANTOPRAZOLE 40 MG INJ IVP SCH (08:19)
[2023-08-26] MEDS: OXcarbazepine 150 MG TAB PO SCH (08:19)
[2023-08-26] MEDS: DOXYCYCLINE 100 MG CAP PO SCH ×2 (08:19→20:22)
[2023-08-26] MEDS: DOCUSATE NA 100 MG CAP PO SCH (08:19)
[2023-08-26] MEDS: ENSURE ENLIVE 237 ML CAN PO SCH ×2 (08:20→20:22)
[2023-08-26] MEDS: SPIRONOLACTONE 25 MG TABLET PO SCH (08:20)
--- NOTE | 2023-08-26 08:43 | P.PN ---
Date of Service: 08/26/23 Chief Complaint: Dyspnea Subjective: Patient seen and examined at bedside. Reports not feeling well today. + productive cough + shortness of breath + generalized weakness + decreased appetite + dizziness Physical Examination Temp Pulse Resp BP Pulse Ox 98.2 F 106 H 18 168/79 H 91 08/26/23 08:00 08/26/23 08:20 08/26/23 08:00 08/26/23 08:20 08/26/23 08:00 General: In no apparent distress. Oriented x3. HEENT: Atraumatic. Normocephalic Respiratory: Crackles/rales. Diminished at bases. On 3L nasal cannula. Moderate amount of sputum production, thick, white/vidal in color. Cardiovascular: Tachycardic. No edema. Gastrointestinal: Normal bowel sounds, Soft and benign Integumentary: Ecchymosis bilateral upper extremities. No rashes. Laboratory Data - Reviewed Microbiology Data - Reviewed Imagings Data: - Reviewed Medications list: Reviewed Assessment and Plan Problem List Bacterial Pneumonia COPD on home O2 Hx DVT Bacterial Pneumonia COPD (on 2.5L O2 at home) - Sputum culture 08/19: Acinetobacter baumanii and Staph aureus - Acinetobacter may-resistant - Previously on Rocephin (08/18-08/23) - Currently on Vabomere and Doxycycline (started 08/23) - On Colistin inhalation (stared 08/24) - Nebulizer treatments - On home oxygen 2.5L Recommendations - Continue Vabomere IV and Doxycyline x 7 days (08/23-08/29) - Continue Colistin inhalation x 5-7 days - Continue with nebulizer treatments - Monitor WBC and fever trends Pending LTAC placement. CM/SS following. Case discussed with Herminia Sarabia
[2023-08-26] MEDS ORDERED: FUROSEMIDE 20 MG/ 2ML VIAL IV ONE (10:33)
[2023-08-26 11:36] LABS: Absolute Lymphocytes (CBC) 0.2 K/uL (0.7-4.9); Hematocrit 37.7 % (36.0-45.0); Lymphocytes % 1.3 % (15.3-44.8); MCV 90.9 fL (80-100); MPV 6.5 fL (7.6-11.3); Platelets 326 thou/uL (152-406); RBC Red Blood Cell Count 4.14 M/uL (3.86-4.86)
[2023-08-26 11:52] LABS: Potassium 3.9 mEq/L (3.5-5.1)
--- NOTE | 2023-08-26 15:55 | RAD REPORT ---
EXAM DESCRIPTION: RADChest Single View08/26/2023 1:39 pm CLINICAL HISTORY: pneumonia copd COMPARISON: Chest Single View dated 08/21/2023; Chest Single View dated 08/19/2023; Chest Single Vie w dated 08/18/2023; Chest Single View dated 08/16/2023; Thorax W/ Con dated 08/23/2023 TECHNIQUE: Portable AP view of the chest. FINDINGS: Essentially stable consolidative left basilar opacity with layering pleural effusion marbin red to the prior CT. No pneumothorax or effusion. The cardiomediastinal contours are unremarkable. IMPRESSION: Stable pleuroparenchymal consolidative process at the left lower lung, concerning for pn eumonia and associated effusion.
[2023-08-26] MEDS: RIVAROXABAN 20 MG TABLET PO SCH (17:23)
--- NOTE | 2023-08-26 19:02 | PN ---
Date of Progress Note: 08/26/2023 Subjective: Unfortunately, the patient had a combination of her home medications and hospital medica tions for her trigeminal neuralgia, which after a couple of hours, produced some nausea and one episo de of vomiting, which also precipitated some increased dyspnea. She was given Zofran. Did settle do wn somewhat. Repeat chest x-ray has been ordered in discussion of the case with both Assistant Art Director and Dr. Bhatti. The latter do appear with the insurance company and depending on that result, the p atient may be transferred to continue on her present regimen. She was also given Lasix 20 mg IV. HR/MODL Voice ID: [id number] Report ID: [id number]
[2023-08-26] MEDS: PRAMIPEXOLE 1 MG TAB PO SCH (20:21)
[2023-08-27] MEDS: ALBUTEROL 2.5 MG/3 ML NEB SOL NEB SCH ×4 (01:05→19:46)
[2023-08-27] MEDS: IPRATROPIUM BROM 0.5MG/2.5ML NEB SCH ×4 (01:05→19:46)
[2023-08-27] MEDS: MEROPENEM/VABORBACTAM 4 GM in NA CHLORIDE 0.9% 250 ML IV SCH ×3 (01:42→19:34)
[2023-08-27] MEDS: COLISTIMETHATE NA 150 MG/VIAL IH SCH ×3 (07:36→20:00)
[2023-08-27] MEDS: OXcarbazepine 150 MG TAB PO SCH ×2 (09:00→21:27)
[2023-08-27] MEDS: ENSURE ENLIVE 237 ML CAN PO SCH ×2 (09:00→21:28)
--- NOTE | 2023-08-27 09:15 | P.PN ---
Date of Service: 08/27/23 Chief Complaint: Dyspnea Subjective: Patient seen and examined at bedside. In no apparent distress. She reports feeling better today. Still with some shortness of breath. No acute events reported overnight. Physical Examination Temp Pulse Resp BP Pulse Ox 97.1 F 102 H 16 169/78 H 95 08/27/23 08:00 08/27/23 08:00 08/27/23 08:00 08/27/23 08:00 08/27/23 08:00 General: In no apparent distress. Oriented x3. HEENT: Atraumatic. Normocephalic Respiratory: Crackles/rales. Diminished at bases. On 3L nasal cannula. Moderate amount of sputum production, thick, white/vidal in color. Cardiovascular: Tachycardic. No edema. Gastrointestinal: Normal bowel sounds, Soft and benign Integumentary: Ecchymosis bilateral upper extremities. No rashes. Laboratory Data - Reviewed Microbiology Data - Reviewed Imagings Data: - Reviewed Medications list: Reviewed Assessment and Plan Problem List Bacterial Pneumonia COPD on home O2 Hx DVT Bacterial Pneumonia COPD (on 2.5L O2 at home) - Sputum culture 08/19: Acinetobacter baumanii and Staph aureus - Acinetobacter may-resistant - Previously on Rocephin (08/18-08/23) - Currently on Vabomere and Doxycycline (started 08/23) - On Colistin inhalation (stared 08/24) - Nebulizer treatments Recommendations - Continue Vabomere IV and Doxycyline x 7 days (08/23-08/29) - Continue Colistin inhalation x 5-7 days - Continue with nebulizer treatments - Monitor WBC and fever trends Pending LTAC placement. CM/SS following. Case discussed with Herminia Sarabia
[2023-08-27] MEDS: DOCUSATE NA 100 MG CAP PO SCH (09:17)
[2023-08-27] MEDS: PANTOPRAZOLE 40 MG INJ IVP SCH (09:17)
[2023-08-27] MEDS: DOXYCYCLINE 100 MG CAP PO SCH ×2 (09:17→21:27)
[2023-08-27] MEDS: SPIRONOLACTONE 25 MG TABLET PO SCH (09:17)
[2023-08-27] MEDS: METHYLPREDNISOLONE 40 MG INJ IV SCH ×2 (09:17→21:00)
--- NOTE | 2023-08-27 12:10 | PN ---
Patient is basically status quo, was still coughing up some discolored sputum. We will repeat a cult ure. Awaiting insurance decision as far as transferring is concerned. Patient was on BiPAP during th e night. She feels somewhat better this morning. We will consult Dr. Roth when he returns over the weekend if patient is still not accepted in [place]. HR/MODL Voice ID: [id number] Report ID: [id number]
[2023-08-27 16:10] LABS: MCV 91.3 fL (80-100)
[2023-08-27 16:11] LABS: Absolute Lymphocytes (CBC) 0.5 K/uL (0.7-4.9); Lymphocytes % 2.8 % (15.3-44.8); MPV 6.5 fL (7.6-11.3); Platelets 365 thou/uL (152-406)
[2023-08-27 16:31] LABS: Albumin 2.7 g/dL (3.4-5.0); Bilirubin Total 0.5 mg/dL (0.2-1.0); Prealbumin 18.1 mg/dL (20-40); Protein, Total 6.4 g/dL (6.4-8.2)
[2023-08-27] MEDS: RIVAROXABAN 20 MG TABLET PO SCH (17:00)
[2023-08-27] MEDS: PRAMIPEXOLE 1 MG TAB PO SCH (21:27)
[2023-08-28] MEDS: ALBUTEROL 2.5 MG/3 ML NEB SOL NEB SCH ×4 (01:04→18:08)
[2023-08-28] MEDS: IPRATROPIUM BROM 0.5MG/2.5ML NEB SCH ×4 (01:04→18:08)
[2023-08-28] MEDS: MEROPENEM/VABORBACTAM 4 GM in NA CHLORIDE 0.9% 250 ML IV SCH ×3 (02:17→17:52)
[2023-08-28 07:00] LABS: Absolute Lymphocytes (CBC) 0.4 K/uL (0.7-4.9); Hematocrit 40.8 % (36.0-45.0); MCV 91.4 fL (80-100); MPV 6.6 fL (7.6-11.3); Platelets 346 thou/uL (152-406); RBC Red Blood Cell Count 4.46 M/uL (3.86-4.86)
[2023-08-28 07:12] LABS: Potassium 3.7 mEq/L (3.5-5.1)
[2023-08-28] MEDS: COLISTIMETHATE NA 150 MG/VIAL IH SCH ×2 (08:35→18:08)
[2023-08-28] MEDS: ENSURE ENLIVE 237 ML CAN PO SCH ×2 (09:00→20:16)
[2023-08-28] MEDS: OXcarbazepine 150 MG TAB PO SCH ×3 (09:00→20:17)
[2023-08-28 09:25] LABS: Blood Morphology Comment NOT SEEN (NOT SEEN); Platelet Estimate ADEQ; White Blood Cell Scan OK (OK)
[2023-08-28] MEDS: DOXYCYCLINE 100 MG CAP PO SCH ×2 (10:23→20:16)
[2023-08-28] MEDS: PANTOPRAZOLE 40 MG INJ IVP SCH (10:24)
[2023-08-28] MEDS: SPIRONOLACTONE 25 MG TABLET PO SCH (10:24)
[2023-08-28] MEDS: DOCUSATE NA 100 MG CAP PO SCH (10:24)
--- NOTE | 2023-08-28 11:15 | P.PN ---
Date of Service: 08/28/23 Subjective: Feels breathing is slowly improving on 3L NC - uses 2.5L at home +cough - hard to cough things up afebrile ROS: 10 point ROS as noted above, otherwise negative Physical Exam: GEN: Alert, oriented, NAD HEENT: Normal conjunctiva, sclera anicteric, CV: Regular rate and rhythm, race pedal edema Pulm: Nonlabored respirations on 3L NC, Crackles/rales. Diminished at bases b/l ABD: soft, nontender, nondistended Neuro: Normal speech, normal affect Problem List: Acute respiratory failure secondary to Bacterial Pneumonia / acute on chronic COPD exacerbation (on 2.5L home O2) Chronic CHF h/o PE and DVT Hypertension Acute respiratory failure secondary to Bacterial Pneumonia / acute COPD exacerbation (on 2.5L home O2) CXR (08/18): Moderate left base pneumonia. Diffuse COPD CT chest (08/23): consolidative LLL opacity concerning for pneumonia with necrotizing components vs atypical pneumonia vs pneumonia in setting of immunodeficiency CXR (08/26): stable pleuroparenchymal consolidative process at LLL, concerning for pneumonia and associated effusion Blood cx (08/18): no growth ID following Sputum cx (08/19): Acinetobacter yara/haem, Staph Aureus, Acinetobacter Baumanii Previously on Rocephin (08/18-08/23) Continue Vabomere / Doxycyline (08/23-08/29); continue for 7 days total per ID continue Colistin inhalation (08/24-); continue for 5-7 days total per ID afebrile, leukocytosis improving Continue NUPUR nebs IV steroids dc'd (08/21-08/27) Chronic CHF h/o PE and DVT Echo (08/18): 45-50% EF, trivial MR, mild calcified aortic valve continue xarelto Continue spironolactone Hypertension continue home medications as appropriate PCP: Dr. Gibson Code: Do not intubate Dispo: LTAC, denied, pending appeal ss/cm following
[2023-08-28] MEDS: RIVAROXABAN 20 MG TABLET PO SCH (17:53)
[2023-08-28] MEDS: PRAMIPEXOLE 1 MG TAB PO SCH (20:16)
[2023-08-28] MEDS ORDERED: BISACODYL E.C. 5 MG TAB PO ONE (22:07)
[2023-08-29] MEDS: MEROPENEM/VABORBACTAM 4 GM in NA CHLORIDE 0.9% 250 ML IV SCH ×3 (00:18→16:46)
[2023-08-29] MEDS: IPRATROPIUM BROM 0.5MG/2.5ML NEB SCH ×4 (02:50→20:30)
[2023-08-29] MEDS: ALBUTEROL 2.5 MG/3 ML NEB SOL NEB SCH ×4 (02:50→20:30)
[2023-08-29] MEDS: COLISTIMETHATE NA 150 MG/VIAL IH SCH ×2 (07:00→20:30)
[2023-08-29] MEDS: OXcarbazepine 150 MG TAB PO SCH ×2 (09:00→21:26)
[2023-08-29] MEDS: DOCUSATE NA 100 MG CAP PO SCH (10:09)
[2023-08-29] MEDS: DOXYCYCLINE 100 MG CAP PO SCH ×2 (10:09→21:27)
[2023-08-29] MEDS: SPIRONOLACTONE 25 MG TABLET PO SCH (10:09)
[2023-08-29] MEDS: PANTOPRAZOLE 40 MG INJ IVP SCH (10:10)
[2023-08-29] MEDS: ENSURE ENLIVE 237 ML CAN PO SCH ×2 (10:13→21:00)
--- NOTE | 2023-08-29 12:31 | P.PN ---
Subjective Date of Service: 08/29/23 Chief Complaint: Lower lobe pneumonia Subjective: Improving (Is improving admitted with multiresistant organism pneumonia seen by ID) Review of Systems Unremarkable General: Weakness Respiratory: Shortness of Breath Physical Examination - Vital Signs Temperature: 98.2 F Blood Pressure: 151/66 Pulse: 89 Respirations: 20 Pulse Ox (%): 91 - Physical Exam General: Alert, Oriented x3 Respiratory: Crackles/rales (Paced), Expiratory wheezes Cardiovascular: Edema (Edema) Assessment And Plan - Current Problems (Diagnosis) (1) Pneumonia Current Visit: Yes Status: Acute Plan: Is 83 years of age admitted with left lower lobe pneumonia did not organisms, no end-stage COPD present doses of antibiotics as per ID is improving patient is clinically improved Qualifiers: Pneumonia type: due to Acinetobacter baumannii Laterality: left (2) COPD exacerbation Current Visit: No Status: Acute - Plan Low-dose prednisone scheduled bronchodilators being LTAC placement
[2023-08-29] MEDS: ROFLUMILAST 500 MCG TABLET PO SCH (13:20)
[2023-08-29] MEDS: RIVAROXABAN 20 MG TABLET PO SCH (16:46)
[2023-08-29] MEDS: predniSONE 10 MG TAB PO SCH (21:26)
[2023-08-29] MEDS: PRAMIPEXOLE 1 MG TAB PO SCH (21:26)
[2023-08-30] MEDS: MEROPENEM/VABORBACTAM 4 GM in NA CHLORIDE 0.9% 250 ML IV SCH ×2 (00:26→10:14)
[2023-08-30] MEDS: ALBUTEROL 2.5 MG/3 ML NEB SOL NEB SCH ×2 (01:40→07:22)
[2023-08-30] MEDS: IPRATROPIUM BROM 0.5MG/2.5ML NEB SCH ×3 (01:40→13:00)
[2023-08-30 05:40] VITALS: BMI 26.4
[2023-08-30] MEDS: COLISTIMETHATE NA 150 MG/VIAL IH SCH ×2 (07:18→22:40)
--- NOTE | 2023-08-30 08:57 | RAD REPORT ---
EXAM DESCRIPTION: RADChest Single View08/30/2023 6:09 am CLINICAL HISTORY: pnrumonia COMPARISON: Chest Single View dated 08/26/2023; Chest Single View dated 08/21/2023; Chest Single Vie w dated 08/19/2023; Chest Single View dated 08/18/2023 TECHNIQUE: Portable AP view of the chest. FINDINGS: Bibasilar airspace opacities worse on the left, with some progression patchy opacification at the right base. Background changes of COPD. No pneumothorax or effusion. The cardiomediastinal c ontours are unremarkable. IMPRESSION: Some progression of bibasilar opacification on the right, concerning for pneumonia.
[2023-08-30] MEDS: OXcarbazepine 150 MG TAB PO SCH ×2 (09:00→20:15)
[2023-08-30] MEDS: SPIRONOLACTONE 25 MG TABLET PO SCH (10:12)
[2023-08-30] MEDS: DOCUSATE NA 100 MG CAP PO SCH (10:12)
[2023-08-30] MEDS: DOXYCYCLINE 100 MG CAP PO SCH (10:12)
[2023-08-30] MEDS: ROFLUMILAST 500 MCG TABLET PO SCH (10:13)
[2023-08-30] MEDS: predniSONE 10 MG TAB PO SCH ×2 (10:13→20:18)
[2023-08-30] MEDS: ENSURE ENLIVE 237 ML CAN PO SCH ×2 (10:14→21:00)
--- NOTE | 2023-08-30 10:14 | P.PN ---
Subjective Date of Service: 08/30/23 Chief Complaint: Lower lobe pneumonia Subjective: Improving (Patient is improving states that she is feeling much better since admission) Review of Systems General: Weakness Respiratory: Shortness of Breath Physical Examination - Vital Signs Temperature: 97.3 F Blood Pressure: 143/62 Pulse: 88 Respirations: 20 Pulse Ox (%): 95 - Physical Exam General: Alert, In no apparent distress, Oriented x3 Respiratory: Clear to auscultation bilaterally, Diminished Cardiovascular: No edema, Regular rate/rhythm Assessment And Plan - Current Problems (Diagnosis) (1) Pneumonia Current Visit: Yes Status: Acute Plan: Patient is 83 years of age admitted with left lower lobe pneumonia secondary to multiresistant organisms he is currently responding to present therapy continue with present medications awaiting rehab placement vital signs oxygenation satisfactory physical therapy consult add Brovana albuterol as needed. Continue with Daliresp to 250 mg daily Qualifiers: Pneumonia type: due to Acinetobacter baumannii Laterality: left (2) COPD exacerbation Current Visit: No Status: Acute - Plan Low-dose prednisone scheduled bronchodilators being LTAC placement
--- NOTE | 2023-08-30 12:17 | PN ---
Subjective: Patient is lying in bed. Provider by the bedside. Patient's family member is on the sp eaker phone. Patient denies any headache, nausea, vomiting. Continue to feel better. Still on 3 L nasal cannula. Objective: Vital Signs: Temperature 97, pulse 88, respirations 20, blood pressure 143/62. Lungs: Basal crackles. Heart: S1, S2. Regular. Abdomen: Soft, nontender. Bowel sounds present. Extremities: No edema. Laboratory Data: Shows WBC 14.3, hemoglobin 14.1, platelets are 346. Chemistry shows BUN of 15, cre atinine 1.5. Medications: Currently, patient is on colistin inhalation, meropenem, steroids. See MAR for other m edications. Assessment And Plan: Severe chronic obstructive pulmonary disease with pneumonitis; leukocytosis, im proving. Patient is pending for transfer to long-term acute care. Pneumonitis with history of deep vein thrombosis. Continue supportive care and pulmonary hygiene. Continue empiric antibiotic. We w ill follow the patient as needed. NF/MODL Voice ID: [id number] Report ID: [id number]
[2023-08-30] MEDS: RIVAROXABAN 20 MG TABLET PO SCH (16:26)
[2023-08-30] MEDS: PRAMIPEXOLE 1 MG TAB PO SCH (20:18)
[2023-08-30] MEDS: ARFORMOTEROL TARTRATE 15 MCG/2 ML VIAL.NEB NEB SCH (22:42)
[2023-08-31] MEDS: COLISTIMETHATE NA 150 MG/VIAL IH SCH ×2 (08:22→20:16)
[2023-08-31] MEDS: ARFORMOTEROL TARTRATE 15 MCG/2 ML VIAL.NEB NEB SCH ×2 (08:22→20:16)
[2023-08-31] MEDS: SPIRONOLACTONE 25 MG TABLET PO SCH (08:50)
[2023-08-31] MEDS: ROFLUMILAST 500 MCG TABLET PO SCH (08:50)
[2023-08-31] MEDS: DOCUSATE NA 100 MG CAP PO SCH (08:51)
[2023-08-31] MEDS: predniSONE 10 MG TAB PO SCH (08:51)
[2023-08-31] MEDS: ENSURE ENLIVE 237 ML CAN PO SCH ×2 (08:52→20:33)
[2023-08-31] MEDS: OXcarbazepine 150 MG TAB PO SCH ×2 (08:52→20:32)
--- NOTE | 2023-08-31 09:28 | P.PN ---
Date of Service: 08/31/23 Chief Complaint: Dyspnea Subjective: Improving. In no apparent distress. Patient reports feeling better. + cough + dyspnea on exertion Physical Examination Temp Pulse Resp BP Pulse Ox 97.8 F 88 18 196/93 H 94 08/31/23 08:00 08/31/23 08:00 08/31/23 08:00 08/31/23 08:00 08/31/23 08:00 General: In no apparent distress. Oriented x3. HEENT: Atraumatic. Normocephalic Respiratory: Crackles/rales. Diminished at bases. On 2.5L nasal cannula. Cardiovascular: Tachycardic. No edema. Gastrointestinal: Normal bowel sounds, Soft and benign Integumentary: Ecchymosis bilateral upper extremities. No rashes. Laboratory Data - Reviewed Microbiology Data - Reviewed Imagings Data: - Reviewed Medications list: Reviewed Assessment and Plan Problem List Bacterial Pneumonia COPD on home O2 Hx DVT Bacterial Pneumonia COPD (on 2.5L O2 at home) - Sputum culture 08/19: Acinetobacter baumanii and Staph aureus - Acinetobacter may-resistant - Previously on Rocephin (08/18-08/23) - Completed 7 days Vabomere and Doxycycline (08/23-08/30) - On Colistin inhalation (stared 08/24) - Nebulizer treatments Recommendations - Completed Vabomere IV and Doxycyline x 7 days (08/23-08/30) - On day 7 of 7 Colistin inhalation - Continue with nebulizer treatments - Pulmonology following. - Monitor WBC and fever trends Case discussed with Herminia Sarabia
[2023-08-31 10:41] LABS: Absolute Lymphocytes (CBC) 0.4 K/uL (0.7-4.9); Lymphocytes % 4.2 % (15.3-44.8); MCV 90.6 fL (80-100); MPV 6.8 fL (7.6-11.3); Platelets 314 thou/uL (152-406); RBC Red Blood Cell Count 4.42 M/uL (3.86-4.86)
[2023-08-31 10:48] LABS: Potassium 3.6 mEq/L (3.5-5.1)
--- NOTE | 2023-08-31 12:56 | P.PN ---
Subjective Date of Service: 08/31/23 Chief Complaint: Lower lobe pneumonia Subjective: Improving (Patient is doing much better and feeling very weak. IV treatment) Review of Systems General: Weakness Respiratory: Shortness of Breath Physical Examination - Vital Signs Temperature: 97 F Blood Pressure: 150/67 Pulse: 92 Respirations: 18 Pulse Ox (%): 98 - Physical Exam General: Alert, In no apparent distress Respiratory: Crackles/rales (Crackles at the left base), Expiratory wheezes Cardiovascular: No edema, Normal pulses Assessment And Plan - Current Problems (Diagnosis) (1) Pneumonia Current Visit: Yes Status: Acute Plan: Patient is 83 years of age end-stage COPD admitted with left lower lobe multiresistant to some pneumonia has completed IV therapy on nebulized colistin continue with low-dose prednisone and Daliresp cussed with the patient will await for evaluation for SNF or an rehab not possible will consider home rehab chemistries reviewed white count is now normal Qualifiers: Pneumonia type: due to Acinetobacter baumannii Laterality: left (2) COPD exacerbation Current Visit: No Status: Acute - Plan Low-dose prednisone scheduled bronchodilators being LTAC placement
[2023-08-31] MEDS: RIVAROXABAN 20 MG TABLET PO SCH (18:52)
[2023-08-31] MEDS: PRAMIPEXOLE 1 MG TAB PO SCH (20:33)
[2023-09-01] MEDS: ARFORMOTEROL TARTRATE 15 MCG/2 ML VIAL.NEB NEB SCH ×2 (05:45→19:57)
[2023-09-01] MEDS: ALBUTEROL 2.5 MG/3 ML NEB SOL NEB PRN (05:45)
[2023-09-01] MEDS: COLISTIMETHATE NA 150 MG/VIAL IH SCH (07:00)
[2023-09-01 08:22] LABS: Absolute Lymphocytes (CBC) 0.6 K/uL (0.7-4.9); Hematocrit 35.6 % (36.0-45.0); Lymphocytes % 6.7 % (15.3-44.8); MCV 90.2 fL (80-100); MPV 6.7 fL (7.6-11.3); Platelets 286 thou/uL (152-406); RBC Red Blood Cell Count 3.94 M/uL (3.86-4.86)
[2023-09-01] MEDS: ENSURE ENLIVE 237 ML CAN PO SCH ×2 (08:22→20:02)
[2023-09-01] MEDS: DOCUSATE NA 100 MG CAP PO SCH (08:22)
[2023-09-01] MEDS: ROFLUMILAST 500 MCG TABLET PO SCH (08:22)
[2023-09-01] MEDS: SPIRONOLACTONE 25 MG TABLET PO SCH (08:23)
[2023-09-01 08:45] LABS: Bilirubin Direct 0.2 mg/dL (0-0.2); Bilirubin Indirect, Calculated 0.2 mg/dL (0.2-0.8); Bilirubin Total 0.4 mg/dL (0.2-1.0); Potassium 3.6 mEq/L (3.5-5.1); Protein, Total 4.8 g/dL (6.4-8.2)
[2023-09-01] MEDS: OXcarbazepine 150 MG TAB PO SCH ×2 (08:55→20:03)
[2023-09-01] MEDS ORDERED: predniSONE 10 MG TAB PO SCH (09:00)
--- NOTE | 2023-09-01 09:59 | P.PN ---
Date of Service: 09/01/23 Chief Complaint: Dyspnea Subjective: Improving. + dyspnea on exertion + generalized weakness + intermittent cough No acute events reported overnight. In no apparent distress at this time. Physical Examination Temp Pulse Resp BP Pulse Ox 97.0 F 80 16 103/50 L 92 09/01/23 08:00 09/01/23 08:23 09/01/23 08:00 09/01/23 08:23 09/01/23 08:00 General: In no apparent distress. Oriented x3. HEENT: Atraumatic. Normocephalic Respiratory: inspiratory wheezes. Diminished at bases. On 3L nasal cannula. Cardiovascular: Tachycardic. No edema. Gastrointestinal: Normal bowel sounds, Soft and benign Integumentary: Ecchymosis BUE. No rashes. Laboratory Data - Reviewed Microbiology Data - Reviewed Imagings Data: - Reviewed Medications list: Reviewed Assessment and Plan Problem List Bacterial Pneumonia COPD on home O2 Hx DVT Bacterial Pneumonia COPD (on 2.5L O2 at home) - Sputum culture 08/19: Acinetobacter baumanii and Staph aureus - Acinetobacter may-resistant - Previously on Rocephin (08/18-08/23) - Completed 7 days Vabomere and Doxycycline (08/23-08/30) - completed 7 days Colistin inhalation (08/24-08/30) - Nebulizer treatments Recommendations - Off antibiotics since 08/30. Continue to monitor for worsening s/s of infection. - COPD, chronic respiratory failure: Pulmonology following, see note for further recommendations. - Supplemental nutrition - physical therapy Pending rehab placement. Case discussed with Herminia Sarabia
--- NOTE | 2023-09-01 10:10 | RAD REPORT ---
EXAM DESCRIPTION: RAD - Chest Single View - 09/01/2023 6:23 am CLINICAL HISTORY: The patient is 83 years old and is Female; SOB TECHNIQUE: Frontal view of the chest. COMPARISON: No pertinent prior images available for comparison at time of dictation FINDINGS: LUNGS: Patchy hazy and interstitial opacities demonstrated in the left greater than righ t lung bases. Relative hyperexpansion appearance of the lungs bilaterally. PLEURAL SPACE: Layering left-sided pleural effusion with possible loculated inferior lateral right- sided pleural effusion versus focal pleural thickening. No pneumothorax. MEDIASTINUM: Unremarkable cardiomediastinal contour. BONES/JOINTS: No acute osseous abnormality. VASCULATURE: Calcified atherosclerosis of the thoracic aorta. IMPRESSION: 1. Patchy hazy and interstitial opacities demonstrated in the left greater than right lung bases. 2. Layering left-sided pleural effusion with possible loculated inferior lateral right-sided pleura l effusion versus focal pleural thickening. 3. Relative hyperexpansion appearance of the lungs bilaterally. This can be seen with chronic obstr uctive pulmonary disease. Electronically signed by: Tristan Bonilla MD 09/01/2023 06:54 AM [facility] Due to temporary technical issues with the PACS/Fluency reporting system, reports are being signed by the in house radiologist without review as a courtesy to ensure prompt reporting. The interpreting r adiologist is fully responsible for the content of the report.
--- NOTE | 2023-09-01 11:29 | P.PN ---
Subjective Date of Service: 09/01/23 Chief Complaint: Lower lobe pneumonia Patient had episode of desat this morning rapid response was called is currently on BiPAP eyes any significant change Review of Systems General: Weakness Respiratory: Shortness of Breath Physical Examination - Vital Signs Temperature: 97.0 F Blood Pressure: 103/50 Pulse: 80 Respirations: 16 Pulse Ox (%): 92 - Physical Exam General: Alert, Oriented x3, Mild distress Respiratory: Clear to auscultation bilaterally, Diminished Cardiovascular: No edema, Regular rate/rhythm, Normal S1 S2 Assessment And Plan - Current Problems (Diagnosis) (1) Pneumonia Current Visit: Yes Status: Acute Plan: Patient's pneumonia is resolving x-ray still shows some inflammatory changes white count is normal Qualifiers: Pneumonia type: due to Acinetobacter baumannii Laterality: left (2) COPD exacerbation Current Visit: No Status: Acute (3) Chronic respiratory failure Current Visit: Yes Status: Acute Plan: Patient is 83 years of age with terminal COPD recurrent frequent exacerbation r eadmitted with pneumonia and now has chronic stable respiratory failure with hypoxemia and hypercapnia and will benefit from a noninvasive ventilator and also experiencing frequent nocturnal desaturation Qualifiers: Respiratory failure complication: hypoxia and hypercapnia Qualified Code(s): J96.11 - Chronic respiratory failure with hypoxia; J96.12 - Chronic respiratory failure with hypercapnia - Plan Increase prednisone to 10 mg twice a day for now
--- NOTE | 2023-09-01 15:29 | PN ---
Date of Progress Note: 08/31/2023 Patient basically seems status quo. However, according to Infectious Disease and Pulmonary, she has completed the necessary antibiotic treatments. She is no longer having purulent, productive cough al though is tightened up considerably. She is maintained on steroids and breathing treatment. Physica l therapy has also slowed somewhat. She has been turned down for an LTAC. We will see if she can qu alify for a SNF or upstairs at our hospital rehab. HR/MODL Voice ID: [id number] Report ID: [id number]
[2023-09-01] MEDS: RIVAROXABAN 20 MG TABLET PO SCH (16:35)
[2023-09-01] MEDS: predniSONE 10 MG TAB PO SCH (20:01)
[2023-09-01] MEDS: PRAMIPEXOLE 1 MG TAB PO SCH (20:01)
[2023-09-02] MEDS: ARFORMOTEROL TARTRATE 15 MCG/2 ML VIAL.NEB NEB SCH ×2 (08:00→19:11)
--- NOTE | 2023-09-02 08:48 | P.PN ---
Date of Service: 09/02/23 Chief Complaint: Dyspnea Subjective: Patient seen and examined at bedside. In no apparent distress. Reports feeling better today. No acute events reported overnight. Physical Examination Temp Pulse Resp BP Pulse Ox 96.5 F L 85 22 H 126/60 98 09/02/23 07:55 09/02/23 07:55 09/02/23 07:55 09/02/23 07:55 09/02/23 07:55 General: In no apparent distress. Oriented x3. HEENT: Atraumatic. Normocephalic Respiratory: mild inspiratory wheezes. Diminished at bases. On 3L nasal cannula. Cardiovascular: regular rate/rhytm. no edema. Gastrointestinal: Normal bowel sounds, Soft and benign. Non-tender. Integumentary: No rashes. Skin warm and dry. Laboratory Data - Reviewed Microbiology Data - Reviewed Imagings Data: - Reviewed Medications list: Reviewed Assessment and Plan Problem List Bacterial Pneumonia COPD on home O2 Trigeminal Neuralgia Hx DVT Bacterial Pneumonia - Sputum culture 08/19: Acinetobacter baumanii and Staph aureus - Acinetobacter may-resistant - Previously on Rocephin (08/18-08/23) - Completed 7 days Vabomere and Doxycycline (08/23-08/30) - completed 7 days Colistin inhalation (08/24-08/30) - Nebulizer treatments COPD (on 2.5-3L O2 at home) Chronic stable respiratory failure with hypoxemia and hypercapnia - Pulmonology following - On nebulizer treatments - On prednisone PO - XR Chest 09/01: "1. Patchy hazy and interstitial opacities demonstrated in the left greater than right lung bases. 2. Layering left-sided pleural effusion with possible loculated inferior lateral right-sided pleural effusion versus focal pleural thickening. 3. Relative hyperexpansion appearance of the lungs bilaterally. This can be seen with chronic obstructive pulmonary disease." Recommendations - Off antibiotics since 08/30. Continue to monitor for worsening s/s of infection. - COPD, chronic respiratory failure: Pulmonology following, see note for further recommendations. - Supplemental nutrition - physical therapy Pending rehab placement. Case discussed with Herminia Sarabia
[2023-09-02] MEDS: OXcarbazepine 150 MG TAB PO SCH ×2 (09:00→20:14)
[2023-09-02] MEDS: ENSURE ENLIVE 237 ML CAN PO SCH ×2 (09:00→20:14)
[2023-09-02] MEDS: predniSONE 10 MG TAB PO SCH ×2 (09:16→20:09)
[2023-09-02] MEDS: ROFLUMILAST 500 MCG TABLET PO SCH (09:16)
[2023-09-02] MEDS: DOCUSATE NA 100 MG CAP PO SCH (09:16)
--- NOTE | 2023-09-02 12:28 | P.PN ---
Subjective Date of Service: 09/03/23 Chief Complaint: Lower lobe pneumonia Patient is improving stable did not have any significant episode of desat last night Review of Systems General: Weakness Respiratory: Shortness of Breath Physical Examination - Vital Signs Temperature: 96.2 F Blood Pressure: 134/61 Pulse: 86 Respirations: 20 Pulse Ox (%): 99 - Physical Exam General: Alert, Oriented x3 Respiratory: Clear to auscultation bilaterally, Diminished Cardiovascular: No edema, Regular rate/rhythm, Normal S1 S2 Assessment And Plan - Current Problems (Diagnosis) (1) Pneumonia Current Visit: Yes Status: Acute Plan: Patient is 83 years of age with a history of terminal COPD left lower lobe with resistant organisms is currently improving invasive ventilator has been ordered stable for transfer to a rehab unit with BiPAP signs stable oxygenation satisfactory Qualifiers: Pneumonia type: due to Acinetobacter baumannii Laterality: left (2) COPD exacerbation Current Visit: No Status: Acute (3) Chronic respiratory failure Current Visit: Yes Status: Acute Plan: Patient is 83 years of age with terminal COPD recurrent frequent exacerbation readmitted with pneumonia and now has chronic stable respiratory failure with hypoxemia and hypercapnia and will benefit from a noninvasive ventilator and also experiencing frequent nocturnal desaturation Qualifiers: Respiratory failure complication: hypoxia and hypercapnia Qualified Code(s): J96.11 - Chronic respiratory failure with hypoxia; J96.12 - Chronic respiratory failure with hypercapnia - Plan Increase prednisone to 10 mg twice a day for now
[2023-09-02] MEDS: ALBUTEROL 2.5 MG/3 ML NEB SOL NEB PRN ×2 (15:18→19:11)
[2023-09-02] MEDS: RIVAROXABAN 20 MG TABLET PO SCH (16:54)
--- NOTE | 2023-09-02 18:53 | PN ---
Date of Progress Note: 09/02/2023 The patient is a little more alert today; however, she is somewhat disoriented. Her intake has impro kassie and her vital signs have been basically stable. Awaiting insurance clearance for rehab on the [facility] floor. The patient did have a much better night not needing BiPAP, therefore continue with prese nt regimen. HR/MODL Voice ID: [id number] Report ID: [id number]
[2023-09-02] MEDS: PRAMIPEXOLE 1 MG TAB PO SCH (20:09)
[2023-09-03 07:08] LABS: Absolute Lymphocytes (CBC) 0.5 K/uL (0.7-4.9); Hematocrit 35.1 % (36.0-45.0); Lymphocytes % 6.7 % (15.3-44.8); MCV 90.3 fL (80-100); MPV 6.6 fL (7.6-11.3); Platelets 317 thou/uL (152-406); RBC Red Blood Cell Count 3.89 M/uL (3.86-4.86)
[2023-09-03 07:29] LABS: Albumin 2.3 g/dL (3.4-5.0); Bilirubin Total 0.4 mg/dL (0.2-1.0); Potassium 4.1 mEq/L (3.5-5.1); Protein, Total 5.4 g/dL (6.4-8.2)
[2023-09-03] MEDS: ARFORMOTEROL TARTRATE 15 MCG/2 ML VIAL.NEB NEB SCH ×2 (07:59→18:59)
[2023-09-03] MEDS: ROFLUMILAST 500 MCG TABLET PO SCH (08:31)
[2023-09-03] MEDS: predniSONE 10 MG TAB PO SCH ×2 (08:32→20:27)
[2023-09-03] MEDS: OXcarbazepine 150 MG TAB PO SCH ×2 (08:33→20:26)
[2023-09-03] MEDS: DOCUSATE NA 100 MG CAP PO SCH (08:33)
[2023-09-03] MEDS: ENSURE ENLIVE 237 ML CAN PO SCH ×2 (08:37→20:27)
[2023-09-03 08:53] LABS: Platelet Estimate ADEQ; White Blood Cell Scan OK (OK)
--- NOTE | 2023-09-03 08:53 | P.PN ---
Date of Service: 09/03/23 Chief Complaint: Dyspnea Subjective: No acute events reported overnight. Patient seen and examined in room. Sitting up in bed. Business Continuity Manager at bedside. Reports feeling tired this morning. + shortness of breath + cough Physical Examination Temp Pulse Resp BP Pulse Ox 97.6 F 89 16 148/60 H 97 09/03/23 08:00 09/03/23 08:00 09/03/23 08:00 09/03/23 08:00 09/03/23 08:00 General: In no apparent distress. Oriented x3. HEENT: Atraumatic. Normocephalic. Neck supple. Respiratory: Inspiratory/expiratory wheezes. Crackles. Diminished at bases. Cardiovascular: regular rate/rhytm. No lower extremity edema. Gastrointestinal: Normal bowel sounds, Soft and benign. Non-tender. Non- distended. Integumentary: Skin warm and dry. No rashes. Laboratory Data - Reviewed Microbiology Data - Reviewed Imagings Data: - XR Chest 08/18: " Moderate left base pneumonia pattern is seen, progressive since the recent comparative examination." - XR Chest 08/19: "Stable airspace opacities predominantly in the left basilar region, concerning for pneumonia." - CT chest w contrast 08/23: " Consolidative dependent left lower lobe opacity with poorly defined fluid density components, concerning for pneumonia with necrotizing components, atypical pneumonia, or pneumonia in the setting of immunodeficiency. Please correlate clinically. No evidence of cavitation. Moderate left pleural effusion." - XR chest 08/26: "Stable pleuroparenchymal consolidative process at the left lower lung, concerning for pneumonia and associated effusion. " - XR Chest 08/30: " Some progression of bibasilar opacification on the right, concerning for pneumonia. " - XR Chest 09/01: "1. Patchy hazy and interstitial opacities demonstrated in the left greater than right lung bases. 2. Layering left-sided pleural effusion with possible loculated inferior lateral right-sided pleural effusion versus focal pleural thickening. 3. Relative hyperexpansion appearance of the lungs bilaterally. This can be seen with chronic obstructive pulmonary disease." Medications list: Acetaminophen (Acetaminophen 325 Mg Tablet) 650 mg PO Q6H PRN PRN Reason: TEMP > 100' F Albuterol Sulfate (Albuterol 2.5 Mg/3 Ml Neb Neela) 2.5 mg NEB [id number] PRN PRN Reason: SHORTNESS OF BREATH Last Admin: 09/02/23 19:11 Dose: 2.5 mg Arformoterol Tartrate (Arformoterol Tartrate 15 Mcg/2 Ml Vial.Neb) 15 mcg NEB BIDRESP [facility] Last Admin: 09/03/23 07:59 Dose: 15 mcg Clonidine HCl (Clonidine Hcl 0.1 Mg Tab) 0.1 mg PO Q6H PRN PRN Reason: SBP>190 or DBP >92 Last Admin: 09/03/23 12:32 Dose: 0.1 mg Docusate Sodium (Docusate Na 100 Mg Cap) 100 mg PO DAILY [facility] Last Admin: 09/03/23 08:33 Dose: 100 mg Nutritional Formula (Ensure Enlive 237 Ml Can) 237 ml PO BID [facility] Last Admin: 09/03/23 08:37 Dose: 237 ml Ondansetron HCl (Ondansetron 4 Mg/2 Ml Vial) 4 mg IV Q6H PRN PRN Reason: NAUSEA / VOMITING Last Admin: 08/26/23 11:25 Dose: 4 mg Oxcarbazepine (Oxcarbazepine 150 Mg Tab) 600 mg PO BID [facility] Last Admin: 09/03/23 08:33 Dose: Not Given Pramipexole Dihydrochloride (Pramipexole 1 Mg Tab) 1 mg PO BEDTIME [facility] Last Admin: 09/02/23 20:09 Dose: 1 mg Prednisone (Prednisone 10 Mg Tab) 10 mg PO BID [facility] Last Admin: 09/03/23 08:32 Dose: 10 mg Rivaroxaban (Rivaroxaban 20 Mg Tablet) 20 mg PO DAILY 5 PM [facility] Last Admin: 09/02/23 16:54 Dose: 20 mg Roflumilast (Roflumilast 500 Mcg Tablet) 250 mcg PO DAILY [facility] Last Admin: 09/03/23 08:31 Dose: 250 mcg Sodium Chloride (Sodium Chloride 0.9% 10ml Inj) 10 ml IV UD PRN PRN Reason: Diluant Assessment and Plan Problem List Bacterial Pneumonia COPD on home O2 Trigeminal Neuralgia Hx DVT Bacterial Pneumonia - Sputum culture 08/19: Acinetobacter baumanii and Staph aureus - Acinetobacter may-resistant - Previously on Rocephin (08/18-08/23) - Completed 7 days Vabomere and Doxycycline (08/23-08/30) - completed 7 days Colistin inhalation (08/24-08/30) - Nebulizer treatments COPD (on 2.5-3L O2 at home) Chronic stable respiratory failure with hypoxemia and hypercapnia - Pulmonology following - On nebulizer treatments - On prednisone PO - XR Chest 09/01: "1. Patchy hazy and interstitial opacities demonstrated in the left greater than right lung bases. 2. Layering left-sided pleural effusion with possible loculated inferior lateral right-sided pleural effusion versus focal pleural thickening. 3. Relative hyperexpansion appearance of the lungs bilaterally. This can be seen with chronic obstructive pulmonary disease." Recommendations Pending rehab placement - Off antibiotics since 08/30. Continue to monitor for worsening s/s of infection. - COPD, chronic respiratory failure: Pulmonology following, see note for further recommendations. - Nutritional supplementation - Physical therapy Case discussed with Herminia Sarabia
[2023-09-03 08:54] LABS: Blood Morphology Comment NOT SEEN (NOT SEEN)
[2023-09-03] MEDS ORDERED: cloNIDine HCL 0.1 MG TAB PO PRN (12:14)
--- NOTE | 2023-09-03 14:35 | PN ---
Date of Progress Note: 09/03/2023 Patient has had some more difficulty this morning as far as her breathing is concerned and her orient ation has improved slightly, this afternoon. We will obtain blood gases. She has been turned down f or fifth floor and will be re-evaluated for SNF at a later date depending on how she responds in next day or so. Continue on the same regimen. HR/MODL Voice ID: [id number] Report ID: [id number]
[2023-09-03 15:01] LABS: Blood Gas Oxyhemoglobin 95.6 % (94-97); Blood O2 Saturation 97.8 % (92-98.5)
[2023-09-03 15:02] LABS: Arterial Blood Carboxyhemoglob 1.1 % (0-1.5)
--- NOTE | 2023-09-03 15:27 | EKG ---
Test Date: 2023-09-03 Test Time: 12:32:38 Apprentice Photographer: [place] MEASUREMENT RESULTS: Intervals: Rate: 110 KS: 176 QRSD: 90 QT: 308 QTc: 416 Tonasket: P: 79 KS: 176 QRS: 88 T: 80 INTERPRETIVE STATEMENTS: Sinus tachycardia Otherwise normal ECG Compared to ECG 08/18/2023 13:24:54 No significant changes Electronically Signed On 09-03-23 15:26:16 SOCIAL WORK ASSOCIATE by Jaron Lester
[2023-09-03] MEDS: RIVAROXABAN 20 MG TABLET PO SCH (17:31)
[2023-09-03] MEDS: PRAMIPEXOLE 1 MG TAB PO SCH (20:27)
[2023-09-04] MEDS: ROFLUMILAST 500 MCG TABLET PO SCH (07:59)
[2023-09-04] MEDS: DOCUSATE NA 100 MG CAP PO SCH (07:59)
[2023-09-04] MEDS: predniSONE 10 MG TAB PO SCH ×2 (08:00→19:55)
[2023-09-04] MEDS: OXcarbazepine 150 MG TAB PO SCH ×2 (08:03→19:56)
[2023-09-04] MEDS: ENSURE ENLIVE 237 ML CAN PO SCH ×2 (08:03→19:55)
[2023-09-04] MEDS: ARFORMOTEROL TARTRATE 15 MCG/2 ML VIAL.NEB NEB SCH ×2 (08:52→20:00)
--- NOTE | 2023-09-04 10:18 | P.PN ---
Subjective Date of Service: 09/04/23 Chief Complaint: Lower lobe pneumonia COPD debilitation Patient is stable weak still has congestion did well on BiPAP her NIV has been improved Review of Systems General: Weakness Respiratory: Cough, Shortness of Breath Physical Examination - Vital Signs Temperature: 97 F Blood Pressure: 158/72 Pulse: 87 Respirations: 19 Pulse Ox (%): 98 - Physical Exam General: Alert, Oriented x3 Respiratory: Expiratory wheezes, Rhonchi/gurgles Cardiovascular: Regular rate/rhythm, Normal S1 S2, Edema Assessment And Plan - Current Problems (Diagnosis) (1) Pneumonia Current Visit: Yes Status: Acute Plan: Patient is doing better pneumonia seems to have resolved Qualifiers: Pneumonia type: due to Acinetobacter baumannii Laterality: left (2) COPD exacerbation Current Visit: No Status: Acute Plan: Patient has terminal COPD continue with bronchodilators low-dose spironolactone blood gases reviewed mild hypercapnia oxygenation satisfactory able to be discharged to rehab facility (3) Chronic respiratory failure Current Visit: Yes Status: Acute Plan: Patient is an IV has been approved Qualifiers: Respiratory failure complication: hypoxia and hypercapnia Qualified Code(s): J96.11 - Chronic respiratory failure with hypoxia; J96.12 - Chronic respiratory failure with hypercapnia - Plan Increase prednisone to 10 mg twice a day for now
[2023-09-04] MEDS: SPIRONOLACTONE 25 MG TABLET PO SCH (11:16)
[2023-09-04] MEDS: RIVAROXABAN 20 MG TABLET PO SCH (16:55)
[2023-09-04] MEDS: PRAMIPEXOLE 1 MG TAB PO SCH (19:56)
--- NOTE | 2023-09-05 05:40 | P.PN ---
Date of Service: 09/05/23 (0532) Ms. Colin is an 83 year old who was admitted for pneumonia. She was awaiting SNF however has decided she does not desire more hospitalization/treatment. She and her family apparently has a discussion with Dr. Gibson about these wishes and an order for DNR was placed. Ms. Colin is awaiting hospice services. I was phoned this am at 5:15 that she had refused all medications overnight. She became agitated after her bath and had been tachycardic with some desaturation since. I went to assess Ms. Colin. She is currently on BiPap, SpO2 93%, blood pressure at SPB 115, heartrate 120s, Opens eyes easily to request. Denies pain. I asked her if I could give her a little medication to ease her and she agrees. Allergic to codeine, orders for fentanyl 12.5mg IV given. Family appointed financial agent at bedside. Pt's Sons aware of plan and condition.
[2023-09-05] MEDS ORDERED: FENTANYL CITR 100 MCG/2 ML IV ONE (05:48)
[2023-09-05] MEDS: ARFORMOTEROL TARTRATE 15 MCG/2 ML VIAL.NEB NEB SCH (08:00)
[2023-09-05 08:52] VITALS: BP 125/60; TEMP 96.7
[2023-09-05] MEDS: predniSONE 10 MG TAB PO SCH ×2 (09:00→21:00)
[2023-09-05] MEDS: ENSURE ENLIVE 237 ML CAN PO SCH ×2 (09:00→21:00)
[2023-09-05] MEDS: ROFLUMILAST 500 MCG TABLET PO SCH (09:00)
[2023-09-05] MEDS: SPIRONOLACTONE 25 MG TABLET PO SCH (09:00)
[2023-09-05] MEDS: DOCUSATE NA 100 MG CAP PO SCH (09:00)
[2023-09-05] MEDS: OXcarbazepine 150 MG TAB PO SCH ×2 (09:00→21:00)
--- NOTE | 2023-09-05 09:03 | RAD REPORT ---
EXAM DESCRIPTION: RAD - Chest Single View - 09/05/2023 6:53 am CLINICAL HISTORY: pneumonia Chest pain. COMPARISON: <Comparisons> FINDINGS: Portable technique limits examination quality. Patchy airspace opacities are present in both lung bases, slightly worse on the right since 3. Small left pleural effusion. The heart is mildly enlarged in size.Aortic atherosclerosis. IMPRESSION: Mild worsening in right lung base aeration since comparative study dated 09/01/2023.
[2023-09-05 09:15] VITALS: O2SAT 95
--- NOTE | 2023-09-05 10:23 | P.PN ---
Subjective Date of Service: 09/05/23 Chief Complaint: Lower lobe pneumonia COPD debilitation Pt is dstressed doesn't wan to stay in hospital. Still weak an dshort of breath Review of Systems General: Weakness Respiratory: Shortness of Breath Physical Examination - Vital Signs Temperature: 96.7 F Blood Pressure: 125/60 Pulse: 89 Respirations: 18 Pulse Ox (%): 98 - Physical Exam General: Alert, Oriented x3 Respiratory: Clear to auscultation bilaterally, Diminished Cardiovascular: No edema, Regular rate/rhythm, Normal S1 S2 Assessment And Plan - Current Problems (Diagnosis) (1) Pneumonia Current Visit: Yes Status: Acute Plan: Pneumonia is imnproving Qualifiers: Pneumonia type: due to Acinetobacter baumannii Laterality: left (2) COPD exacerbation Current Visit: No Status: Acute Plan: Patient has terminal COPD continue with bronchodilators low-dose spironolactone blood gases reviewed mild hypercapnia oxygenation satisfactory able to be discharged to rehab facility (3) Chronic respiratory failure Current Visit: Yes Status: Acute Plan: Pt has terminal COPD. Pt want to go home of hospice care/ Dw Dr. Gibson informed Dr. Bourgeois. Qualifiers: Respiratory failure complication: hypoxia and hypercapnia Qualified Code(s): J96.11 - Chronic respiratory failure with hypoxia; J96.12 - Chronic respiratory failure with hypercapnia - Plan Increase prednisone to 10 mg twice a day for now
--- NOTE | 2023-09-05 16:38 | P.DS ---
Admission Date: 08/18/23 Discharge Date: 09/05/23 Disposition: HOSPICE-HOME Reason for Admission: Lower lobe pneumonia COPD debilitation Brief History of Present Illness: Ms. Colin is a 83yo with a history of advanced COPD and PE who came to the ED with productive cough, SOB at rest, and was noted to be hypoxic. Chest x-ray redemonstrated left base pneumonia worse from previous imaging. She was placed on Bi-pap in the ED and admitted for further management. Hospital Course: Diagnosis Acute on chronic respiratory failure with hypoxia secondary to Bacterial Pneumonia and acute COPD exacerbation, Chronic CHF h/o PE and DVT Hypertension Patient was admitted to the medical floor and the following medical problems addressed: Acute respiratory failure secondary to Bacterial Pneumonia / acute COPD exacerbation (on 2.5L home O2) CXR (08/18): Moderate left base pneumonia. Diffuse COPD CT chest (08/23): consolidative LLL opacity concerning for pneumonia with necrotizing components vs atypical pneumonia vs pneumonia in setting of immunodeficiency CXR (08/26): stable pleuroparenchymal consolidative process at LLL, concerning for pneumonia and associated effusion Blood cx (08/18): no growth Patient is disease consulted to assist with management Sputum cx (08/19): Acinetobacter yara/haem, Staph Aureus, Acinetobacter Baumanii Previously on Rocephin Patient treated with Vabomere / Doxycyline Also treated with colistin inhalation Treatments given include nebulizer treatments and steroids. Pulmonary Dr. Roth evaluated patient and assisted with management. :Per pulmonary, patient has terminal COPD and she is appropriate for hospice Repeat chest x-ray showed progressive worsening of infiltrates Patient requested DNR/DNI. She also requested to go home with hospice which has been arranged. Chronic CHF h/o PE and DVT Echo (08/18): 45-50% EF, trivial MR, mild calcified aortic valve continued xarelto Continued spironolactone Hypertension Stable Vital Signs/Physical Exam: Temp Pulse Resp BP Pulse Ox 96.7 F L 89 18 125/60 98 09/05/23 10:23 09/05/23 10:23 09/05/23 10:23 09/05/23 10:23 09/05/23 10:23 General: Alert, Moderate distress Neck: JVD not distended Respiratory: Crackles/rales Gastrointestinal: Soft and benign Integumentary: No cyanosis Laboratory Data at Discharge: WBC 8.10 thou/uL (4.3-10.9) 09/03/23 06:58 Hgb 12.0 g/dL (12.0-15.0) 09/03/23 06:58 Hct 35.1 % (36.0-45.0) L 09/03/23 06:58 Plt Count 317 thou/uL (152-406) 09/03/23 06:58 PT 21.3 SECONDS (9.5-12.5) H 08/18/23 12:39 INR 1.98 08/18/23 12:39 Sodium 130 mEq/L (136-145) L 09/03/23 06:58 Potassium 4.1 mEq/L (3.5-5.1) 09/03/23 06:58 BUN 10 mg/dL (7-18) 09/03/23 06:58 Creatinine 0.51 mg/dL (0.55-1.02) L 09/03/23 06:58 Glucose 83 mg/dL (74-106) 09/03/23 06:58 Magnesium 2.0 mg/dL (1.6-2.4) 08/18/23 12:39 Total Bilirubin 0.4 mg/dL (0.2-1.0) 09/03/23 06:58 AST 21 U/L (15-37) 09/03/23 06:58 ALT 21 U/L (13-56) 09/03/23 06:58 Alkaline Phosphatase 103 U/L (45-117) 09/03/23 06:58 Home Medications: Rivaroxaban [Xarelto*] 20 mg PO DAILY 04/13/13 Pramipexole Di-HCl [Mirapex] 1 tab PO BEDTIME 10/08/19 Albuterol Sulfate [Albuterol Sulfate 0.083% Neb Soln] 2.5 mg IH Q6HP PRN 15 Days #150 ml 09/06/22 Fluticasone/Umeclidin/Vilanter [Trelegy Ellipta 100-62.5-25] 1 puff IH DAILY 09/06/22 Pantoprazole [Protonix Tab*] 1 tab PO BEDTIME 01/19/23 Spironolactone [Aldactone*] 25 mg PO DAILY #30 tab 01/22/23 predniSONE [Deltasone*] 20 mg PO BID 06/07/23 Albuterol Sulfate [Ventolin Hfa] 2 puff IH Q6HP PRN 08/16/23 OXcarbazepine [Trileptal] 600 mg PO BID 08/16/23 Docusate [Colace Cap*] 100 mg PO DAILY #30 cap 09/05/23 New Medications: Docusate [Colace Cap*] 100 mg PO DAILY #30 cap Activity: Fall precautions Followup: Cruzito Gibson MD [Primary Care Provider] - Time spent managing pt's care (in minutes): 34
[2023-09-05] MEDS: RIVAROXABAN 20 MG TABLET PO SCH (16:47)
[2023-09-05] MEDS: PRAMIPEXOLE 1 MG TAB PO SCH (21:00)
== END 2023-09-05 21:00 | disposition hospice, home (50) | DRG 177 ==
LOC: ER 12:01 → ERHOLD 14:55 → 4TH 16:17
PROVIDERS: ADMIT Family Medicine; ATTEND Family Medicine
DX: J15.61 Pneumonia due to Acinetobacter baumannii (principal); J96.21 Acute and chronic respiratory failure with hypoxia; J96.22 Acute and chronic respiratory failure with hypercapnia; J44.1 Chronic obstructive pulmonary disease with (acute) exacerbation; G50.0 Trigeminal neuralgia; I11.0 Hypertensive heart disease with heart failure; I50.9 Heart failure, unspecified; Z87.891 Personal history of nicotine dependence; Z86.718 Personal history of other venous thrombosis and embolism; Z86.711 Personal history of pulmonary embolism; Z79.01 Long term (current) use of anticoagulants
CPT/HCPCS: 0241U; 36415; 36600; 71045; 71260; 80048; 80053; 80076; 81001; 82805; 83605; 83615; 83735; 83880; 84134; 84145; 84484; 85025; 85610; 87040; 87070; 87077; 87186; 87205; 93005; 93306; 94640; 94660; 94760; 97110; 97116; 97161; 97165; 97530; 99285; C9113; G0378; G0379; J0456; J0696; J0770; J1940; J2186; J2405; J2920; J2930; J3010; J3475; J7050; J7512; J7605; J7613; J7614; J7644; Q9967